=== PATIENT | female | born 1980 | race Caucasian/White ===

== ENCOUNTER 2021-10-07 17:51 | Observation (INO) | payer OTHER, SELFPAY ==
[2021-10-07] VITALS (10 sets, daily range): BP systolic 91–102; BP diastolic 52–74; PULSE 71–85; RESP 18; TEMP 36.8; O2SAT 94–100; BMI 27.4
--- NOTE | 2021-10-07 17:52 | CT_ITS ---
PROCEDURE INFORMATION: Exam: CT Head Without Contrast Exam date and time: 10/07/2021 5:55 PM Age: 41 years old Clinical indication: Weakness, extremity; Right; Additional info: Right sided weakness; HX of stroke TECHNIQUE: Imaging protocol: Computed tomography of the head without contrast. Radiation optimization: All CT scans at this facility use at least one of these dose optimization techniques: automated exposure control; mA and/or kV adjustment per patient size (includes targeted exams where dose is matched to clinical indication); or iterative reconstruction. Other technique: STROKE PROTOCOL was implemented. COMPARISON: No relevant prior studies available. FINDINGS: Brain: There is no evidence of infarct, orellana-white matter differentiation is preserved. There is no hemorrhage or extra-axial collection. There is no mass. Cerebral ventricles: There is no hydrocephalus. Paranasal sinuses: Visualized sinuses are unremarkable. No fluid levels. Mastoid air cells: Visualized mastoid air cells are well aerated. Bones/joints: There is a deformity of the right orbital floor which appears chronic. No acute fracture identified. Soft tissues: Unremarkable. IMPRESSION: No acute intracranial lesion or injury. ASSESSMENT: ASPECTS ([place] Stroke Program Early CT Score) is 10.
--- NOTE | 2021-10-07 17:53 | PC.NURSE ---
rad notified of Ct head order stroke protocol, spoke with juan carlos
--- NOTE | 2021-10-07 17:58 | PC.NURSE ---
pt to CT via stretcher
--- NOTE | 2021-10-07 18:19 | PC.NURSE ---
speaking with SACHIN
--- NOTE | 2021-10-07 18:22 | ECG_ITS ---
APPROVED REPORT Exam: Resting ECG HR:80 bpm ECG Measurements Heart Rate 80 AXES DC 184 P 46 QRSd 97 QRS 48 QT 416 T 0 QTc 453 Conclusion SINUS RHYTHM NONSPECIFIC T-WAVE ABNORMALITY BORDERLINE ECG UNCONFIRMED REPORT Electronically signed by : Jacob Gardner MD 10/08/2021 11:46:06
--- NOTE | 2021-10-07 18:22 | PC.NURSE ---
[facility] report negative head CT
[2021-10-07 18:45] LABS: Basophils # 0.1 K/mm3 (0-0.2); Basophils % 0.7 % (0.1-2.0); Eosinophils # 0.7 K/mm3 (0.0-0.4); Eosinophils % 4.8 % (0.1-12.0); Hematocrit 37.4 % (37.0-47.0); Hemoglobin 12.6 g/dL (12.2-16.2); Lymphocytes % 13.4 % (10-50); Mean Corpuscular HGB Conc 33.7 g/dL (31.8-35.4); Mean Corpuscular Hemoglobin 32.5 pg (27.0-31.2); Mean Corpuscular Volume 96.3 fl (81-99); Mean Platelet Volume 8.1 fl (7.4-10.4); Monocytes # 0.6 K/mm3 (0.1-1.0); Monocytes % 4.2 % (1.7-9.3); Neutrophils # 11.3 K/mm3 (1.8-7.8); Neutrophils % 76.9 % (37.0-80.0); Platelet Count 361 K/mm3 (142-424); Red Blood Count 3.89 M/mm3 (4.20-5.40); Red Cell Distribution Width 12.9 % (11.5-17.5); White Blood Count 14.6 K/mm3 (4.8-10.8)
[2021-10-07 19:02] LABS: Chloride 106 mmol/L (98-107); Sodium 138 mmol/L (136-145)
[2021-10-07 19:03] LABS: Potassium 3.3 mmoL/L (3.5-5.1)
[2021-10-07 19:05] LABS: Alanine Aminotransferase 90 U/L (12-78); Albumin Level 4.1 g/dl (3.5-5.0); Alkaline Phosphatase 74 U/L (38-126); Anion Gap 13.3 mEq/L (5-15); Aspartate Amino Transferase 60 U/L (14-36); Bilirubin,Indirect 0.3 mg/dL (0.0-0.9); Bilirubin,Total 0.3 mg/dl (0.2-1.3); Bilirubin,Unconjugated 0.3 mg/dL (0.0-1.1); Blood Urea Nitrogen 20 mg/dl (7-17); Calcium 9.7 mg/dl (8.4-10.2); Carbon Dioxide 22 mmol/L (22.0-30.0); Creatinine Clearance Estimated 59 mL/min (50-200); Estimated Glomerular Filt Rate 42 ml/min (>60); GFR (African American) 50 ML/MIN (>60); Glucose 89 mg/dl (74-100); Total Protein,Serum 6.6 g/dl (6.3-8.2)
[2021-10-07 19:14] LABS: INR 0.91 (0.9-1.1); Prothrombin Time 10.4 seconds (10.1-12.5)
[2021-10-07 20:43] LABS: Microscopic, Urine URINE MICROSCOPIC (MICROSCOPIC)
[2021-10-07 21:03] LABS: Appearance,Urine CLEAR (Clear); Bilirubin,Urine Negative (Negative); Blood, Urine TRACE-I (Negative); Color,Urine YELLOW (Yellow); Glucose,Urine (UA) Negative (Negative); Ketones,Urine Negative (Negative); Leukocyte Esterase,Urine 1+ (Negative); Nitrate,Urine Negative (Negative); Protein,Urine Negative (Negative); Urobilinogen,Urine 0.2 EU/dl (0.2)
[2021-10-07 21:10] LABS: HCG Qualitative, Serum Negative (Negative)
[2021-10-07 21:12] LABS: Magnesium 1.5 mg/dl (1.6-2.3)
[2021-10-07 21:14] LABS: Benzodiazepines Screen,Urine Negative ng/ml (<200)
[2021-10-07 21:15] LABS: Amphetamine/Metha Screen,Urine Negative ng/ml (<1000)
[2021-10-07 21:16] LABS: Barbiturates Screen,Urine Negative ng/ml (<200); Cannabinoid Screen,Urine Negative ng/ml (<50)
[2021-10-07 21:17] LABS: Cocaine Screen,Urine Negative ng/ml (<300)
[2021-10-07 21:18] LABS: Methadone Screen,Urine Negative ng/ml (<300); Opiate Screen,Urine Negative ng/ml (<300)
[2021-10-07 21:19] LABS: Phencyclidine Screen,Urine Negative ng/ml (<25)
[2021-10-07 21:30] LABS: T4 (Thyroxine) 10.2 ug/dl (5.53-11.0)
[2021-10-07 21:30] LABS: Bacteria,Urine 1+ /lpf; RBC,Urine Occasional #/hpf (0-3); WBC,Urine Occasional #/hpf (0-3)
[2021-10-07 21:43] LABS: Thyroid Stimulating Hormone 1.78 uIU/mL (0.465-4.68)
--- NOTE | 2021-10-07 21:57 | HMH.EDGENADL ---
ED Disposition Clinical Impression: Altered mental status Qualifiers: Altered mental status type: disorientation Qualified Code(s): R41.0 - Disorientation, unspecified Sepsis Qualifiers: Sepsis type: sepsis due to unspecified organism Sepsis acute organ dysfunction status: with acute organ dysfunction Severe sepsis acute organ dysfunction type: encephalopathy Severe sepsis shock status: without septic shock Qualified Code(s): A41.9 - Sepsis, unspecified organism; R65.20 - Severe sepsis without septic shock; G93.40 - Encephalopathy, unspecified Clinical Impression: (Ruled Out): Urinary tract infection affecting care of mother in first trimester, antepartum Disposition: Admitted As Inpatient Condition on Discharge: Undetermined Referrals: Provider,Referral, MD [Primary Care Provider] - - Critical Care Critical Care Time: Yes Attestation: On 10/07/21, the high probability of a clinically significant, sudden or life threatening deterioration of the following system(s) required my full and direct attention, intervention and personal management. The time I documented below is in addition to time spent performing reported procedures but includes the following listed in this critical care notation. Total Critical Care Time: 30 Vital system(s) involved:: Central Nervous System My critical care processes included: Assessment & monitoring of V/S, Initial and Re-exams, Data Review/Interpretation, Coordinating Care, Medication Orders and management, Documentation Medical Decision Making - Medical Records Medical records reviewed: Yes: I reviewed the patient's medical records. - Александр Inquiry Pt receiving controlled substance: No Vital Signs: 10/07/21 17:52 10/07/21 19:00 10/07/21 20:05 Temperature 98.2 F Temperature Source Oral Pulse Rate 78 Pulse Rate [Right Radial] 85 Respiratory Rate 18 Blood Pressure 95/70 L 99/65 L Blood Pressure [Right Arm] 99/74 L Blood Pressure Mean 75 Blood Pressure Mean [Right Arm] 82 Blood Pressure Source [Right Arm] Automatic Cuff Blood Pressure Position [Right Arm] Sitting 02 Sat by Pulse Oximetry 100 95 97 Oxygen Delivery Method Room Air Room Air Room Air 10/07/21 20:16 10/07/21 20:31 10/07/21 21:00 Temperature Temperature Source Pulse Rate 83 75 80 Pulse Rate [Right Radial] Respiratory Rate Blood Pressure 97/67 L 102/70 L Blood Pressure [Right Arm] Blood Pressure Mean 77 80 Blood Pressure Mean [Right Arm] Blood Pressure Source [Right Arm] Blood Pressure Position [Right Arm] 02 Sat by Pulse Oximetry 100 95 98 Oxygen Delivery Method Room Air Room Air Room Air 10/07/21 21:30 10/07/21 22:00 10/07/21 22:45 Temperature Temperature Source Pulse Rate 78 76 71 Pulse Rate [Right Radial] Respiratory Rate Blood Pressure 92/58 L 91/52 L 96/55 L Blood Pressure [Right Arm] Blood Pressure Mean 72 65 Blood Pressure Mean [Right Arm] Blood Pressure Source [Right Arm] Blood Pressure Position [Right Arm] 02 Sat by Pulse Oximetry 94 L 95 95 Oxygen Delivery Method Room Air Room Air Room Air 10/07/21 23:00 Temperature Temperature Source Pulse Rate Pulse Rate [Right Radial] Respiratory Rate Blood Pressure 96/61 L Blood Pressure [Right Arm] Blood Pressure Mean 72 Blood Pressure Mean [Right Arm] Blood Pressure Source [Right Arm] Blood Pressure Position [Right Arm] 02 Sat by Pulse Oximetry 96 Oxygen Delivery Method Room Air - Lab Data Lab results reviewed: Yes: I reviewed the patient's lab results. Lab Results 10/07/21 18:29: WBC 14.6 H, RBC 3.89 L, Hgb 12.6, Hct 37.4, MCV 96.3, MCH 32.5 H, MCHC 33.7, RDW 12.9, Plt Count 361, MPV 8.1, Neut % (Auto) 76.9, Lymph % (Auto) 13.4, [place] % (Auto) 4.2, Eos % (Auto) 4.8, Baso % (Auto) 0.7, Neut # (Auto) 11.3 H, Lymph # (Auto) 2.0, [place] # (Auto) 0.6, Eos # (Auto) 0.7 H, Baso # (Auto) 0.1 10/07/21 18:29: PT 10.4, INR 0.91 10/07/21 18:29: Sodium 138, Potassium 3.
[2021-10-07 22:00] LABS: Lactic Acid 2.1 mmol/L (0.7-2.1)
--- NOTE | 2021-10-07 22:06 | XR_ITS ---
PROCEDURE INFORMATION: Exam: XR Chest Exam date and time: 10/07/2021 10:12 PM Age: 41 years old Clinical indication: Other: AMS; Additional info: AMS, assess for underlying infection TECHNIQUE: Imaging protocol: XR of the chest. Views: 1 view. COMPARISON: No relevant prior studies available. FINDINGS: Lungs: Unremarkable. No consolidation. Pleural spaces: Unremarkable. No pleural effusion. No pneumothorax. Heart/Mediastinum: There is a cardiac loop recorder present. Bones/joints: Unremarkable. IMPRESSION: No acute findings
[2021-10-07 22:09] LABS: Coronavirus 19, PCR Not Detected (NotDetected); Influenza A, PCR Not Detected (NotDetected); Influenza B, PCR Not Detected (NotDetected)
--- NOTE | 2021-10-07 23:18 | PC.NURSE ---
MD Duran s/w Dr. Ramirez
[2021-10-08 01:07] LABS: Reflex Lactic Add Lactic Reflex
[2021-10-08 01:15] LABS: Lactic Acid Follow Up (RFLX 1) 0.7 mmol/L (0.7-2.1)
--- NOTE | 2021-10-08 01:19 | PC.NURSE ---
pt used bed alarcon to toilet
[2021-10-08 02:47] VITALS: BMI 28.4
--- NOTE | 2021-10-08 02:59 | PC.NURSE ---
Patient is slow to respond to questions when asked. She is alert and oriented x2, knowing her name and . Patient significant other at bedside.
[2021-10-08 03:16] VITALS: O2SAT 97
[2021-10-08 03:26] VITALS: BP 97/63; PULSE 79; RESP 14; TEMP 36.8; O2SAT 97
[2021-10-08 04:16] VITALS: BP 97/63; PULSE 85; RESP 18; TEMP 36.9; O2SAT 97
[2021-10-08 05:56] LABS: Basophils # 0.1 K/mm3 (0-0.2); Basophils % 0.9 % (0.1-2.0); Eosinophils # 0.6 K/mm3 (0.0-0.4); Eosinophils % 5.6 % (0.1-12.0); Hematocrit 34.6 % (37.0-47.0); Hemoglobin 11.6 g/dL (12.2-16.2); Lymphocytes % 18.1 % (10-50); Mean Corpuscular HGB Conc 33.4 g/dL (31.8-35.4); Mean Corpuscular Hemoglobin 31.9 pg (27.0-31.2); Mean Corpuscular Volume 95.4 fl (81-99); Mean Platelet Volume 8.4 fl (7.4-10.4); Monocytes # 0.6 K/mm3 (0.1-1.0); Monocytes % 4.9 % (1.7-9.3); Neutrophils # 7.9 K/mm3 (1.8-7.8); Neutrophils % 70.5 % (37.0-80.0); Platelet Count 334 K/mm3 (142-424); Red Blood Count 3.62 M/mm3 (4.20-5.40); Red Cell Distribution Width 12.7 % (11.5-17.5); White Blood Count 11.3 K/mm3 (4.8-10.8)
[2021-10-08 06:01] LABS: Chloride 112 mmol/L (98-107)
[2021-10-08 06:02] LABS: Potassium 3.7 mmoL/L (3.5-5.1); Sodium 137 mmol/L (136-145)
[2021-10-08 06:04] LABS: Alanine Aminotransferase 74 U/L (12-78); Albumin Level 3.3 g/dl (3.5-5.0); Albumin/Globulin Ratio 1.4 (1.1-1.8); Alkaline Phosphatase 70 U/L (38-126); Anion Gap 7.7 mEq/L (5-15); Aspartate Amino Transferase 54 U/L (14-36); Bilirubin,Total 0.4 mg/dl (0.2-1.3); Blood Urea Nitrogen 16 mg/dl (7-17); Calcium 8.6 mg/dl (8.4-10.2); Carbon Dioxide 21 mmol/L (22.0-30.0); Creatinine Clearance Estimated 95 mL/min (50-200); Estimated Glomerular Filt Rate 69 ml/min (>60); GFR (African American) 84 ML/MIN (>60); Globulin 2.4 g/dL (1.3-3.2); Glucose 86 mg/dl (74-100); Total Protein,Serum 5.7 g/dl (6.3-8.2)
--- NOTE | 2021-10-08 07:52 | HMH.PHAVTE ---
[facility] Pharmacy VTE Monitoring - Patient Demographics Admission date: 10/08/21 Report Date: 10/08/21 Time: 07:52 Allergies/Adverse Reactions: Patient Allergies topiramate [From Topamax] Allergy (Verified 10/07/21 17:57) Height: 1.6 m Weight: 72.745 kg Patient Problems: Current Active Problems Altered mental status (Acute) Sepsis (Acute) - VTE Risk Labs: VTE Related Lab Results Hgb 11.6 g/dL (12.2-16.2) L 10/08/21 05:42 Hct 34.6 % (37.0-47.0) L 10/08/21 05:42 Plt Count 334 K/mm3 (142-424) 10/08/21 05:42 PT 10.4 seconds (10.1-12.5) 10/07/21 18:29 INR 0.91 (0.9-1.1) 10/07/21 18:29 BUN 16 mg/dl (7-17) 10/08/21 05:42 Creatinine 0.90 mg/dl (0.52-1.04) D 10/08/21 05:42 Estimated Creat Clear 95 mL/min (50-200) 10/08/21 05:42 VTE Risk Level: Low Risk Clinical Trial Participant: No - Prophylaxis VTE Prophylaxis Ordered?: Yes Types of VTE Prophylaxis: TEDS Knee High
[2021-10-08 08:00] VITALS: BP 106/76; PULSE 85; RESP 15; TEMP 36.4; O2SAT 96; O2SAT 97
--- NOTE | 2021-10-08 10:06 | HMH.HP ---
*Admission Date: 10/08/21 *Chief complaint: AMS *History of present illness: Breana is a 41yo female with a past medical history of CVA with residual right-sided weakness requiring cane for ambulation, anxiety, depression and tremors is presenting for chief complaint of change in mental status for 1 day. Per girlfriend at bedside, patient was in her normal state of health yesterday. She has not had a fever at home, upper respiratory symptoms, not complaining of chest pain or shortness of breath and has not been vomiting or noted to have any diarrhea. Patient is trembling but is alert and is able to state her name. Her tremor is distractible and improves when asked to perform tasks such as raising her hand and asked to answer questions. Patient is unable to provide a history herself and intermittently does not follow commands but I suspect that lack of following commands may also be effort related. Breana is a 41-year-old female with a history significant for prior CVA, significant psychiatric history on lithium and tremors is presenting for chief complaint of altered mental status. On initial exam, patient is hemodynamically stable and nontoxic-appearing. She is able to state her name but does not participate in exam and is not able to give a meaningful history. Differential diagnosis includes, but is not limited to, underlying infection, electrolyte abnormality, medication side effect, lithium overdose, illicit drug use, psychiatric cause. She was evaluated with CBC, BMP, liver panel, lactic acid, magnesium, TSH/T4, test, lithium level and COVID-19 screen. Lab work is significant for mild hypokalemia and hypomagnesemia. Potassium was replaced p.o. and patient was given IV replacement of magnesium. Additionally, patient has leukocytosis w/WBC of 14.6 and lactic acid greater than 2. UA is suspicious for infection given it was a cath specimen, +leukesterase and bacteria. She was given IV ceftriaxone and assessed with BCx. [place] toxicity is still a consideration, as is polypharmacy. Admitted for inpatient management. (Above as per ER physician) Patient is a resident of [facility] and is only here visiting. All of her physicians are in [place]. This morning she can relay some history but is still very confused. She does remember some of her medical conditions and some of her medications. [facility] History I have reviewed the patient's past medical history: Yes Medical History: Reports:: Anxiety, Cerebrovascular Accident, Depression, Diabetes Mellitus Type 2, Hyperlipidemia, Hypertension Denies:: Cancer, Diabetes Mellitus Type 1, MRSA *Have you ever received a pneumonia vaccine?: Yes *Have you received a flu vaccine this season?: No Other Medical History: Reports: Hypothyroidism, Thyroid Disease, Other (Bipolar disorder, insomnia) Other Surgeries: Yes: No Previous Surgery Amputation: No Fractures: No - *Social History Smoking Status: Current every day smoker Alcohol Intake: never *Occupational Status:: unemployed Household Members: significant other *Travel in the last 8 weeks: None Family Hx:: Unable to obtain Review of Systems - Constitutional Denies fever(s) - Eyes Denies blurry vision, Denies double vision - ENT Denies nasal congestion, Denies sore throat - *Cardiovascular Denies chest pain, Denies shortness of breath - *Respiratory Denies cough, Denies shortness of breath - *Gastrointestinal Denies abdominal pain, Denies loose stools, Denies nausea, Denies vomiting - *Genitourinary Denies difficulty urinating, Denies painful urination - *Musculoskeletal Denies joint pain - *Neurologic Reports abnormal speech, Reports confusion, Reports dizziness, Reports weakness Meds Home Medications Medication Instructions Recorded Confirmed Type Ascorbic Acid/Vitamin E/Biotin 1 each PO DAILY 10/07/21 10/07/21 History [Hair Skin Nails-Biotin Gummies] Aspirin [Aspirin 81mg chewable 81 mg PO TERENCE
--- NOTE | 2021-10-08 11:32 | HMH.PHAINT ---
home medication list verified using pt bottles and list from Manuel in [place]
[2021-10-08 11:51] LABS: POC Glucose,Bedside 123 (70-110)
--- NOTE | 2021-10-08 12:19 | CA_ITS ---
APPROVED REPORT EXAM: Comprehensive 2D, Doppler, and color-flow Echocardiogram Dairy Hand: Parul Kc, RCS, RVS Ht: 5 ft 2 in Wt: 160lbs BSA: 1.74 BP: 000/00 mmHg Indications: AMS, loop recorder, murmurs, hx-CVA, Bipolar anxiety Echo Enhancing Agent Comments: Pt movement due to tremors/convulsions? 2D Dimensions Aortic Root 3.13 cm LA Volume 55.80 mL Left Atrium 3.98 cm LA Volume Index 32.530089 mL/m2 (M/F) 16-34 LVOT 2.00 cm (M/F) 1.5-2.5 M-Mode Dimensions RVDd 2.47 cm (0.9-2.6) LA Diam 3.93 cm (1.9-4.0) LVDd 4.94 cm (3.5-5.7) Ao Diam 2.96 cm (2.0-3.7) LVDs 3.11 cm (3.5-5.7) IVSd 0.97 cm (0.6-1.1) PWd 0.89 cm (0.6-1.1) EF (Teich) 66.80% EPSs 0.61 cm FS 37.00% EDV (Teich) 115.00 mL TAPSE 2.58 (<1.7) ESV (Teich) 38.20 mL LV Diastology E Decel Time 203.00 (160-240 msec) E/A Ratio 1.10 MED E' 8.70 (< 7 cm/sec) MED A' 10.80 cm/s E'/MED E' Ratio 9.47 (>14) LAT E' 9.40 (<10 cm/sec) LAT A' 11.80 cm/s E/LAT E' Ratio 8.77 (>14) Aortic Valve LVOT Max 86.00 (70-110 cm/s) LVOT VTI 17.14 cm AoV Peak Jesus Alberto. 159.00 (50-130 cm/s) AI PHT 357.00 ms AO Peak GR. 10.10 mmHg AO Mean GR. 5.00 (<5 mmHg) AO VTI 31.61 (18-25 cm) KURT (VTI) 1.70 (2.5-4.5 cm2) Mitral Valve MV A Velocity 75.00 (40-130 cm/s) E/A Ratio 1.10 MV Decel. Time 203.00 (160-240 ms) MV Mean Gr. 2.70 (<2mmHg) MV PHT 60.00 ms Pulmonary Valve PV Peak Velocity 97.00 (50-150 cm/s) Tricuspid Valve TR P. Velocity 226.00 cm/s RAP Estimate 10.00 mmHg RVSP 30.40 mmHg Left Ventricle Left atrium is normal size, left ventricle is normal size, there is no concentric left ventricular hypertrophy, estimated ejection fraction 55% with no regional wall motion abnormality, diastolic parameters are within normal range. Right Ventricle Right atrium is normal size, right ventricle is qualitatively mildly enlarged with normal contractility. Aortic Valve Aortic valve is minimally thickened and fibrosed. Leaflets are not well visualized, there is no aortic stenosis, there is mild aortic insufficiency. Mitral Valve Mitral valve grossly normal, there is trace mitral regurgitation. Tricuspid Valve Tricuspid valve grossly normal, there is trace tricuspid regurgitation, calculated right ventricular systolic pressure 30 mmHg. Pulmonic Valve Pulmonic valve is poorly visualized. Great Vessels Aortic root is normal size. Inferior vena cava is poorly visualized. Pericardium No significant pericardial effusion noted. Conclusion 1. Normal left ventricular size, preserved left ventricular systolic function, visually estimated ejection fraction 55% with no regional wall motion abnormality, diastolic parameters are within normal range. 2. Minimally thickened and fibrosed aortic valve leaflets are not well visualized, there is no aortic stenosis, there is mild aortic insufficiency. 3. Trace mitral and tricuspid regurgitation, calculated right ventricular systolic pressure 30 mmHg. 4. No significant pericardial effusion noted. 5. Inferior vena cava is poorly visualized. Electronically signed by : Ulises Brandt MD 10/09/2021 09:05:39
--- NOTE | 2021-10-08 13:30 | HMH.CNCARD ---
History of Present Illness Consult date: 10/08/21 Requesting physician: Lance Ramirez Chief complaint: altered mental status History of present illness: This is a 41-year-old white female who presented to the emergency department complaints of mental status change for approximately 1 day. Her girlfriend reports that she was in her normal state of health with no complaints and then she started to have a tremor and was very slow to respond and was having difficulty answering questions. The patient was having significant confusion so the girlfriend brought her into the emergency department. The patient states that she remembers having the tremor and feeling like she was trembling and she knew she was confused. Today she is able to answer my questions appropriately and she is able to follow commands. She is very slow to answer questions and her speech is also very slow but otherwise she answers appropriately. She denies any chest pain or pressure. She denies any shortness of breath or edema. She denies any fever, chills, nausea, vomiting, diarrhea, PND or orthopnea. The patient and her girlfriend deny any syncope. The patient does have a loop recorder in place for cryptogenic stroke. She states that she had her stroke almost 2 years ago and has had a loop recorder in place since that time. She denies a history of coronary artery disease. She does have bipolar disorder and takes several different psychiatric medications. Of note, she is a resident of [facility] who is here visiting. [facility] History I have reviewed the patient's past medical history: Yes Medical History: Reports:: Anxiety, Cerebrovascular Accident, Depression, Diabetes Mellitus Type 2, Hyperlipidemia, Hypertension Denies:: Cancer, Diabetes Mellitus Type 1, MRSA *Have you ever received a pneumonia vaccine?: Yes *Have you received a flu vaccine this season?: No Other Medical History: Reports: Hypothyroidism, Thyroid Disease, Other (Bipolar disorder, insomnia) Other Surgeries: Yes: No Previous Surgery Amputation: No Fractures: No - *Social History Smoking Status: Current every day smoker Alcohol Intake: never *Occupational Status:: unemployed Household Members: significant other *Travel in the last 8 weeks: None - Psychiatric History Pschychiatric History:: Reports:: Anxiety, Depression Family Hx:: Unable to obtain Meds Home Medications Medication Instructions Recorded Confirmed Type Ascorbic Acid/Vitamin E/Biotin 1 tab PO DAILY 10/07/21 10/08/21 History [Hair Skin Nails-Biotin Gummies] Aspirin [Aspirin 81mg chewable 81 mg PO DAILY 10/07/21 10/07/21 History tab] Atorvastatin Calcium [Lipitor 80mg 80 mg PO HS 10/07/21 10/07/21 History Tablet*] Baclofen 20 mg PO TID 10/07/21 10/07/21 History Buspirone HCl [Buspar 5mg tablet] 5 mg PO TID 10/07/21 10/07/21 History Cholecalciferol (Vitamin D3) 50,000 unit PO WEEKLY 10/07/21 10/07/21 History [Vitamin D3 50,000 unit Cap] Fluoxetine HCl 60 mg PO DAILY 10/07/21 10/07/21 History Gabapentin [Gabapentin 400mg Cap] 400 mg PO DIRECTED 10/07/21 10/07/21 History Levothyroxine Sodium 75 mcg PO DAILY 10/07/21 10/07/21 History [Levothyroxine 75mcg (0.075mg) Tab] [place] Carbonate 300 mg PO BID 10/07/21 10/07/21 History Losartan Potassium [Cozaar 100mg 100 mg PO DAILY 10/07/21 10/07/21 History Tablets] Metformin HCl [Metformin 1000mg 1,000 mg PO BID 10/07/21 10/07/21 History Tablets] Quetiapine Fumarate [Seroquel 200 mg PO HS 10/07/21 10/07/21 History 100mg tablet] Trazodone HCl 1 - 2 tab PO HSP PRN 10/07/21 10/08/21 History buPROPion HCL [Bupropion HCl Sr] 200 mg PO DAILY 10/07/21 10/07/21 History hydroCHLOROthiazide [HCTZ 25mg 25 mg PO DAILY 10/07/21 10/07/21 History tab] Allergies Allergy/AdvReac Type Severity Reaction Status Date / Time topiramate [From Topcodyx] Allergy Verified 10/07/21 17:57 Exam Vital signs and Labs for Last 24 Hours: Temp Pul
[2021-10-08 14:13] LABS: Troponin I < 0.01 ng/ml (0.00-0.034)
[2021-10-08 16:00] VITALS: BP 111/74; PULSE 80; RESP 16; TEMP 36.6; O2SAT 98
--- NOTE | 2021-10-08 18:49 | PC.NURSE ---
Called Dr. Ramirez about patient requesting medications she takes at home, he stated that he had already ordered the meds wanted and denied further orders at this time. Patient verbalized wanting to go home, MD aware, educated patient on not taking home medications that the significant other had at the time. Vital signs stable, call light in place and working properly.
--- NOTE | 2021-10-08 19:08 | PC.NURSE ---
t had emesis x 1, states she feels better post emesis. Called and spoke with Dr. Neal for zofran order. 4MG IV zofran given @ 1905
[2021-10-08 20:00] VITALS: BP 115/83; PULSE 82; RESP 18; TEMP 36.7; O2SAT 99
[2021-10-09 04:00] VITALS: BP 130/89; PULSE 87; RESP 17; TEMP 36.8; O2SAT 100
--- NOTE | 2021-10-09 05:57 | PC.NURSE ---
Pt has rested intermittently t/o shift. Pt has voiced no c/o of N/V or pain thus far in shift. Pt was able to state name, , place and year. Pt also remained orientated t/o shift.
[2021-10-09 08:00] VITALS: BP 129/92; PULSE 87; RESP 18; TEMP 36.7; O2SAT 100
[2021-10-09 08:42] LABS: Lithium (Eskalith(R)) 1.4 mmol/L (0.5-1.2)
--- NOTE | 2021-10-09 10:24 | HMH.ACPN2 ---
Internal Medicine - PN: Subj *Date: 10/09/21 *Time: 10:24 Interval history: The patient states she is feeling much better today. Her legs are still weak but she is able to move about her room. She denies any pain today and her speech is much better. She states she did not rest at all last night. She usually takes Seroquel and trazodone to sleep and did not get those last night. Exam Vital signs and Labs for Last 24 Hours: Temp Pulse Resp BP Pulse Ox 98.0 F 87 18 129/92 H 100 10/09/21 08:00 10/09/21 08:00 10/09/21 08:00 10/09/21 08:00 10/09/21 08:00 Laboratory Results - last 24 hr 10/07/21 21:11: [place] 1.4 H 10/08/21 05:42: Hemoglobin A1c 5.0 10/08/21 11:44: POC Glucose 123 H 10/08/21 12:34: Troponin I < 0.01 I & O for Last 24 hours: Intake & Output 10/06/21 10/07/21 10/08/21 10/09/21 11:59 11:59 11:59 11:59 Intake Total 636 / 636 3259 / 3259 Output Total 1050 / 1050 2900 / 2900 Balance -414 / -414 359 / 359 Weight 160 lb 6 oz Microbiology Reports for the Last 24 Hours: Microbiology 10/07/21 20:20 Urine,Clean Catch Urine Culture - Preliminary NO GROWTH AFTER 24 HOURS - Constitutional no acute distress - *Routine Respiratory Exam Present: CTA bilaterally - *Routine Cardiovascular Exam Present: RRR - *Routine Abdominal Exam Present: soft, normoactive bowel sounds. Absent: tenderness - *Routine Extremities Exam Absent: cyanosis, clubbing, edema - *Routine Skin Exam Present: warm. Absent: rash - *Routine Neurological Exam Present: alert, oriented X3, normal speech Assessment and Plan (1) Altered mental status Status: Acute Qualifiers: Altered mental status type: disorientation Qualified Code(s): R41.0 - Disorientation, unspecified Category: Medical Code(s): R41.82 - Altered mental status, unspecified (2) Renal insufficiency Status: Acute Category: Medical Code(s): N28.9 - Disorder of kidney and ureter, unspecified (3) Hypomagnesemia Status: Acute Category: Medical Code(s): E83.42 - Hypomagnesemia (4) Liver function test abnormality Status: Acute Category: Medical Code(s): R79.89 - Other specified abnormal findings of blood chemistry (5) Hypokalemia Status: Acute Category: Medical Code(s): E87.6 - Hypokalemia (6) Leukocytosis Status: Acute Category: Medical Code(s): D72.829 - Elevated white blood cell count, unspecified (7) Bipolar disorder Status: Chronic Category: Medical Code(s): F31.9 - Bipolar disorder, unspecified (8) Anxiety Status: Chronic Category: Medical Code(s): F41.9 - Anxiety disorder, unspecified (9) Hypertension Status: Chronic Category: Medical Code(s): I10 - Essential (primary) hypertension (10) Hyperlipidemia Status: Chronic Category: Medical Code(s): E78.5 - Hyperlipidemia, unspecified (11) History of CVA (cerebrovascular accident) Status: Chronic Category: Medical Code(s): Z86.73 - Personal history of transient ischemic attack (TIA), and cerebral infarction without residual deficits (12) Type 2 diabetes mellitus Status: Chronic Category: Medical Code(s): E11.9 - Type 2 diabetes mellitus without complications (13) Status post placement of implantable loop recorder Status: Acute Category: Medical Code(s): Z95.818 - Presence of other cardiac implants and grafts - Assessment and plan all Dx Assessment and Plan for all problems:: Her lithium level was checked and was elevated. She was seen in consultation by cardiology and her [employer] loop recorder was interrogated showing no events. Her echo showed a normal EF. Cardiology had no further recommendations. The patient would like to be discharged home today. Will discuss with Dr. Ramirez.
--- NOTE | 2021-10-13 13:41 | HMH.DCSUM ---
General - General Admission date:: 10/08/21 Discharge date: 10/09/21 HPI HPI: Breana is a 41yo female with a past medical history of CVA with residual right-sided weakness requiring cane for ambulation, anxiety, depression and tremors is presenting for chief complaint of change in mental status for 1 day. Per girlfriend at bedside, patient was in her normal state of health yesterday. She has not had a fever at home, upper respiratory symptoms, not complaining of chest pain or shortness of breath and has not been vomiting or noted to have any diarrhea. Patient is trembling but is alert and is able to state her name. Her tremor is distractible and improves when asked to perform tasks such as raising her hand and asked to answer questions. Patient is unable to provide a history herself and intermittently does not follow commands but I suspect that lack of following commands may also be effort related. Breana is a 41-year-old female with a history significant for prior CVA, significant psychiatric history on lithium and tremors is presenting for chief complaint of altered mental status. On initial exam, patient is hemodynamically stable and nontoxic-appearing. She is able to state her name but does not participate in exam and is not able to give a meaningful history. Differential diagnosis includes, but is not limited to, underlying infection, electrolyte abnormality, medication side effect, lithium overdose, illicit drug use, psychiatric cause. She was evaluated with CBC, BMP, liver panel, lactic acid, magnesium, TSH/T4, test, lithium level and COVID-19 screen. Lab work is significant for mild hypokalemia and hypomagnesemia. Potassium was replaced p.o. and patient was given IV replacement of magnesium. Additionally, patient has leukocytosis w/WBC of 14.6 and lactic acid greater than 2. UA is suspicious for infection given it was a cath specimen, +leukesterase and bacteria. She was given IV ceftriaxone and assessed with BCx. Wilhoit toxicity is still a consideration, as is polypharmacy. Admitted for inpatient management. (Above as per ER physician) Patient is a resident of [facility] and is only here visiting. All of her physicians are in [place]. This morning she can relay some history but is still very confused. She does remember some of her medical conditions and some of her medications. Hospital Course Hospital Course: The patient seemed to be improving the morning after admission. Her head CT was negative for stroke. Her potassium normalized and her white blood cell count decreased with antibiotics. Her renal function normalized and her LFTs improved. She had a loop recorder in place due to her past stroke and other near syncopal episodes. She was on multiple psychiatric medications. Dr. Ramirez ordered only her levothyroxine, aspirin, and BuSpar initially as he was concerned about her medications causing altered mental status. Blood pressure was not elevated, therefore HCTZ and losartan were held. Her glucose was not elevated, so metformin was held as well. The patient had an echo showing an EF of 55%. There were minimally thickened and fibrosed aortic valve leaflets, but no aortic stenosis. She had a right ventricular systolic pressure of 30 mmHg. She was seen in consultation by cardiology and her Sidecar.metronic loop recorder was interrogated. There were no events and her battery life was still good. They had no further recommendations from a cardiac standpoint and felt she could follow-up with her pin setter in [place] once discharged. By 10/10/2021, she was feeling much better. Her legs were still weak, but she was able to move about her room. Her speech had improved and she denied any pain. She wanted to go home and was stable to be discharged. Objective Vital signs: Temp Pulse Resp BP Pulse Ox 98.0 F 87 18 129/92 H 100 10/09/21 08:00 10/09/21 08:00 10/09/21 08:00 10/09/21
== END 2021-10-09 13:40 | disposition home or self-care (01) ==
LOC: ER 23:27 → ICU 10-08 03:23 → 2ND 10-08 04:23
PROVIDERS: Emergency Medicine; Nurse Practitioner Family; Admitting Provider Family Medicine; Emergency Provider Emergency Medicine; Visit Provider Family Medicine
DX: R41.82 Altered mental status, unspecified (principal); Z20.822 Contact with and (suspected) exposure to COVID-19; E11.9 Type 2 diabetes mellitus without complications; I10 Essential (primary) hypertension; E03.9 Hypothyroidism, unspecified; F31.9 Bipolar disorder, unspecified; F17.210 Nicotine dependence, cigarettes, uncomplicated; Z79.84 Long term (current) use of oral hypoglycemic drugs; Z79.899 Other long term (current) drug therapy; I69.351 Hemiplegia and hemiparesis following cerebral infarction affecting right dominant side
CPT/HCPCS: 36415; 70450; 71045; 80048; 80053; 80076; 80178; 80305; 81001; 82962; 83036; 83605; 83735; 84436; 84443; 84484; 84703; 85025; 85610; 87040; 87086; 93005; 93306; 96375; 99285; C9803; G0378; J0696; J2405; U0003; U0005

== ENCOUNTER → 2022-01-22 08:15 | Outpatient (CLI) | payer OTHER, SELFPAY ==
--- NOTE | 2022-01-22 08:16 | MR_ITS ---
FINAL REPORT CLINICAL HISTORY: right sided weakness. F/U STROKE 2 YEARS AGO. FINDINGS: Multiplanar MR imaging of the brain was performed without contrast. There are chronic left periventricular lacunar infarcts. There is no evidence of intracranial hemorrhage or mass. The ventricular size is normal. There is no evidence of shift of the midline structures. No abnormal extra-axial fluid collection is identified. The posterior fossa and brainstem have an unremarkable appearance. No area of abnormal restricted diffusion is identified. Normal major vessel vascular flow voids are seen. IMPRESSION: Unremarkable brain with no acute intracranial abnormality. Chronic changes. Reviewed, Interpreted and Dictated by Jim Tompkins III, MD Transcribed by Meghna Downs Authenticated and [facility]
== END ==
PROVIDERS: PCP Nurse Practitioner Family; Visit Provider Specialist
DX: M62.81 Muscle weakness (generalized) (principal); Z86.73 Personal history of transient ischemic attack (TIA), and cerebral infarction without residual deficits
CPT/HCPCS: 70551

== ENCOUNTER 2022-05-25 11:00 | Outpatient (RCR) | payer MEDICARE, OTHER, SELFPAY ==
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
--- NOTE | 2022-03-23 12:13 | HMH.RHREAS ---
Rehab Reassessment Rehab OP Re-assessment Start: 03/23/22 10:05 Freq: Status: Active Protocol: Document 03/23/22 10:05 SHARON (Rec: 03/23/22 12:12 SHARON [id number]) E-signed By Hannah Puga PT Rehab Re-assessment Subjective Subjective Pt reports she feels that she is 20% better since starting PT. Pt reports she feels that her balance is a little bit better but she continues to struggle with equal weightbearing on both sides stating she favors the left. Pt reports pain at worse as 8/ 10 within the last week. Objective Objective Notes TU with SC, 32 without AD RLE MMT: 4-/5 with noted cogwheeling Assessment Progress Assessment Slower Than Expected Assessment Notes Pt has attended 7 PT visits consisting of aerobic exercise , LE stretching/strengthening, gait training and balance/ proprioception with fair tolerance. Pt demonstraetd improved balance, TUG time, and improved RPE with endurance exercise this date. Pt continues to demonstrate fatigue with exercise and decreased balance. Pt would continue to benefit from skilled PT to further improve muscular strength and endurance, gait, and balance/ proprioception. Patient goals met ST/7 Goals Not Met LE strength Revised Goals n/a Plan Plan Continue POC Frequency of Therapy 2 Duration of therapy 4 Time and Billing Re-Eval Time 8 Re-Eval Billing Units 1 PHYSICIAN CERTIFICATION: I certify the specified therapy services for Breana Garcia are required, authorized, and reviewed every 30 days.
--- NOTE | 2022-04-22 13:43 | HMH.RHREAS ---
Rehab Reassessment Rehab OP Re-assessment Start: 03/23/22 10:05 Freq: Status: Active Protocol: Document 04/22/22 13:15 SHARON (Rec: 04/22/22 13:43 SHARON [id number]) E-signed By Hannah Puga PT Rehab Re-assessment Subjective Subjective Pt reports she feels 25-30% improved since starting PT. Pt reports she continues to get fatigued very easily which has worsened this week and goes to her doctor today regarding this. Pt reports she saw a doctor who ordered an AFO that she will receive in ~4 weeks. Pt reports she would like to walk without her cane and has been trying some at home but does have a fear of falling. Pt reports her right knee will buckle on her at random times . Pt reports she does not feel anymore confident in her balance or gait overall. Pt reports she also has fear of falling on stairs. Objective Objective Notes TU with SC, 37 with no AD, CGA LE MMT: hip flex 4+/5, knee ext 5/5, knee flex 4/5, R ankle DF 4/5, L ankle DF 5/5, hip add/abd 4/5 Balance: modified tandem EC on unstable surface 30 with sway, no LOB Assessment Progress Assessment Slower Than Expected Assessment Notes Pt has attended 13 PT visits consisting of aerobic exercise , LE stretching/strengthening, gait training and balance/ proprioception with fair tolerance. Pt demonstrated overall improved LE strength and balance this date. Pt continues to demonstate fatigue with light exercise although does report decreased RPE with aerobic exercise compared to last reassessment. Pt demosntrated same time on TUG with straight cane; however, wors
--- NOTE | 2022-05-25 12:21 | HMH.RHREAS ---
Rehab Reassessment Rehab OP Re-assessment Start: 03/23/22 10:05 Freq: Status: Active Protocol: Document 05/25/22 10:48 SHARON (Rec: 05/25/22 12:21 SHARON [id number]) E-signed By Hannah Puga PT Rehab Re-assessment Subjective Subjective Pt reports she received her AFO brace last Tuesday and was instructed to wear it a couple hours each day to get used to it for the first couple weeks. Pt reports she feels that she is walking better with it on and that it helps with her foot drop but she is still getting used to it. Pt reports she feels she has improved 40% since starting PT. Pt states she still has difficulty with balance and walking without her cane, denies falls. Pt reports she returns to Dr. Machado to address fatigue on June 07. Objective Objective Notes TUG with SC: 18 TUG without SC: 27 with CGA Stairs: reciprocal pattern with 1 HR, slow dudley due to report of inability to feel toes on right foot to assist with push-off RLE MMT: 4+/5 grossly Assessment Progress Assessment Progressing as Expected Assessment Notes Pt has attended 18 PT visits consisting of aerobic exercise , LE stretching/strengthening, gait training and balance/ proprioception with improved tolerance. Pt demonstrated improved gait mechanics and speed this date with new addition of AFO. Pt met most PT goals with remaining deficits such as gait speed likely due to overall fatigue. Pt was discharged to independent [facility] and encouraged to continue working on cardiovascular endurance, balance/proprioception and walking without cane during
== END 2022-05-25 11:05 | disposition home or self-care (01) ==
LOC: PT 11:00
PROVIDERS: PCP Nurse Practitioner Family; Visit Provider Specialist
DX: R26.9 Unspecified abnormalities of gait and mobility (principal)
CPT/HCPCS: 97010; 97014; 97110; 97112; 97163; 97164; 97530; 97535; G0283

== ENCOUNTER 2022-05-27 10:00 | Outpatient (RCR) | payer MEDICARE, OTHER, SELFPAY ==
--- NOTE | 2022-03-01 11:08 | HMH.OTOPEV ---
OT Inpatient Evaluation Rehab OT Outpatient Eval Start: 03/01/22 10:47 Freq: Status: Active Protocol: Document 03/01/22 10:47 RMKENIA (Rec: 03/01/22 11:08 [facility] SHAWLee [id number]) E-signed By Kevin Lisa, OT Outpatient Therapy Subjective History Subjective History Ptis a 42 year old female who reports to therapy for initial evaluation to right UE. Pt has a past history of a CVA affecting right side (2019). Pt explains following stroke, she did engage in both PT and OT for a year. Pt's biggest complaint at this time is continued weakness and fine motor deficits. She has difficulty holding small objects and usually drops objects with weight. Pt is right hand dominant. Pt's AROM as shoulder, elbow, wrist , and digits are all within normal limites. However, she does demonstrate with declined strength at all joints. Pt's right hand fine motor and embroidery assistant strength are also declined. Pt will continue to be seen twice a week in order to address these deficits. STG R hand embroidery assistant strength: 30 lbs LTG R hand embroidery assistant strength: 40 lbs 9 hole current results: Right hand: 45 secods Left hand: 35 seconds 9 hole STG R hand: 35 seconds 9 hold LTG R hand: 30 seconds Chief Complaint Pain,Stiff,Weakness,Decreased As400 Programmer Strength,Decreased Coordination Symptom Type Throb,Sharp,Numbness,Tingling Symptoms Relieved By Nothing Symptoms Aggravated By Physical Activity,Lifting Prior Functional Limitations None Current Functional Limitations Reaching,Lifting,Housework, Dressing,Driving,Sleeping, Recreation Activity Symptom Description Constant but Variable Level of pain today (0-10) 4 Pain scale - at its best (0-10) 2 Pain scale - at its worst (0-10) 10
--- NOTE | 2022-03-25 11:37 | HMH.RHREAS ---
Rehab Reassessment Rehab OP Re-assessment Start: 03/25/22 10:43 Freq: Status: Active Protocol: Document 03/25/22 10:44 RMARSHALL (Rec: 03/25/22 11:37 RMARSHALL [id number]) E-signed By Kevin Lisa OT Rehab Re-assessment Subjective Subjective I guess I'm doing okay. Objective Objective Notes Pt continues to be seen twice a week in order to address RUE strengthening, fine motor control, and clamp operator strengthening. Each session she completes AROM, AAROM, and strengthening exercises at right shoulder, elbow, wrist, and hand. Pt also completes fine motor activities to increase precision, coordination, and dexterity. Pt recieves PROM manual stretching to right shoulder, elbow, wrist, and digits in all planes at each joint. Assessment Progress Assessment Progressing as Expected Assessment Notes Pt is consistent about attending therapy sessions twice a week. Pt reports she feels the RUE is stronger than when she started. Pay Clerk strength remains the same. However, her fine motor precision/dexterity shows improvement based on 9 hole peg test. She still complains of her worst pain reaching a 10/10 at times, but she reports this is less frequent than prior to therapy. Current strength R shoulder: 3+,4-/5 R elbow: 4/5 R wrist: 3+, 4-/5 Current clamp operator strength R hand: 20 lbs Current 9 hole peg test: [address], 2, and 4 Goals Not Met See below Revised Goals ST LT-4 STG R hand clamp operator strength: 30 lbs LTG R hand clamp operator strength: 40 lb
--- NOTE | 2022-04-20 11:45 | HMH.RHREAS ---
Rehab Reassessment Rehab OP Re-assessment Start: 03/25/22 10:43 Freq: Status: Active Protocol: Document 04/20/22 10:43 RMARSHALL (Rec: 04/20/22 11:44 RMARSHALL [id number]) E-signed By Kevin Lisa OT Rehab Re-assessment Subjective Subjective Pain is a little better. Objective Objective Notes Pt continues to be seen twice a week in order to address RUE strengthening, fine motor control, and lens marker strengthening. Each session she completes AROM, AAROM, and strengthening exercises at right shoulder, elbow, wrist, and hand. Pt also completes fine motor activities to increase precision, coordination, and dexterity. Pt recieves PROM manual stretching to right shoulder, elbow, wrist, and digits in all planes at each joint. Assessment Progress Assessment Progressing as Expected Assessment Notes Pt is consistent about attending therapy sessions twice a week. Pt reports her pain at RUE today is a 4/10. She also explains within this past month her pain at RUE has improved and is only reaching 6-7/10 at worst (improvement) . She also shows a 5 lb improvement with her right hand lens marker strength. Pt's right elbow and wrist strength has improved. As well at the 9 hole peg test with right hand. Current strength R shoulder: 3+,4-/5 R elbow: 5/5 R wrist: 4-/5 Current lens marker strength R hand: 25 lbs Current 9 hole peg test: [address], 2, and 4 Goals Not Met See below Revised Goals ST LT-4 STG R hand lens marker strength: 30 lbs LTG R hand lens marker strength: 40
--- NOTE | 2022-05-18 11:37 | HMH.RHREAS ---
Rehab Reassessment Rehab OP Re-assessment Start: 03/25/22 10:43 Freq: Status: Active Protocol: Document 05/18/22 10:57 RMARSHALL (Rec: 05/18/22 11:34 RMARSHALL [id number]) E-signed By Kevin Lisa OT Rehab Re-assessment Subjective Subjective I think I'm slowly improving. Objective Objective Notes Pt continues to be seen twice a week in order to address RUE strengthening, fine motor control, and margarine churn operator strengthening. Each session she completes AROM, AAROM, and strengthening exercises at right shoulder, elbow, wrist, and hand. Pt also completes fine motor activities to increase precision, coordination, and dexterity. Pt recieves PROM manual stretching to right shoulder, elbow, wrist, and digits in all planes at each joint. Assessment Progress Assessment Slower Than Expected Assessment Notes Pt has not been seen for 12 days due to pt having a vacation for the holiday. Pt reports her pain at RUE today is a 5/10. She reports her worst pain has remained between 6-7/10 which is what it has been the month previously. Gifted Teacher strength remains the same in right hand . Overall RUE strength has improved since last re- assessment. R hand 9 hole peg test has improved by 2 seconds as well. Current strength R shoulder: 4-/5 R elbow: 5/5 R wrist: 4-/5 Current margarine churn operator strength R hand: 25 lbs Current 9 hole peg test: 34 seconds Patient goals met [address]-4 Goals Not Met See below Revised Goals LT-4 STG R hand margarine churn operator strength: 30 lbs LTG R hand margarine churn operator strength: 40
== END 2022-05-27 10:05 | disposition home or self-care (01) ==
LOC: OT 10:00
PROVIDERS: PCP Nurse Practitioner Family; Visit Provider Specialist
DX: I69.351 Hemiplegia and hemiparesis following cerebral infarction affecting right dominant side (principal)
CPT/HCPCS: 97110; 97140; 97164; 97166; 97530

== ENCOUNTER 2022-05-28 16:25 | Emergency (ER) | payer MEDICARE, OTHER, SELFPAY ==
--- NOTE | 2022-05-28 16:46 | EXP.UTC ---
Discharge Plan Disposition Patient Disposition: Home, Self-Care Condition: Good Prescriptions Prescriptions: New azithromycin [Zithromax] 250 mg tablet 250 mg PO UD DOSE PK Qty: 6 0RF Rx Instructions: Take two (2) tablets today, then one (1) tablet days #2 thru #5 benzonatate [benzonatate] 100 mg capsule 100 mg PO TIDP PRN (Reason: Cough) Qty: 30 0RF methylprednisolone 4 mg Tablets,Dose Pack 4 mg PO DIRECTED Qty: 21 0RF No Action quetiapine [Seroquel XR] 300 mg tablet extended release 24 hr 300 mg PO HS Qty: 30 2RF trazodone 100 mg tablet See Rx Instructions PO HSP PRN (Reason: Sleep) Qty: 60 1RF Rx Instructions: take 1-2 tablets PO at bedtime nightly as needed PRN; lithium carbonate 300 mg capsule 300 mg PO BID Qty: 60 1RF fluoxetine 60 mg tablet 60 mg PO DAILY Qty: 90 0RF metformin 1,000 mg tablet 1,000 mg PO BID terbinafine HCl 250 mg tablet 250 mg PO DAILY solifenacin 5 mg tablet 5 mg PO DAILY baclofen 20 mg tablet 20 mg PO TID levocetirizine 5 mg tablet 5 mg PO HS hydroxyzine pamoate [Vistaril] 25 mg capsule 25 mg PO TID PRN (Reason: for increased anxiety) Qty: 90 0RF buspirone 15 mg tablet 15 mg PO TID Qty: 90 1RF atorvastatin 80 MG tablet 80 mg PO HS levothyroxine 75 MCG tablet 75 mcg PO DAILY aspirin 81 MG tablet,chewable 81 mg PO DAILY cholecalciferol (vitamin D3) 1,250 MCG capsule 50,000 unit PO WEEKLY gabapentin 400 mg capsule 400 mg PO DIRECTED Rx Instructions: 1 cap in AM, 1 cap in afternoon, and 2 cap at bedtime Referrals Follow up/Referrals: Provider,Referral, MD [Primary Care Provider] - See instructions Activity Restrictions/Add. Instructions Additional Instructions/Restrictions: Drink plenty of fluids. Take tylenol or ibuprofen for pain or fever. Take the medications as directed. Follow up with your regular doctor. GO TO THE ER FOR ANY WORSENING SYMPTOMS Clinical Impressions Clinical Impression: Acute viral syndrome Stand Alone Forms Stand Alone Forms: Work/School Release Discharge ED Provider: Jignesh Scott [facility] HPI General Stated complaint: ears throat Time Seen by Provider: 05/28/22 16:46 History of Present Illness Provider Complaint: She c/o bilateral ear pain, sore throat, chills, and malaise since yesterday. She denies any fever so far but she has had chilling. Related Data Home Medications Medication Instructions Recorded Confirmed aspirin 81 mg chewable tablet 81 mg PO DAILY heart health 10/07/21 04/26/22 atorvastatin 80 mg tablet 80 mg PO HS Cholesterol 10/07/21 04/26/22 cholecalciferol (vitamin D3) 1,250 50,000 unit PO WEEKLY Supplement 10/07/21 04/26/22 mcg (50,000 unit) capsule levothyroxine 75 mcg tablet 75 mcg PO DAILY hypothyroidism 10/07/21 04/26/22 baclofen 20 mg tablet 20 mg PO TID 01/06/22 04/26/22 levocetirizine 5 mg tablet 5 mg PO HS 01/06/22 04/26/22 metformin 1,000 mg tablet 1,000 mg PO BID Diabetes 01/06/22 04/26/22 solifenacin 5 mg tablet 5 mg PO DAILY 01/06/22 04/26/22 terbinafine HCl 250 mg tablet 250 mg PO DAILY 01/06/22 04/26/22 gabapentin 400 mg capsule 400 mg PO DIRECTED nerve pain 02/11/22 04/26/22 Previous Rx's Medication Instructions Recorded fluoxetine 60 mg tablet 60 mg PO DAILY Depression #90 tabs 03/16/22 lithium carbonate 300 mg capsule 300 mg PO BID mood #60 caps 03/16/22 quetiapine 300 mg tablet,extended 300 mg PO HS #30 tabs 03/16/22 release 24 hr (Seroquel XR) trazodone 100 mg tablet See Rx Instructions PO HSP PRN 03/16/22 Sleep #60 tabs hydroxyzine pamoate 25 mg capsule 25 mg PO TID PRN for increased 04/28/22 (Vistaril) anxiety #90 caps buspirone 15 mg tablet 15 mg PO TID #90 tabs 05/21/22 azithromycin 250 mg tablet 250 mg PO UD DOSE PK #6 tabs 05/28/22 (Zithromax) benzonatate 100 mg capsule 100 mg PO TIDP PRN Cough #30 caps 05/28/22 methylprednisolo
[2022-05-28 16:47] VITALS: BP 154/84; PULSE 92; RESP 18; TEMP 36.8; O2SAT 98; BMI 32.9
[2022-05-28 17:02] LABS: Coronavirus 19, PCR Not Detected (NotDetected); Influenza A, PCR Not Detected (NotDetected); Influenza B, PCR Not Detected (NotDetected)
[2022-05-28 17:03] LABS: UTC Strep Screen (Rapid) Negative (Negative)
[2022-05-28 17:59] VITALS: BP 154/84; PULSE 92; RESP 18; TEMP 36.8
== END 2022-05-28 17:59 | disposition home or self-care (01) ==
PROVIDERS: Emergency Provider Nurse Practitioner Family
DX: H92.03 Otalgia, bilateral (principal); J02.9 Acute pharyngitis, unspecified; R50.9 Fever, unspecified; B34.9 Viral infection, unspecified
CPT/HCPCS: 87880; 99212; C9803; G0463; U0003; U0005

== ENCOUNTER 2022-07-25 14:05 | Emergency (ER) | payer MEDICARE, OTHER, SELFPAY ==
[2022-07-25 14:05] VITALS: BP 111/66; PULSE 85; RESP 18; TEMP 36.9; O2SAT 96; BMI 35.4
[2022-07-25 14:14] VITALS: BMI 35.4
--- NOTE | 2022-07-25 14:16 | HMH.EDGENADL ---
Discharge Plan Disposition Patient Disposition: Home, Self-Care Condition: Good Chief Complaint: Weakness Prescriptions Prescriptions: No Action solifenacin 5 mg tablet 5 mg PO DAILY levocetirizine 5 mg tablet 5 mg PO HS metformin 1,000 mg tablet 1,000 mg PO DAILY rosuvastatin [Crestor] 10 mg tablet 10 mg PO DAILY valsartan 80 mg tablet 80 mg PO BID trazodone 100 mg tablet 100 mg PO HS Qty: 90 1RF hydroxyzine pamoate [Vistaril] 25 mg capsule 25 mg PO TID PRN (Reason: for increased anxiety) Qty: 90 2RF lithium carbonate 300 mg capsule 300 mg PO BID Qty: 60 2RF baclofen 20 mg tablet 20 mg PO TID Label Comments: TAKE ONE TABLET BY MOUTH THREE TIMES DAILY @9am, 1pm, 5pm metformin 1,000 mg tablet 1,000 mg PO DAILY Label Comments: TAKE ONE TABLET BY MOUTH DAILY AT 9 AM fluoxetine [Prozac] 40 mg capsule 40 mg PO BID buspirone 15 mg tablet 15 mg PO TID quetiapine [Seroquel XR] 300 mg tablet extended release 24 hr 300 mg PO HS levothyroxine 75 MCG tablet 75 mcg PO DAILY aspirin 81 MG tablet,chewable 81 mg PO DAILY gabapentin 400 mg capsule 600 mg PO TID Referrals Follow up/Referrals: Vee Wells APRN [Primary Care Provider] - See instructions Activity Restrictions/Add. Instructions Additional Instructions/Restrictions: Follow-up with your primary care doctor in the next 2 to 3 days if your symptoms do not improve. Return to the emergency department if symptoms worsen in any way. Clinical Impressions Clinical Impression: Weakness Instructions Patient Instructions: DI for Muscle Weakness Discharge ED Provider: Dariana Barnett General Adult HPI General Chief complaint: Weakness Stated complaint: Shaking muscle spasms Time Seen by Provider: 07/25/22 14:16 History of Present Illness HPI narrative: The patient presents to the emergency department complaining of generalized weakness and shakiness. She has had similar symptoms in the past. It is still unclear what the symptoms are from. The patient had blood work done approximately 2 weeks ago. Her symptoms began last night. She denies any fevers. She does confirm to feel tired. She also takes thyroxine as well as lithium. Related Data Home Medications Medication Instructions Recorded Confirmed aspirin 81 mg chewable tablet 81 mg PO DAILY [facility] 10/07/21 07/25/22 levothyroxine 75 mcg tablet 75 mcg PO DAILY hypothyroidism 10/07/21 07/25/22 levocetirizine 5 mg tablet 5 mg PO HS allergies 01/06/22 07/25/22 solifenacin 5 mg tablet 5 mg PO DAILY overactive bladder 01/06/22 07/25/22 gabapentin 400 mg capsule 600 mg PO TID nerve pain 06/07/22 07/25/22 metformin 1,000 mg tablet 1,000 mg PO DAILY Diabetes 06/07/22 07/25/22 rosuvastatin 10 mg tablet (Crestor) 10 mg PO DAILY Cholesterol 06/07/22 07/25/22 valsartan 80 mg tablet 80 mg PO BID Hypertension 06/07/22 07/25/22 baclofen 20 mg tablet 20 mg PO TID Infection 07/25/22 07/25/22 buspirone 15 mg tablet 15 mg PO TID mood 07/25/22 07/25/22 fluoxetine 40 mg capsule (Prozac) 40 mg PO BID mood 07/25/22 07/25/22 metformin 1,000 mg tablet 1,000 mg PO DAILY dm 07/25/22 07/25/22 quetiapine 300 mg tablet,extended 300 mg PO HS sleep 07/25/22 07/25/22 release 24 hr (Seroquel XR) Previous Rx's Medication Instructions Recorded hydroxyzine pamoate 25 mg capsule 25 mg PO TID PRN for increased 07/02/22 (Vistaril) anxiety #90 caps lithium carbonate 300 mg capsule 300 mg PO BID mood #60 caps 07/02/22 trazodone 100 mg tablet 100 mg PO HS Sleep #90 tabs 07/02/22 Allergies Allergy/AdvReac Type Severity Reaction Status Date / Time topiramate [From Topamax] Allergy Verified 07/06/22 10:14 [facility] Disclaimer: The information contained in this section may have been updated after the patient was seen, as this information can be updated by other users. Medical History (Reviewed 07/06/22
[2022-07-25 14:30] VITALS: BP 97/61; PULSE 83; RESP 16; O2SAT 97
[2022-07-25 14:57] LABS: Basophils # 0.1 K/mm3 (0-0.2); Basophils % 0.7 % (0.1-2.0); Eosinophils # 0.4 K/mm3 (0.0-0.4); Eosinophils % 4.5 % (0.1-12.0); Hematocrit 39.4 % (37.0-47.0); Hemoglobin 13.2 g/dL (12.2-16.2); Lymphocytes # 2.5 K/mm3 (0.7-4.5); Lymphocytes % 25.7 % (10-50); Mean Corpuscular HGB Conc 33.4 g/dL (31.8-35.4); Mean Corpuscular Hemoglobin 30.3 pg (27.0-31.2); Mean Corpuscular Volume 90.5 fl (81-99); Mean Platelet Volume 7.2 fl (7.4-10.4); Monocytes # 0.5 K/mm3 (0.1-1.0); Monocytes % 5.5 % (1.7-9.3); Neutrophils # 6.2 K/mm3 (1.8-7.8); Neutrophils % 63.5 % (37.0-80.0); Platelet Count 297 K/mm3 (142-424); Red Blood Count 4.36 M/mm3 (4.20-5.40); Red Cell Distribution Width 13.5 % (11.5-17.5); White Blood Count 9.7 K/mm3 (4.8-10.8)
[2022-07-25 15:00] LABS: Alanine Aminotransferase 28 U/L (12-78); Albumin Level 4.2 g/dl (3.5-5.0); Albumin/Globulin Ratio 1.6 (1.1-1.8); Alkaline Phosphatase 61 U/L (38-126); Aspartate Amino Transferase 31 U/L (14-36); Bilirubin,Total 0.2 mg/dl (0.2-1.3); Blood Urea Nitrogen 9 mg/dl (7-17); Calcium 9.2 mg/dl (8.4-10.2); Carbon Dioxide 23 mmol/L (22.0-30.0); Chloride 109 mmol/L (98-107); Creatinine Clearance Estimated 151 mL/min (50-200); Estimated Glomerular Filt Rate 92 ml/min (>60); GFR (African American) 112 ML/MIN (>60); Globulin 2.6 g/dL (1.3-3.2); Glucose 165 mg/dl (74-100); Potassium 3.6 mmoL/L (3.5-5.1); Total Protein,Serum 6.8 g/dl (6.3-8.2)
[2022-07-25 15:02] LABS: Anion Gap 10.6 mEq/L (5-15); Sodium 139 mmol/L (136-145)
[2022-07-25 15:13] LABS: Ammonia < 9 umol/L (9-30)
[2022-07-25 15:31] LABS: Magnesium 1.6 mg/dl (1.6-2.3)
[2022-07-25 15:44] LABS: Free Thyroxine Index 2.9 ug/dL (5.93-13.13); T4 (Thyroxine) 9.6 ug/dl (5.53-11.0); Triiodothryronine (T3) Uptake 30 % (23.5-40.5)
[2022-07-25 15:58] LABS: Thyroid Stimulating Hormone 1.18 uIU/mL (0.465-4.68)
--- NOTE | 2022-07-25 16:20 | PC.NURSE ---
Ambulated patient to bathroom in wheelchair
[2022-07-25 16:22] LABS: Microscopic, Urine URINE MICROSCOPIC (MICROSCOPIC)
[2022-07-25 16:28] LABS: Appearance,Urine CLEAR (Clear); Bilirubin,Urine Negative (Negative); Blood, Urine Negative (Negative); Color,Urine YELLOW (Yellow); Glucose,Urine (UA) Negative (Negative); Ketones,Urine Negative (Negative); Leukocyte Esterase,Urine TRACE (Negative); Nitrate,Urine Negative (Negative); PH,Urine 6.5 (5.0-8.5); Protein,Urine Negative (Negative); Urobilinogen,Urine 0.2 EU/dl (0.2)
[2022-07-25 16:36] LABS: WBC,Urine Occasional #/hpf (0-3); Yeast,Urine Occasional /lpf
[2022-07-25 16:43] VITALS: BP 106/69; PULSE 76; RESP 16; O2SAT 97
--- NOTE | 2022-07-25 16:43 | PC.NURSE ---
Rounded on patient; patient does not need anything at this time
[2022-07-25 17:27] VITALS: BP 103/68; PULSE 72; RESP 18; TEMP 37; O2SAT 99
[2022-07-27 11:02] LABS: Lithium (Eskalith(R)) 0.7 mmol/L (0.5-1.2)
== END 2022-07-25 17:29 | disposition home or self-care (01) ==
PROVIDERS: Emergency Provider Emergency Medicine; PCP Nurse Practitioner Family
DX: R53.1 Weakness (principal); F31.9 Bipolar disorder, unspecified; Z86.73 Personal history of transient ischemic attack (TIA), and cerebral infarction without residual deficits; E78.5 Hyperlipidemia, unspecified; I10 Essential (primary) hypertension; E11.9 Type 2 diabetes mellitus without complications; F17.210 Nicotine dependence, cigarettes, uncomplicated
CPT/HCPCS: 80053; 80178; 81001; 82140; 83735; 84436; 84443; 84479; 85025; 99285

== ENCOUNTER → 2022-08-25 20:00 | Outpatient (CLI) | payer MEDICARE, OTHER, SELFPAY | PROVIDERS: PCP Nurse Practitioner Family; Visit Provider Specialist | DX: G47.30 Sleep apnea, unspecified (principal); I10 Essential (primary) hypertension; R06.83 Snoring | CPT/HCPCS: 95810 ==

== ENCOUNTER 2023-03-21 06:45 | Day surgery (SDC) | payer MEDICARE, OTHER, SELFPAY ==
[2023-03-21 07:23] VITALS: BMI 35.7
--- NOTE | 2023-03-21 07:58 | CA_ITS ---
FINAL REPORT CLINICAL HISTORY: BLE cramping, HTN,PT ON ASA COMPARISON: None FINDINGS: Color Doppler, duplex Doppler and compression sonography of the bilateral lower extremities was performed. There is no evidence of deep venous thrombosis from the level of the groin to the calf. The deep veins are patent and compressible. IMPRESSION: No evidence of deep venous thrombosis bilateral lower extremities. Reviewed, Interpreted and Dictated by Jim Tompkins III, MD Transcribed by Melanie Griffith Authenticated and [facility]
[2023-03-21 08:05] VITALS: BP 157/108; PULSE 68; RESP 20; O2SAT 96
[2023-03-21 10:57] VITALS: BP 162/86; PULSE 91; RESP 20; O2SAT 96
--- NOTE | 2023-03-21 16:10 | P.PCN_ITS ---
[facility] Loop Recorder Date: 03/21/23 Time: 10:45 Procedure Performed:: Removal of loop recorder Implantation of new loop recorder Indication:: Crytogenic stroke Technique:: Patient was brought to the cardiac Weight Reducing Technician.? After informed consent obtained, 1% lidocaine with epinephrine was used to anesthetize the site along the left anterior aspect of the chest near the sternal border.? An 11 blade scalpel was used to make an incision at the border of the existing loop recorder. Hemastats were then used to grasp and remove the loop recorder successfully. The hemostats were used to make a tunnel subcutaneously at the left sternal border at the same incision site that the previous loop recorder was removed. Using the preloaded apparatus, the loop recorder was placed subcutaneously without difficulty.? Following the deployment of the loop recorder interrogation of the device was performed to ensure appropriate voltage was being detected.? Once this was verified, Steri-Strips were placed over the incision and the patient was prepped to discharge home.? Patient tolerated the procedure well with minimal discomfort. Impression:: Successful removal of loop reorder and successful implantation of new loop recorder Serial Number:: [employer] Serial # [id number] Plan:: Routine postop care
== END 2023-03-21 11:10 | disposition home or self-care (01) ==
PROVIDERS: PCP Nurse Practitioner Family; Visit Provider Internal Medicine
DX: E78.5 Hyperlipidemia, unspecified (principal); I10 Essential (primary) hypertension; M79.604 Pain in right leg; M79.605 Pain in left leg; Z86.73 Personal history of transient ischemic attack (TIA), and cerebral infarction without residual deficits; R07.9 Chest pain, unspecified; Z79.899 Other long term (current) drug therapy; E11.9 Type 2 diabetes mellitus without complications; F17.210 Nicotine dependence, cigarettes, uncomplicated
CPT/HCPCS: 33285; 93970; C1764

== ENCOUNTER 2023-03-29 19:01 | Emergency (ER) | payer MEDICARE, OTHER, SELFPAY ==
[2023-03-29 19:03] VITALS: BP 145/89; PULSE 89; RESP 18; TEMP 36.7; O2SAT 98; BMI 35.0
--- NOTE | 2023-03-29 19:47 | HMH.EDGENADL ---
Discharge Plan Disposition Patient Disposition: Home, Self-Care Condition: Good Prescriptions Prescriptions: New cephalexin 500 mg capsule 500 mg PO TID 7 Days Qty: 21 0RF No Action solifenacin 5 mg tablet 5 mg PO DAILY levocetirizine 5 mg tablet 5 mg PO HS metformin 1,000 mg tablet 1,000 mg PO DAILY rosuvastatin [Crestor] 10 mg tablet 10 mg PO DAILY valsartan 80 mg tablet 80 mg PO BID buspirone 15 mg tablet 15 mg PO TID Qty: 90 1RF duloxetine [Cymbalta] 30 mg capsule,delayed release(DR/EC) 30 mg PO DAILY Qty: 30 2RF lithium carbonate 300 mg capsule 300 mg PO BID Qty: 60 2RF Lybalvi 15-10 mg tablet 1 tab PO DAILY Qty: 30 2RF Linzess 72 mcg capsule 72 mcg PO DAILY trazodone 100 mg tablet 100 mg PO HS Qty: 90 1RF fluoxetine [Prozac] 40 mg capsule 40 mg PO BID Qty: 60 1RF hydroxyzine pamoate [Vistaril] 50 mg capsule 50 mg PO TID PRN (Reason: anxiety) Qty: 90 1RF baclofen 20 mg tablet 20 mg PO TID Patient Comments: TAKE ONE TABLET BY MOUTH THREE TIMES DAILY @9am, 1pm, 5pm metformin 1,000 mg tablet 1,000 mg PO DAILY Patient Comments: TAKE ONE TABLET BY MOUTH DAILY AT 9 AM levothyroxine 75 MCG tablet 75 mcg PO DAILY aspirin 81 MG tablet,chewable 81 mg PO DAILY gabapentin 400 mg capsule 600 mg PO TID Referrals Follow up/Referrals: Vee Wells APRN [Primary Care Provider] - See instructions Activity Restrictions/Add. Instructions Additional Instructions/Restrictions: You were evaluated in the emergency department today. Please pick pack worker your prescription for antibiotic at the pharmacy. Take the full course as prescribed. Keep your wound clean and dry. Keep the dressing in place. Follow-up with your supervisor telephone information for further assessment of the wound. Return to the emergency department for new or worsening symptoms. Clinical Impressions Clinical Impression: Dehiscence of wound Instructions Patient Instructions: DI for Laceration Repair Discharge ED Provider: Hannah Diana General Adult HPI General Chief complaint: Wound/Laceration Stated complaint: procedure 03/21 and the incision opened Time Seen by Provider: 03/29/23 19:16 Mode of Arrival: Ambulatory Source of Information: Patient Limitations: No Limitations Description of Symptoms (Recalled from ER Triage Doc. by RN): Patient reports having a loop recorder put in on 03/21 and now the incision has opened up and is draining. History of Present Illness HPI narrative: This patient is a 43-year-old female with a history of anxiety, hypertension, hyperlipidemia, bipolar disorder, type 2 diabetes, and palpitations status post loop recorder on 03/21/2023 presented to the emergency department for evaluation with concern for dehiscence of her wound. She states that she was told to leave the dressing in place, but it came off prematurely. She notes that she saw drainage from the surgical site and it seemed to be open. She notes that the drainage has been clearish yellow. No significant surrounding erythema, redness, warmth, or notable fevers. She has otherwise been well. Related Data Home Medications Medication Instructions Recorded Confirmed aspirin 81 mg chewable tablet 81 mg PO DAILY [facility] 10/07/21 03/02/23 levothyroxine 75 mcg tablet 75 mcg PO DAILY hypothyroidism 10/07/21 03/02/23 levocetirizine 5 mg tablet 5 mg PO HS allergies 01/06/22 03/02/23 solifenacin 5 mg tablet 5 mg PO DAILY overactive bladder 01/06/22 03/02/23 gabapentin 400 mg capsule 600 mg PO TID nerve pain 06/07/22 03/02/23 metformin 1,000 mg tablet 1,000 mg PO DAILY Diabetes 06/07/22 03/02/23 rosuvastatin 10 mg tablet (Crestor) 10 mg PO DAILY Cholesterol 06/07/22 03/02/23 valsartan 80 mg tablet 80 mg PO BID Hypertension 06/07/22 03/02/23 baclofen 20 mg tablet 20 mg PO TID Infection 07/25/22 03/02/23 metformin 1,000 mg tablet 1,000 mg PO DAILY dm
--- NOTE | 2023-03-29 19:53 | PC.NURSE ---
Bulky dressing placed on left breast per verbal order
[2023-03-29 19:54] VITALS: BP 131/79; PULSE 81; RESP 16; TEMP 36.6; O2SAT 98
== END 2023-03-29 19:55 | disposition home or self-care (01) ==
PROVIDERS: Emergency Provider Emergency Medicine; PCP Nurse Practitioner Family
DX: T81.31XA Disruption of external operation (surgical) wound, not elsewhere classified, initial encounter (principal)
CPT/HCPCS: 99282

== ENCOUNTER 2023-05-27 14:18 | Emergency (ER) | payer MEDICARE, OTHER, SELFPAY ==
[2023-05-27 14:40] VITALS: BP 137/87; PULSE 81; RESP 19; TEMP 37.1; O2SAT 97; BMI 34.4
--- NOTE | 2023-05-27 15:02 | EXP.UTC ---
Discharge Plan Disposition Patient Disposition: Home, Self-Care Condition: Good Prescriptions Prescriptions: New benzonatate 100 mg capsule 100 mg PO TID PRN (Reason: cough) Qty: 30 0RF No Action solifenacin 5 mg tablet 5 mg PO DAILY levocetirizine 5 mg tablet 5 mg PO HS metformin 1,000 mg tablet 1,000 mg PO DAILY rosuvastatin [Crestor] 10 mg tablet 10 mg PO DAILY valsartan 80 mg tablet 80 mg PO BID buspirone 15 mg tablet 15 mg PO TID Qty: 90 1RF duloxetine [Cymbalta] 30 mg capsule,delayed release(DR/EC) 30 mg PO DAILY Qty: 30 2RF lithium carbonate 300 mg capsule 300 mg PO BID Qty: 60 2RF Lybalvi 15-10 mg tablet 1 tab PO DAILY Qty: 30 2RF Linzess 72 mcg capsule 72 mcg PO DAILY trazodone 100 mg tablet 100 mg PO HS Qty: 90 1RF hydroxyzine pamoate [Vistaril] 50 mg capsule 50 mg PO TID PRN (Reason: anxiety) Qty: 90 1RF fluoxetine [Prozac] 40 mg capsule 40 mg PO BID Qty: 60 1RF baclofen 20 mg tablet 20 mg PO TID Patient Comments: TAKE ONE TABLET BY MOUTH THREE TIMES DAILY @9am, 1pm, 5pm metformin 1,000 mg tablet 1,000 mg PO DAILY Patient Comments: TAKE ONE TABLET BY MOUTH DAILY AT 9 AM cephalexin 500 mg capsule 500 mg PO TID 7 Days Qty: 21 0RF levothyroxine 75 MCG tablet 75 mcg PO DAILY aspirin 81 MG tablet,chewable 81 mg PO DAILY gabapentin 400 mg capsule 600 mg PO TID Referrals Follow up/Referrals: Vee Wells APRN [Primary Care Provider] - See instructions Activity Restrictions/Add. Instructions Additional Instructions/Restrictions: *Monitor Temp, Over the counter Motrin or Tylenol as directed/as needed Tylenol every 4 hours and Motrin every 6 hours (as long as your family doctor has told you that you can take it) for fever or pain. and straight to ER if unable to lower temp less than 101.0 after medication given *Warm salt water gargles may help to soothe the throat *Throat Lozenges? *Warm fluids like tea with honey may help to soothe the throat? *Sleep elevated *Humidifier/Vaporizer Your throat swab was sent for culture. Those results are typically sent to your primary care. Be sure to follow up in 2-3 days with your family doctor/primary care physician if no improvement so they can review those result and treat if necessary. If you don?t have a primary care doctor, I recommend you get one but in the mean time, you will have to return to a walk in clinic Follow up IMMEDIATELY for new or worsening symptoms or no Noticeable improvement over the next 48-72 hours. 911 for difficulty breathing or swallowing You were tested for today for COVID19 your test result should be back in the next 24 hours you may check your results on the [facility] [employer] [facility] if your COVID is positive you must Quarantine for 5 days Clinical Impressions Clinical Impression: Viral syndrome Stand Alone Forms Stand Alone Forms: Work/School Release Instructions Patient Instructions: Cough, DI for Viral Syndrome Discharge ED Provider: Yvonne Matthews [facility] HPI General Stated complaint: congestion, runny nose, sore throat, exp. to covid Mode of Arrival: Ambulatory Source of Information: Patient Limitations: No Limitations Time Seen by Provider: 05/27/23 15:02 Description of Symptoms (Recalled from Triage Doc. by RN): PATIENT C/O CONGESTION, CHILLS, AND BODY ACHES X 2 DAYS HEENT Symptoms (Recalled from RN notes): Yes Resp Symptoms (Recalled from RN notes): No Skin Symptoms (Recalled from RN notes): No MS Symptoms (Recalled from RN notes): No Functional Status (Recalled from RN notes): WNL History of Present Illness Provider Complaint: Patient states that she has been having chills, body aches and nasal congestion for the last couple of days States that the person that sits by her at work tested positive for COVID yesterday so today she came in to
[2023-05-27 15:12] LABS: UTC Influenza A Antigen Negative (Negative); UTC Influenza B Antigen Negative (Negative)
[2023-05-27 15:38] VITALS: BP 137/87; PULSE 81; RESP 19; TEMP 37.1; O2SAT 97
[2023-05-27 15:43] LABS: UTC Strep Screen (Rapid) Negative (Negative)
== END 2023-05-27 15:41 | disposition home or self-care (01) ==
PROVIDERS: Emergency Provider Nurse Practitioner; PCP Nurse Practitioner Family
DX: R05.9 Cough, unspecified (principal); R07.0 Pain in throat; R09.81 Nasal congestion; R68.83 Chills (without fever); M79.18 Myalgia, other site; F17.210 Nicotine dependence, cigarettes, uncomplicated; E11.9 Type 2 diabetes mellitus without complications; E78.5 Hyperlipidemia, unspecified; I10 Essential (primary) hypertension; Z79.84 Long term (current) use of oral hypoglycemic drugs; Z20.822 Contact with and (suspected) exposure to COVID-19; B34.9 Viral infection, unspecified
CPT/HCPCS: 87635; 87804; 87880; 99212; 99214; G0463

== ENCOUNTER → 2023-06-23 10:30 | Outpatient (POV) | payer MEDICARE, OTHER, SELFPAY ==
[2023-06-23 11:11] VITALS: BP 139/95; PULSE 98; RESP 18; O2SAT 95; BMI 35.6
--- NOTE | 2023-06-23 12:16 | A.OFFVIS_ITS ---
HPI Data of Consult Patient: new to practice Consult date: 06/23/23 Requesting Physician: Hannah Wallace APRN Consult Narrative Reason for consult: Low back pain, right leg pain, bilateral feet pain History of present illness: Ms. Garcia is a 43 year old female who presents today as a new patient. She is a referral from [facility]. Today she rates her pain a 7 out of 10. Patient states her pain is all in her low back with radiating symptoms down her entire right leg as well as bilateral feet pain. Patient does state that this has been going on for approximately 4 years. She stated that back in 2018 she was diagnosed with ankylosing spondylosis. She does state that following the stroke in August 2019 she started having all the residual right leg numbness. Patient does describe her pain as a throbbing sensation with occasional sharp shooting pains. She does have numbness and tingling into her lower extremity however states that the bottom of her foot is completely numb and so she cannot tell to what extent it goes into her feet or toes. Patient states over the years she has tried Tylenol and ibuprofen along with heat and ice and topicals with no additional relief. Patient has had multiple sessions of physical therapy however it made no change of her symptoms. Patient does continue to do at home exercise and stretching on a daily basis however this is limited by how bad her pain is. She states she has been doing this for longer than 12 weeks. Patient does also states she has a history of foot drop and plantar fasciitis. Patient states that she is currently in her boot along the left foot until the 17th of this month. She does state that she sees Felician[facility] Ar[facility]. Patient does states she has had lumbar ablations in the past that did provide significant improvement lasting 6 months or more. She states that she had these done at a previous pain clinic however that she moved to [place] in 2019 and has not had any since. Patient does state that the pain interferes with her ability to perform activities of daily living such as cooking and cleaning. She does take gabapentin for her neuropathy symptoms. She is interested in any help we may be able to provide. Patient denies any blood thinners other than a baby aspirin. Patient does have a history of diabetes however states that in the past her sugar has been unaffected by injections. Her Александр has been reviewed and is appropriate. CC: Hannah Wallace APRN [facility] Disclaimer: The information contained in this section may have been updated after the patient was seen, as this information can be updated by other users. Medical History Bipolar disorder History of CVA (cerebrovascular accident) Brain MRI 01/21/22 showed evidence of chronic small left hemisphere lacunar CVA's. She is currently on best medical therapy including and aspirin, statins and has a loop recorder implanted followed by cardiology. Hyperlipidemia Currently on high intensity statin therapy. Goal is to keep LDL less than 55 Hypertension Active follow-up with cardiology at [facility] and currently normotensive. Type 2 diabetes mellitus Tight control of hyperglycemia is recommended. Active follow-up with PCP. Family History Other No significant family history Social History (Updated 06/23/23 @ 11:12 by Jesenia Harrison RN) Smoking Status: Current every day smoker alcohol intake: never substance use type: denies use current occupational status: employed Travel in the last 8 weeks: None household members: significant other housing: house lives independently: No marital status: single number of children: 3 Review of Systems Review of Systems Review of systems:: pertinent systems reviewed and negative unless documented below Review of systems (narrative): Review of Systems: General: No recent weight changes, no fever, no sleep disturbances Respiratory: No cough, no shortness of air, no recurring pulmonary infections Cardiovascular/peripheral vascular: No chest pain, no palpitations, no edema, no shortness of breath Gastrointestinal: No new onset incontinence, normal bowel movements reported Genitourinary: No new onset incontinence Musculoskeletal: Low back pain, right leg pain, bilateral feet pain Psychiatric: [Normal mood/affect] Neurological: [Denies weakness in extremities], [denies balance issues] Meds Home Medications and Allergies Home Medications Medication Instructions Recorded Confirmed Type aspirin 81 mg chewable tablet 81 mg PO DAILY heart health 10/07/21 06/23/23 History levothyroxine 75 mcg tablet 75 mcg PO DAILY hypothyroidism 10/07/21 06/23/23 History levocetirizine 5 mg tablet 5 mg PO HS allergies 01/06/22 06/23/23 History solifenacin 5 mg tablet 5 mg PO DAILY overactive bladder 01/06/22 06/23/23 History gabapentin 400 mg capsule 600 mg PO TID nerve pain 06/07/22 06/23/23 History metformin 1,000 mg tablet 1,000 mg PO DAILY Diabetes 06/07/22 06/23/23 History rosuvastatin 10 mg tablet (Crestor) 10 mg PO DAILY Cholesterol 06/07/22 06/23/23 History valsartan 80 mg tablet 80 mg PO BID Hypertension 06/07/22 06/23/23 History baclofen 20 mg tablet 20 mg PO TID Infection 07/25/22 06/23/23 History metformin 1,000 mg tablet 1,000 mg PO DAILY dm 07/25/22 06/23/23 History trazodone 100 mg tablet 100 mg PO HS Sleep #90 tabs 12/22/22 06/23/23 Rx duloxetine 30 mg capsule,delayed 30 mg PO DAILY #30 caps 02/23/23 06/23/23 Rx release (Cymbalta) linaclotide 72 mcg capsule 72 mcg PO DAILY 03/02/23 06/23/23 History (Linzess) hydroxyzine pamoate 50 mg capsule 50 mg PO TID PRN anxiety #90 caps 03/08/23 06/23/23 Rx (Vistaril) buspirone 15 mg tablet 15 mg PO TID mood #90 tabs 06/15/23 06/23/23 Rx fluoxetine 40 mg capsule (Prozac) 40 mg PO BID mood #60 caps 06/15/23 06/23/23 Rx lithium carbonate 300 mg capsule 300 mg PO BID mood #60 caps 06/15/23 06/23/23 Rx olanzapine 15 mg-samidorphan 10 mg 1 tab PO DAILY #30 tabs 06/15/23 06/23/23 Rx tablet (Lybalvi) New Prescriptions to Start Prescriptions: Allergies Allergy/AdvReac Type Severity Reaction Status Date / Time topiramate [From Topamax] Allergy Verified 05/03/23 14:58 Objective Vital signs: Pulse Resp BP Pulse Ox O2 Del Method 98 H 18 139/95 H 95 Room Air 06/23/23 11:11 06/23/23 11:11 06/23/23 11:11 06/23/23 11:11 06/23/23 11:11 Narrative: Physical Exam: General: Alert and oriented x3, no acute distress, pleasant and cooperative Lungs: Respirations even and unlabored, symmetrical chest expansion Eyes: PERRL Musculoskeletal: Flexion and extension of lumbar [spine] somewhat guarded secondary to pain, [antalgic gait noted] point tenderness along L4-S1 region, positive right leg raise with decreased sensation to light touch and decreased reflexes Neurological: Speech clear, no gross sensory deficit Assessment and Plan *Assessment and plan (1) Low back pain: Status: Acute Qualifiers: Chronicity: chronic Back pain laterality: bilateral Sciatica presence: with sciatica Sciatica laterality: bilateral sciatica Qualified Code(s): M54.42 - Lumbago with sciatica, left side; M54.41 - Lumbago with sciatica, right side; G89.29 - Other chronic pain Category: Medical Code(s): M54.50 - Low back pain, unspecified (2) Lumbar radiculopathy: Status: Acute Category: Medical Code(s): M54.16 - Radiculopathy, lumbar region (3) Bilateral foot pain: Status: Acute Category: Medical Code(s): M79.671 - Pain in right foot; M79.672 - Pain in left foot (4) Chronic low back pain: Status: Acute Qualifiers: Back pain laterality: bilateral Sciatica presence: with sciatica Sciatica laterality: bilateral sciatica Qualified Code(s): M54.42 - Lumbago with sciatica, left side; M54.41 - Lumbago with sciatica, right side; G89.29 - Other chronic pain Category: Medical Code(s): M54.50 - Low back pain, unspecified; G89.29 - Other chronic pain Plan Patient is experiencing significant pain in her low back with radiating symptoms down her entire right leg. Patient did have limited range of motion of her lumbar spine along with extreme point tenderness in the lower lumbar region to her sacrum during today's exam. Patient also had a positive right leg raise with decreased sensation to light touch and decreased reflexes in her lower extremity. I have discussed with the patient that I would like to order updated imaging of her lumbar spine. I will order x-ray imaging as well as MRI without contrast to follow. I have also discussed with the patient that she may benefit from a right transforaminal epidural steroid injection. Risk and benefits were discussed with the patient and she would like to proceed forward with this plan of care. Patient is not on any blood thinners. Patient has tried and failed conservative therapy such as oral medication, heat and ice, topicals, physical therapy, at home stretching exercise for longer than 12 weeks. We will schedule the patient for a right transforaminal epidural steroid injection L4-L5 and L5- S1. All epidurals are done under fluoroscopic guidance to confirm placement. Patient has been counseled to contact our office with any questions or concerns before their next appointment date. This note has been dictated using voice recognition software and may contain errors or omissions. Dr. Restrepo has read this note and agrees with this plan of care.
== END ==
LOC: SC.PAIN 10:31
PROVIDERS: Visit Provider Nurse Practitioner Family
DX: M54.41 Lumbago with sciatica, right side (principal); M54.42 Lumbago with sciatica, left side; G89.29 Other chronic pain; M54.16 Radiculopathy, lumbar region; M79.671 Pain in right foot; M79.672 Pain in left foot
CPT/HCPCS: 99202; G0463

== ENCOUNTER 2023-06-23 12:03 | Outpatient (CLI) | payer MEDICARE, OTHER, SELFPAY ==
--- NOTE | 2023-06-23 12:11 | XR_ITS ---
FINAL REPORT CLINICAL HISTORY: lbp that radiates into Rt leg FINDINGS: LUMBAR SPINE Five views demonstrate no acute fracture. The disc spaces are well preserved. There is no malalignment. There is mild vascular calcification. IMPRESSION: No acute process. Reviewed, Interpreted and Dictated by Jim Tompkins III, MD Transcribed by Rosio Arias Authenticated and [facility]
== END 2023-06-23 23:59 ==
LOC: RAD 12:06
PROVIDERS: PCP Nurse Practitioner Family; Visit Provider Nurse Practitioner Family
DX: M54.50 Low back pain, unspecified (principal); M79.604 Pain in right leg
CPT/HCPCS: 72110; 99202; G0463

== ENCOUNTER 2023-07-22 07:33 | Outpatient (CLI) | payer MEDICARE, OTHER, SELFPAY ==
--- NOTE | 2023-07-22 07:39 | MR_ITS ---
FINAL REPORT TECHNIQUE: Multiplanar MR without contrast CLINICAL HISTORY: LOWER BACK PAIN AND RIGHT LEG PAIN FINDINGS: Sagittal images show normal vertebral height. There is minimal anterolisthesis of L5 in relation L4 and S1. Marrow signal pattern is unremarkable. L1-2: Unremarkable L2-3: Unremarkable L3-4: Unremarkable L4-5: Mild diffuse disc bulge and mild facet arthropathy. L5-S1: Mild diffuse disc bulge and mild facet arthropathy. Mild bilateral neural foraminal narrowing. IMPRESSION: Degenerative changes in the lower lumbar spine. Reviewed, Interpreted and Dictated by Lance Mack MD Transcribed by Rosio Arias Authenticated and [facility]
== END 2023-07-22 23:59 ==
LOC: RAD 07:35
PROVIDERS: PCP Nurse Practitioner Family; Visit Provider Nurse Practitioner Family
DX: M54.50 Low back pain, unspecified (principal); M79.604 Pain in right leg
CPT/HCPCS: 72148; 76376

== ENCOUNTER → 2023-07-28 09:55 | Outpatient (POV) | payer MEDICARE, OTHER, SELFPAY ==
[2023-07-28 10:25] VITALS: BP 145/100; PULSE 101; RESP 19; O2SAT 95; BMI 37.7
--- NOTE | 2023-07-28 10:53 | EXP.PAIN.SOA ---
[facility] Pain Management SOAP Note Subjective:: Patient is a pleasant 43-year-old female who presents today for follow-up of her lumbar MRI. We are currently treating the patient for low back pain with lumbar radiculopathy symptoms, chronic low back pain, bilateral foot pain, right sacroiliitis. Today she rates her pain a 8 out of 10. Patient denies any new trauma or injury. She states she continues to experience significant pain that is all in her low back along the right side with radiating symptoms down into her right leg. Patient does describe this as a constant throbbing sensation with occasional sharp shooting pains and numbness and tingling into her lower extremity. Patient states that the pain does affect her walking and that she feels like she stumbles a lot. Patient states the pain interferes with her ability perform activities of daily living such as cooking and cleaning. Patient has tried [id number]-ksi-[id number] Tylenol and ibuprofen along with heat and ice and topicals with minimal relief. Patient has also had physical therapy for multiple sessions with no additional change and continues to do at home stretching and exercise for longer than 12 weeks with no improvement. Patient is prescribed gabapentin 600 mg 3 times daily from an outside provider. Her Александр has been reviewed and is appropriate. Review of Systems: General: No recent weight changes, no fever, no sleep disturbances Respiratory: No cough, no shortness of air, no recurring pulmonary infections Cardiovascular/peripheral vascular: No chest pain, no palpitations, no edema, no shortness of breath Gastrointestinal: No new onset incontinence, normal bowel movements reported Genitourinary: No new onset incontinence Musculoskeletal: Low back pain, right leg pain Psychiatric: [Normal mood/affect] Neurological: [Denies weakness in extremities], [denies balance issues] Objective:: Physical Exam: General: Alert and oriented x3, no acute distress, pleasant and cooperative Lungs: Respirations even and unlabored, symmetrical chest expansion Eyes: PERRL Musculoskeletal: Flexion and extension of lumbar [spine] somewhat guarded secondary to pain, [antalgic gait noted] positive left leg raise with decreased sensation to light touch and decreased reflexes Neurological: Speech clear, no gross sensory deficit FINDINGS: Sagittal images show normal vertebral height. There is minimal anterolisthesis of L5 in relation L4 and S1. Marrow signal pattern is unremarkable. L1-2: Unremarkable L2-3: Unremarkable L3-4: Unremarkable L4-5: Mild diffuse disc bulge and mild facet arthropathy. L5-S1: Mild diffuse disc bulge and mild facet arthropathy. Mild bilateral neural foraminal narrowing. IMPRESSION: Degenerative changes in the lower lumbar spine. Reviewed, Interpreted and Dictated by Lance Mack MD Transcribed by Rosio Arias Authenticated and [facility] Assessment:: Degenerative disc disease of lumbar spine with lumbar radiculopathy symptoms, chronic low back pain, bilateral foot pain, right sacroiliitis Plan:: Patient is experiencing worsening pain in her low back with radiating symptoms down her entire right leg. Patient is experiencing numbness and tingling with a positive right leg raise and decreased sensation to light touch and decreased reflexes. I have discussed with the patient that she may benefit from a right transforaminal epidural steroid injection. Risk and benefits were discussed with the patient and she would like to proceed forward with this plan of care. Patient is not on any blood thinners. Patient has tried and failed conservative therapy such as oral medication, heat and ice, topicals, physical therapy, at home stretching exercise for longer than 12 weeks. Patient will be scheduled for a right transforaminal epidural steroid injection L4-L5 and L5-S1 under fluoroscopy. Patient has been instructed to contact the clinic with any concerns before the next appointment. Dr. Restrepo has reviewed this note and agrees with this plan of care. This note was dictated using voice recognition software and make contain errors or omissions. [facility] Disclaimer: The information contained in this section may have been updated after the patient was seen, as this information can be updated by other users. Medical History Bipolar disorder History of CVA (cerebrovascular accident) Brain MRI 01/21/22 showed evidence of chronic small left hemisphere lacunar CVA's. She is currently on best medical therapy including and aspirin, statins and has a loop recorder implanted followed by cardiology. Hyperlipidemia Currently on high intensity statin therapy. Goal is to keep LDL less than 55 Hypertension Active follow-up with cardiology at [facility] and currently normotensive. Type 2 diabetes mellitus Tight control of hyperglycemia is recommended. Active follow-up with PCP. Family History Other No significant family history Social History (Updated 06/23/23 @ 11:12 by Jesenia Harrison RN) Smoking Status: Current every day smoker alcohol intake: never substance use type: denies use current occupational status: employed Travel in the last 8 weeks: None household members: significant other housing: house lives independently: No marital status: single number of children: 3
== END ==
LOC: SC.PAIN 09:55
PROVIDERS: Visit Provider Nurse Practitioner Family
DX: M51.16 Intervertebral disc disorders with radiculopathy, lumbar region (principal); M54.50 Low back pain, unspecified; G89.29 Other chronic pain; M79.671 Pain in right foot; M79.672 Pain in left foot; M46.1 Sacroiliitis, not elsewhere classified
CPT/HCPCS: 99212; G0463

== ENCOUNTER 2023-08-09 09:04 | Day surgery (SDC) | payer MEDICARE, OTHER, SELFPAY ==
[2023-08-09 09:13] VITALS: BP 143/97; PULSE 91; PULSE 95; RESP 18; O2SAT 97
[2023-08-09] MEDS: LIDOCAINE 1% 5ML PF VIAL 5 ML (09:14)
[2023-08-09 09:16] VITALS: BP 146/90; PULSE 100; RESP 18; TEMP 36.6; O2SAT 97; BMI 36.6
[2023-08-09 09:35] VITALS: BP 135/91; PULSE 98; RESP 18; O2SAT 97
--- NOTE | 2023-08-09 09:41 | P.PCN_ITS ---
Procedure Date: 08/09/23 Time: 09:00 Anesthesiologist:: Nick Bolaños CRNA Complications:: None Pre-procedure Diagnosis:: Degenerative disc lumbar spine multilevels. Lumbar radiculopathy. Lumbar disc bulge L4-5, L5-S1. Lumbar spinal stenosis. Post-procedure Diagnosis:: Same. Indications for Procedure:: Patient is a very pleasant 43-year-old female comes our clinic today for a right L4-5, L5-S1 transforaminal epidural steroid injection. Patient has multilevel disc bulge L4-5, L5-S1. Patient reports low back pain as well as right hip and leg radicular symptoms to the foot. Patient does report some left leg radicular symptoms at times. She rates her pain 7/10. Procedure Details:: Details of the procedure were explained to the patient. The patient was taken the procedure room placed in the prone position. The area of the lumbar spine was cleansed using chlorhexidine as a cleansing solution. At this time using fluoroscopy guidance markers were placed on the right lateral border of the L4 and L5 vertebral body. The skin and subcutaneous tissue was anesthetized using 1% lidocaine and 25-gauge needle. At this time using a 22-gauge 3-1/2 inch spinal needle the right upper one third of the L4-5 foramen was accessed. The same was done at the right L5-S1 foramen. Needle positions were confirmed and a lateral view using fluoroscopy and contrast dye. At this time 1 cc of 1% lidocaine +20 mg of Depo-Medrol was injected at each level after negative aspiration. [place] were removed. Band-Aid applied. Patient tolerated the procedure without difficulty. There are no complications. Plan and Disposition:: Patient was discharged without incident.
== END 2023-08-09 09:35 | disposition home or self-care (01) ==
PROVIDERS: PCP Internal Medicine; Visit Provider Nurse Anesthetist, Certified Registered
DX: M51.16 Intervertebral disc disorders with radiculopathy, lumbar region (principal); M51.26 Other intervertebral disc displacement, lumbar region; M48.061 Spinal stenosis, lumbar region without neurogenic claudication
CPT/HCPCS: 64483; 64484; J1030

== ENCOUNTER → 2023-08-24 08:59 | Outpatient (POV) | payer MEDICARE, OTHER, SELFPAY ==
[2023-08-24 09:07] VITALS: BP 148/99; PULSE 100; RESP 20; O2SAT 95; BMI 35.0
--- NOTE | 2023-08-24 09:17 | A.OFFVIS_ITS ---
[facility] Pain Management SOAP Note Subjective:: Patient is a pleasant 43-year-old female who presents today for follow-up of right transforaminal epidural steroid injection on 08/09/2023. She rates her pain today a 7 out of 10. She does state that she had significant relief for a few hours following this injection however she states that it was very short- lived. Patient states that she had to take her daughter to the doctor in [place] the very next day after this injection and the long car ride really seem to aggravate her symptoms. Patient does state that she is now experiencing more pain and not just the right leg but now starting in the left leg. She states that it is not aching, throbbing sensation with still occasional sharp shooting pains and numbness down into her extremities. She states the pain is interfering with her ability perform activities of daily living such as cooking and cleaning. She states that due to the worsening pain sitting is harder to do now that it causes worsening issue. She states that she has to stand however this causes worsening pain with increased walking. Patient denies any new fal ls. Patient has tried and failed conservative therapy including physical therapy and at home stretching exercise for longer than 12 weeks. She is prescribed gabapentin from an outside provider. Review of Systems: General: No recent weight changes, no fever, no sleep disturbances Respiratory: No cough, no shortness of air, no recurring pulmonary infections Cardiovascular/peripheral vascular: No chest pain, no palpitations, no edema, no shortness of breath Gastrointestinal: No new onset incontinence, normal bowel movements reported Genitourinary: No new onset incontinence Musculoskeletal: Low back pain, bilateral leg pain Psychiatric: [Normal mood/affect] Neurological: [Denies weakness in extremities], [denies balance issues] Objective:: Physical Exam: General: Alert and oriented x3, no acute distress, pleasant and cooperative Lungs: Respirations even and unlabored, symmetrical chest expansion Eyes: PERRL Musculoskeletal: Flexion and extension of lumbar [spine] somewhat guarded secondary to pain, [antalgic gait noted] Neurological: Speech clear, no gross sensory deficit Assessment:: Degenerative disc disease of lumbar spine with lumbar radiculopathy symptoms, chronic low back pain, bilateral foot pain, right sacroiliitis, lumbar facet arthropathy Plan:: Patient is experiencing worsening pain in her low back and bilateral legs. Patient has limited range of motion of her lumbar spine. I have discussed with the patient that we may try a lumbar epidural steroid injection. Risk and benefits were discussed with the patient and she would like to proceed forward with this plan of care. I will also order the patient a compounded cream. Patient has tried and failed conservative treatment. We will schedule the patient for an LESI L5-S1 under fluoroscopy. Patient has been instructed to contact the clinic with any concerns before the next appointment. Dr. Restrepo has reviewed this note and agrees with this plan of care. This note was dictated using voice recognition software and make contain errors or omissions. [facility] Disclaimer: The information contained in this section may have been updated after the patient was seen, as this information can be updated by other users. Medical History Bipolar disorder History of CVA (cerebrovascular accident) Brain MRI 01/21/22 showed evidence of chronic small left hemisphere lacunar CVA's. She is currently on best medical therapy including and aspirin, statins and has a loop recorder implanted followed by cardiology. Hyperlipidemia Currently on high intensity statin therapy. Goal is to keep LDL less than 55 Hypertension Active follow-up with cardiology at [facility] and currently normotensive. Type 2 diabetes mellitus Tight control of hyperglycemia is recommended. Active follow-up with PCP. Family History Other No significant family history Social History Smoking Status: Current every day smoker alcohol intake: never substance use type: denies use current occupational status: other Travel in the last 8 weeks: None household members: significant other housing: house lives independently: No marital status: single number of children: 3
== END ==
LOC: SC.PAIN 09:00
PROVIDERS: Visit Provider Nurse Practitioner Family
DX: M51.16 Intervertebral disc disorders with radiculopathy, lumbar region (principal); G89.29 Other chronic pain; M54.50 Low back pain, unspecified; M79.671 Pain in right foot; M79.672 Pain in left foot; M46.1 Sacroiliitis, not elsewhere classified; M47.26 Other spondylosis with radiculopathy, lumbar region
CPT/HCPCS: 99212; G0463

== ENCOUNTER 2023-09-13 09:46 | Outpatient (CLI) | payer MEDICARE, OTHER, SELFPAY ==
--- NOTE | 2023-09-13 09:54 | MM_ITS ---
PROCEDURE INFORMATION: Exam: MG Bilateral Screening 3D Mammography Exam date and time: 09/13/2023 9:50 AM Age: 43 years old Clinical indication: Screening examination TECHNIQUE: Imaging protocol: Bilateral Screening tomosynthesis and 2D mammography including computer-aided detection (CAD) when performed. COMPARISON: No relevant prior studies available. FINDINGS: MAMMOGRAPHY: Breast composition: There are scattered areas of fibroglandular density. Mass: None. Architectural distortion: None. Calcifications: No suspicious calcifications. Asymmetric density: None. Skin thickening: None. Axillary adenopathy: None. IMPRESSION: No mammographic evidence of malignancy. Annual screening is recommended unless otherwise clinically indicated. ASSESSMENT: BI-RADS Category 1: Negative
== END 2023-09-13 23:59 ==
PROVIDERS: PCP Nurse Practitioner Family; Visit Provider Nurse Practitioner Family
DX: Z12.31 Encounter for screening mammogram for malignant neoplasm of breast (principal)
CPT/HCPCS: 77063; 77067

== ENCOUNTER 2023-09-13 13:57 | Day surgery (SDC) | payer MEDICARE, OTHER, SELFPAY ==
[2023-09-13 14:18] VITALS: BP 145/95; PULSE 113; RESP 18; TEMP 36.5; O2SAT 97; BMI 35.4
--- NOTE | 2023-09-13 14:48 | EXP.PAIN.PRO ---
Procedure Date: 09/13/23 Time: 14:48 Anesthesiologist:: Nick Bolaños CRNA Complications:: None Pre-procedure Diagnosis:: Degenerative disc lumbar spine multilevels. Lumbar radiculopathy. Post-procedure Diagnosis:: Same. Indications for Procedure:: Patient is a pleasant 43-year-old female comes to clinic today for repeat lumbar epidural steroid injection at L5-S1 level. Patient reports minimal to no relief with her initial injection. She reports low back pain as well as bilateral hip and leg radicular symptoms. She rates her pain 7/10. Procedure Details:: Procedure: Lumbar epidural steroid injection under fluoroscopy Informed consent was obtained and the risks and benefits of the procedure were explained to the patient. The patient was taken to the procedure room and noninvasive monitors placed, including noninvasive blood pressure cuff and pulse oximeter. The back was viewed using C-arm Fluoroscopy and prepped using Chloraprep as a cleansing solution and the L5-S1 interspace was palpated. Skin and subcutaneous tissues were anesthetized using lidocaine 1.5% and a 25-gauge needle. After this, an 18-gauge Touhy epidural needle was placed into the L5-S1 interspace and advanced using fluoroscopic guidance and loss of resistance to air until the epidural space was encountered. After confirmation of needle placement in the epidural space, with dye, a solution containing normal saline, 3 mL and Depo-Medrol 80 mg were incrementally injected into the lumbar epidural space. The patient tolerated the procedure well with no complications. The patient was observed in the Pain Clinic and then discharged home neurologically intact. Plan and Disposition:: Patient was discharged without incident.
[2023-09-13 14:52] VITALS: BP 144/96; PULSE 97; RESP 20
[2023-09-13 14:54] VITALS: BP 149/97; PULSE 102; RESP 20; O2SAT 97
== END 2023-09-13 14:55 | disposition home or self-care (01) ==
PROVIDERS: PCP Nurse Practitioner Family; Visit Provider Nurse Anesthetist, Certified Registered
DX: M51.16 Intervertebral disc disorders with radiculopathy, lumbar region (principal); Z12.31 Encounter for screening mammogram for malignant neoplasm of breast
CPT/HCPCS: 62323; 77063; 77067

== ENCOUNTER 2023-10-03 14:30 | Outpatient (POV) | payer MEDICARE, OTHER, SELFPAY ==
[2023-10-03 14:35] VITALS: BP 123/81; PULSE 110; RESP 18; TEMP 36.7; O2SAT 99; BMI 35.4
--- NOTE | 2023-10-03 14:38 | EXP.PAIN.SOA ---
[facility] Pain Management SOAP Note Subjective:: Patient is a pleasant 43-year-old female who presents today for follow-up. Today she rates her pain an 8 out of 10. Patient denies any new trauma or injury. Patient does state that she is experiencing worsening pain in her low back and bilateral hips that does go into her buttocks and groin area. She does describe this as an aching, throbbing sensation with some numbness. She states it is worse with certain positions such as prolonged sitting or standing. She does state that it is aggravated also with stairs or long car rides. Patient states that typically if it is longer than 10 minutes ride it is much worse. She does state that the pain interferes with her ability to perform activities of daily living such as cooking and cleaning. Patient is interested in any help we may be able to provide. She is prescribed gabapentin from an outside provider and compounded cream from our office. Her Александр has been reviewed and is appropriate. Review of Systems: General: No recent weight changes, no fever, no sleep disturbances Respiratory: No cough, no shortness of air, no recurring pulmonary infections Cardiovascular/peripheral vascular: No chest pain, no palpitations, no edema, no shortness of breath Gastrointestinal: No new onset incontinence, normal bowel movements reported Genitourinary: No new onset incontinence Musculoskeletal: Low back pain, bilateral hip pain, groin pain, buttocks pain Psychiatric: [Normal mood/affect] Neurological: [Denies weakness in extremities], [denies balance issues] Objective:: Physical Exam: General: Alert and oriented x3, no acute distress, pleasant and cooperative Lungs: Respirations even and unlabored, symmetrical chest expansion Eyes: PERRL Musculoskeletal: Flexion and extension of lumbar [spine] somewhat guarded secondary to pain, [antalgic gait noted] point tenderness along bilateral SIs with positive bilateral Ailyn's, Mari's, Gaenslen's, compression and distraction exam Neurological: Speech clear, no gross sensory deficit Assessment:: Degenerative disc disease of lumbar spine with lumbar radiculopathy symptoms, chronic low back pain, bilateral foot pain, bilateral sacroiliitis, lumbar facet arthropathy Plan:: Patient is experiencing worsening pain in her low back and bilateral hips with pain going into her buttocks into her groin area. Patient did have limited range of motion of her lumbar spine along with point tenderness at her bilateral SIs and a positive bilateral Ailyn's, Mari's, Gaenslen's, compression and distraction exam. I have discussed with patient that she may benefit from bilateral SI injection. Risk and benefits were discussed with the patient and she would like to proceed forward with this plan of care. I will send in a 5-day dose of prednisone 20 mg twice daily. Patient will be scheduled for bilateral SI injection under fluoroscopy. Patient has tried and failed conservative therapy such as oral medication, heat and ice, topicals, at home stretching exercise for longer than 6 weeks. Patient has been instructed to contact the clinic with any concerns before the next appointment. Dr. Restrepo has reviewed this note and agrees with this plan of care. This note was dictated using voice recognition software and make contain errors or omissions. [facility] Disclaimer: The information contained in this section may have been updated after the patient was seen, as this information can be updated by other users. Medical History Type 2 diabetes mellitus Tight control of hyperglycemia is recommended. Active follow-up with PCP. History of CVA (cerebrovascular accident) Brain MRI 01/21/22 showed evidence of chronic small left hemisphere lacunar CVA's. She is currently on best medical therapy including and aspirin, statins and has a loop recorder implanted followed by cardiology. Hyperlipidemia Currently on high intensity statin therapy. Goal is to keep LDL less than 55 Hypertension Active follow-up with cardiology at [facility] and currently normotensive. Bipolar disorder Family History Other No significant family history Social History Smoking Status: Current every day smoker alcohol intake: never substance use type: denies use current occupational status: other Travel in the last 8 weeks: None household members: significant other housing: house lives independently: No marital status: single number of children: 3
== END 2023-10-03 23:59 | disposition home or self-care (01) ==
PROVIDERS: Visit Provider Nurse Practitioner Family
DX: M51.16 Intervertebral disc disorders with radiculopathy, lumbar region (principal); M54.50 Low back pain, unspecified; G89.29 Other chronic pain; M79.671 Pain in right foot; M79.672 Pain in left foot; M46.1 Sacroiliitis, not elsewhere classified; M47.26 Other spondylosis with radiculopathy, lumbar region
CPT/HCPCS: 99212; G0463

== ENCOUNTER 2023-11-01 13:35 | Day surgery (SDC) | payer MEDICARE, OTHER, SELFPAY ==
[2023-11-01 13:53] VITALS: BP 148/85; PULSE 103; RESP 18; TEMP 36.6; O2SAT 96; BMI 37.0
[2023-11-01] MEDS: methylPREDNISolone ACETATE 80MG/ML VIAL 80 MG (14:06)
[2023-11-01] MEDS: LIDOCAINE 1% 5ML PF VIAL 5 ML (14:06)
[2023-11-01] MEDS: BUPIVACAINE 0.25% 10ML INJ 25 MG IJ (14:07)
[2023-11-01 14:08] VITALS: BP 124/78; PULSE 86; RESP 18; O2SAT 96
[2023-11-01 14:09] VITALS: BP 124/78; PULSE 86; RESP 18; O2SAT 96
[2023-11-01 14:15] VITALS: BP 135/88; PULSE 94; RESP 18; O2SAT 96
--- NOTE | 2023-11-01 14:49 | P.PCN_ITS ---
Procedure Date: 11/01/23 Time: 14:20 Anesthesiologist:: Nick Bolaños CRNA Complications:: None Pre-procedure Diagnosis:: Bilateral sacroiliitis. Post-procedure Diagnosis:: Same. Indications for Procedure:: Patient is a pleasant 43-year-old female comes to clinic today for repeat bilateral sacroiliac joint injection. She is responded well in the past to this treatment. She has extreme point tenderness over the bilateral sacroiliac joint. She reports difficulty with ambulation and/or sitting for any length of time. Difficulty transitioning from sitting to standing. She rates her pain 7/10. Procedure Details:: Procedure: Bilateral sacroiliac joint injections under fluoroscopy Informed consent was obtained and the risks and benefits of the procedure were explained to the patient.~ The patient was taken to the procedure room and noninvasive monitors were placed including a noninvasive blood pressure cuff and pulse oximeter.~ The patient was placed prone on the procedure table. Both hips were cleansed using Betadine as a cleansing solution. C-arm fluoroscopy was used to view the right sacroiliac joint.~ The skin and subcutaneous tissues were anesthetized using lidocaine 1.5% and a 25-gauge needle.~ After this, a 22-gauge spinal needle was inserted under fluoroscopic guidance into the inferior aspect of the right sacroiliac joint.~ Omnipaque dye was injected and good spread was seen throughout the joint.~ After this, approximately 5 mL of bupivacaine, 0.25% and Depo-Medrol, 40 mg was incrementally injected into the right sacroiliac joint. We then moved to the left sacroiliac joint.~ The skin and subcutaneous tissues were anesthetized using lidocaine 1.5% and a 25-gauge needle.~ After this, a 22- gauge spinal needle was inserted under fluoroscopic guidance into the inferior aspect of the left sacroiliac joint.~ Omnipaque dye was injected and good spread was seen throughout the joint. After this, approximately 5 mL of bupivacaine, 0.25% and Depo-Medrol, 40 mg was incrementally injected into the left sacroiliac joint.~ The patient tolerated the procedure well with no complications. The patient was observed in the Pain Clinic and then was discharged home neurologically intact. Plan and Disposition:: Patient was discharged without incident.
== END 2023-11-01 14:15 | disposition home or self-care (01) ==
LOC: SC.PAINP 13:36
PROVIDERS: PCP Nurse Practitioner Family; Visit Provider Nurse Anesthetist, Certified Registered
DX: M46.1 Sacroiliitis, not elsewhere classified (principal)
CPT/HCPCS: 27096; G0260; J1010

== ENCOUNTER 2023-11-18 12:52 | Outpatient (POV) | payer MEDICARE, OTHER, SELFPAY ==
[2023-11-18 13:05] VITALS: BP 129/81; PULSE 86; RESP 16; O2SAT 96; BMI 36.8
--- NOTE | 2023-11-18 13:23 | EXP.PAIN.SOA ---
[facility] Pain Management SOAP Note Subjective:: This patient is a very pleasant 43-year-old female comes our clinic today for follow-up visit after receiving bilateral sacroiliac joint injections and cortisone. She reports 3 days of significant improvement terms of her low back pain. She describes the low back pain as constant, dull, aching. The pain is across the entire lumbar spine as well as into the buttocks bilaterally. She has difficulty sitting and/or standing for any length of time. She has extreme difficulty with flexion, extension, left and right rotation. I reviewed her lumbar MRI from July 2023 with her today. MRI shows multilevel disc degeneration. Disc bulge L4-5, L5-S1. Multilevel facet arthropathy. Lumbar spondylosis. We discussed in detail lumbar facet injections of cortisone. She reports today she has had this in the past several years ago with subsequent lumbar ablation. She reports this helped her for 7 or 8 months. She has tried and failed conservative measures such as physical therapy, home exercise program, NSAIDs, acetaminophen. Objective:: Patient is awake alert [place] x 3. In no acute distress. Flexion-extension lumbar spine somewhat guarded secondary to pain. Deep tendon reflexes upper and lower extremities normal. Motor strength upper and lower extremities normal. There is no gross sensory deficit. Gait is normal. Assessment:: Degenerative disc lumbar spine multilevels. Lumbar radiculopathy. Lumbar facet arthropathy. Lumbar spondylosis. Lumbar disc bulge L4-5, L5-S1. Plan:: Discussed in detail with the patient regarding lumbar facet blocks. L4-5, L5-S1. She wishes to proceed. Will submit for insurance approval. [facility] Disclaimer: The information contained in this section may have been updated after the patient was seen, as this information can be updated by other users. Medical History Type 2 diabetes mellitus Tight control of hyperglycemia is recommended. Active follow-up with PCP. History of CVA (cerebrovascular accident) Brain MRI 01/21/22 showed evidence of chronic small left hemisphere lacunar CVA's. She is currently on best medical therapy including and aspirin, statins and has a loop recorder implanted followed by cardiology. Hyperlipidemia Currently on high intensity statin therapy. Goal is to keep LDL less than 55 Hypertension Active follow-up with cardiology at [facility] and currently normotensive. Bipolar disorder Family History Other No significant family history Social History Smoking Status: Current every day smoker alcohol intake: never substance use type: denies use current occupational status: other Travel in the last 8 weeks: None household members: significant other housing: house lives independently: No marital status: single number of children: 3
== END 2023-11-18 23:59 | disposition home or self-care (01) ==
LOC: SC.PAIN 12:53
PROVIDERS: Visit Provider Nurse Anesthetist, Certified Registered
DX: M47.896 Other spondylosis, lumbar region (principal); M51.16 Intervertebral disc disorders with radiculopathy, lumbar region; M51.26 Other intervertebral disc displacement, lumbar region
CPT/HCPCS: 99212; G0463

== ENCOUNTER 2023-12-20 14:00 | Day surgery (SDC) | payer MEDICARE, SELFPAY ==
[2023-12-20 14:33] VITALS: BP 139/78; PULSE 111; RESP 18; TEMP 36.8; O2SAT 96; BMI 37.3
[2023-12-20 15:00] VITALS: BP 143/89; PULSE 100; RESP 16; O2SAT 95
--- NOTE | 2023-12-20 15:00 | P.PCN_ITS ---
Procedure Date: 12/20/23 Time: 14:50 Anesthesiologist:: Nick Bolaños CRNA Complications:: None Pre-procedure Diagnosis:: Degenerative disc lumbar spine multilevels. Lumbar radiculopathy. Bilateral facet arthropathy more spine. Lumbar spondylosis. Post-procedure Diagnosis:: Same. Indications for Procedure:: Patient is a pleasant 43-year-old female comes our clinic today for round 1 medial branch block lumbar spine bilaterally L4-5, L5-S1. Patient reports low lumbar back pain that is constant, dull, aching. She reports pain intensifies with flexion, extension, left or right rotation. Patient also reports pain intensifies with standing. She rates her pain 8/10. Procedure Details:: Informed consent was obtained and the risk and benefits of the procedure was explained to the patient. Patient was taken to the procedure room where noninvasive monitors were placed, including noninvasive blood pressure cuff as well as pulse oximeter. The area over the lumbar spine was cleansed using chlorhexidine as a cleansing solution. I anesthetized the skin and subcutaneous tissues with 1% Lidocaine. I placed 22-gauge spinal needles into the facet joint/ medial branches of L4-5, L5-S1 bilaterally. Needle placement was confirmed with fluoroscopy. After confirmation of needle placement, each site was injected with 1 mL of 1% lidocaine and 0.25 % Marcaine and 10 mg of Depo- Medrol. A total of 80 mg of depo medrol was used for bilateral medial branch blocks of L4-5, L5-S1 bilaterally. Patient tolerated the procedure without difficulty. There were no complications. Plan and Disposition:: Patient was discharged without incident.
[2023-12-20] MEDS: LIDOCAINE 1% 5ML PF VIAL 5 ML (15:03)
[2023-12-20] MEDS: methylPREDNISolone ACETATE 80MG/ML VIAL 80 MG (15:03)
[2023-12-20 15:04] VITALS: BP 136/86; PULSE 110; RESP 19; O2SAT 97
== END 2023-12-20 15:01 | disposition home or self-care (01) ==
PROVIDERS: PCP Nurse Practitioner Family; Visit Provider Nurse Anesthetist, Certified Registered
DX: M47.816 Spondylosis without myelopathy or radiculopathy, lumbar region (principal)
CPT/HCPCS: 64493; 64494; J1010

== ENCOUNTER 2023-12-28 02:28 | Emergency (ER) | payer MEDICARE, SELFPAY ==
[2023-12-28 02:38] VITALS: BMI 37.3
--- NOTE | 2023-12-28 02:39 | XR_ITS ---
PROCEDURE INFORMATION: Exam: XR Left Ankle Exam date and time: 12/28/2023 2:43 AM Age: 43 years old Clinical indication: Injury or trauma; Fall TECHNIQUE: Imaging protocol: Radiologic exam of the left ankle. Views: 1 or 2 views. COMPARISON: No relevant prior studies available. FINDINGS: Bones/joints: Secondary ossification center versus avulsion fracture of the base of the 5th metatarsal. Heel spur. Soft tissues: Soft tissue swelling diffusely. IMPRESSION: 1. Secondary ossification center versus avulsion fracture the base of the 5th metatarsal. Recommend dedicated foot radiographs for further assessment. 2. Posttraumatic soft tissue swelling.
[2023-12-28 02:41] VITALS: BP 153/86; PULSE 98; RESP 18; TEMP 36.4; O2SAT 96; BMI 37.3
--- NOTE | 2023-12-28 02:55 | PC.NURSE ---
Addendum entered by Andria Guajardo RN 12/28/23 02:55: no pain Original Note: No pain reported at this time
--- NOTE | 2023-12-28 03:13 | HMH.EDGENADL ---
Discharge Plan Disposition Patient Disposition: Home, Self-Care Condition: Good Prescriptions Prescriptions: No Action hydrochlorothiazide 12.5 mg tablet 12.5 mg PO DAILY Patient Comments: TAKE ONE TABLET BY MOUTH EVERY DAY verapamil 120 mg capsule,ext rel. pellets 24 hr 120 mg PO DAILY Qty: 30 5RF Lybalvi 20-10 mg tablet 1 tab PO QHS Qty: 30 2RF Linzess 72 mcg capsule 72 mcg PO DAILY valsartan [Diovan] 160 mg tablet 5 mg PO DAILY Myrbetriq 25 mg tablet extended release 24 hr 25 mg PO DAILY Patient Comments: TAKE ONE TABLET BY MOUTH EVERY DAY do not crush, chew, and/or divide take with water cholecalciferol (vitamin D3) [Vitamin D3] 50 mcg (2,000 unit) capsule 50 mcg PO DAILY Patient Comments: TAKE ONE CAPSULE BY MOUTH EVERY DAY gabapentin [Neurontin] 600 mg tablet 600 mg PO BID Patient Comments: TAKE ONE TABLET BY MOUTH EVERY MORNING AND TAKE TWO TABLETS AT BEDTIME MAY CAUSE DROWSINESS rosuvastatin [Crestor] 20 mg tablet 20 mg PO DAILY Patient Comments: TAKE ONE TABLET BY MOUTH EVERY DAY Trulicity 3 mg/0.5 mL pen injector 3 mg SQ DAILY Patient Comments: INJECT 3 MG SUBCUTANEOUSLY ONCE A WEEK polyethylene glycol 3350 17 gram/dose powder 17 g PO DAILY Patient Comments: DISSOLVE 17 GRAMS OF POWDER INTO 4 TO 8 OUNCES OF WATER, JUICE, SODA, COFFEE, OR TEA THEN DRINK EVERY DAY do not exceed 17 grams PER day ezetimibe [Zetia] 10 mg tablet 10 mg PO DAILY Patient Comments: TAKE ONE TABLET BY MOUTH EVERY DAY (DME) lancets [Accu-Chek Softclix Lancets] Misc See Rx Instructions .ROUTE .MEDSUPPLY Qty: 100 Patient Comments: USE TO test blood sugar FOUR TIMES DAILY Rx Instructions: As directed (DME) Accu-Chek Guide test strips Strip See Rx Instructions .ROUTE .MEDSUPPLY Qty: 10 Patient Comments: USE TO test blood sugar FOUR TIMES DAILY Rx Instructions: As directed hydrocortisone acetate [Anucort-HC] 25 mg suppository 25 mg ME DAILY Patient Comments: UNWRAP AND INSERT 1 SUPPOSITORY RECTALLY TWICE DAILY FOR 2 WEEKS duloxetine [Cymbalta] 60 mg capsule,delayed release(DR/EC) 120 mg PO DAILY Qty: 60 1RF buspirone 10 mg tablet 20 mg PO TID Qty: 180 1RF peg 3350-electrolytes [GaviLyte-G] 236-22.74-6.74 -5.86 gram recon soln 240 ml PO Q10M Qty: 4000 0RF Rx Instructions: follow mailed instructions. pharmacy may switch prep if needed aripiprazole [Abilify] 10 mg tablet 10 mg PO QHS Qty: 30 3RF baclofen 20 mg tablet 20 mg PO TID Patient Comments: TAKE ONE TABLET BY MOUTH THREE TIMES DAILY @9am, 1pm, 5pm metformin 1,000 mg tablet 1,000 mg PO DAILY Patient Comments: TAKE ONE TABLET BY MOUTH DAILY AT 9 AM levothyroxine [Synthroid] 75 MCG tablet 75 mcg PO DAILY aspirin [Regine Chewable Aspirin] 81 MG tablet,chewable 81 mg PO DAILY Referrals Follow up/Referrals: Vee Wells APRN [Primary Care Provider] - See instructions Activity Restrictions/Add. Instructions Additional Instructions/Restrictions: You were evaluated in the ER. You are appropriate for discharge at this time. Keep the dressing and wound clean and dry. Follow-up for your postop appointment as scheduled. Continue taking home medications as previously prescribed. Return to the ER with new, worsening, or otherwise concerning symptoms. Clinical Impressions Clinical Impression: Postoperative wound hemorrhage Discharge ED Provider: Forest Momin Adult HPI General Chief complaint: Fall Stated complaint: AO 0200 fell pos ripped stitch Time Seen by Provider: 12/28/23 02:30 Mode of Arrival: Wheelchair Source of Information: Patient Limitations: No Limitations Description of Symptoms (Recalled from ER Triage Doc. by RN): Pt reported to ED for C/O of fall that occured approx 30 mins ago and bleeding from surgical site. Pt states she had Tarsal Tunnel Release sx on 12/27/2023. Pt states she went to the restroom and fell due to the nerve block. Pt denies any pain at this time. Upon assessment pt's peterson bandage appeared to have blood on it. History of Present Illness HPI narrative: 43-year-old female presents to the ER for concerns of fall with bleeding from surgical site. Patient states she had tarsal tunnel release surgery less than 24 hours ago. She has a nerve block in the left lower extremity and forgot about the leg being numb. She attempted to get out of bed and fell due to the nerve block. She denies any injuries, she did not strike her head or lose consciousness, no blood thinners. Patient states she had bleeding that bled through her dressing from the surgical site so she came to the ER concerned about the stitches being ripped out. Patient has no pain and states the nerve block is still effective. Related Data Home Medications Medication Instructions Recorded Confirmed aspirin 81 mg chewable tablet 81 mg PO DAILY heart health 10/07/21 12/20/23 (Regine Chewable Low Dose Aspirin) levothyroxine 75 mcg tablet 75 mcg PO DAILY hypothyroidism 10/07/21 12/20/23 (Synthroid) baclofen 20 mg tablet 20 mg PO TID Infection 07/25/22 12/20/23 metformin 1,000 mg tablet 1,000 mg PO DAILY dm 07/25/22 12/20/23 linaclotide 72 mcg capsule 72 mcg PO DAILY 03/02/23 12/20/23 (Linzess) blood sugar diagnostic (Accu-Chek #10 ea 08/25/23 12/20/23 Guide test strips) cholecalciferol (vitamin D3) 50 50 mcg PO DAILY 08/25/23 12/20/23 mcg (2,000 unit) capsule (Vitamin D3) dulaglutide 3 mg/0.5 mL 3 mg SQ DAILY 08/25/23 12/20/23 subcutaneous pen injector (Trulicity) ezetimibe 10 mg tablet (Zetia) 10 mg PO DAILY 08/25/23 12/20/23 gabapentin 600 mg tablet 600 mg PO BID 08/25/23 12/20/23 (Neurontin) hydrocortisone acetate 25 mg 25 mg ME DAILY 08/25/23 12/20/23 rectal suppository (Anucort-HC) lancets (Accu-Chek Softclix #100 ea 08/25/23 12/20/23 Lancets) mirabegron 25 mg tablet,extended 25 mg PO DAILY 08/25/23 12/20/23 release 24 hr (Myrbetriq) polyethylene glycol 3350 17 17 g PO DAILY 08/25/23 12/20/23 gram/dose oral powder rosuvastatin 20 mg tablet (Crestor) 20 mg PO DAILY 08/25/23 12/20/23 valsartan 160 mg tablet (Diovan) 5 mg PO DAILY 11/07/23 12/20/23 hydrochlorothiazide 12.5 mg tablet 12.5 mg PO DAILY 12/08/23 12/20/23 Previous Rx's Medication Instructions Recorded duloxetine 60 mg capsule,delayed 120 mg (2 x 60 mg) PO DAILY #60 10/06/23 release (Cymbalta) caps buspirone 10 mg tablet 20 mg (2 x 10 mg) PO TID #180 tabs 10/18/23 peg 3350-electrolytes 236 240 ml PO Q10M bowel prep #4,000 mL 11/11/23 gram-22.74 gram-6.74 gram-5.86 gram solution (GaviLyte-G) olanzapine 20 mg-samidorphan 10 mg 1 tab PO QHS #30 tabs 11/29/23 tablet (Lybalvi) aripiprazole 10 mg tablet (Abilify) 10 mg PO QHS #30 tabs 12/07/23 verapamil 120 mg 24 hr 120 mg PO DAILY #30 caps 12/08/23 capsule,extended release Allergies Allergy/AdvReac Type Severity Reaction Status Date / Time topiramate [From Topamax] Allergy Verified 12/08/23 13:23 [facility] Disclaimer: The information contained in this section may have been updated after the patient was seen, as this information can be updated by other users. Medical History Type 2 diabetes mellitus Tight control of hyperglycemia is recommended. Active follow-up with PCP. History of CVA (cerebrovascular accident) Brain MRI 01/21/22 showed evidence of chronic small left hemisphere lacunar CVA's. She is currently on best medical therapy including and aspirin, statins and has a loop recorder implanted followed by cardiology. Hyperlipidemia Currently on high intensity statin therapy. Goal is to keep LDL less than 55 Hypertension Active follow-up with cardiology at [facility] and currently normotensive. Bipolar disorder Family History Other No significant family history Social History Smoking Status: Current every day smoker alcohol intake: never substance use type: denies use current occupational status: other Travel in the last 8 weeks: None household members: significant other housing: house lives independently: No marital status: single number of children: 3 ROS Obtained: Yes All systems reviewed & no additional complaints except as documented Constitutional Constitutional: Denies chills, Denies fever(s), Denies headache(s) and Denies weakness ENT Ears, Nose, Mouth, and Throat: Denies dizziness, Denies headache(s), Denies nasal congestion, Denies neck pain and Denies sore throat Cardiovascular Cardiovascular: Denies chest pain, Denies dyspnea and Denies leg edema Respiratory Respiratory: Denies cough and Denies dyspnea Gastrointestinal Gastrointestingal: Denies abdominal pain, constipation, diarrhea, nausea or vomiting Genitourinary Female Genitourinary: Denies dysuria Musculoskeletal Musculoskeletal: Denies arthralgias, Denies back pain, Denies myalgias, Denies neck pain, Denies numbness and Denies tingling Integumentary/Breasts Skin/Breast: Denies change in pigmentation Neurologic Neurologic: Denies dizziness, Denies headache(s), Denies numbness, Denies tingling and Denies weakness Physical Exam General General appearance: alert and in no apparent distress Head Head exam: atraumatic and normocephalic Eye Eye exam: Present PERRL and EOMI ENT ENT exam: Present mucous membranes moist Neck Neck exam: Present normal inspection and full ROM Chest Chest inspection: Present symmetric chest wall rise Respiratory Respiratory exam: Present normal lung sounds bilaterally; Absent respiratory distress, wheezes or stridor Cardiovascular Cardiovascular exam: Present regular rate and normal rhythm Abdominal Exam Abdominal exam: Present soft; Absent distention or tenderness Extremities Exam Extremities exam: Present full ROM, joint swelling (Swelling of the left ankle, appears appropriate for recent operation) and other (3 to 4 cm surgical incision on the medial aspect of the left ankle. Wound is well-approximated, there was mild oozing of blood which stopped spontaneously with mild pressure. DP and PT pulses palpable, 2+. No sensation in this foot at this time secondary to nerve block) Neurological Exam Neurological exam: Present alert and oriented X3; Absent motor sensory deficit Psychiatric Psychiatric exam: Present normal affect and normal mood Skin Skin exam: Present warm and dry Medical Decision Making Александр Inquiry Pt receiving controlled substance: No Vital Signs: 12/28/23 02:41 12/28/23 04:31 Temperature 97.6 F 97.6 F Temperature Source Oral Oral Pulse Rate 84 Pulse Rate [Left] 98 H Respiratory Rate 18 16 Blood Pressure 109/73 L Blood Pressure [Right Arm] 153/86 H Blood Pressure Mean [Right Arm] 108 Blood Pressure Source Automatic Cuff Blood Pressure Position Sitting 02 Sat by Pulse Oximetry 96 Oxygen Delivery Method Room Air Room Air Orders (Tests/Meds): ORDERS Category Date Time Status Ankle XR - Left 2 Views [XR ankle LT 2V] Stat Exams 12/28/23 02:39 Completed Medical Decision Narrative: In summary, this 43-year-old female presents to the emergency department today with bleeding from surgical incision on left foot. On initial evaluation patient is hemodynamically stable, afebrile, mild bleeding from surgical incision, no other abnormalities appreciated however patient is numb in the left foot secondary to active nerve block. Differential diagnosis includes but is not limited to wound dehiscence, bleeding surgical wound, I considered the possibility of fracture since patient has a completely numb foot and is unclear exactly the mechanism of her fall. Based on these concerns, I ordered x-ray left ankle. Patient's wound had spontaneously achieved hemostasis. I was able to express a small amount of hematoma from the wound. It continued to be hemostatic so I wrapped the wound with Adaptic, gauze, and Kerlix covered with [place] wrap. Left ankle x-ray was personally interpreted and I did not appreciate any acute osseous injury in the ankle. Radiology read was delayed, Patient requested to be discharged at this time. patient was comfortable and nonweightbearing on the left lower extremity anyways due to recent operation if an incidental finding was to be identified so I discharged the patient pending final radiology read. Patient was given instructions on symptomatic management, follow up instructions, and return precautions for the emergency department. Patient indicated understanding and was discharged in stable condition. Final radiology read resulted with secondary ossification center at the base of the left fifth metatarsal versus possible avulsion fracture. I had attempted to reach the patient by phone unsuccessfully early on 12/27 after final radiology read resulted, however phone connection was unable to be made. Patient was contacted by phone by me again on 12/28 at 0620. She stated she is having pain in the left foot since the nerve block wore off. She has continued to be nonweightbearing. She had follow-up with her live ammunition inspector yesterday during the day because she was still having some bleeding but since it has been rewrapped by him, it has not persisted. I discussed the finding on the x-ray with her and recommended she return to the ER for dedicated foot imaging and reassessment since she continues having pain. Patient stated her [id number] is having a cardiac cath today, but she will come to the ER this afternoon for follow-up imaging. I believe this is appropriate since patient is already nonweightbearing and has been, therefore the it is extremely unlikely that there has been any additional injury and on my personal interpretation of the x-ray believe the abnormality is more likely to be a secondary ossification center, it is out of an abundance of caution that repeat imaging be performed. Patient in agreement with this plan. Critical Care Critical Care Time Critical Care Time: No
[2023-12-28 04:31] VITALS: BP 109/73; PULSE 84; RESP 16; TEMP 36.4; O2SAT 95
== END 2023-12-28 04:32 | disposition home or self-care (01) ==
PROVIDERS: Emergency Provider Emergency Medicine; PCP Nurse Practitioner Family
DX: L76.22 Postprocedural hemorrhage of skin and subcutaneous tissue following other procedure (principal); Z98.890 Other specified postprocedural states; G57.52 Tarsal tunnel syndrome, left lower limb; W18.30XA Fall on same level, unspecified, initial encounter
CPT/HCPCS: 73600; 99283

== ENCOUNTER 2024-01-12 14:48 | Outpatient (POV) | payer MEDICARE, SELFPAY ==
[2024-01-12 14:55] VITALS: BP 133/74; PULSE 87; RESP 18; TEMP 36.6; O2SAT 98; BMI 36.6
--- NOTE | 2024-01-12 15:06 | A.OFFVIS_ITS ---
[facility] Disclaimer: The information contained in this section may have been updated after the patient was seen, as this information can be updated by other users. Medical History Type 2 diabetes mellitus Tight control of hyperglycemia is recommended. Active follow-up with PCP. History of CVA (cerebrovascular accident) Brain MRI 01/21/22 showed evidence of chronic small left hemisphere lacunar CVA's. She is currently on best medical therapy including and aspirin, statins and has a loop recorder implanted followed by cardiology. Hyperlipidemia Currently on high intensity statin therapy. Goal is to keep LDL less than 55 Hypertension Active follow-up with cardiology at [facility] and currently normotensive. Bipolar disorder Family History Other No significant family history Social History Smoking Status: Current every day smoker alcohol intake: never substance use type: denies use current occupational status: other Travel in the last 8 weeks: None household members: significant other housing: house lives independently: No marital status: single number of children: 3 PM Subjective & Objective Subjective Subjective:: Patient is a pleasant 43-year-old female who presents today for follow-up of her first lumbar medial branch block bilaterally L4-L5 and L5-S1 on 12/20/2023. Today she rates her pain a 6 out of 10. She denies any new trauma or injury since her last appointment with our office. Patient does state that she got 9 days of relief with these injections and that she was able to do more activity than she has been able to do for months if not longer. Patient states that she was even able to do her dishes which is a significant improvement of where she had been. Patient states the day of these injection she had 100% relief with the numbing medication. She states then the next day she did have a little bit more soreness however by the fourth the fifth day she was at 80% relief and then it did start to slowly decrease from there. Patient does states she is back to her baseline today and is still experiencing worsening pain throughout her low back with no symptoms going into her legs. She does describe it as an aching, throbbing sensation that is worse with certain movements such as bending, twisting or lifting. Patient does state the pain interferes with her ability perform activities of daily living such as cooking and cleaning. Patient does also present today with her left ankle wrapped in an Peterson bandage and on a rolling scooter. Patient does states prior to her injection she had ended up having to have left ankle surgery for tarsal tunnel and that while she was recovering from this she ended up having a fall where she fractured the outer aspect of her left ankle. Patient states she is getting around a little bit easier now with this. Her Александр has been reviewed and is appropriate. Review of Systems: General: No recent weight changes, no fever, no sleep disturbances Respiratory: No cough, no shortness of air, no recurring pulmonary infections Cardiovascular/peripheral vascular: No chest pain, no palpitations, no edema, no shortness of breath Gastrointestinal: No new onset incontinence, normal bowel movements reported Genitourinary: No new onset incontinence Musculoskeletal: Low back pain Psychiatric: [Normal mood/affect] Neurological: [Denies weakness in extremities], [denies balance issues] Pain at rest (0-10 scale): 6 Objective Objective:: Physical Exam: General: Alert and oriented x3, no acute distress, pleasant and cooperative Lungs: Respirations even and unlabored, symmetrical chest expansion Eyes: PERRL Musculoskeletal: Flexion and extension of lumbar [spine] somewhat guarded secondary to pain, [antalgic gait noted] positive Kemps test Neurological: Speech clear, no gross sensory deficit Has patient had previous pain injection?: Yes Percent improvement in pain since last injection: 100 to 80% Conservative treatment options previously tried: Home exercise plan Length of treatment: Longer than 6 weeks and Prescription medications Length of treatment: Longer than 6 weeks Meds Home Medications and Allergies Home Medications ?Medication ?Instructions ?Recorded ?Confirmed ?Type aspirin 81 mg chewable tablet 81 mg PO DAILY heart health 10/07/21 12/20/23 History (Regine Chewable Low Dose Aspirin) levothyroxine 75 mcg tablet 75 mcg PO DAILY hypothyroidism 10/07/21 12/20/23 History (Synthroid) baclofen 20 mg tablet 20 mg PO TID Infection 07/25/22 12/20/23 History metformin 1,000 mg tablet 1,000 mg PO DAILY dm 07/25/22 12/20/23 History linaclotide 72 mcg capsule 72 mcg PO DAILY 03/02/23 12/20/23 History (Yolis) blood sugar diagnostic (Accu-Chek #10 ea 08/25/23 12/20/23 History Guide test strips) cholecalciferol (vitamin D3) 50 50 mcg PO DAILY 08/25/23 12/20/23 History mcg (2,000 unit) capsule (Vitamin D3) dulaglutide 3 mg/0.5 mL 3 mg SQ DAILY 08/25/23 12/20/23 History subcutaneous pen injector (Trulicity) ezetimibe 10 mg tablet (Zetia) 10 mg PO DAILY 08/25/23 12/20/23 History gabapentin 600 mg tablet 600 mg PO BID 08/25/23 12/20/23 History (Neurontin) hydrocortisone acetate 25 mg 25 mg NC DAILY 08/25/23 12/20/23 History rectal suppository (Anucort-HC) lancets (Accu-Chek Softclix #100 ea 08/25/23 12/20/23 History Lancets) mirabegron 25 mg tablet,extended 25 mg PO DAILY 08/25/23 12/20/23 History release 24 hr (Myrbetriq) polyethylene glycol 3350 17 17 g PO DAILY 08/25/23 12/20/23 History gram/dose oral powder rosuvastatin 20 mg tablet (Crestor) 20 mg PO DAILY 08/25/23 12/20/23 History duloxetine 60 mg capsule,delayed 120 mg (2 x 60 mg) PO DAILY #60 10/06/23 12/20/23 Rx release (Cymbalta) caps buspirone 10 mg tablet 20 mg (2 x 10 mg) PO TID #180 tabs 10/18/23 12/20/23 Rx valsartan 160 mg tablet (Diovan) 5 mg PO DAILY 11/07/23 12/20/23 History peg 3350-electrolytes 236 240 ml PO Q10M bowel prep #4,000 mL 11/11/23 12/20/23 Rx gram-22.74 gram-6.74 gram-5.86 gram solution (GaviLyte-G) olanzapine 20 mg-samidorphan 10 mg 1 tab PO QHS #30 tabs 11/29/23 12/20/23 Rx tablet (Lybalvi) aripiprazole 10 mg tablet (Abilify) 10 mg PO QHS #30 tabs 12/07/23 12/20/23 Rx hydrochlorothiazide 12.5 mg tablet 12.5 mg PO DAILY 12/08/23 12/20/23 History verapamil 120 mg 24 hr 120 mg PO DAILY #30 caps 12/08/23 12/20/23 Rx capsule,extended release New Prescriptions to Start Prescriptions: Allergies Allergy/AdvReac Type Severity Reaction Status Date / Time topiramate [From Topamax] Allergy Verified 12/08/23 13:23 Assessment and Plan *Assessment and plan (1) Low back pain: Status: Acute Qualifiers: Chronicity: chronic Back pain laterality: bilateral Sciatica presence: with sciatica Sciatica laterality: bilateral sciatica Qualified Code(s): M54.42 - Lumbago with sciatica, left side; M54.41 - Lumbago with sciatica, right side; G89.29 - Other chronic pain Category: Medical Code(s): M54.50 - Low back pain, unspecified (2) Lumbar facet arthropathy: Status: Acute Category: Medical Code(s): M47.816 - Spondylosis without myelopathy or radiculopathy, lumbar region Plan Patient has had significant improvement with her first lumbar medial branch block providing 100% the day of this injection and then going down towards 80% and lasting a total of 9 days. Patient did have improved function overall with this injection. Patient is however experiencing worsening pain throughout her low back with limited range of motion of the lumbar spine and a positive Kemps test. I have reviewed over the risk and benefits of repeat injection and she would like to proceed forward with this plan of care. Patient was also counseled that if she has a successful second block that we will plan on doing the lumbar RFA at a later date. Patient is agreeable to this as she has tried and failed conservative treatment including oral medications, heat and ice, topicals and continued at home stretching and exercise for longer than 6 weeks. We will submit to insurance for her second lumbar medial branch block bilaterally L4-L5 and L5-S1 under fluoroscopy. Patient has been instructed to contact the clinic with any concerns before the next appointment. Dr. Restrepo has reviewed this note and agrees with this plan of care. This note was dictated using voice recognition software and make contain errors or omissions. All injections are used with Lidocaine or Bupivacaine and Depo Medrol.
== END 2024-01-12 23:59 | disposition home or self-care (01) ==
LOC: SC.PAIN 14:49
PROVIDERS: PCP Nurse Practitioner Family; Visit Provider Nurse Practitioner Family
DX: M54.42 Lumbago with sciatica, left side (principal); M54.41 Lumbago with sciatica, right side; G89.29 Other chronic pain; M47.816 Spondylosis without myelopathy or radiculopathy, lumbar region
CPT/HCPCS: 99212; G0463

== ENCOUNTER → 2024-01-31 08:37 | Day surgery (SDC) | payer MEDICARE, SELFPAY ==
[2024-01-31 08:55] VITALS: BP 133/75; PULSE 94; RESP 16; TEMP 36.8; O2SAT 97; BMI 37.2
[2024-01-31] MEDS: BUPIVACAINE 0.25% 10ML INJ 25 MG IJ (09:04)
[2024-01-31] MEDS: methylPREDNISolone ACETATE 80MG/ML VIAL 80 MG (09:04)
[2024-01-31] MEDS: LIDOCAINE 1% 5ML PF VIAL 5 ML (09:04)
[2024-01-31 09:06] VITALS: BP 132/75; PULSE 93; RESP 18; O2SAT 96
[2024-01-31 09:07] VITALS: BP 132/75; PULSE 96; RESP 18; O2SAT 96
[2024-01-31 09:11] VITALS: BP 117/84; PULSE 105; RESP 18; O2SAT 97
--- NOTE | 2024-01-31 09:14 | P.PCN_ITS ---
Procedure Date: 01/31/24 Time: 09:05 Anesthesiologist:: Nick Bolaños CRNA Complications:: None Pre-procedure Diagnosis:: Degenerative disc lumbar spine multilevels. Lumbar spondylosis. Multilevel lumbar facet arthropathy. Lumbar radiculopathy. Post-procedure Diagnosis:: Same. Indications for Procedure:: Patient is a very pleasant 43-year-old female comes our clinic today for round 2 of lumbar medial branch block bilateral L4-5, L5-S1. Patient reporting 9 days of significant improvement terms of her overall low back pain with her first round of injections at the same level. Patient reports low lumbar back pain with flexion, extension, left and right rotation. She rates her pain 7/10. Procedure Details:: Informed consent was obtained and the risk and benefits of the procedure was explained to the patient. Patient was taken to the procedure room where noninvasive monitors were placed, including noninvasive blood pressure cuff as well as pulse oximeter. The area over the lumbar spine was cleansed using chlorhexidine as a cleansing solution. I anesthetized the skin and subcutaneous tissues with 1% Lidocaine. I placed 22-gauge spinal needles into the facet joint/ medial branches of L4-L5, and L5-S1] bilaterally. Needle placement was confirmed with fluoroscopy. After confirmation of needle placement, each site was injected with 1 mL of 1% lidocaine and 0.25 % Marcaine and 10 mg of Depo- Medrol. A total of 80 mg of depo medrol was used for bilateral medial branch blocks of L4-L5, and L5-S1] bilaterally. Patient tolerated the procedure without difficulty. There were no complications. Plan and Disposition:: Patient was discharged without incident.
== END | disposition home or self-care (01) ==
PROVIDERS: PCP Nurse Practitioner Family; Visit Provider Nurse Anesthetist, Certified Registered
DX: M47.816 Spondylosis without myelopathy or radiculopathy, lumbar region (principal); M51.36 Other intervertebral disc degeneration, lumbar region
CPT/HCPCS: 64493; 64494; J1010

== ENCOUNTER 2024-02-03 15:50 | Emergency (ER) | payer MEDICARE, SELFPAY ==
[2024-02-03 16:07] VITALS: BP 141/92; PULSE 93; RESP 16; TEMP 36.7; O2SAT 95; BMI 37.6
--- NOTE | 2024-02-03 16:17 | ED_ITS ---
Discharge Plan Disposition Patient Disposition: Home, Self-Care Condition: Good Prescriptions Prescriptions: New clindamycin HCl 300 mg capsule 300 mg PO Q6H Qty: 40 0RF No Action hydrochlorothiazide 12.5 mg tablet 12.5 mg PO DAILY Patient Comments: TAKE ONE TABLET BY MOUTH EVERY DAY Lybalvi 20-10 mg tablet 1 tab PO QHS Qty: 30 2RF verapamil 240 mg capsule,ext rel. pellets 24 hr 240 mg PO DAILY Qty: 30 6RF Linzess 72 mcg capsule 72 mcg PO DAILY valsartan [Diovan] 160 mg tablet 160 mg PO DAILY Myrbetriq 25 mg tablet extended release 24 hr 25 mg PO DAILY Patient Comments: TAKE ONE TABLET BY MOUTH EVERY DAY do not crush, chew, and/or divide take with water cholecalciferol (vitamin D3) [Vitamin D3] 50 mcg (2,000 unit) capsule 50 mcg PO DAILY Patient Comments: TAKE ONE CAPSULE BY MOUTH EVERY DAY gabapentin [Neurontin] 600 mg tablet 600 mg PO BID Patient Comments: TAKE ONE TABLET BY MOUTH EVERY MORNING AND TAKE TWO TABLETS AT BEDTIME MAY CAUSE DROWSINESS rosuvastatin [Crestor] 20 mg tablet 20 mg PO DAILY Patient Comments: TAKE ONE TABLET BY MOUTH EVERY DAY ezetimibe [Zetia] 10 mg tablet 10 mg PO DAILY Patient Comments: TAKE ONE TABLET BY MOUTH EVERY DAY (DME) lancets [Accu-Chek Softclix Lancets] Misc See Rx Instructions .ROUTE .MEDSUPPLY Qty: 100 Patient Comments: USE TO test blood sugar FOUR TIMES DAILY Rx Instructions: As directed (DME) Accu-Chek Guide test strips Strip See Rx Instructions .ROUTE .MEDSUPPLY Qty: 10 Patient Comments: USE TO test blood sugar FOUR TIMES DAILY Rx Instructions: As directed duloxetine [Cymbalta] 60 mg capsule,delayed release(DR/EC) 120 mg PO DAILY Qty: 60 1RF buspirone 10 mg tablet 20 mg PO TID Qty: 180 1RF peg 3350-electrolytes [GaviLyte-G] 236-22.74-6.74 -5.86 gram recon soln 240 ml PO Q10M Qty: 4000 0RF Rx Instructions: follow mailed instructions. pharmacy may switch prep if needed aripiprazole [Abilify] 10 mg tablet 10 mg PO QHS Qty: 30 3RF baclofen 20 mg tablet 20 mg PO TID Patient Comments: TAKE ONE TABLET BY MOUTH THREE TIMES DAILY @9am, 1pm, 5pm metformin 1,000 mg tablet 1,000 mg PO DAILY Patient Comments: TAKE ONE TABLET BY MOUTH DAILY AT 9 AM levothyroxine [Synthroid] 75 MCG tablet 75 mcg PO DAILY aspirin [Regine Chewable Aspirin] 81 MG tablet,chewable 81 mg PO DAILY Referrals Follow up/Referrals: Vee Wells APRN [Primary Care Provider] - See instructions Activity Restrictions/Add. Instructions Additional Instructions/Restrictions: Take medication as prescribed Follow up with your [employer] as soon as possible Return if needed Straight to ER if any life threatening symptoms worsening of redness or infection Clinical Impressions Clinical Impression: Wound infection Instructions Patient Instructions: DI for Wound Infection, Clindamycin Print Language Print Language: Icelandic Discharge ED Provider: Yvonne Matthews [facility] [place] HPI General Stated complaint: poss post op infection r foot pain/swelling/puss Mode of Arrival: Ambulatory Source of Information: Patient Limitations: No Limitations Time Seen by Provider: 02/03/24 16:17 Description of Symptoms (Recalled from Triage Doc. by RN): Reports possible infection from the incision on he left ankle. States she had surgery on it on December 26. HEENT Symptoms (Recalled from RN notes): No Resp Symptoms (Recalled from RN notes): No Skin Symptoms (Recalled from RN notes): Yes MS Symptoms (Recalled from RN notes): No Functional Status (Recalled from RN notes): wnl History of Present Illness Provider Complaint: Patient states that she has tarsal tunnel release on December 26 at [facility] by Dr Feliciano Arroyo States she thinks the surgical site is infected States that it is looking red and draining States that she called the office and they told her to to the Emergency Room and she came her worried that it may be infected didnt want to go to the ED Denies fever denies chills or body aches States started having some drainage on and off x 1 week Related Data Home Medications ?Medication ?Instructions ?Recorded ?Confirmed aspirin 81 mg chewable tablet 81 mg PO DAILY heart health 10/07/21 01/31/24 (Regine Chewable Low Dose Aspirin) levothyroxine 75 mcg tablet 75 mcg PO DAILY hypothyroidism 10/07/21 01/31/24 (Synthroid) baclofen 20 mg tablet 20 mg PO TID Infection 07/25/22 01/31/24 metformin 1,000 mg tablet 1,000 mg PO DAILY dm 07/25/22 01/31/24 linaclotide 72 mcg capsule 72 mcg PO DAILY 03/02/23 01/31/24 (Linzess) blood sugar diagnostic (Accu-Chek #10 ea 08/25/23 01/31/24 Guide test strips) cholecalciferol (vitamin D3) 50 50 mcg PO DAILY 08/25/23 01/31/24 mcg (2,000 unit) capsule (Vitamin D3) ezetimibe 10 mg tablet (Zetia) 10 mg PO DAILY 08/25/23 01/31/24 gabapentin 600 mg tablet 600 mg PO BID 08/25/23 01/31/24 (Neurontin) lancets (Accu-Chek Softclix #100 ea 08/25/23 01/31/24 Lancets) mirabegron 25 mg tablet,extended 25 mg PO DAILY 08/25/23 01/31/24 release 24 hr (Myrbetriq) rosuvastatin 20 mg tablet (Crestor) 20 mg PO DAILY 08/25/23 01/31/24 hydrochlorothiazide 12.5 mg tablet 12.5 mg PO DAILY 12/08/23 01/31/24 valsartan 160 mg tablet (Diovan) 160 mg PO DAILY 01/18/24 01/31/24 Previous Rx's ?Medication ?Instructions ?Recorded duloxetine 60 mg capsule,delayed 120 mg (2 x 60 mg) PO DAILY #60 10/06/23 release (Cymbalta) caps buspirone 10 mg tablet 20 mg (2 x 10 mg) PO TID #180 tabs 10/18/23 peg 3350-electrolytes 236 240 ml PO Q10M bowel prep #4,000 mL 11/11/23 gram-22.74 gram-6.74 gram-5.86 gram solution (GaviLyte-G) olanzapine 20 mg-samidorphan 10 mg 1 tab PO QHS #30 tabs 11/29/23 tablet (Lybalvi) aripiprazole 10 mg tablet (Abilify) 10 mg PO QHS #30 tabs 12/07/23 verapamil 240 mg 24 hr 240 mg PO DAILY #30 caps 01/18/24 capsule,extended release clindamycin HCl 300 mg capsule 300 mg PO Q6H #40 caps 02/03/24 Allergies Allergy/AdvReac Type Severity Reaction Status Date / Time topiramate [From Topamax] Allergy Verified 01/18/24 14:07 Worker's Comp Is this a Worker's Comp case?: No [facility] Disclaimer: The information contained in this section may have been updated after the patient was seen, as this information can be updated by other users. Medical History Type 2 diabetes mellitus Tight control of hyperglycemia is recommended. Active follow-up with PCP. History of CVA (cerebrovascular accident) Brain MRI 01/21/22 showed evidence of chronic small left hemisphere lacunar CVA's. She is currently on best medical therapy including and aspirin, statins and has a loop recorder implanted followed by cardiology. Hyperlipidemia Currently on high intensity statin therapy. Goal is to keep LDL less than 55 Hypertension Active follow-up with cardiology at [facility] and currently normotensive. Bipolar disorder Family History Other No significant family history Social History Smoking Status: Current every day smoker alcohol intake: never substance use type: denies use current occupational status: other Travel in the last 8 weeks: None household members: significant other housing: house lives independently: No marital status: single number of children: 3 ROS Obtained: Yes All systems reviewed & no additional complaints except as documented and Yes Systems reviewed as appropriate & no additional complaints except as documented Constitutional Constitutional: Reports system reviewed and no additional complaints, except as documented, Reports as per HPI, Denies body ache, Denies chills and Denies fever(s) ENT Ears, Nose, Mouth, and Throat: Reports system reviewed and no additional complaints, except as documented and Reports as per HPI Cardiovascular Cardiovascular: Reports system reviewed and no additional complaints, except as documented and Reports as per HPI Respiratory Respiratory: Reports system reviewed and no additional complaints, except as documented and Reports as per HPI Integumentary/Breasts Skin/Breast: Reports system reviewed and no additional complaints, except as documented, Reports as per HPI and Reports other Comments: Surgical site from Chen 9th, open and draining with redness hx of diabetes Neurologic Neurologic: Reports system reviewed and no additional complaints, except as documented and Reports as per HPI Physical Exam General General appearance: alert and in no apparent distress ENT ENT exam: Present mucous membranes moist Respiratory Respiratory exam: Present normal lung sounds bilaterally; Absent respiratory distress or wheezes Cardiovascular Cardiovascular exam: Present regular rate, normal rhythm and normal heart sounds Expanded Lower Extremity Exam Left: Ankle image: 2 1. wound noted with drainage and mild swelling and redness noted wound culture obtained Neurological Exam Neurological exam: Present alert, oriented X3 and normal gait Medical Decision Making Александр Inquiry Pt receiving controlled substance: No Александр was queried for this patient: No Vital Signs: 02/03/24 16:07 Temperature 98.0 F Temperature Source Oral Pulse Rate [Radial] 93 H Respiratory Rate 16 Blood Pressure [Right Arm] 141/92 H Blood Pressure Mean [Right Arm] 108 Blood Pressure Source [Right Arm] Automatic Cuff Blood Pressure Position [Right Arm] Sitting 02 Sat by Pulse Oximetry 95 Oxygen Delivery Method Room Air Orders (Tests/Meds): ORDERS Category Date Time Status Wound Culture and Gram Stain Stat Micro 02/03/24 16:07 Ordered Medical Decision Narrative: wound culture obtained attempted to call [facility] no answer discussed transfer to the ED and patient did not want to go to the ED Denies fever, denies chills, patient started on antibiotics and given strict return precautions
[2024-02-03 17:01] VITALS: BP 141/92; PULSE 93; RESP 16; TEMP 36.7; O2SAT 95
--- NOTE | 2024-02-08 09:08 | PC.NURSE ---
REVIEWED WOUND CULTURE WITH Perry OSHEA APRN. ANTIBIOTIC CHANGE NEEDED. LEVAQUIN SENT IN TO PHARMACY PER Perry OSHEA APRN. PATIENT NOTIFIED OF RESULT AND ANTIBIOTIC CHANGE AT THIS TIME. PATIENT ADVISED TO MONITOR BLOOD SUGARS FOR HYPOGLYCEMIA WHILE ON LEVAQUIN AND TO FOLLOW UP WITH PODIATRY. PATIENT VERIFIED UNDERSTANDING
== END 2024-02-03 17:02 | disposition home or self-care (01) ==
PROVIDERS: Emergency Provider Nurse Practitioner; PCP Nurse Practitioner Family
DX: T81.49XA Infection following a procedure, other surgical site, initial encounter (principal); B96.5 Pseudomonas (aeruginosa) (mallei) (pseudomallei) as the cause of diseases classified elsewhere; E11.9 Type 2 diabetes mellitus without complications; I10 Essential (primary) hypertension; E78.5 Hyperlipidemia, unspecified; Z79.84 Long term (current) use of oral hypoglycemic drugs
CPT/HCPCS: 87070; 87077; 87186; 87205; 99212; 99214; G0463

== ENCOUNTER 2024-02-16 09:01 | Outpatient (POV) | payer MEDICARE, SELFPAY ==
[2024-02-16 09:13] VITALS: BP 118/73; PULSE 111; RESP 16; O2SAT 96; BMI 37.3
--- NOTE | 2024-02-16 09:52 | A.OFFVIS_ITS ---
[facility] Disclaimer: The information contained in this section may have been updated after the patient was seen, as this information can be updated by other users. Medical History Type 2 diabetes mellitus Tight control of hyperglycemia is recommended. Active follow-up with PCP. History of CVA (cerebrovascular accident) Brain MRI 01/21/22 showed evidence of chronic small left hemisphere lacunar CVA's. She is currently on best medical therapy including and aspirin, statins and has a loop recorder implanted followed by cardiology. Hyperlipidemia Currently on high intensity statin therapy. Goal is to keep LDL less than 55 Hypertension Active follow-up with cardiology at [facility] and currently normotensive. Bipolar disorder Family History Other No significant family history Social History Smoking Status: Current every day smoker alcohol intake: never substance use type: denies use current occupational status: unemployed Travel in the last 8 weeks: None household members: significant other housing: house lives independently: No marital status: single number of children: 3 PM Subjective & Objective Subjective Subjective:: Patient is a pleasant 44-year-old female who presents today for follow-up of her second lumbar medial branch block bilaterally L4-L5 and L5-S1 on 01/31/2024. Today she rates her pain a 6 out of 10. Patient does state that she had 85% improvement following this procedure and it lasted for 11 days. Patient does state however that she is back to her baseline with chronic pain radiating across her low back and denying any radiating symptoms into her legs. Patient does state the pain is constant and does interfere with her ability to perform activities of daily living. Patient has had a lumbar RFA in the past that did provide approximately 7 months of relief. Patient does state that due to the improved function that she has had with the injection therapy she would like to proceed forward with getting the ablation. Her Александр has been reviewed and is appropriate. Review of Systems: General: No recent weight changes, no fever, no sleep disturbances Respiratory: No cough, no shortness of air, no recurring pulmonary infections Cardiovascular/peripheral vascular: No chest pain, no palpitations, no edema, no shortness of breath Gastrointestinal: No new onset incontinence, normal bowel movements reported Genitourinary: No new onset incontinence Musculoskeletal: Low back pain Psychiatric: [Normal mood/affect] Neurological: [Denies weakness in extremities], [denies balance issues] Pain at rest (0-10 scale): 6 Objective Objective:: Physical Exam: General: Alert and oriented x3, no acute distress, pleasant and cooperative Lungs: Respirations even and unlabored, symmetrical chest expansion Eyes: PERRL Musculoskeletal: Flexion and extension of lumbar [spine] somewhat guarded secondary to pain, [antalgic gait noted] positive Kemps test Neurological: Speech clear, no gross sensory deficit Has patient had previous pain injection?: Yes Percent improvement in pain since last injection: 85% Conservative treatment options previously tried: Home exercise plan Length of treatment: Longer than 12 weeks Meds Home Medications and Allergies Home Medications ?Medication ?Instructions ?Recorded ?Confirmed ?Type aspirin 81 mg chewable tablet 81 mg PO DAILY heart health 10/07/21 02/16/24 History (Regine Chewable Low Dose Aspirin) levothyroxine 75 mcg tablet 75 mcg PO DAILY hypothyroidism 10/07/21 02/16/24 History (Synthroid) baclofen 20 mg tablet 20 mg PO TID Infection 07/25/22 02/16/24 History metformin 1,000 mg tablet 1,000 mg PO DAILY dm 07/25/22 02/16/24 History linaclotide 72 mcg capsule 72 mcg PO DAILY 03/02/23 02/16/24 History (Linzess) blood sugar diagnostic (Accu-Chek #10 ea 08/25/23 02/16/24 History Guide test strips) cholecalciferol (vitamin D3) 50 50 mcg PO DAILY 08/25/23 02/16/24 History mcg (2,000 unit) capsule (Vitamin D3) ezetimibe 10 mg tablet (Zetia) 10 mg PO DAILY 08/25/23 02/16/24 History gabapentin 600 mg tablet 600 mg PO BID 08/25/23 02/16/24 History (Neurontin) lancets (Accu-Chek Softclix #100 ea 08/25/23 02/16/24 History Lancets) mirabegron 25 mg tablet,extended 25 mg PO DAILY 08/25/23 02/16/24 History release 24 hr (Myrbetriq) rosuvastatin 20 mg tablet (Crestor) 20 mg PO DAILY 08/25/23 02/16/24 History duloxetine 60 mg capsule,delayed 120 mg (2 x 60 mg) PO DAILY #60 10/06/23 02/16/24 Rx release (Cymbalta) caps buspirone 10 mg tablet 20 mg (2 x 10 mg) PO TID #180 tabs 10/18/23 02/16/24 Rx peg 3350-electrolytes 236 240 ml PO Q10M bowel prep #4,000 mL 11/11/23 02/16/24 Rx gram-22.74 gram-6.74 gram-5.86 gram solution (GaviLyte-G) olanzapine 20 mg-samidorphan 10 mg 1 tab PO QHS #30 tabs 11/29/23 02/16/24 Rx tablet (Lybalvi) aripiprazole 10 mg tablet (Abilify) 10 mg PO QHS #30 tabs 12/07/23 02/16/24 Rx hydrochlorothiazide 12.5 mg tablet 12.5 mg PO DAILY 12/08/23 02/16/24 History valsartan 160 mg tablet (Diovan) 160 mg PO DAILY 01/18/24 02/16/24 History verapamil 240 mg 24 hr 240 mg PO DAILY #30 caps 01/18/24 02/16/24 Rx capsule,extended release clindamycin HCl 300 mg capsule 300 mg PO Q6H #40 caps 02/03/24 02/16/24 Rx levofloxacin 750 mg tablet 750 mg PO DAILY 7 days #7 tabs 02/08/24 02/16/24 Rx New Prescriptions to Start Prescriptions: Allergies Allergy/AdvReac Type Severity Reaction Status Date / Time topiramate [From Topamax] Allergy Verified 01/18/24 14:07 Assessment and Plan *Assessment and plan (1) Lumbar facet arthropathy: Status: Acute Category: Medical Code(s): M47.816 - Spondylosis without myelopathy or radiculopathy, lumbar region Plan Patient did have a successful seconds lumbar medial branch block with 85% relief for almost 2 weeks. Patient was able to move around easier with overall increased function and decreased pain. Patient was able to decrease oral medications. Patient did also have a significant first lumbar medial branch block with 100% relief lasting the first 24 hours and then going to about 80% relief by the fifth day. I did review over the risk and benefits of the lumbar RFA and she would like to proceed forward with this plan of care. Patient has tried and failed conservative therapies including oral medication, heat and ice, topicals, at home stretching exercise for longer than 12 weeks. Patient will be submitted for a lumbar RFA bilaterally L4-L5 and L5-S1 under fluoroscopy. Patient has been instructed to contact the clinic with any concerns before the next appointment. Dr. Restrepo has reviewed this note and agrees with this plan of care. This note was dictated using voice recognition software and make contain errors or omissions. All injections are used with Lidocaine or Bupivacaine and Depo Medrol.
== END 2024-02-16 23:59 | disposition home or self-care (01) ==
LOC: SC.PAIN 09:02
PROVIDERS: PCP Nurse Practitioner Family; Visit Provider Nurse Practitioner Family
DX: M47.816 Spondylosis without myelopathy or radiculopathy, lumbar region (principal); F17.210 Nicotine dependence, cigarettes, uncomplicated; Z95.811 Presence of heart assist device; Z73.89 Other problems related to life management difficulty; Z79.899 Other long term (current) drug therapy
CPT/HCPCS: 99212; G0463

== ENCOUNTER 2024-03-08 13:50 | Outpatient (CLI) | payer MEDICARE, SELFPAY ==
[2024-03-08 14:33] LABS: Basophils # 0.1 K/mm3 (0-0.2); Basophils % 0.5 % (0.1-2.0); Eosinophils # 0.1 K/mm3 (0.0-0.4); Eosinophils % 0.8 % (0.1-12.0); Hematocrit 41.8 % (37.0-47.0); Hemoglobin 13.3 g/dL (12.2-16.2); Lymphocytes # 2.4 K/mm3 (0.7-4.5); Lymphocytes % 21.4 % (10-50); Mean Corpuscular HGB Conc 31.8 g/dL (31.8-35.4); Mean Corpuscular Hemoglobin 28.9 pg (27.0-31.2); Mean Corpuscular Volume 90.9 fl (81-99); Mean Platelet Volume 7.8 fl (7.4-10.4); Monocytes # 0.6 K/mm3 (0.1-1.0); Monocytes % 5.1 % (1.7-9.3); Neutrophils # 8.2 K/mm3 (1.8-7.8); Neutrophils % 72.3 % (37.0-80.0); Platelet Count 293 K/mm3 (142-424); Red Cell Distribution Width 15.7 % (11.5-17.5); White Blood Count 11.4 K/mm3 (4.8-10.8)
[2024-03-08 14:54] LABS: Albumin Level 4.1 g/dl (3.5-5.0); Blood Urea Nitrogen 9 mg/dl (7-17); Carbon Dioxide 24 mmol/L (22.0-30.0); Cholesterol 148 mg/dl (140-200); Estimated Glomerular Filt Rate 91 ml/min (>60); GFR (African American) 111 ML/MIN (>60); Total Protein,Serum 6.9 g/dl (6.3-8.2); Triglycerides 129 mg/dl (30-150); VLDL Cholesterol 26 mg/dL (0-40)
[2024-03-08 15:06] LABS: Direct LDL Cholesterol 82.62 mg/dL (100-129)
[2024-03-08 15:23] LABS: Alanine Aminotransferase 59 U/L (12-78); Aspartate Amino Transferase 46 U/L (14-36); Calcium 10.5 mg/dl (8.4-10.2); Chloride 106 mmol/L (98-107); Chol/HDL Ratio 3.3 (1-3.5); Glucose 190 mg/dl (74-100); HDL Cholesterol 45 mg/dl (40-60); Magnesium 1.7 mg/dl (1.6-2.3); Sodium 137 mmol/L (136-145)
[2024-03-08 15:31] LABS: NT Pro Brain Natriuretic Pep. < 20.0 pg/mL (0-125)
[2024-03-08 15:40] LABS: Free T4 (Free Thyroxine) 1.24 ng/dl (0.78-2.19)
[2024-03-08 16:05] LABS: Anion Gap 10.5 mEq/L (5-15); Potassium 3.5 mmoL/L (3.5-5.1)
[2024-03-08 16:07] LABS: Alkaline Phosphatase 81 U/L (38-126); Bilirubin,Direct 0.2 mg/dl (0.0-0.4); Bilirubin,Indirect 0.2 mg/dL (0.0-0.9); Bilirubin,Total 0.4 mg/dl (0.2-1.3); Bilirubin,Unconjugated 0.2 mg/dL (0.0-1.1)
[2024-03-08 16:39] LABS: Thyroid Stimulating Hormone 0.62 uIU/mL (0.465-4.68)
== END 2024-03-08 23:59 | disposition home or self-care (01) ==
LOC: LAB 13:51
PROVIDERS: PCP Nurse Practitioner Family; Visit Provider Internal Medicine
DX: R00.0 Tachycardia, unspecified (principal); R60.9 Edema, unspecified; I35.1 Nonrheumatic aortic (valve) insufficiency; E78.2 Mixed hyperlipidemia; Z86.73 Personal history of transient ischemic attack (TIA), and cerebral infarction without residual deficits; I10 Essential (primary) hypertension; R60.0 Localized edema; R06.00 Dyspnea, unspecified
CPT/HCPCS: 36415; 80048; 80061; 80076; 83735; 83880; 84439; 84443; 85025

== ENCOUNTER 2024-03-09 10:58 | Outpatient (CLI) | payer MEDICARE, SELFPAY ==
--- NOTE | 2024-03-09 11:03 | CA_ITS ---
FINAL REPORT TECHNIQUE: Left lower extremity venous duplex was performed with augmentation and compression. CLINICAL HISTORY: edema LLE, Smoker, HTN, HLD, TI on blood thinners COMPARISON: None FINDINGS: Proper flow is seen throughout the deep venous system. There is no evidence of deep venous thrombosis in the left lower extremity. IMPRESSION: No deep venous thrombosis in the left lower extremity. Reviewed, Interpreted and Dictated by Dickson Lopez MD Transcribed by Melanie Griffith Authenticated and [facility]
== END 2024-03-09 23:59 | disposition home or self-care (01) ==
LOC: RT 11:00
PROVIDERS: PCP Nurse Practitioner Family; Visit Provider Internal Medicine
DX: R60.0 Localized edema (principal)
CPT/HCPCS: 93971

== ENCOUNTER 2024-03-15 07:47 | Outpatient (CLI) | payer MEDICARE, SELFPAY ==
--- NOTE | 2024-03-15 07:50 | CA_ITS ---
APPROVED REPORT EXAM: Comprehensive 2D, Doppler, and color-flow Echocardiogram Silverlight Developer: Eileen Martin RVT Ht: 5 ft 2 in Wt: 214lbs BSA: 1.97 BP: 106/70 mmHg Indications: PRE-OP,TACHYCARDIA,HTN,EDEMA,HLD,DM 2D Dimensions LA Volume 56.50 mL LA Volume Index 28.68 mL/m2 (M/F) 16-34 M-Mode Dimensions RVDd 2.45 cm (0.9-2.6) LA Diam 3.65 cm (1.9-4.0) LVDd 3.57 cm (3.5-5.7) LVDs 2.37 cm (3.5-5.7) IVSd 1.64 cm (0.6-1.1) PWd 0.64 cm (0.6-1.1) EF (Teich) 63.40% FS 33.60% EDV (Teich) 53.30 mL TAPSE 2.33 (<1.7) ESV (Teich) 19.50 mL LV Diastology E Decel Time 150 (160-240 msec) E/A Ratio 0.7 Aortic Valve KURT Index 1.43 cm2/m2 AoV Peak Jesus Alberto. 155.0 (50-130 cm/s) AI PHT 926.00 ms AO Peak GR. 9.60 mmHg AO Mean GR. 5.10 (<5 mmHg) AO VTI 26.2 (18-25 cm) KURT (VTI) 2.88 (2.5-4.5 cm2) Mitral Valve MV E Max Jesus Alberto. 66.0 (40-130 cm/s) MV A Velocity 96.0 (40-130 cm/s) E/A Ratio 0.68 MV PHT 44.0 ms Pulmonary Valve PV Peak Velocity 101.0 (50-150 cm/s) Tricuspid Valve TR P. Velocity 262.00 cm/s RAP Estimate 10.00 mmHg RVSP 37.60 mmHg Left Ventricle The left ventricle is normal size. The left ventricular systolic function is normal. The left ventricular ejection fraction is within the normal range. There is normal left ventricular wall thickness. There is normal LV segmental wall motion. The left ventricular diastolic function is normal. LVEF is 55%. Right Ventricle The right ventricle is normal size. The right ventricular systolic function is normal. Atria The left atrium size is normal. The right atrium size is normal. There is no Doppler evidence of interatrial shunt. Aortic Valve The aortic valve opens well. There is no aortic valvular stenosis. No aortic regurgitation is present. Mitral Valve The mitral valve is normal in structure. No evidence of mitral valve stenosis. No mitral regurgitation. Tricuspid Valve Tricuspid valve is grossly normal in structure and function. Trace tricuspid regurgitation. There is insufficient TR jet to estimate RVSP. Pulmonic Valve The pulmonary valve is normal in structure. Trace pulmonic regurgitation. Great Vessels The aortic root is normal in size. The ascending aorta is not well-visualized. IVC is normal in size and collapses >50% with inspiration. Pericardium There is no pericardial effusion. Other Information Study Quality: Fair Conclusion Normal biventricular systolic function. No significant valvular stenosis or regurgitation. Electronically signed by : Kayla Hilton MD 03/15/2024 13:21:04
[2024-03-15 14:16] LABS: Basophils % 0.4 % (0.1-2.0); Eosinophils # 0.1 K/mm3 (0.0-0.4); Eosinophils % 1.1 % (0.1-12.0); Hematocrit 44.7 % (37.0-47.0); Lymphocytes # 2.2 K/mm3 (0.7-4.5); Mean Corpuscular HGB Conc 31.3 g/dL (31.8-35.4); Mean Corpuscular Hemoglobin 28.1 pg (27.0-31.2); Mean Corpuscular Volume 89.7 fl (81-99); Mean Platelet Volume 8.1 fl (7.4-10.4); Monocytes # 0.6 K/mm3 (0.1-1.0); Monocytes % 5.4 % (1.7-9.3); Neutrophils # 8.5 K/mm3 (1.8-7.8); Neutrophils % 74.1 % (37.0-80.0); Platelet Count 345 K/mm3 (142-424); Red Blood Count 4.98 M/mm3 (4.20-5.40); White Blood Count 11.4 K/mm3 (4.8-10.8)
[2024-03-15 14:27] LABS: Anion Gap 10.5 mEq/L (5-15); Blood Urea Nitrogen 9 mg/dl (7-17); Calcium 9.6 mg/dl (8.4-10.2); Carbon Dioxide 18 mmol/L (22.0-30.0); Chloride 109 mmol/L (98-107); Estimated Glomerular Filt Rate 91 ml/min (>60); GFR (African American) 111 ML/MIN (>60); Glucose 160 mg/dl (74-100); Magnesium 1.9 mg/dl (1.6-2.3); Potassium 3.5 mmoL/L (3.5-5.1); Sodium 134 mmol/L (136-145)
[2024-03-15 14:30] LABS: D-Dimer 0.35 ug/mL (0.0-0.5)
[2024-03-15 14:38] LABS: NT Pro Brain Natriuretic Pep. < 20.0 pg/mL (0-125)
[2024-03-15 14:40] LABS: Troponin I < 0.01 ng/ml (0.00-0.034)
== END 2024-03-15 23:59 | disposition home or self-care (01) ==
PROVIDERS: PCP Nurse Practitioner Family; Visit Provider Internal Medicine
DX: I35.1 Nonrheumatic aortic (valve) insufficiency (principal); R00.0 Tachycardia, unspecified; E78.2 Mixed hyperlipidemia; Z86.73 Personal history of transient ischemic attack (TIA), and cerebral infarction without residual deficits; I10 Essential (primary) hypertension; R60.0 Localized edema; R06.02 Shortness of breath
CPT/HCPCS: 36415; 80048; 83735; 83880; 84484; 85025; 85378; 93306

== ENCOUNTER 2024-03-20 09:36 | Day surgery (SDC) | payer MEDICARE, SELFPAY ==
[2024-03-20 09:59] VITALS: BP 105/71; PULSE 95; PULSE 96; RESP 18; O2SAT 96
[2024-03-20 10:03] VITALS: BP 120/81; PULSE 115; RESP 16; TEMP 36.8; O2SAT 95; BMI 37.2
[2024-03-20] MEDS: BUPIVACAINE 0.25% 10ML INJ 25 MG IJ (10:03)
[2024-03-20] MEDS: methylPREDNISolone ACETATE 80MG/ML VIAL 80 MG (10:03)
[2024-03-20] MEDS: LIDOCAINE 1% 5ML PF VIAL 5 ML (10:03)
[2024-03-20 10:11] VITALS: BP 118/78; PULSE 103; RESP 18; O2SAT 96
--- NOTE | 2024-03-20 10:17 | EXP.PAIN.PRO ---
Procedure Date: 03/20/24 Time: 09:50 Anesthesiologist:: Nick Bolaños CRNA Complications:: None Pre-procedure Diagnosis:: Degenerative disc lumbar spine multilevels. Lumbar radiculopathy. Lumbar spondylosis. Multilevel lumbar facet arthropathy. Post-procedure Diagnosis:: Same. Indications for Procedure:: Patient is a very pleasant 44-year-old female comes our clinic today for bilateral lumbar L4-5, L5-S1 radiofrequency ablation. Patient responded very well to lumbar medial branch blocks/facet injections at same levels. She rates her pain today 9/10. Procedure Details:: Procedure Details: Lumbar RFA Informed consent was obtained and the risk and benefits of the procedure was explained to the patient. Patient was placed prone on the procedure table. The patient was prepped and draped in sterile fashion. C-arm fluoroscopy was used to view the lumbar spine. The skin and subcutaneous tissues were anesthetized using lidocaine. I placed 20-gauge RF needles into the facet joints of L3-L4, L4-L5 and L5-S1 bilaterally. We underwent sensory stimulation. There is good sensory stimulation at 0.8 V. We underwent motor stimulation. There is no motor stimulation at 2 V. We then anesthetized these levels with lidocaine and Depo-Medrol. I used a total of 40 mg Depo-Medrol for all 3 levels. I then burned all 3 levels of L3-L4, L4-5 and L5-S1 bilaterally for 4 minutes at 80 ?C. Patient tolerated the procedure well with no complication. Plan and Disposition:: We will follow-up with this patient in 2 weeks. We will reevaluate her symptoms at that time. Plan and Disposition:: Patient was discharged without incident.
== END 2024-03-20 10:12 | disposition home or self-care (01) ==
PROVIDERS: PCP Nurse Practitioner Family; Visit Provider Nurse Anesthetist, Certified Registered
DX: M47.816 Spondylosis without myelopathy or radiculopathy, lumbar region (principal); M51.16 Intervertebral disc disorders with radiculopathy, lumbar region
CPT/HCPCS: 64635; 64636; J1010

== ENCOUNTER 2024-04-12 10:55 | Outpatient (POV) | payer MEDICARE, SELFPAY ==
[2024-04-12 11:22] VITALS: BP 132/83; PULSE 111; RESP 16; O2SAT 97; BMI 36.3
--- NOTE | 2024-04-12 11:27 | EXP.PAIN.SOA ---
[facility] Disclaimer: The information contained in this section may have been updated after the patient was seen, as this information can be updated by other users. Medical History Postoperative edema Edema of both legs Aortic valve insufficiency Edema Type 2 diabetes mellitus Tight control of hyperglycemia is recommended. Active follow-up with PCP. History of CVA (cerebrovascular accident) Brain MRI 01/21/22 showed evidence of chronic small left hemisphere lacunar CVA's. She is currently on best medical therapy including and aspirin, statins and has a loop recorder implanted followed by cardiology. Hyperlipidemia Currently on high intensity statin therapy. Goal is to keep LDL less than 55 Hypertension Active follow-up with cardiology at [facility] and currently normotensive. Bipolar disorder Family History Other No significant family history Social History Smoking Status: Current every day smoker alcohol intake: never substance use type: denies use current occupational status: unemployed Travel in the last 8 weeks: None household members: significant other housing: house lives independently: No marital status: single number of children: 3 PM Subjective & Objective Subjective Subjective:: Patient is a pleasant 44-year-old female who presents today for follow-up of lumbar RFA bilaterally L4-L5 and L5-S1 on 03/20/2024. Today she rates her pain a 3 out of 10. Patient denies any new trauma or injury. She does state that she has had approximately 85% improvement following this procedure and feels like it is still helping. Patient has had a lumbar RFA in the past that did provide about 7 months relief. Patient is very hopeful that this will do just as well. Her Александр has been reviewed and is appropriate. Review of Systems: General: No recent weight changes, no fever, no sleep disturbances Respiratory: No cough, no shortness of air, no recurring pulmonary infections Cardiovascular/peripheral vascular: No chest pain, no palpitations, no edema, no shortness of breath Gastrointestinal: No new onset incontinence, normal bowel movements reported Genitourinary: No new onset incontinence Musculoskeletal: Low back pain Psychiatric: [Normal mood/affect] Neurological: [Denies weakness in extremities], [denies balance issues] Pain at rest (0-10 scale): 3 Objective Objective:: Physical Exam: General: Alert and oriented x3, no acute distress, pleasant and cooperative Lungs: Respirations even and unlabored, symmetrical chest expansion Eyes: PERRL Musculoskeletal: Flexion and extension of lumbar [spine] somewhat guarded secondary to pain, [antalgic gait noted] Neurological: Speech clear, no gross sensory deficit Has patient had previous pain injection?: Yes Percent improvement in pain since last injection: 85% Conservative treatment options previously tried: Home exercise plan Length of treatment: Longer than 12 weeks Meds Home Medications and Allergies Home Medications ?Medication ?Instructions ?Recorded ?Confirmed ?Type aspirin 81 mg chewable tablet 81 mg PO DAILY heart health 10/07/21 04/12/24 History (Regine Chewable Low Dose Aspirin) levothyroxine 75 mcg tablet 75 mcg PO DAILY hypothyroidism 10/07/21 04/12/24 History (Synthroid) baclofen 20 mg tablet 20 mg PO TID Infection 07/25/22 04/12/24 History metformin 1,000 mg tablet 1,000 mg PO DAILY dm 07/25/22 04/12/24 History linaclotide 72 mcg capsule 72 mcg PO DAILY 03/02/23 04/12/24 History (Linzess) blood sugar diagnostic (Accu-Chek #10 ea 08/25/23 04/12/24 History Guide test strips) cholecalciferol (vitamin D3) 50 50 mcg PO DAILY 08/25/23 04/12/24 History mcg (2,000 unit) capsule (Vitamin D3) ezetimibe 10 mg tablet (Zetia) 10 mg PO DAILY 08/25/23 04/12/24 History gabapentin 600 mg tablet 600 mg PO BID 08/25/23 04/12/24 History (Neurontin) lancets (Accu-Chek Softclix #100 ea 08/25/23 04/12/24 History Lancets) mirabegron 25 mg tablet,extended 25 mg PO DAILY 08/25/23 04/12/24 History release 24 hr (Myrbetriq) rosuvastatin 20 mg tablet (Crestor) 20 mg PO DAILY 08/25/23 04/12/24 History valsartan 160 mg tablet (Diovan) 160 mg PO DAILY 01/18/24 04/12/24 History levofloxacin 750 mg tablet 750 mg PO DAILY 7 days #7 tabs 02/08/24 04/12/24 Rx sodium,potassium,mag sulfates 17.5 See Rx Instructions PO .COMPLEX 02/24/24 04/12/24 Rx gram-3.13 gram-1.6 gram oral soln #354 mL (Suprep Bowel Prep Kit) empagliflozin 25 mg tablet 25 mg PO DAILY 03/08/24 04/12/24 History (Jardiance) verapamil 360 mg 24 hr 360 mg PO DAILY #90 caps 03/08/24 04/12/24 Rx capsule,extended release aripiprazole 10 mg tablet (Abilify) 10 mg PO QHS #30 tabs 03/14/24 04/12/24 Rx buspirone 10 mg tablet 20 mg (2 x 10 mg) PO TID #180 tabs 03/14/24 04/12/24 Rx duloxetine 60 mg capsule,delayed 120 mg (2 x 60 mg) PO DAILY #60 03/14/24 04/12/24 Rx release (Cymbalta) caps olanzapine 20 mg-samidorphan 10 mg 1 tab PO QHS #30 tabs 03/14/24 04/12/24 Rx tablet (Lybalvi) furosemide 20 mg tablet (Lasix) 20 mg PO DAILY #30 tabs 03/15/24 04/12/24 Rx New Prescriptions to Start Prescriptions: Allergies Allergy/AdvReac Type Severity Reaction Status Date / Time topiramate [From Topamax] Allergy Verified 03/15/24 13:03 Assessment and Plan *Assessment and plan (1) Lumbar facet arthropathy: Status: Acute Category: Medical Code(s): M47.816 - Spondylosis without myelopathy or radiculopathy, lumbar region Plan Patient has had significant improvement following her lumbar RFA and does not require any additional injection therapy. Patient will return to clinic in 2 months for reevaluation of symptoms and plan of care. Patient has been instructed to contact the clinic with any concerns before the next appointment. Dr. Restrepo has reviewed this note and agrees with this plan of care. This note was dictated using voice recognition software and make contain errors or omissions. All injections are used with Lidocaine or Bupivacaine and Depo Medrol.
== END 2024-04-12 23:59 | disposition home or self-care (01) ==
LOC: SC.PAIN 10:56
PROVIDERS: PCP Nurse Practitioner Family; Visit Provider Nurse Practitioner Family
DX: M47.816 Spondylosis without myelopathy or radiculopathy, lumbar region (principal); F17.210 Nicotine dependence, cigarettes, uncomplicated; Z79.899 Other long term (current) drug therapy
CPT/HCPCS: 99212; G0463

== ENCOUNTER 2024-04-16 14:50 | Outpatient (CLI) | payer MEDICARE, SELFPAY ==
[2024-04-16 15:40] LABS: Basophils % 0.4 % (0.1-2.0); Eosinophils # 0.1 K/mm3 (0.0-0.4); Eosinophils % 0.8 % (0.1-12.0); Hematocrit 41.2 % (37.0-47.0); Hemoglobin 13.7 g/dL (12.2-16.2); Lymphocytes # 2.1 K/mm3 (0.7-4.5); Lymphocytes % 23.7 % (10-50); Mean Corpuscular HGB Conc 33.2 g/dL (31.8-35.4); Mean Corpuscular Hemoglobin 27.6 pg (27.0-31.2); Mean Corpuscular Volume 83.1 fl (81-99); Mean Platelet Volume 7.1 fl (7.4-10.4); Monocytes # 0.5 K/mm3 (0.1-1.0); Monocytes % 5.9 % (1.7-9.3); Neutrophils # 6.2 K/mm3 (1.8-7.8); Neutrophils % 69.2 % (37.0-80.0); Platelet Count 305 K/mm3 (142-424); Red Blood Count 4.96 M/mm3 (4.20-5.40); Red Cell Distribution Width 17.1 % (11.5-17.5); White Blood Count 8.9 K/mm3 (4.8-10.8)
[2024-04-16 16:39] LABS: Anion Gap 17.7 mEq/L (5-15); Blood Urea Nitrogen 8 mg/dl (7-17); Calcium 9.2 mg/dl (8.4-10.2); Carbon Dioxide 20 mmol/L (22.0-30.0); Chloride 104 mmol/L (98-107); Estimated Glomerular Filt Rate 91 ml/min (>60); GFR (African American) 111 ML/MIN (>60); Glucose 90 mg/dl (74-100); Potassium 3.7 mmoL/L (3.5-5.1); Sodium 138 mmol/L (136-145)
[2024-04-16 16:42] LABS: Ferritin 12.3 ng/ml (6.24-137)
[2024-04-16 16:43] LABS: Iron 44 ug/dL (37-170)
== END 2024-04-16 23:59 | disposition home or self-care (01) ==
LOC: LAB 14:51
PROVIDERS: PCP Nurse Practitioner Family; Visit Provider Internal Medicine
DX: R40.0 Somnolence (principal); R60.0 Localized edema; R06.83 Snoring; E78.2 Mixed hyperlipidemia; I10 Essential (primary) hypertension; E83.42 Hypomagnesemia; E87.6 Hypokalemia; D72.829 Elevated white blood cell count, unspecified; G47.30 Sleep apnea, unspecified; R79.89 Other specified abnormal findings of blood chemistry
CPT/HCPCS: 36415; 80048; 82728; 82746; 83540; 85025

== ENCOUNTER 2024-04-18 08:55 | Outpatient (CLI) | payer MEDICARE, SELFPAY ==
[2024-04-27 16:14] LABS: PTH Related Peptide < 2.0 pmol/L (.)
== END 2024-04-18 23:59 | disposition home or self-care (01) ==
PROVIDERS: PCP Nurse Practitioner Family; Visit Provider Internal Medicine
DX: R40.0 Somnolence (principal); R60.0 Localized edema; R25.2 Cramp and spasm; R06.83 Snoring; R53.1 Weakness; E78.2 Mixed hyperlipidemia; I10 Essential (primary) hypertension; E83.42 Hypomagnesemia; E87.6 Hypokalemia; D72.829 Elevated white blood cell count, unspecified; R00.0 Tachycardia, unspecified; Z86.73 Personal history of transient ischemic attack (TIA), and cerebral infarction without residual deficits; Z95.818 Presence of other cardiac implants and grafts; I35.1 Nonrheumatic aortic (valve) insufficiency; R07.9 Chest pain, unspecified
CPT/HCPCS: 36415; 82397; 82533

== ENCOUNTER 2024-05-14 08:47 | Outpatient (POV) | payer MEDICARE, SELFPAY ==
[2024-05-14 09:16] VITALS: BP 148/88; PULSE 107; RESP 18; O2SAT 97; BMI 34.7
--- NOTE | 2024-05-14 10:06 | A.OFFVIS_ITS ---
[facility] Disclaimer: The information contained in this section may have been updated after the patient was seen, as this information can be updated by other users. Medical History JOSE LUIS (obstructive sleep apnea) Daytime somnolence Postoperative edema Edema of both legs Aortic valve insufficiency Edema Type 2 diabetes mellitus Tight control of hyperglycemia is recommended. Active follow-up with PCP. History of CVA (cerebrovascular accident) Brain MRI 01/21/22 showed evidence of chronic small left hemisphere lacunar CVA's. She is currently on best medical therapy including and aspirin, statins and has a loop recorder implanted followed by cardiology. Hyperlipidemia Currently on high intensity statin therapy. Goal is to keep LDL less than 55 Hypertension Active follow-up with cardiology at [facility] and currently normotensive. Bipolar disorder Family History Other No significant family history Social History Smoking Status: Current every day smoker alcohol intake: never substance use type: denies use current occupational status: other household members: significant other housing: house lives independently: No marital status: single number of children: 3 PM Subjective & Objective Subjective Subjective:: Patient is a pleasant 44-year-old female who presents today for worsening pain. Today she rates her pain a 9 out of 10. Patient states that she continues to have constant stabbing, numb sensations down into her lower extremities that have been going on for months however the last 2 months have progressively worsened. She states that now even the numbness and stabbing sensations is starting in the left side. She states that it is constant and is interfering with her ability to sleep as well as activities of daily living such as cooking and cleaning. Patient states that she feels like she has to constantly keep her legs moving due to the pain. Patient is currently on gabapentin 600 mg in the morning and 1200 mg at night along with Cymbalta 120 mg at night with no additional improvement. 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 Patient states that she is interested in any help we may be able to provide as the pain is severe and that she cannot do anything due to this pain. Patient has tried other oral medications along with heat and ice and topicals with no additional improvement. Patient has also tried at home stretching exercise for longer than 12 weeks. Her Александр has been reviewed and is appropriate. Review of Systems: General: No recent weight changes, no fever, no sleep disturbances Respiratory: No cough, no shortness of air, no recurring pulmonary infections Cardiovascular/peripheral vascular: No chest pain, no palpitations, no edema, no shortness of breath Gastrointestinal: No new onset incontinence, normal bowel movements reported Genitourinary: No new onset incontinence Musculoskeletal: Low back pain, bilateral leg numbness tingling Psychiatric: [Normal mood/affect] Neurological: [Denies weakness in extremities], [denies balance issues] Pain at rest (0-10 scale): 9 Objective Objective:: Physical Exam: General: Alert and oriented x3, no acute distress, pleasant and cooperative Lungs: Respirations even and unlabored, symmetrical chest expansion Eyes: PERRL Musculoskeletal: Flexion and extension of lumbar [spine] somewhat guarded secondary to pain, [antalgic gait noted] Neurological: Speech clear, no gross sensory deficit Has patient had previous pain injection?: No Conservative treatment options previously tried: Home exercise plan Length of treatment: Longer than 12 weeks Meds Home Medications and Allergies Home Medications ?Medication ?Instructions ?Recorded ?Confirmed ?Type aspirin 81 mg chewable tablet 81 mg PO DAILY heart health 10/07/21 05/14/24 History (Regine Chewable Low Dose Aspirin) levothyroxine 75 mcg tablet 75 mcg PO DAILY hypothyroidism 10/07/21 05/14/24 History (Synthroid) baclofen 20 mg tablet 20 mg PO TID Infection 07/25/22 05/14/24 History metformin 1,000 mg tablet 1,000 mg PO DAILY dm 07/25/22 05/14/24 History linaclotide 72 mcg capsule 72 mcg PO DAILY 03/02/23 05/14/24 History (Linzess) blood sugar diagnostic (Accu-Chek #10 ea 08/25/23 05/14/24 History Guide test strips) cholecalciferol (vitamin D3) 50 50 mcg PO DAILY 08/25/23 05/14/24 History mcg (2,000 unit) capsule (Vitamin D3) ezetimibe 10 mg tablet (Zetia) 10 mg PO DAILY 08/25/23 05/14/24 History gabapentin 600 mg tablet 600 mg PO DAILY 08/25/23 05/14/24 History (Neurontin) lancets (Accu-Chek Softclix #100 ea 08/25/23 05/14/24 History Lancets) mirabegron 25 mg tablet,extended 25 mg PO DAILY 08/25/23 05/14/24 History release 24 hr (Myrbetriq) rosuvastatin 20 mg tablet (Crestor) 20 mg PO DAILY 08/25/23 05/14/24 History valsartan 160 mg tablet (Diovan) 160 mg PO DAILY 01/18/24 05/14/24 History empagliflozin 25 mg tablet 25 mg PO DAILY 03/08/24 05/14/24 History (Jardiance) verapamil 360 mg 24 hr 360 mg PO DAILY #90 caps 03/08/24 05/14/24 Rx capsule,extended release aripiprazole 10 mg tablet (Abilify) 10 mg PO QHS #30 tabs 03/14/24 05/14/24 Rx buspirone 10 mg tablet 20 mg (2 x 10 mg) PO TID #180 tabs 03/14/24 05/14/24 Rx duloxetine 60 mg capsule,delayed 120 mg (2 x 60 mg) PO DAILY #60 03/14/24 05/14/24 Rx release (Cymbalta) caps olanzapine 20 mg-samidorphan 10 mg 1 tab PO QHS #30 tabs 03/14/24 05/14/24 Rx tablet (Lybalvi) gabapentin 600 mg tablet 1,200 mg PO HS 05/14/24 05/14/24 History ropinirole 0.25 mg tablet 0.25 mg PO TID #42 tabs 05/14/24 Rx New Prescriptions to Start Prescriptions: ropinirole Hannah Wallace Allergies Allergy/AdvReac Type Severity Reaction Status Date / Time topiramate (From Topamax) Allergy Verified 05/08/24 09:30 Assessment and Plan *Assessment and plan (1) Lumbar radiculopathy: Status: Acute Category: Medical Code(s): M54.16 - Radiculopathy, lumbar region (2) Low back pain: Status: Acute Qualifiers: Chronicity: chronic Back pain laterality: bilateral Sciatica presence: with sciatica Sciatica laterality: bilateral sciatica Qualified Code(s): M54.42 - Lumbago with sciatica, left side; M54.41 - Lumbago with sciatica, right side; G89.29 - Other chronic pain Category: Medical Code(s): M54.50 - Low back pain, unspecified (3) Degenerative disc disease: Status: Acute Category: Medical Plan Patient is experiencing worsening pain in her low back that does radiate down into her bilateral lower extremities with numbness and tingling. Patient has tried and failed conservative therapy including continued at home stretching exercise for longer than 12 weeks. I did discuss with the patient that I would recommend a lumbar epidural steroid injection. Risk and benefits were discussed with patient and she would like to proceed forward with this plan of care. Patient did have bilateral neuroforaminal narrowing noted at the L5-S1 level and I have recommended that we go at this vertebra level. Patient agrees with this plan of care. I will also send in ropinirole 0.25 mg 3 times daily with a 2- week supply to see if part of her possible leg symptoms could be restless leg. Patient will be scheduled for an LESI L5-S1 under fluoroscopy. Patient has been instructed to contact the clinic with any concerns before the next appointment. Dr. Restrepo has reviewed this note and agrees with this plan of care. This note was dictated using voice recognition software and make contain errors or omissions. All injections are used with Lidocaine or Bupivacaine and Depo Medrol.
== END 2024-05-14 23:59 | disposition home or self-care (01) ==
PROVIDERS: PCP Nurse Practitioner Family; Visit Provider Nurse Practitioner Family
DX: M54.16 Radiculopathy, lumbar region (principal); M54.42 Lumbago with sciatica, left side; M54.41 Lumbago with sciatica, right side; G89.29 Other chronic pain; F17.210 Nicotine dependence, cigarettes, uncomplicated; Z73.89 Other problems related to life management difficulty; Z79.899 Other long term (current) drug therapy
CPT/HCPCS: 99212; G0463

== ENCOUNTER 2024-05-18 10:15 | Outpatient (CLI) | payer MEDICARE, SELFPAY ==
[2024-05-18 11:06] LABS: Anion Gap 15.7 mEq/L (5-15); Blood Urea Nitrogen 10 mg/dl (7-17); Calcium 9.3 mg/dl (8.4-10.2); Carbon Dioxide 19 mmol/L (22.0-30.0); Chloride 109 mmol/L (98-107); Estimated Glomerular Filt Rate 91 ml/min (>60); GFR (African American) 111 ML/MIN (>60); Glucose 121 mg/dl (74-100); Potassium 3.7 mmoL/L (3.5-5.1); Sodium 140 mmol/L (136-145)
[2024-05-18 11:39] LABS: Hemoglobin A1C 7.3 % (4.0-6.0)
== END 2024-05-18 23:59 | disposition home or self-care (01) ==
LOC: LAB 10:16
PROVIDERS: PCP Nurse Practitioner Family; Visit Provider Internal Medicine
DX: I10 Essential (primary) hypertension (principal); E11.9 Type 2 diabetes mellitus without complications; E78.2 Mixed hyperlipidemia
CPT/HCPCS: 36415; 80048; 83036

== ENCOUNTER → 2024-05-23 19:39 | Outpatient (CLI) | payer MEDICARE, SELFPAY | LOC: SL 19:41 | PROVIDERS: PCP Nurse Practitioner Family; Visit Provider Internal Medicine | DX: G47.33 Obstructive sleep apnea (adult) (pediatric) (principal) | CPT/HCPCS: 95810 ==

== ENCOUNTER 2024-06-05 10:08 | Day surgery (SDC) | payer MEDICARE, SELFPAY ==
[2024-06-05 10:42] VITALS: BP 123/81; PULSE 114; RESP 16; TEMP 36.4; O2SAT 95; BMI 36.5
[2024-06-05] MEDS: methylPREDNISolone ACETATE 80MG/ML VIAL 80 MG (10:55)
[2024-06-05 10:56] VITALS: BP 110/71; PULSE 94; RESP 18; O2SAT 96
[2024-06-05 10:57] VITALS: BP 110/71; PULSE 95; RESP 18; O2SAT 95
[2024-06-05 11:00] VITALS: BP 121/82; PULSE 100; RESP 16; O2SAT 97
--- NOTE | 2024-06-05 11:53 | EXP.PAIN.PRO ---
Procedure Date: 06/05/24 Time: 10:00 Anesthesiologist:: Nick Bolaños CRNA Complications:: None Pre-procedure Diagnosis:: Degenerative disc lumbar spine multilevels. Lumbar radiculopathy. Post-procedure Diagnosis:: Same. Indications for Procedure:: Patient is a very pleasant 44-year-old female who comes our clinic today for repeat lumbar epidural steroid injection at the L5-S1 level. She describes low lumbar back pain as constant, dull, aching. She also reports bilateral hip and leg radicular symptoms at times. She rates her pain 6/10. Procedure Details:: Procedure: Lumbar epidural steroid injection under fluoroscopy Informed consent was obtained and the risks and benefits of the procedure were explained to the patient. The patient was taken to the procedure room and noninvasive monitors placed, including noninvasive blood pressure cuff and pulse oximeter. The back was viewed using C-arm Fluoroscopy and prepped using Chloraprep as a cleansing solution and the L5-S1 interspace was palpated. Skin and subcutaneous tissues were anesthetized using lidocaine 1.5% and a 25-gauge needle. After this, an 18-gauge Touhy epidural needle was placed into the L5-S1 interspace and advanced using fluoroscopic guidance and loss of resistance to air until the epidural space was encountered. After confirmation of needle placement in the epidural space, with dye, a solution containing normal saline, 3 mL and Depo-Medrol 80 mg were incrementally injected into the lumbar epidural space. The patient tolerated the procedure well with no complications. The patient was observed in the Pain Clinic and then discharged home neurologically intact. Plan and Disposition:: Patient was discharged without incident.
== END 2024-06-05 11:00 | disposition home or self-care (01) ==
LOC: SC.PAINP 10:08
PROVIDERS: PCP Nurse Practitioner Family; Visit Provider Nurse Anesthetist, Certified Registered
DX: M51.16 Intervertebral disc disorders with radiculopathy, lumbar region (principal)
CPT/HCPCS: 62323; J1010

== ENCOUNTER 2024-06-11 09:50 | Outpatient (POV) | payer MEDICARE, SELFPAY ==
--- NOTE | 2024-06-11 09:57 | A.OFFVIS_ITS ---
[facility] Disclaimer: The information contained in this section may have been updated after the patient was seen, as this information can be updated by other users. Medical History JOSE LUIS (obstructive sleep apnea) Daytime somnolence Postoperative edema Edema of both legs Aortic valve insufficiency Edema Type 2 diabetes mellitus Tight control of hyperglycemia is recommended. Active follow-up with PCP. History of CVA (cerebrovascular accident) Brain MRI 01/21/22 showed evidence of chronic small left hemisphere lacunar CVA's. She is currently on best medical therapy including and aspirin, statins and has a loop recorder implanted followed by cardiology. Hyperlipidemia Currently on high intensity statin therapy. Goal is to keep LDL less than 55 Hypertension Active follow-up with cardiology at [facility] and currently normotensive. Bipolar disorder Family History Other No significant family history Social History Smoking Status: Current every day smoker alcohol intake: never substance use type: denies use current occupational status: other Travel in the last 8 weeks: None household members: significant other housing: house lives independently: No marital status: single number of children: 3 PM Subjective & Objective Subjective Subjective:: Patient is a pleasant 44-year-old female who presents today for follow-up of lumbar epidural steroid injection L5-S1 on 06/05/2024. Today she rates her pain a 7 out of 10. She does state that she has had at least 60 to 70% improvement following this injection and feels like it still helping. Patient states her entire left leg shaking has completely stopped and feels great. Patient does state though that the right side has not seem to make any improvement. She states that she did feel like overall the injection really improve the whole left side of her body and now she is just dealing with the right side issues. She does state that she has recently completed her sleep study and that her current gabapentin that is written by her PCP is set as 600 mg in the morning and 1200 at night. Patient is stating that she would like to see about getting a dosage during the day because she feels like her neuropathy is starting to worsen at that timeframe. Patient did state that her primary care had talked about our office taking over this medication. Patient is also on duloxetine from her PCP and ropinirole from our office and was given just a 3-month supply of this medication back in the beginning of May. Her Александр has been reviewed and is appropriate. Review of Systems: General: No recent weight changes, no fever, no sleep disturbances Respiratory: No cough, no shortness of air, no recurring pulmonary infections Cardiovascular/peripheral vascular: No chest pain, no palpitations, no edema, no shortness of breath Gastrointestinal: No new onset incontinence, normal bowel movements reported Genitourinary: No new onset incontinence Musculoskeletal: Low back pain Psychiatric: [Normal mood/affect] Neurological: [Denies weakness in extremities], [denies balance issues] Pain at rest (0-10 scale): 7 Objective Objective:: Physical Exam: General: Alert and oriented x3, no acute distress, pleasant and cooperative Lungs: Respirations even and unlabored, symmetrical chest expansion Eyes: PERRL Musculoskeletal: Flexion and extension of lumbar [spine] somewhat guarded secondary to pain, [antalgic gait noted] Neurological: Speech clear, no gross sensory deficit Has patient had previous pain injection?: Yes Percent improvement in pain since last injection: 70% Conservative treatment options previously tried: Home exercise plan Length of treatment: Longer than 12 weeks Meds Home Medications and Allergies Home Medications ?Medication ?Instructions ?Recorded ?Confirmed ?Type aspirin 81 mg chewable tablet 81 mg PO DAILY heart health 10/07/21 06/05/24 History (Regine Chewable Low Dose Aspirin) levothyroxine 75 mcg tablet 75 mcg PO DAILY hypothyroidism 10/07/21 06/05/24 History (Synthroid) baclofen 20 mg tablet 20 mg PO TID Infection 07/25/22 06/05/24 History metformin 1,000 mg tablet 1,000 mg PO DAILY dm 07/25/22 06/05/24 History linaclotide 72 mcg capsule 72 mcg PO DAILY 03/02/23 06/05/24 History (Lianzesashley) blood sugar diagnostic (Accu-Chek #10 ea 08/25/23 06/05/24 History Guide test strips) cholecalciferol (vitamin D3) 50 50 mcg PO DAILY 08/25/23 06/05/24 History mcg (2,000 unit) capsule (Vitamin D3) ezetimibe 10 mg tablet (Zetia) 10 mg PO DAILY 08/25/23 06/05/24 History gabapentin 600 mg tablet 600 mg PO DAILY 08/25/23 06/05/24 History (Neurontin) lancets (Accu-Chek Softclix #100 ea 08/25/23 06/05/24 History Lancets) mirabegron 25 mg tablet,extended 25 mg PO DAILY 08/25/23 06/05/24 History release 24 hr (Myrbetriq) rosuvastatin 20 mg tablet (Crestor) 20 mg PO DAILY 08/25/23 06/05/24 History valsartan 160 mg tablet (Diovan) 160 mg PO DAILY 01/18/24 06/05/24 History empagliflozin 25 mg tablet 25 mg PO DAILY 03/08/24 06/05/24 History (Jardiance) gabapentin 600 mg tablet 1,200 mg PO HS 05/14/24 06/05/24 History aripiprazole 20 mg tablet (Abilify) See Rx Instructions PO BID #30 tabs 05/15/24 06/05/24 Rx buspirone 10 mg tablet 20 mg (2 x 10 mg) PO TID #180 tabs 05/15/24 06/05/24 Rx duloxetine 60 mg capsule,delayed 120 mg (2 x 60 mg) PO DAILY #60 05/15/24 06/05/24 Rx release (Cymbalta) caps trazodone 100 mg tablet 100 mg PO QHS PRN insomnia #30 tabs 05/15/24 06/05/24 Rx verapamil 360 mg 24 hr 360 mg PO DAILY #90 caps 05/15/24 06/05/24 Rx capsule,extended release semaglutide 1 mg/dose (4 mg/3 mL) 1 mg SQ QWEEK 05/16/24 06/05/24 History subcutaneous pen injector (Ozempic) ropinirole 0.25 mg tablet 0.25 mg PO HS #30 tabs 05/31/24 06/05/24 Rx semaglutide 2 mg/dose (8 mg/3 mL) 2 mg (0.75 mL) SQ WEEKLY #3 mL 06/07/24 Rx subcutaneous pen injector (Ozempic) ropinirole 0.25 mg tablet 0.25 mg PO TID #90 tabs 06/08/24 Rx New Prescriptions to Start Prescriptions: Allergies Allergy/AdvReac Type Severity Reaction Status Date / Time [facility] Allergy Verified 05/16/24 13:19 Assessment and Plan *Assessment and plan (1) Degenerative disc disease: Status: Acute Category: Medical (2) Lumbar facet arthropathy: Status: Acute Category: Medical Code(s): M47.816 - Spondylosis without myelopathy or radiculopathy, lumbar region Plan Patient has had significant improvement following her lumbar epidural and does not require any additional injection therapy at this time. I did discuss with the patient in future if she still continues to get significant relief on the left side that we can see about in future doing a right transforaminal. We will follow-up with this and 2 months. I did also extension course counselor the patient that we would need something in writing stating that her primary care wants us to take over her gabapentin. I did discuss with the patient that it may be something going to gabapentin 600 mg 4 times daily. We will follow-up with this at future visits. Patient has been instructed to contact the clinic with any concerns before the next appointment. Dr. Restrepo has reviewed this note and agrees with this plan of care. This note was dictated using voice recognition software and make contain errors or omissions. All injections are used with Lidocaine, Bupivacaine and Depo Medrol. Occasionally urine drug screen is needed to verify patient's compliance with our office pain contract. This is ordered based off specific treatments related to chronic pain with the potential to abuse certain medications.
[2024-06-11 11:27] VITALS: BP 137/77; PULSE 99; RESP 16; O2SAT 97; BMI 35.4
== END 2024-06-11 23:59 | disposition home or self-care (01) ==
LOC: SC.PAIN 09:51
PROVIDERS: PCP Nurse Practitioner Family; Visit Provider Nurse Practitioner Family
DX: M47.816 Spondylosis without myelopathy or radiculopathy, lumbar region (principal); F17.210 Nicotine dependence, cigarettes, uncomplicated; Z79.899 Other long term (current) drug therapy
CPT/HCPCS: 99212; G0463

== ENCOUNTER 2024-06-18 14:00 | Emergency (ER) | payer MEDICARE, SELFPAY ==
[2024-06-18] VITALS (8 sets, daily range): BP systolic 117–150; BP diastolic 62–93; PULSE 81–92; RESP 14–21; TEMP 36.8; O2SAT 95–98; BMI 25.0
--- NOTE | 2024-06-18 14:06 | ECG_ITS ---
APPROVED REPORT Exam: Resting ECG HR:89 bpm ECG Measurements Heart Rate 89 AXES MN 176 P 37 QRSd 89 QRS 28 QT 335 T 55 QTc 382 Conclusion SINUS RHYTHM NORMAL ECG Electronically signed by : STAN BAZAN, 06/19/2024 07:04:03
--- NOTE | 2024-06-18 14:20 | CT_ITS ---
FINAL REPORT TECHNIQUE: Thin section axial images were obtained from skull base to vertex without contrast. Coronal reconstruction images were obtained from the axial data. Exam was performed using dose reduction technique. CLINICAL HISTORY: left sided numbness LKN 10a. stroke protocol COMPARISON: FINDINGS: There is no mass effect or midline shift. There is no hydrocephalus. There is no intracranial hemorrhage. The posterior fossa is without acute abnormality. The basilar cisterns are preserved. There are prominent vertebrobasilar calcifications which are unchanged from prior exam. Otherwise, the soft tissues are without acute abnormality. No acute osseous abnormality is identified. IMPRESSION: No acute intracranial abnormality. Reviewed, Interpreted and Dictated by Sofía Zhang MD Transcribed by Criselda Carlisle Authenticated and [facility]
--- NOTE | 2024-06-18 14:20 | CT_ITS ---
FINAL REPORT TECHNIQUE: Thin section axial images are obtained through the brain after intravenous contrast injection. Multiplanar reconstructions were obtained from the axial data. Exam was performed using dose reduction technique per the ALARA principal. CLINICAL HISTORY: left sided numbness LKN 10a, stroke protocol FINDINGS: The intracerebral portions of the carotid arteries are patent. The anterior and middle cerebral arteries are patent. 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 The basilar artery is patent. Vertebral arteries are patent. The posterior cerebral arteries arise from the basilar artery. [place] is intact. There is no significant stenosis, aneurysm, or AVM. IMPRESSION: Unremarkable CT angiogram of the intracerebral vasculature. Reviewed, Interpreted and Dictated by Sofía Zhang MD Transcribed by Criselda Carlisle Authenticated and [facility]
--- NOTE | 2024-06-18 14:20 | CT_ITS ---
FINAL REPORT TECHNIQUE: Thin section axial CT with contrast with multiplanar reconstruction. NASCET criteria and technique was utilized during interpretation. This study was performed with techniques to keep radiation doses as low as reasonably achievable (ALARA). Individualized dose reduction techniques using automated exposure control or adjustment of mA and/or kV according to the patient's size were employed. CLINICAL HISTORY: left sided numbness LKN 10a, stroke protocol FINDINGS: CTA NECK Aortic arch and great vessels are patent. Right carotid artery: There is calcified plaque at the bulb and proximal right ICA where there is 30-40% stenosis. More distal portions are patent to the skull base. Left carotid artery: There is calcification at the bulb without significant stenosis. Remaining left carotid artery is patent to the skull base. Vertebral arteries: Vertebral arteries are patent bilaterally. There is stenosis of the proximal left vertebral artery at its origin, slightly greater than 50%. Vertebral arteries are otherwise patent. IMPRESSION: 30-40% right carotid stenosis. No left carotid stenosis. Left vertebral stenosis at its origin. Reviewed, Interpreted and Dictated by Sofía Zhang MD Transcribed by Criselda Carlisle Authenticated and . [facility]
--- NOTE | 2024-06-18 14:21 | XR_ITS ---
FINAL REPORT CLINICAL HISTORY: Shortness of breath COMPARISON: 10/07/2021 FINDINGS: A portable view of the chest was obtained. Cardiac and mediastinal silhouettes are within normal limits. There are increased interstitial markings. Mild edema or pneumonia is not excluded.. There is no pleural effusion or pneumothorax. IMPRESSION: Mild increased interstitial markings, mild edema or pneumonia not excluded. Reviewed, Interpreted and Dictated by Sofía Zhang MD Transcribed by Amada Hess Authenticated and [facility]
[2024-06-18] MEDS: 0.9 % SODIUM CHLORIDE 50 ML VIAL IV (14:28)
[2024-06-18] MEDS: IOPAMIDOL-370 (76%);100ML BOTTLE 80 ML IV (14:28)
[2024-06-18] MEDS: SODIUM CHLORIDE 0.9% 10ML SYR (RAD ONLY) 10 ML IV (14:28)
[2024-06-18 14:29] LABS: Basophils % 0.3 % (0.1-2.0); Eosinophils # 0.1 K/mm3 (0.0-0.4); Eosinophils % 0.6 % (0.1-12.0); Hematocrit 40.5 % (37.0-47.0); Hemoglobin 13.4 g/dL (12.2-16.2); Lymphocytes # 2.8 K/mm3 (0.7-4.5); Lymphocytes % 24.6 % (10-50); Mean Corpuscular HGB Conc 33.1 g/dL (31.8-35.4); Mean Corpuscular Hemoglobin 26.3 pg (27.0-31.2); Mean Corpuscular Volume 79.4 fl (81-99); Mean Platelet Volume 9.1 fl (7.4-10.4); Monocytes # 0.8 K/mm3 (0.1-1.0); Monocytes % 7.3 % (1.7-9.3); Neutrophils # 7.6 K/mm3 (1.8-7.8); Neutrophils % 66.7 % (37.0-80.0); Platelet Count 322 K/mm3 (142-424); Red Cell Distribution Width 16.6 % (11.5-17.5); White Blood Count 11.5 K/mm3 (4.8-10.8)
--- NOTE | 2024-06-18 14:34 | ED_ITS ---
Discharge Plan Disposition Patient Disposition: Home, Self-Care Prescriptions Prescriptions: New clopidogrel 75 mg tablet 75 mg PO DAILY Qty: 30 2RF No Action Jardiance 25 mg tablet 25 mg PO DAILY Patient Comments: TAKE ONE TABLET BY MOUTH EVERY DAY IN THE MORNING buspirone 10 mg tablet 20 mg PO TID Qty: 180 1RF trazodone 100 mg tablet 100 mg PO QHS PRN (Reason: insomnia) Qty: 30 1RF duloxetine [Cymbalta] 60 mg capsule,delayed release(DR/EC) 120 mg PO DAILY Qty: 60 1RF aripiprazole [Abilify] 20 mg tablet See Rx Instructions PO BID Qty: 30 2RF Rx Instructions: take 1/2 tablet (10mg) orally twice a day; Ozempic 1 mg/dose (4 mg/3 mL) pen injector 1 mg SQ QWEEK Patient Comments: INJECT 1 MG SUBCUTANEOUSLY ONCE a WEEK Linzess 72 mcg capsule 72 mcg PO DAILY valsartan [Diovan] 160 mg tablet 160 mg PO DAILY Myrbetriq 25 mg tablet extended release 24 hr 25 mg PO DAILY Patient Comments: TAKE ONE TABLET BY MOUTH EVERY DAY do not crush, chew, and/or divide take with water cholecalciferol (vitamin D3) [Vitamin D3] 50 mcg (2,000 unit) capsule 50 mcg PO DAILY Patient Comments: TAKE ONE CAPSULE BY MOUTH EVERY DAY gabapentin [Neurontin] 600 mg tablet 600 mg PO DAILY Patient Comments: TAKE ONE TABLET BY MOUTH EVERY MORNING AND TAKE TWO TABLETS AT BEDTIME MAY CAUSE DROWSINESS Rx Instructions: 600 mg in AM rosuvastatin [Crestor] 20 mg tablet 20 mg PO DAILY Patient Comments: TAKE ONE TABLET BY MOUTH EVERY DAY ezetimibe [Zetia] 10 mg tablet 10 mg PO DAILY Patient Comments: TAKE ONE TABLET BY MOUTH EVERY DAY (DME) lancets [Accu-Chek Softclix Lancets] Misc See Rx Instructions .ROUTE .MEDSUPPLY Qty: 100 Patient Comments: USE TO test blood sugar FOUR TIMES DAILY Rx Instructions: As directed (DME) Accu-Chek Guide test strips Strip See Rx Instructions .ROUTE .MEDSUPPLY Qty: 10 Patient Comments: USE TO test blood sugar FOUR TIMES DAILY Rx Instructions: As directed verapamil 360 mg capsule,ext rel. pellets 24 hr 360 mg PO DAILY Qty: 90 3RF Ozempic 2 mg/dose (8 mg/3 mL) pen injector 2 mg SQ WEEKLY Qty: 3 2RF baclofen 20 mg tablet 20 mg PO TID Patient Comments: TAKE ONE TABLET BY MOUTH THREE TIMES DAILY @9am, 1pm, 5pm metformin 1,000 mg tablet 1,000 mg PO DAILY Patient Comments: TAKE ONE TABLET BY MOUTH DAILY AT 9 AM gabapentin 600 mg tablet 1,200 mg PO HS Patient Comments: TAKE ONE TABLET BY MOUTH EVERY MORNING AND TAKE TWO TABLETS AT BEDTIME MAY CAUSE DROWSINESS ropinirole 0.25 mg tablet 0.25 mg PO HS Qty: 30 0RF Rx Instructions: administer 1-3 hours before bedtime levothyroxine [Synthroid] 75 MCG tablet 75 mcg PO DAILY aspirin [Regine Chewable Aspirin] 81 MG tablet,chewable 81 mg PO DAILY ropinirole 0.25 mg tablet 0.25 mg PO TID Qty: 90 0RF Referrals Follow up/Referrals: Vee Wells APRN [Primary Care Provider] - See instructions Activity Restrictions/Add. Instructions Additional Instructions/Restrictions: Plavix daily in addition to aspirin. Follow-up with cardiology regarding this visit to the emergency department. Today, your imaging showed carotid stenosis on the right side. This will require further evaluation. Call your family doctor to establish care for this visit to the emergency department and schedule follow-up within 48 hours to ensure improvement. If you have any worsening of your condition or any other concerning signs or symptoms, return to the emergency department or your primary care doctor for further evaluation. Clinical Impressions Clinical Impression: Left-sided sensory deficit present, History of CVA (cerebrovascular accident) Print Language Print Language: Greenlandic Discharge ED Provider: Mariano Mays General Adult HPI <Renny Guallpa MD - Last Filed: 06/18/24 15:15> General Chief complaint: Neuro Symptoms/Deficit Stated complaint: numbness and tingling L side Time Seen by Provider: 06/18/24 14:20 Mode of Arrival: Wheelchair Source of Information: Patient Limitations: No Limitations Description of Symptoms (Recalled from ER Triage Doc. by RN): PT presents with c/o thinking she is having a stroke. Pt states she has a hx of strokes. Pt states her sx started at 10AM with sudden onset of left arm numbness that has progressed to her entire left side. Pt states she also has blurred vision to her left eye and also feels light headed and is having difficulty ambulating. PMH DM2 HTN stroke History of Present Illness HPI narrative: Patient is a 44-year-old who has a history of right sided hemiparesis from a stroke that she had in 2019 which she states she is almost completely recovered from but was in extensive rehab during that time, who presents with left-sided paresthesias and sensory loss that started today around 10 AM. She did state that she had some difficult time moving her left hand at the time because she was trying to so but from a motor standpoint she denies any significant weakness at the moment. She states that she can still feel in her left upper left lower extremity and left side of her face but that it feels different than the other side. She denies any other muscular weakness visual changes changes in coordination etc. She is on aspirin daily but no other anticoagulants. When asked why she had a stroke in the past no definitive answer was told her she does not have a history of PFO hypercoagulable state etc. She lived in [place] when that stroke occurred and has been followed at [facility] since she has moved here. Related Data Home Medications ?Medication ?Instructions ?Recorded ?Confirmed aspirin 81 mg chewable tablet 81 mg PO DAILY heart health 10/07/21 06/05/24 (Regine Chewable Low Dose Aspirin) levothyroxine 75 mcg tablet 75 mcg PO DAILY hypothyroidism 10/07/21 06/05/24 (Synthroid) baclofen 20 mg tablet 20 mg PO TID Infection 07/25/22 06/05/24 metformin 1,000 mg tablet 1,000 mg PO DAILY dm 07/25/22 06/05/24 linaclotide 72 mcg capsule 72 mcg PO DAILY 03/02/23 06/05/24 (Linzess) blood sugar diagnostic (Accu-Chek #10 ea 08/25/23 06/05/24 Guide test strips) cholecalciferol (vitamin D3) 50 50 mcg PO DAILY 08/25/23 06/05/24 mcg (2,000 unit) capsule (Vitamin D3) ezetimibe 10 mg tablet (Zetia) 10 mg PO DAILY 08/25/23 06/05/24 gabapentin 600 mg tablet 600 mg PO DAILY 08/25/23 06/05/24 (Neurontin) lancets (Accu-Chek Softclix #100 ea 08/25/23 06/05/24 Lancets) mirabegron 25 mg tablet,extended 25 mg PO DAILY 08/25/23 06/05/24 release 24 hr (Myrbetriq) rosuvastatin 20 mg tablet (Crestor) 20 mg PO DAILY 08/25/23 06/05/24 valsartan 160 mg tablet (Diovan) 160 mg PO DAILY 01/18/24 06/05/24 empagliflozin 25 mg tablet 25 mg PO DAILY 03/08/24 06/05/24 (Jardiance) gabapentin 600 mg tablet 1,200 mg PO HS 05/14/24 06/05/24 semaglutide 1 mg/dose (4 mg/3 mL) 1 mg SQ QWEEK 05/16/24 06/05/24 subcutaneous pen injector (Ozempic) Previous Rx's ?Medication ?Instructions ?Recorded aripiprazole 20 mg tablet (Abilify) See Rx Instructions PO BID #30 tabs 05/15/24 buspirone 10 mg tablet 20 mg (2 x 10 mg) PO TID #180 tabs 05/15/24 duloxetine 60 mg capsule,delayed 120 mg (2 x 60 mg) PO DAILY #60 05/15/24 release (Cymbalta) caps trazodone 100 mg tablet 100 mg PO QHS PRN insomnia #30 tabs 05/15/24 verapamil 360 mg 24 hr 360 mg PO DAILY #90 caps 05/15/24 capsule,extended release ropinirole 0.25 mg tablet 0.25 mg PO HS #30 tabs 05/31/24 semaglutide 2 mg/dose (8 mg/3 mL) 2 mg (0.75 mL) SQ WEEKLY #3 mL 06/07/24 subcutaneous pen injector (Ozempic) ropinirole 0.25 mg tablet 0.25 mg PO TID #90 tabs 06/08/24 clopidogrel 75 mg tablet 75 mg PO DAILY #30 tabs 06/18/24 Allergies Allergy/AdvReac Type Severity Reaction Status Date / Time topiramate (From Topamax) Allergy Verified 05/16/24 13:19 [facility] <Renny Guallpa MD - Last Filed: 06/18/24 15:15> [facility] Disclaimer: The information contained in this section may have been updated after the patient was seen, as this information can be updated by other users. Medical History JOSE LUIS (obstructive sleep apnea) Daytime somnolence Postoperative edema Edema of both legs Aortic valve insufficiency Edema Type 2 diabetes mellitus Tight control of hyperglycemia is recommended. Active follow-up with PCP. History of CVA (cerebrovascular accident) Brain MRI 01/21/22 showed evidence of chronic small left hemisphere lacunar CVA's. She is currently on best medical therapy including and aspirin, statins and has a loop recorder implanted followed by cardiology. Hyperlipidemia Currently on high intensity statin therapy. Goal is to keep LDL less than 55 Hypertension Active follow-up with cardiology at [facility] and currently normotensive. Bipolar disorder Family History Other No significant family history Social History Smoking Status: Never smoker alcohol intake: never substance use type: denies use current occupational status: other Travel in the last 8 weeks: None household members: significant other housing: house lives independently: No marital status: single number of children: 3 Have you lived/traveled outside US in past 30 days?: No Contact w/someone who lives/traveled outside US past 30 days?: No Exposure to someone with infectious disease in past 14 days?: No Do you have a fever (greater than 100.4 F or 38 C)?: No Have you tested positive for COVID-19: No Exposed to someone with COVID-19 in past 14 days?: No Do you have a sore throat?: No Do you have a cough?: No Do you have any weakness?: Yes Do you have any diarrhea?: No Are you experiencing any unusual bleeding?: No Do you have any muscle aches/pain?: Yes Do you have any abdominal pain?: No Are you experiencing loss of taste or smell?: No Other Medical History Have you received the Flu Vaccine for this season: Yes Have you received the Pneumonia Vaccine: No <Renny Guallpa MD - Last Filed: 06/18/24 15:15> ROS Obtained: Yes All systems reviewed & no additional complaints except as documented Physical Exam <Renny Guallpa MD - Last Filed: 06/18/24 15:15> General General appearance: alert Respiratory Respiratory exam: Present normal lung sounds bilaterally Cardiovascular Cardiovascular exam: Present regular rate Neurological Exam Neurological exam: Present alert, oriented X3 and other (Patient has left-sided facial paresthesias and diminished sensation as well as left upper and left lower extremity sensation but otherwise her neurologic exam is normal with an NIH stroke scale of 1) Medical Decision Making <Renny Guallpa MD - Last Filed: 06/18/24 15:15> Medical Records Screening: Per USPSTF and CDC recommendations, given the prevalence of disease in our region, it is our hospital?s policy to screen for HIV and viral Hepatitis for all patients aged 18 and over and those with ongoing risk factors. Лаександр Inquiry Pt receiving controlled substance: No Vital Signs: 06/18/24 14:12 06/18/24 14:29 06/18/24 15:00 Temperature 98.3 F Temperature Source Oral Pulse Rate 88 91 H Pulse Rate [Left] 82 Respiratory Rate 18 21 Blood Pressure 139/87 130/80 Blood Pressure [Right Arm] 119/82 Blood Pressure Mean Blood Pressure Mean [Right Arm] 94 Blood Pressure Source [Right Arm] Automatic Cuff Blood Pressure Position [Right Arm] Sitting 02 Sat by Pulse Oximetry 95 97 95 Oxygen Delivery Method Room Air Room Air Room Air 06/18/24 15:15 06/18/24 15:15 06/18/24 15:30 Temperature Temperature Source Pulse Rate 92 H 87 Pulse Rate [Left] Respiratory Rate 17 17 Blood Pressure 127/91 H 142/93 H Blood Pressure [Right Arm] Blood Pressure Mean 103 Blood Pressure Mean [Right Arm] Blood Pressure Source [Right Arm] Blood Pressure Position [Right Arm] 02 Sat by Pulse Oximetry 97 97 Oxygen Delivery Method Room Air Lab Data Lab results reviewed: Yes I reviewed the patient's lab results. Lab Results 06/18/24 14:05: WBC 11.5 H, RBC 5.10, Hgb 13.4, Hct 40.5, MCV 79.4 L, MCH 26.3 L , MCHC 33.1, RDW 16.6, Plt Count 322, MPV 9.1, Neut % (Auto) 66.7, Lymph % (Auto) 24.6, [place] % (Auto) 7.3, Eos % (Auto) 0.6, Baso % (Auto) 0.3, Neut # (Auto) 7.6, Lymph # (Auto) 2.8, [place] # (Auto) 0.8, Eos # (Auto) 0.1, Baso # (Auto) 0.0, Sodium 134 L, Potassium 4.0, Chloride 105, Carbon Dioxide 20 L, Anion Gap 13.0, BUN 13, Creatinine 0.80, Estimated Creat Clear 97, Estimated GFR 78, Est GFR ( Amer) 95, Glucose 107 H, Calcium 9.7, Total Bilirubin 0.3, AST 49 H, ALT 56, Alkaline Phosphatase 74, Troponin I < 0.01, Total Protein 6.6, Albumin 4.2, Globulin 2.4, Albumin/Globulin Ratio 1.8, HIV Ag/Ab Combo Qual Negative 06/18/24 14:05 06/18/24 14:05 Orders (Tests/Meds): ED MEDICATIONS Discontinued Medications Generic Name Dose Route Start Last Admin Trade Name Freq PRN Reason Stop Dose Admin Sodium Chloride 1,000 mls @ 999 mls/hr 06/18/24 14:30 06/18/24 14:37 Sod Chlor 0.9% 1000ml Bag IV 06/18/24 15:30 999 mls/hr .Q1H1M DAQUAN Administration Iopamidol 80 ml 06/18/24 14:23 06/18/24 14:28 Iopamidol-370 (76%);100ml Bottle IV 06/18/24 14:24 80 ml ONCE ONE Administration Sodium Chloride 50 ml 06/18/24 14:23 06/18/24 14:28 0.9 % Sodium Chloride 50 Ml Vial IV 06/18/24 14:24 50 ml ONCE ONE Administration Sodium Chloride 10 ml 06/18/24 14:23 06/18/24 14:28 Sodium Chloride 0.9% 10ml Syr (Rad Only) IV 06/18/24 14:24 10 ml ONCE ONE Administration ORDERS Category Date Time Status CT angio head Stat Cat Scan 06/18/24 14:[address] angio neck Stat Cat Scan 06/18/24 14:[address] head/brain wo con Stat Cat Scan 06/18/24 14:20 Completed CXR --portable [XR chest portable] Stat Exams 06/18/24 14:21 Completed CBC w/Auto Diff [Complete Blood Count Auto Diff] Stat Lab 06/18/24 14:05 Completed CMP [Comprehensive Metabolic Panel] Stat Lab 06/18/24 14:05 Completed HIV Combo Stat Lab 06/18/24 14:05 Completed Hep C Ab with Reflex to RNA Stat Lab 06/18/24 14:05 Received PT/PTT Stat Lab 06/18/24 14:05 Received Trop I [Troponin I] Stat Lab 06/18/24 14:05 Completed Troponin I Q3H Lab 06/18/24 17:30 Ordered Troponin I Q3H Lab 06/18/24 20:30 Ordered Medical Decision Narrative: 44-year-old with above history and physical largely has a normal neurologic exam aside from some subjective sensory abnormalities in her left upper left lower extremity and left side of her face. At the most she has an NIH stroke scale of 1. This is not consistent with an LVO and certainly not debilitating to warrant thrombolytics at the moment. CT and CTA have been ordered and will reassess she has been stroke alerted as of 2 PM. Reassessment [address] scans performed which I personally interpreted which shows no LVO or hemorrhage. Patient is not a candidate for tPA or TNK as stated above. She is already on antiplatelet agents already on a statin closely followed by cardiology here has been stratified for other cardiovascular pathology in the past. At the most she would be given dual antiplatelet therapy if she were to be admitted and get an MRI but this has been offered to her. She does not he be transferred to a stroke center at this point. Awaiting CT reads care will be transitioned to Dr. Mariano Mays for further evaluation and management. <Mariano Mays MD - Last Filed: 06/18/24 15:56> Vital Signs: 06/18/24 14:12 06/18/24 14:29 06/18/24 15:00 Temperature 98.3 F Temperature Source Oral Pulse Rate 88 91 H Pulse Rate [Left] 82 Respiratory Rate 18 21 Blood Pressure 139/87 130/80 Blood Pressure [Right Arm] 119/82 Blood Pressure Mean Blood Pressure Mean [Right Arm] 94 Blood Pressure Source [Right Arm] Automatic Cuff Blood Pressure Position [Right Arm] Sitting 02 Sat by Pulse Oximetry 95 97 95 Oxygen Delivery Method Room Air Room Air Room Air 06/18/24 15:15 06/18/24 15:15 06/18/24 15:30 Temperature Temperature Source Pulse Rate 92 H 87 Pulse Rate [Left] Respiratory Rate 17 17 Blood Pressure 127/91 H 142/93 H Blood Pressure [Right Arm] Blood Pressure Mean 103 Blood Pressure Mean [Right Arm] Blood Pressure Source [Right Arm] Blood Pressure Position [Right Arm] 02 Sat by Pulse Oximetry 97 97 Oxygen Delivery Method Room Air Lab Data Lab Results 06/18/24 14:05: WBC 11.5 H, RBC 5.10, Hgb 13.4, Hct 40.5, MCV 79.4 L, MCH 26.3 L , MCHC 33.1, RDW 16.6, Plt Count 322, MPV 9.1, Neut % (Auto) 66.7, Lymph % (Auto) 24.6, [place] % (Auto) 7.3, Eos % (Auto) 0.6, Baso % (Auto) 0.3, Neut # (Auto) 7.6, Lymph # (Auto) 2.8, [place] # (Auto) 0.8, Eos # (Auto) 0.1, Baso # (Auto) 0.0, Sodium 134 L, Potassium 4.0, Chloride 105, Carbon Dioxide 20 L, Anion Gap 13.0, BUN 13, Creatinine 0.80, Estimated Creat Clear 97, Estimated GFR 78, Est GFR ( Amer) 95, Glucose 107 H, Calcium 9.7, Total Bilirubin 0.3, AST 49 H, ALT 56, Alkaline Phosphatase 74, Troponin I < 0.01, Total Protein 6.6, Albumin 4.2, Globulin 2.4, Albumin/Globulin Ratio 1.8, HIV Ag/Ab Combo Qual Negative Orders (Tests/Meds): ED MEDICATIONS Discontinued Medications Generic Name Dose Route Start Last Admin Trade Name Freq PRN Reason Stop Dose Admin Sodium Chloride 1,000 mls @ 999 mls/hr 06/18/24 14:30 06/18/24 14:37 Sod Chlor 0.9% 1000ml Bag IV 06/18/24 15:30 999 mls/hr .Q1H1M DAQUAN Administration Iopamidol 80 ml 06/18/24 14:23 06/18/24 14:28 Iopamidol-370 (76%);100ml Bottle IV 06/18/24 14:24 80 ml ONCE ONE Administration Sodium Chloride 50 ml 06/18/24 14:23 06/18/24 14:28 0.9 % Sodium Chloride 50 Ml Vial IV 06/18/24 14:24 50 ml ONCE ONE Administration Sodium Chloride 10 ml 06/18/24 14:23 06/18/24 14:28 Sodium Chloride 0.9% 10ml Syr (Rad Only) IV 06/18/24 14:24 10 ml ONCE ONE Administration ORDERS Category Date Time Status CT angio head Stat Cat Scan 06/18/24 14:[address] angio neck Stat Cat Scan 06/18/24 14:[address] head/brain wo con Stat Cat Scan 06/18/24 14:20 Completed CXR --portable [XR chest portable] Stat Exams 06/18/24 14:21 Completed CBC w/Auto Diff [Complete Blood Count Auto Diff] Stat Lab 06/18/24 14:05 Completed CMP [Comprehensive Metabolic Panel] Stat Lab 06/18/24 14:05 Completed HIV Combo Stat Lab 06/18/24 14:05 Completed Hep C Ab with Reflex to RNA Stat Lab 06/18/24 14:05 Received PT/PTT Stat Lab 06/18/24 14:05 Received Trop I [Troponin I] Stat Lab 06/18/24 14:05 Completed Troponin I Q3H Lab 06/18/24 17:30 Ordered Troponin I Q3H Lab 06/18/24 20:30 Ordered Medical Decision Narrative: 44-year-old with above history and physical largely has a normal neurologic exam aside from some subjective sensory abnormalities in her left upper left lower extremity and left side of her face. At the most she has an NIH stroke scale of 1. This is not consistent with an LVO and certainly not debilitating to warrant thrombolytics at the moment. CT and CTA have been ordered and will reassess she has been stroke alerted as of 2 PM. Reassessment [address] scans performed which I personally interpreted which shows no LVO or hemorrhage. Patient is not a candidate for tPA or TNK as stated above. She is already on antiplatelet agents already on a statin closely followed by cardiology here has been stratified for other cardiovascular pathology in the past. At the most she would be given dual antiplatelet therapy if she were to be admitted and get an MRI but this has been offered to her. She does not he be transferred to a stroke center at this point. Awaiting CT reads care will be transitioned to Dr. Mariano Mays for further evaluation and management. Davon: I assumed primary responsibility for this patient after signout from previous physician. On my evaluation, patient resting comfortably. NIHSS 0-1 for me. Not complete hemisensory loss or deficit. Independent interpretation of workup with nonactionable CBC or chemistry. Troponin negative. Independent interpretation of CT imaging without intracranial hemorrhage. Mild right-sided carotid stenosis as compared to the left. This was documented at about 30 to 40% with radiology. Further conversation had with patient, agreeable to DAPT as well as outpatient management. I feel this is appropriate given admission, MRI, would likely not yield any change in plan. Patient understanding and agreeable to this. Because patient at baseline without signs or symptoms of clinical decompensation, deemed appropriate for discharge. Results were relayed to patient who voiced understanding and were agreeable to outpatient management and follow up. I discussed my clinical impression with patient and answered all questions. At this time, the evidence for any other entities in the differential is insufficient to warrant any further testing or ED observation. This was explained as well. Advisory was given that persistent or worsening symptoms require further evaluation. I confirmed the understanding of this discussion. Critical Care <Renny Guallpa MD - Last Filed: 06/18/24 15:15> Critical Care Time Critical Care Time: Yes Attestation: On 06/18/24, the high probability of a clinically significant, sudden or life threatening deterioration of the following system(s) required my full and direct attention, intervention and personal management. The time I documented below is in addition to time spent performing reported procedures but includes the following listed in this critical care notation. Total Time Total Critical Care Time: 35
[2024-06-18] MEDS: 0.9 % SODIUM CHLORIDE 1000ML 1,000 ML 999 ML IV (14:37)
[2024-06-18 15:08] LABS: Chloride 105 mmol/L (98-107)
[2024-06-18 15:09] LABS: Albumin Level 4.2 g/dl (3.5-5.0); Sodium 134 mmol/L (136-145)
[2024-06-18 15:11] LABS: Alanine Aminotransferase 56 U/L (12-78); Aspartate Amino Transferase 49 U/L (14-36); Blood Urea Nitrogen 13 mg/dl (7-17); Creatinine Clearance Estimated 97 mL/min (50-200); Estimated Glomerular Filt Rate 78 ml/min (>60); GFR (African American) 95 ML/MIN (>60)
[2024-06-18 15:12] LABS: Albumin/Globulin Ratio 1.8 (1.1-1.8); Alkaline Phosphatase 74 U/L (38-126); Bilirubin,Total 0.3 mg/dl (0.2-1.3); Calcium 9.7 mg/dl (8.4-10.2); Carbon Dioxide 20 mmol/L (22.0-30.0); Globulin 2.4 g/dL (1.3-3.2); Glucose 107 mg/dl (74-100); Total Protein,Serum 6.6 g/dl (6.3-8.2)
[2024-06-18 15:21] LABS: Troponin I < 0.01 ng/ml (0.00-0.034)
[2024-06-18 15:22] LABS: HIV Combo NEGATIVE (Negative)
[2024-06-18 15:28] LABS: Activated Partial Thrombo Time 26.3 seconds (22.8-30.6); INR 0.91 (0.9-1.1); Prothrombin Time 10.3 seconds (10.1-12.5)
[2024-06-18] MEDS: CLOPIDOGREL 75MG TAB 150 MG PO (16:00)
[2024-06-19 05:33] LABS: HCV Ab Non Reactive (Non Reactive)
== END 2024-06-18 16:36 | disposition home or self-care (01) ==
PROVIDERS: Student in an Organized Health Care Education/Training Program; Emergency Provider Emergency Medicine; PCP Nurse Practitioner Family
DX: R44.9 Unspecified symptoms and signs involving general sensations and perceptions (principal); R20.2 Paresthesia of skin; H53.8 Other visual disturbances; Z86.73 Personal history of transient ischemic attack (TIA), and cerebral infarction without residual deficits
CPT/HCPCS: 70450; 70496; 70498; 71045; 80053; 84484; 85025; 85610; 85730; 86803; 87389; 93005; 96360; 99291; J7030; Q9967

== ENCOUNTER 2024-06-29 07:49 | Outpatient (CLI) | payer MEDICARE, SELFPAY ==
--- NOTE | 2024-06-29 07:50 | MR_ITS ---
FINAL REPORT CLINICAL HISTORY: numbness on left side of body/hx CVA FINDINGS: Multiplanar MR imaging of the brain was performed without and with contrast. There is abnormal signal in the left periventricular white matter seen on images 16 and 17 of series 5. There is no evidence of intracranial hemorrhage or mass. No abnormal extra-axial fluid collection is seen. The ventricular size is within normal limits. There is no evidence of shift of the midline structures. The posterior fossa and brainstem have an unremarkable appearance. No area of abnormal restricted diffusion is identified. No abnormal contrast enhancement is seen. Normal major vessel vascular flow voids are noted. IMPRESSION: Abnormal signal in the left periventricular white matter which may be related to sequela of chronic ischemia or demyelination. Careful correlation and clinical scenario is recommended. Based on age, demyelination is considered most likely. Reviewed, Interpreted and Dictated by Dickson Lopez MD Transcribed by Meghna Downs Authenticated and [facility]
[2024-06-29] MEDS: SODIUM CHLORIDE 0.9% 10ML SYR (RAD ONLY) 10 ML IV (09:00)
[2024-06-29] MEDS: GADOTERIDOL INJ 20ML SYRINGE 18 ML IV (09:00)
== END 2024-06-29 23:59 ==
LOC: RAD 07:50
PROVIDERS: PCP Nurse Practitioner Family; Visit Provider Physician Assistant
DX: R20.0 Anesthesia of skin (principal); R44.9 Unspecified symptoms and signs involving general sensations and perceptions
CPT/HCPCS: 70553; A9576

== ENCOUNTER 2024-07-04 09:47 | Outpatient (POV) | payer MEDICARE, SELFPAY ==
[2024-07-04 11:20] VITALS: BP 124/81; PULSE 100; RESP 97; O2SAT 100; BMI 34.7
--- NOTE | 2024-07-04 11:27 | A.OFFVIS_ITS ---
[facility] Disclaimer: The information contained in this section may have been updated after the patient was seen, as this information can be updated by other users. Medical History JOSE LUIS (obstructive sleep apnea) Daytime somnolence Postoperative edema Edema of both legs Aortic valve insufficiency Edema Type 2 diabetes mellitus Tight control of hyperglycemia is recommended. Active follow-up with PCP. History of CVA (cerebrovascular accident) Brain MRI 01/21/22 showed evidence of chronic small left hemisphere lacunar CVA's. She is currently on best medical therapy including and aspirin, statins and has a loop recorder implanted followed by cardiology. Hyperlipidemia Currently on high intensity statin therapy. Goal is to keep LDL less than 55 Hypertension Active follow-up with cardiology at [facility] and currently normotensive. Bipolar disorder Family History Other No significant family history Social History Smoking Status: Never smoker alcohol intake: never substance use type: denies use current occupational status: other Travel in the last 8 weeks: None household members: significant other housing: house lives independently: No marital status: single number of children: 3 PM Subjective & Objective Subjective Subjective:: Patient is a pleasant 44-year-old female who presents today for follow-up and worsening pain. Today she rates her pain an 8 out of 10. Patient states she continues to have the chronic pain throughout her lower extremities with numbness and tingling and it does state constant and interfere with her ability perform activities of daily living such as cooking and cleaning. Patient did have a lumbar epidural steroid injection of L5-S1 back on June 05 that did provide 60 to 70% improvement and did help all down her left leg however continued to have right-sided leg issues. She denies any other changes from her last appointment. She states that the pain is just constant and she cannot do anything and is there anything else we can do to provide more consistent relief. Patient is prescribed gabapentin from an outside provider. And ropinirole from our office. Patient was given a 3-month supply of this medication in May and does not need refills at this time. Her Александр has been reviewed and is appropriate. Review of Systems: General: No recent weight changes, no fever, no sleep disturbances Respiratory: No cough, no shortness of air, no recurring pulmonary infections Cardiovascular/peripheral vascular: No chest pain, no palpitations, no edema, no shortness of breath Gastrointestinal: No new onset incontinence, normal bowel movements reported Genitourinary: No new onset incontinence Musculoskeletal: Low back pain, bilateral leg pain Psychiatric: [Normal mood/affect] Neurological: [Denies weakness in extremities], [denies balance issues] Pain at rest (0-10 scale): 8 Objective Objective:: Physical Exam: General: Alert and oriented x3, no acute distress, pleasant and cooperative Lungs: Respirations even and unlabored, symmetrical chest expansion Eyes: PERRL Musculoskeletal: Flexion and extension of lumbar [spine] somewhat guarded secondary to pain, [antalgic gait noted] Neurological: Speech clear, no gross sensory deficit Has patient had previous pain injection?: No Conservative treatment options previously tried: Home exercise plan Length of treatment: Longer than 12 weeks and Prescription medications Length of treatment: Longer than 12 weeks Meds Home Medications and Allergies Home Medications ?Medication ?Instructions ?Recorded ?Confirmed ?Type aspirin 81 mg chewable tablet 81 mg PO DAILY heart health 10/07/21 07/04/24 History (Regine Chewable Low Dose Aspirin) levothyroxine 75 mcg tablet 75 mcg PO DAILY hypothyroidism 10/07/21 07/04/24 History (Synthroid) baclofen 20 mg tablet 20 mg PO TID Infection 07/25/22 07/04/24 History metformin 1,000 mg tablet 1,000 mg PO DAILY dm 07/25/22 07/04/24 History linaclotide 72 mcg capsule 72 mcg PO DAILY 03/02/23 07/04/24 History (Linzess) blood sugar diagnostic (Accu-Chek #10 ea 08/25/23 07/04/24 History Guide test strips) cholecalciferol (vitamin D3) 50 50 mcg PO DAILY 08/25/23 07/04/24 History mcg (2,000 unit) capsule (Vitamin D3) ezetimibe 10 mg tablet (Zetia) 10 mg PO DAILY 08/25/23 07/04/24 History gabapentin 600 mg tablet 600 mg PO DAILY 08/25/23 07/04/24 History (Neurontin) lancets (Accu-Chek Softclix #100 ea 08/25/23 07/04/24 History Lancets) mirabegron 25 mg tablet,extended 25 mg PO DAILY 08/25/23 07/04/24 History release 24 hr (Myrbetriq) rosuvastatin 20 mg tablet (Crestor) 20 mg PO DAILY 08/25/23 07/04/24 History valsartan 160 mg tablet (Diovan) 160 mg PO DAILY 01/18/24 07/04/24 History empagliflozin 25 mg tablet 25 mg PO DAILY 03/08/24 07/04/24 History (Jardiance) gabapentin 600 mg tablet 1,200 mg PO HS 05/14/24 07/04/24 History aripiprazole 20 mg tablet (Abilify) See Rx Instructions PO BID #30 tabs 05/15/24 07/04/24 Rx buspirone 10 mg tablet 20 mg (2 x 10 mg) PO TID #180 tabs 05/15/24 07/04/24 Rx duloxetine 60 mg capsule,delayed 120 mg (2 x 60 mg) PO DAILY #60 05/15/24 07/04/24 Rx release (Cymbalta) caps trazodone 100 mg tablet 100 mg PO QHS PRN insomnia #30 tabs 05/15/24 07/04/24 Rx verapamil 360 mg 24 hr 360 mg PO DAILY #90 caps 05/15/24 07/04/24 Rx capsule,extended release semaglutide 1 mg/dose (4 mg/3 mL) 1 mg SQ QWEEK 05/16/24 07/04/24 History subcutaneous pen injector (Ozempic) ropinirole 0.25 mg tablet 0.25 mg PO HS #30 tabs 05/31/24 07/04/24 Rx semaglutide 2 mg/dose (8 mg/3 mL) 2 mg (0.75 mL) SQ WEEKLY #3 mL 06/07/24 07/04/24 Rx subcutaneous pen injector (Ozempic) ropinirole 0.25 mg tablet 0.25 mg PO TID #90 tabs 06/08/24 07/04/24 Rx clopidogrel 75 mg tablet 75 mg PO DAILY #30 tabs 06/18/24 07/04/24 Rx varenicline tartrate 0.5 mg (11)-1 See Rx Instructions PO PER PKG DIR 06/21/24 07/04/24 Rx mg (42) tablets in a dose pack #53 tabs (Chantix Starting Month Box) varenicline tartrate 1 mg tablet 1 mg PO BID #56 tabs 06/21/24 07/04/24 Rx (Chantix Continuing Month Box) lancets 30 gauge (ArlenTouch Delica #100 ea 07/04/24 07/04/24 History Plus Lancet) New Prescriptions to Start Prescriptions: Allergies Allergy/AdvReac Type Severity Reaction Status Date / Time topiramate (From Topamax) Allergy Verified 07/04/24 10:55 Assessment and Plan *Assessment and plan (1) Left-sided sensory deficit present: Status: Acute Category: Medical Code(s): R44.9 - Unspecified symptoms and signs involving general sensations and perceptions (2) Left sided numbness: Status: Acute Category: Medical Code(s): R20.0 - Anesthesia of skin (3) Degenerative disc disease: Status: Acute Category: Medical (4) Lumbar radiculopathy: Status: Acute Category: Medical Code(s): M54.16 - Radiculopathy, lumbar region (5) Bilateral foot pain: Status: Acute Category: Medical Code(s): M79.671 - Pain in right foot; M79.672 - Pain in left foot Plan Patient is experiencing chronic pain that does radiate from her low back down into her bilateral lower extremities with numbness and tingling. I did discuss with patient due to this being a chronic issue that is progressively worsened over the last few years that she may be a beneficial candidate of a spinal cord stimulator trial. Risk and benefits were discussed with patient and she would like to proceed forward with this plan of care. Patient has tried and failed conservative therapy including oral medications, heat and ice, topicals, prior physical therapy, at home stretching exercise for longer than 12 weeks. We will submit for a psychological evaluation and if she is deemed an appropriate candidate we will proceed forward with a stimulator trial in future. Patient will return to clinic in 1 month for reevaluation of symptoms and plan of care. Patient has been instructed to contact the clinic with any concerns before the next appointment. Dr. Restrepo has reviewed this note and agrees with this plan of care. This note was dictated using voice recognition software and make contain errors or omissions. All injections are used with Lidocaine, Bupivacaine and Depo Medrol. Occasionally urine drug screen is needed to verify patient's compliance with our office pain contract. This is ordered based off specific treatments related to chronic pain with the potential to abuse certain medications.
== END 2024-07-04 23:59 | disposition home or self-care (01) ==
LOC: SC.PAIN 09:48
PROVIDERS: PCP Nurse Practitioner Family; Visit Provider Nurse Practitioner Family
DX: R44.9 Unspecified symptoms and signs involving general sensations and perceptions (principal); R20.0 Anesthesia of skin; M54.16 Radiculopathy, lumbar region; M79.671 Pain in right foot; M79.672 Pain in left foot; Z73.89 Other problems related to life management difficulty; Z79.899 Other long term (current) drug therapy
CPT/HCPCS: 99212; G0463

== ENCOUNTER 2024-07-05 09:11 | Outpatient (CLI) | payer MEDICARE, SELFPAY ==
[2024-07-05 17:58] LABS: Basophils % 0.4 % (0.1-2.0); Eosinophils # 0.1 K/mm3 (0.0-0.4); Eosinophils % 1.3 % (0.1-12.0); Hematocrit 39.7 % (37.0-47.0); Hemoglobin 12.6 g/dL (12.2-16.2); Lymphocytes # 1.9 K/mm3 (0.7-4.5); Lymphocytes % 21.6 % (10-50); Mean Corpuscular HGB Conc 31.7 g/dL (31.8-35.4); Mean Corpuscular Hemoglobin 25.6 pg (27.0-31.2); Mean Corpuscular Volume 80.5 fl (81-99); Mean Platelet Volume 9.5 fl (7.4-10.4); Monocytes # 0.7 K/mm3 (0.1-1.0); Monocytes % 7.7 % (1.7-9.3); Neutrophils # 6.1 K/mm3 (1.8-7.8); Neutrophils % 68.3 % (37.0-80.0); Platelet Count 269 K/mm3 (142-424); Red Blood Count 4.93 M/mm3 (4.20-5.40); Red Cell Distribution Width 16.7 % (11.5-17.5)
[2024-07-05 18:41] LABS: Albumin Level 4.1 g/dl (3.5-5.0); Chloride 105 mmol/L (98-107); Sodium 133 mmol/L (136-145)
[2024-07-05 18:42] LABS: Potassium 4.4 mmoL/L (3.5-5.1)
[2024-07-05 18:44] LABS: Alanine Aminotransferase 49 U/L (12-78); Albumin/Globulin Ratio 1.7 (1.1-1.8); Alkaline Phosphatase 82 U/L (38-126); Anion Gap 11.4 mEq/L (5-15); Aspartate Amino Transferase 52 U/L (14-36); Bilirubin,Total 0.2 mg/dl (0.2-1.3); Blood Urea Nitrogen 10 mg/dl (7-17); Carbon Dioxide 21 mmol/L (22.0-30.0); Cholesterol 122 mg/dl (140-200); Estimated Glomerular Filt Rate 91 ml/min (>60); GFR (African American) 111 ML/MIN (>60); Globulin 2.4 g/dL (1.3-3.2); Total Protein,Serum 6.5 g/dl (6.3-8.2); Triglycerides 100 mg/dl (30-150); VLDL Cholesterol 20 mg/dL (0-40)
[2024-07-05 18:45] LABS: Calcium 9.4 mg/dl (8.4-10.2); Chol/HDL Ratio 3.2 (1-3.5); Glucose 91 mg/dl (74-100); HDL Cholesterol 38 mg/dl (40-60)
[2024-07-05 18:57] LABS: Direct LDL Cholesterol 68.77 mg/dL (100-129)
[2024-07-05 19:13] LABS: Hemoglobin A1C 6.9 % (4.0-6.0)
[2024-07-07 05:20] LABS: HBsAg Screen Negative (Negative); HCV Ab Non Reactive (Non Reactive); Hep A Ab, IGM Negative (Negative); Hep B Core Ab, IgM Negative (Negative)
== END 2024-07-05 23:59 | disposition home or self-care (01) ==
LOC: LAB.DROPOF 07-06 09:11
PROVIDERS: PCP Internal Medicine; Visit Provider Internal Medicine
DX: Z76.89 Persons encountering health services in other specified circumstances (principal); R79.89 Other specified abnormal findings of blood chemistry; Z11.59 Encounter for screening for other viral diseases; R44.9 Unspecified symptoms and signs involving general sensations and perceptions; G47.33 Obstructive sleep apnea (adult) (pediatric); I35.1 Nonrheumatic aortic (valve) insufficiency; E78.5 Hyperlipidemia, unspecified; I10 Essential (primary) hypertension; E11.9 Type 2 diabetes mellitus without complications; Z86.73 Personal history of transient ischemic attack (TIA), and cerebral infarction without residual deficits; R53.83 Other fatigue
CPT/HCPCS: 80053; 80061; 80074; 83036; 85025

== ENCOUNTER 2024-08-01 08:53 | Outpatient (POV) | payer MEDICARE, SELFPAY ==
[2024-08-01 09:18] VITALS: BP 141/94; PULSE 145; RESP 16; O2SAT 97; BMI 32.9
--- NOTE | 2024-08-01 09:21 | A.OFFVIS_ITS ---
[facility] Disclaimer: The information contained in this section may have been updated after the patient was seen, as this information can be updated by other users. Medical History JOSE LUIS (obstructive sleep apnea) Daytime somnolence Postoperative edema Edema of both legs Aortic valve insufficiency Edema Type 2 diabetes mellitus Tight control of hyperglycemia is recommended. Active follow-up with PCP. History of CVA (cerebrovascular accident) Brain MRI 01/21/22 showed evidence of chronic small left hemisphere lacunar CVA's. She is currently on best medical therapy including and aspirin, statins and has a loop recorder implanted followed by cardiology. Hyperlipidemia Currently on high intensity statin therapy. Goal is to keep LDL less than 55 Hypertension Active follow-up with cardiology at [facility] and currently normotensive. Bipolar disorder Family History Other No significant family history Social History Smoking Status: Never smoker alcohol intake: never substance use type: denies use current occupational status: other Travel in the last 8 weeks: None household members: significant other housing: house lives independently: No marital status: single number of children: 3 PM Subjective & Objective Subjective Subjective:: Patient is a pleasant 44-year-old female who presents today for worsening pain. She does rated a 10 out of 10. Patient states it still all across her low back and does go into her lower extremities. Patient did previously have significant improvement of approximately 60 to 70% relief with her last epidural that was in May. Patient does state that she would like to get scheduled for repeat injection as soon as possible as this did really help decrease her overall pain. Patient does also state that she did complete her psychological evaluation and that that provider did tell her that she passed and that would send the report on up to our office. Patient does state that she would also like to proceed forward with that intervention of a spinal cord stimulator as soon as possible. This has been a chronic issue and does interfere with her ability to perform activities of daily living. Patient is prescribed gabapentin from an outside provider and did ask whether we got anything in from that office regarding taking over her gabapentin. Patient is also prescribed ropinirole from our office and was given a 3-month supply in May. Her Александр has been reviewed and is appropriate. Review of Systems: General: No recent weight changes, no fever, no sleep disturbances Respiratory: No cough, no shortness of air, no recurring pulmonary infections Cardiovascular/peripheral vascular: No chest pain, no palpitations, no edema, no shortness of breath Gastrointestinal: No new onset incontinence, normal bowel movements reported Genitourinary: No new onset incontinence Musculoskeletal: Low back pain, bilateral leg pain Psychiatric: [Normal mood/affect] Neurological: [Denies weakness in extremities], [denies balance issues] Pain at rest (0-10 scale): 10 Objective Objective:: Physical Exam: General: Alert and oriented x3, no acute distress, pleasant and cooperative Lungs: Respirations even and unlabored, symmetrical chest expansion Eyes: PERRL Musculoskeletal: Flexion and extension of better [spine] somewhat guarded secondary to pain, [antalgic gait noted] positive leg raise Neurological: Speech clear, no gross sensory deficit Has patient had previous pain injection?: No Conservative treatment options previously tried: Home exercise plan Length of treatment: Longer than 12 weeks Meds Home Medications and Allergies Home Medications ?Medication ?Instructions ?Recorded ?Confirmed ?Type aspirin 81 mg chewable tablet 81 mg PO DAILY heart health 10/07/21 08/01/24 History (Regine Chewable Low Dose Aspirin) levothyroxine 75 mcg tablet 75 mcg PO DAILY hypothyroidism 10/07/21 08/01/24 History (Synthroid) baclofen 20 mg tablet 20 mg PO TID Infection 07/25/22 08/01/24 History metformin 1,000 mg tablet 1,000 mg PO DAILY dm 07/25/22 08/01/24 History blood sugar diagnostic (Accu-Chek #10 ea 08/25/23 08/01/24 History Guide test strips) cholecalciferol (vitamin D3) 50 50 mcg PO DAILY 08/25/23 08/01/24 History mcg (2,000 unit) capsule (Vitamin D3) ezetimibe 10 mg tablet (Zetia) 10 mg PO DAILY 08/25/23 08/01/24 History gabapentin 600 mg tablet 600 mg PO DAILY 08/25/23 08/01/24 History (Neurontin) lancets (Accu-Chek Softclix #100 ea 08/25/23 08/01/24 History Lancets) mirabegron 25 mg tablet,extended 25 mg PO DAILY 08/25/23 08/01/24 History release 24 hr (Myrbetriq) rosuvastatin 20 mg tablet (Crestor) 20 mg PO DAILY 08/25/23 08/01/24 History valsartan 160 mg tablet (Diovan) 160 mg PO DAILY 01/18/24 08/01/24 History empagliflozin 25 mg tablet 25 mg PO DAILY 03/08/24 08/01/24 History (Jardiance) buspirone 10 mg tablet 20 mg (2 x 10 mg) PO TID #180 tabs 05/15/24 08/01/24 Rx verapamil 360 mg 24 hr 360 mg PO DAILY #90 caps 05/15/24 08/01/24 Rx capsule,extended release semaglutide 2 mg/dose (8 mg/3 mL) 2 mg (0.75 mL) SQ WEEKLY #3 mL 06/07/24 08/01/24 Rx subcutaneous pen injector (Ozempic) clopidogrel 75 mg tablet 75 mg PO DAILY #30 tabs 06/18/24 08/01/24 Rx varenicline tartrate 0.5 mg (11)-1 See Rx Instructions PO PER PKG DIR 06/21/24 08/01/24 Rx mg (42) tablets in a dose pack #53 tabs (Chantix Starting Month Box) lancets 30 gauge (OneTouch Delica #100 ea 07/04/24 08/01/24 History Plus Lancet) nicotine 21 mg/24 hr daily 1 patch transdermal DAILY #28 ea 07/04/24 08/01/24 Rx transdermal patch amitriptyline 25 mg tablet 25 mg PO HS #30 tabs 07/05/24 08/01/24 Rx gabapentin 600 mg tablet See Rx Instructions .Route 07/09/24 08/01/24 Rx .COMPLEX #180 tabs ropinirole 0.25 mg tablet See Rx Instructions .Route 07/09/24 08/01/24 Rx .COMPLEX #90 tabs aripiprazole 20 mg tablet (Abilify) See Rx Instructions PO BID 90 days 07/10/24 08/01/24 Rx #90 tabs duloxetine 60 mg capsule,delayed 120 mg (2 x 60 mg) PO DAILY 90 07/10/24 08/01/24 Rx release (Cymbalta) days #180 caps trazodone 100 mg tablet 100 mg PO QHS PRN insomnia 90 days 07/10/24 08/01/24 Rx #90 tabs New Prescriptions to Start Prescriptions: Allergies Allergy/AdvReac Type Severity Reaction Status Date / Time topiramate (From Topamax) Allergy Verified 07/05/24 10:30 Assessment and Plan *Assessment and plan (1) Degenerative disc disease: Status: Acute Category: Medical (2) Lumbar facet arthropathy: Status: Acute Category: Medical Code(s): M47.816 - Spondylosis without myelopathy or radiculopathy, lumbar region (3) Lumbar radiculopathy: Status: Acute Category: Medical Code(s): M54.16 - Radiculopathy, lumbar region (4) Low back pain: Status: Acute Qualifiers: Chronicity: chronic Back pain laterality: bilateral Sciatica presence: with sciatica Sciatica laterality: bilateral sciatica Qualified Code(s): M54.42 - Lumbago with sciatica, left side; M54.41 - Lumbago with sciatica, right side; G89.29 - Other chronic pain Category: Medical Code(s): M54.50 - Low back pain, unspecified Plan Patient was counseled that we do not officially have the psychological evaluation in the computer yet however I have gone over the risk and benefits of this trial and she still would like to proceed forward with this plan of care. We will keep an eye out for this report and proceed forward with the trial once we officially have it and that she is deemed an appropriate patient. Patient has tried and failed conservative therapy. Patient will be tentatively scheduled for a spinal cord stimulator trial under fluoroscopy. Patient is experiencing worsening pain in her low back with numbness and tingling into her lower extremities. Patient did have limited range of motion of her lumbar spine with a positive leg raise. I did discuss with patient that I do believe they would benefit from a lumbar epidural steroid injection. Risk and benefits were discussed with patient and the patient would like to proceed forward with this plan of care. Patient is on Plavix written by the Dr. Vanegas's office. We will reach out to this provider and confirm she can stop this medication prior to this injection. Patient has tried and failed conservative therapy including continued at home stretching exercise for longer than 12 weeks between injections. Patient did previously have a lumbar epidural back in May that provided 60-70 relief and lasted longer than 2 months. We will schedule the patient for an LESI L5-S1 under fluoroscopy. Patient has been instructed to contact the clinic with any concerns before the next appointment. Dr. Restrepo has reviewed this note and agrees with this plan of care. This note was dictated using voice recognition software and make contain errors or omissions. All injections are used with Lidocaine, Bupivacaine and Depo Medrol. Occasionally urine drug screen is needed to verify patient's compliance with our office pain contract. This is ordered based off specific treatments related to chronic pain with the potential to abuse certain medications.
== END 2024-08-01 23:59 | disposition home or self-care (01) ==
LOC: SC.PAIN 08:54
PROVIDERS: PCP Internal Medicine; Visit Provider Nurse Practitioner Family
DX: M47.26 Other spondylosis with radiculopathy, lumbar region (principal); M54.42 Lumbago with sciatica, left side; M54.41 Lumbago with sciatica, right side; G89.29 Other chronic pain; Z73.89 Other problems related to life management difficulty; Z79.899 Other long term (current) drug therapy
CPT/HCPCS: 99212; G0463

== ENCOUNTER 2024-09-11 14:03 | Outpatient (CLI) | payer MEDICARE, SELFPAY ==
[2024-09-11 15:01] LABS: Alanine Aminotransferase 38 U/L (12-78); Albumin Level 4.2 g/dl (3.5-5.0); Alkaline Phosphatase 61 U/L (38-126); Aspartate Amino Transferase 34 U/L (14-36); Bilirubin,Total 0.3 mg/dl (0.2-1.3); Blood Urea Nitrogen 10 mg/dl (7-17); Calcium 10.1 mg/dl (8.4-10.2); Carbon Dioxide 24 mmol/L (22.0-30.0); Chloride 106 mmol/L (98-107); Creatine Kinase 76 U/L (30-135); Estimated Glomerular Filt Rate 91 ml/min (>60); GFR (African American) 111 ML/MIN (>60); Globulin 2.1 g/dL (1.3-3.2); Glucose 126 mg/dl (74-100); Sodium 136 mmol/L (136-145); Total Protein,Serum 6.3 g/dl (6.3-8.2)
[2024-09-11 15:17] LABS: 25-OH Vitamin D, Total 45.9 ng/mL (30-100)
[2024-09-11 15:51] LABS: Vitamin B12 446 pg/mL (239-931)
[2024-09-11 15:56] LABS: Iron 41 ug/dL (37-170)
[2024-09-11 16:06] LABS: Total Iron Binding Capacity 358 ug/dL (265-497)
[2024-09-11 16:33] LABS: Ferritin 10.8 ng/ml (6.24-137)
[2024-09-17 16:14] LABS: Vitamin B6 14.9 ug/L (3.4-65.2)
== END 2024-09-11 23:59 | disposition home or self-care (01) ==
LOC: LAB 14:05
PROVIDERS: PCP Internal Medicine; Visit Provider Nurse Practitioner
DX: G62.9 Polyneuropathy, unspecified (principal); R53.83 Other fatigue; E53.8 Deficiency of other specified B group vitamins; M62.838 Other muscle spasm; E55.9 Vitamin D deficiency, unspecified; R20.0 Anesthesia of skin; R20.2 Paresthesia of skin; R42 Dizziness and giddiness; Z86.73 Personal history of transient ischemic attack (TIA), and cerebral infarction without residual deficits; Z82.3 Family history of stroke
CPT/HCPCS: 36415; 80053; 82306; 82525; 82550; 82607; 82728; 82746; 83540; 83550; 83735; 84207

== ENCOUNTER 2024-10-17 10:39 | Outpatient (CLI) | payer MEDICARE, SELFPAY ==
[2024-10-17 10:45] LABS: Anti-Centromere B Antibodies ND; Anti-DNA (DS) Ab Qn ND; Anti-Jo-1 ND; Antichromatin Antibodies ND; Antiscleroderma-70 Antibodies ND; RNP Antibodies ND; Sjogren's Anti-SS-A ND; Sjogren's Anti-SS-B ND
[2024-10-17 11:11] LABS: Basophils % 0.3 % (0.1-2.0); Eosinophils # 0.3 Kmm3 (0.0-0.4); Eosinophils % 3.6 % (0.1-12.0); Hematocrit 38.1 % (37.0-47.0); Hemoglobin 12.8 g/dL (12.2-16.2); Lymphocytes # 1.8 K/mm3 (0.7-4.5); Mean Corpuscular HGB Conc 33.6 g/dL (31.8-35.4); Mean Corpuscular Volume 80.4 fl (81-99); Mean Platelet Volume 8.6 fl (7.4-10.4); Monocytes # 0.5 K/mm3 (0.1-1.0); Monocytes % 6.3 % (1.7-9.3); Neutrophils # 5.3 K/mm3 (1.8-7.8); Neutrophils % 66.2 % (37.0-80.0); Nucleated Red Blood Cells # 0 10^3/uL; Nucleated Red Blood Cells % 0 %; Platelet Count 315 K/mm3 (142-424); Red Blood Count 4.74 M/mm3 (4.20-5.40); Red Cell Distribution Width 17.4 % (11.5-17.5); Red Cell Distribution Width-SD 50.4 fL
[2024-10-18 12:33] LABS: Antinuclear Antibodies (ANA) Negative (Negative)
== END 2024-10-17 23:59 | disposition home or self-care (01) ==
LOC: LAB 10:39
PROVIDERS: PCP Family Medicine; Visit Provider Nurse Practitioner
DX: G37.9 Demyelinating disease of central nervous system, unspecified (principal); G62.9 Polyneuropathy, unspecified
CPT/HCPCS: 36415; 85025; 86038

== ENCOUNTER 2024-10-29 13:00 | Outpatient (CLI) | payer MEDICARE, SELFPAY ==
--- NOTE | 2024-10-29 13:30 | MM_ITS ---
PROCEDURE INFORMATION: Exam: MG Bilateral Screening 3D Mammography Exam date and time: 10/29/2024 1:18 PM Age: 44 years old Clinical indication: Screening mammogram TECHNIQUE: Imaging protocol: Bilateral Screening tomosynthesis and 2D mammography including computer-aided detection (CAD) when performed. COMPARISON: MG MM DIG SCREENING MAMM BI W/CAD 09/13/2023 9:50 AM FINDINGS: MAMMOGRAPHY: Breast composition: There are scattered areas of fibroglandular density. Mass: None. Architectural distortion: No new or suspicious architectural distortion. Calcifications: No new or suspicious calcifications are present Asymmetric density: No new or suspicious asymmetric density is present Skin thickening: None. Axillary adenopathy: None. Other findings: There is a loop recorder device on the left. IMPRESSION: No mammographic evidence of malignancy. Recommend annual screening mammography unless otherwise clinically indicated. ASSESSMENT: BI-RADS category 1: Negative.
== END 2024-10-29 23:59 | disposition home or self-care (01) ==
LOC: RAD 13:00
PROVIDERS: PCP Family Medicine; Visit Provider Family Medicine
DX: Z12.31 Encounter for screening mammogram for malignant neoplasm of breast (principal)
CPT/HCPCS: 77063; 77067

== ENCOUNTER 2024-10-30 10:57 | Outpatient (CLI) | payer MEDICARE, SELFPAY ==
[2024-10-30 19:30] LABS: Basophils # 0.1 K/mm3 (0-0.2); Basophils % 0.6 % (0.1-2.0); Eosinophils # 1.4 Kmm3 (0.0-0.4); Eosinophils % 12.5 % (0.1-12.0); Hemoglobin 13.4 g/dL (12.2-16.2); Immature Granulocytes # 0.06 10^3uL; Immature Granulocytes % 0.6 %; Lymphocytes # 2.4 K/mm3 (0.7-4.5); Mean Corpuscular HGB Conc 32.7 g/dL (31.8-35.4); Mean Corpuscular Hemoglobin 27.6 pg (27.0-31.2); Mean Corpuscular Volume 84.5 fl (81-99); Mean Platelet Volume 9.1 fl (7.4-10.4); Monocytes # 0.8 K/mm3 (0.1-1.0); Monocytes % 7.3 % (1.7-9.3); Neutrophils # 6.2 K/mm3 (1.8-7.8); Nucleated Red Blood Cells # 0 10^3/uL; Nucleated Red Blood Cells % 0 %; Platelet Count 293 K/mm3 (142-424); Red Blood Count 4.85 M/mm3 (4.20-5.40); Red Cell Distribution Width 19.9 % (11.5-17.5); Red Cell Distribution Width-SD 60.9 fL; White Blood Count 10.8 K/mm3 (4.8-10.8)
[2024-10-30 19:51] LABS: Chloride 110 mmol/L (98-107); Potassium 4.5 mmoL/L (3.5-5.1); Sodium 137 mmol/L (136-145)
[2024-10-30 19:53] LABS: Blood Urea Nitrogen 11 mg/dl (7-17); Estimated Glomerular Filt Rate 91 ml/min (>60); GFR (African American) 111 ML/MIN (>60)
[2024-10-30 19:54] LABS: Alanine Aminotransferase 29 U/L (12-78); Albumin/Globulin Ratio 1.6 (1.1-1.8); Alkaline Phosphatase 83 U/L (38-126); Anion Gap 11.5 mEq/L (5-15); Aspartate Amino Transferase 34 U/L (14-36); Bilirubin,Total 0.2 mg/dl (0.2-1.3); Calcium 9.3 mg/dl (8.4-10.2); Carbon Dioxide 20 mmol/L (22.0-30.0); Cholesterol 143 mg/dl (140-200); Globulin 2.5 g/dL (1.3-3.2); Glucose 113 mg/dl (74-100); Iron 58 ug/dL (37-170); Magnesium 1.9 mg/dl (1.6-2.3); Total Protein,Serum 6.5 g/dl (6.3-8.2); Triglycerides 166 mg/dl (30-150); VLDL Cholesterol 33 mg/dL (0-40)
[2024-10-30 19:55] LABS: Chol/HDL Ratio 3.4 (1-3.5); HDL Cholesterol 42 mg/dl (40-60)
[2024-10-30 20:01] LABS: Hemoglobin A1C 6.2 % (4.0-6.0)
[2024-10-30 20:06] LABS: Total Iron Binding Capacity 323 ug/dL (265-497)
[2024-10-30 20:18] LABS: Direct LDL Cholesterol 82.83 mg/dL (100-129)
[2024-10-30 20:30] LABS: Ferritin 14.9 ng/ml (6.24-137)
[2024-10-30 20:45] LABS: Vitamin B12 351 pg/mL (239-931)
== END 2024-10-30 23:59 | disposition home or self-care (01) ==
LOC: LAB.DROPOF 11-01 10:58
PROVIDERS: PCP Family Medicine; Visit Provider Family Medicine
DX: E11.42 Type 2 diabetes mellitus with diabetic polyneuropathy (principal); D64.9 Anemia, unspecified; E61.1 Iron deficiency; E78.5 Hyperlipidemia, unspecified
CPT/HCPCS: 80053; 80061; 82607; 82728; 82746; 83036; 83540; 83550; 83735; 85025

== ENCOUNTER 2024-11-01 08:43 | Outpatient (POV) | payer MEDICARE, SELFPAY ==
--- NOTE | 2024-11-01 09:21 | EXP.PAIN.SOA ---
[facility] Disclaimer: The information contained in this section may have been updated after the patient was seen, as this information can be updated by other users. Medical History (Updated 11/01/24 @ 09:39 by Hannah Wallace APRN) Diabetes Peripheral neuropathy GERD (gastroesophageal reflux disease) Movement disorder Iron deficiency PAD (peripheral artery disease) JOSE LUIS (obstructive sleep apnea) Daytime somnolence Postoperative edema Edema of both legs Aortic valve insufficiency Edema Type 2 diabetes mellitus History of CVA (cerebrovascular accident) Hyperlipidemia Hypertension Bipolar disorder Family History Other No significant family history Social History Smoking Status: Former smoker alcohol intake: never substance use type: denies use current occupational status: other Travel in the last 8 weeks?: None household members: significant other housing: house lives independently: No marital status: single number of children: 3 PM Subjective & Objective Subjective Subjective:: Patient is a pleasant 44-year-old female who presents today for follow-up. She rates her pain today a 9 out of 10. Patient does state that she continues to have the same chronic pain that we have been treating her for and that it is just constant and intense. She states the pain does go from her low back down into her legs with numbness and tingling. Patient does state the pain is interfering with her ability perform activities of daily living such as cooking and cleaning. Patient did have her last epidural back in May with 60 to 70% relief and has helped however due to to other things going on she has not been able to get into our office for additional injection therapy. Patient states that she has been seen neurology and cardiology related to the possibility of ruling out MS versus strokes. Patient did have her psychological evaluation and was deemed an appropriate candidate for the spinal cord stimulator trial and that she was having to get cardiac and neurology clearance before proceeding forward with this option. Patient has now officially gotten this and would like to proceed forward with these options. Patient does also state that they did also tell her that she could go ahead and get scheduled for additional injections and that they would be able to stop her blood thinners temporarily for these. Patient does state that the ropinirole we had been prescribing her was taken over by the neurologist and changed to 0.5 mg at bedtime. Patient states she has not been on this very long and not been able to see if it did provide significant relief. Her Александр has been reviewed and is appropriate. Injection history: 06/05/2024 LESI L5-S1 60 to 70% improvements 03/20/2024 lumbar RFA bilaterally L4-L5 and L5-S1 85% improvement 01/31/2024 lumbar medial branch block bilaterally L4-L5 L5-S1 number 2 85% 11 days 12/20/2023 lumbar medial branch block bilaterally L4-L5 and L5-S1 round number 100% improvement initially decreasing to 80% 11/01/2019 for bilateral SI injections 09/13/2023 LESI L5-S1 08/09/2019 for right transforaminal L4-L5 L5-S1 Conservative therapy: Physical therapy Review of Systems: General: No recent weight changes, no fever, no sleep disturbances Respiratory: No cough, no shortness of air, no recurring pulmonary infections Cardiovascular/peripheral vascular: No chest pain, no palpitations, no edema, no shortness of breath Gastrointestinal: No new onset incontinence, normal bowel movements reported Genitourinary: No new onset incontinence Musculoskeletal: Low back pain, bilateral leg numbness Psychiatric: [Normal mood/affect] Neurological: [Denies weakness in extremities], [denies balance issues] Pain at rest (0-10 scale): 9 Objective Objective:: Physical Exam: General: Alert and oriented x3, no acute distress, pleasant and cooperative Lungs: Respirations even and unlabored, symmetrical chest expansion Eyes: PERRL Musculoskeletal: Flexion and extension of lumbar [spine] somewhat guarded secondary to pain, positive leg raise Neurological: Speech clear, no gross sensory deficit Has patient had previous pain injection?: No Conservative treatment options previously tried: Home exercise plan Length of treatment: Longer than 12 weeks Meds Home Medications and Allergies Home Medications ?Medication ?Instructions ?Recorded ?Confirmed ?Type aspirin 81 mg chewable tablet 81 mg PO DAILY heart health 10/07/21 10/30/24 History (Regine Chewable Low Dose Aspirin) levothyroxine 75 mcg tablet 75 mcg PO DAILY hypothyroidism 10/07/21 10/30/24 History (Synthroid) metformin 1,000 mg tablet 1,000 mg PO DAILY dm 07/25/22 10/30/24 History blood sugar diagnostic (Accu-Chek #10 ea 08/25/23 10/30/24 History Guide test strips) ezetimibe 10 mg tablet (Zetia) 10 mg PO DAILY 08/25/23 10/30/24 History lancets (Accu-Chek Softclix #100 ea 08/25/23 10/30/24 History Lancets) valsartan 160 mg tablet (Diovan) 160 mg PO DAILY 01/18/24 10/30/24 History empagliflozin 25 mg tablet 25 mg PO DAILY 03/08/24 10/30/24 History (Jardiance) verapamil 360 mg 24 hr 360 mg PO DAILY #90 caps 05/15/24 10/30/24 Rx capsule,extended release lancets 30 gauge (OneTouch Delica #100 ea 07/04/24 10/30/24 History Plus Lancet) duloxetine 60 mg capsule,delayed 120 mg (2 x 60 mg) PO DAILY 07/10/24 10/30/24 Rx release (Cymbalta) days #180 caps varenicline tartrate 1 mg tablet See Rx Instructions .Route 08/08/24 10/30/24 Rx .COMPLEX #56 tabs tizanidine 2 mg capsule 2 mg PO TID PRN muscle spasticity 08/16/24 10/30/24 Rx #90 caps clopidogrel 75 mg tablet See Rx Instructions .Route 09/07/24 10/30/24 Rx .COMPLEX #90 tabs amitriptyline 50 mg tablet 50 mg PO HS #30 tabs 10/09/24 10/30/24 Rx aripiprazole 20 mg tablet (Abilify) See Rx Instructions PO BID 90 days 10/09/24 10/30/24 Rx #90 tabs ferrous sulfate 325 mg (65 mg 325 mg PO DAILY #30 tabs 10/09/24 10/30/24 Rx iron) tablet gabapentin 400 mg capsule 400 mg PO TID #90 caps 10/09/24 10/30/24 Rx gabapentin 800 mg tablet 800 mg PO TID #90 tabs 10/09/24 10/30/24 Rx mirabegron 50 mg tablet,extended 50 mg PO DAILY #90 tabs 10/09/24 10/30/24 Rx release 24 hr (Myrbetriq) omeprazole 40 mg capsule,delayed 40 mg PO DAILY #90 caps 10/09/24 10/30/24 Rx release ropinirole 0.25 mg tablet See Rx Instructions .Route 10/09/24 10/30/24 Rx .COMPLEX #90 tabs rosuvastatin 20 mg tablet (Crestor) 20 mg PO ONCE #90 tabs 10/09/24 10/30/24 Rx semaglutide 2 mg/dose (8 mg/3 mL) See Rx Instructions .Route 10/24/24 10/30/24 Rx subcutaneous pen injector (Ozempic) .COMPLEX #3 mL New Prescriptions to Start Prescriptions: Allergies Allergy/AdvReac Type Severity Reaction Status Date / Time topiramate (From Topamax) Allergy Verified 10/30/24 08:27 Assessment and Plan *Assessment and plan (1) Lumbar radiculopathy: Status: Acute Category: Medical Code(s): M54.16 - Radiculopathy, lumbar region (2) Low back pain: Status: Acute Qualifiers: Chronicity: chronic Back pain laterality: bilateral Sciatica presence: with sciatica Sciatica laterality: bilateral sciatica Qualified Code(s): M54.42 - Lumbago with sciatica, left side; M54.41 - Lumbago with sciatica, right side; G89.29 - Other chronic pain Category: Medical Code(s): M54.50 - Low back pain, unspecified (3) Chronic pain: Problem Comment: Currently gabapentin. She may continue to follow-up with PCP Status: Chronic Category: Medical Code(s): G89.29 - Other chronic pain (4) Peripheral neuropathy: Status: Acute Category: Medical Code(s): G62.9 - Polyneuropathy, unspecified (5) Diabetic peripheral neuropathy: Status: Acute Category: Medical Code(s): E11.42 - Type 2 diabetes mellitus with diabetic polyneuropathy (6) Diabetes: Status: Acute Category: Medical Code(s): E11.9 - Type 2 diabetes mellitus without complications Plan Patient is experiencing worsening pain in her low back with numbness and tingling into her lower extremities. Patient did have limited range of motion of her lumbar spine with a positive leg raise. I did discuss with patient that I do believe they would benefit from a lumbar epidural steroid injection. Risk and benefits were discussed with patient and the patient would like to proceed forward with this plan of care. Patient is on Plavix and we will reach out to Dr. Vanegas's office to confirm she can stop this medication prior to this injection.. Patient has tried and failed conservative therapy including oral medications, heat and ice, topicals,Physical therapy and continued at home stretching exercise for longer than 12 weeks between injections. Patient did previously have a lumbar epidural back in May that provided 60 to 70% relief and lasted longer than 3 months. Patient has had chronic back pain for years. We will schedule the patient for an LESI L5-S1 under fluoroscopy. I did also review over with the patient regarding the stimulator trial. Risk and benefits and educational handouts were reviewed. Patient would like to proceed forward with this plan of care. Patient has tried and failed multiple conservative therapy options including previous physical therapy ongoing continued at home exercising and stretching and even injection therapy that has significantly helped but does very on how long. Patient will be submitted for her spinal cord stimulator trial under fluoroscopy. Patient does have diabetic peripheral neuropathy. Patient has been instructed to contact the clinic with any concerns before the next appointment. Dr. Restrepo has reviewed this note and agrees with this plan of care. This note was dictated using voice recognition software and make contain errors or omissions. All injections are used with Lidocaine, Bupivacaine and Depo Medrol. Occasionally urine drug screen is needed to verify patient's compliance with our office pain contract. This is ordered based off specific treatments related to chronic pain with the potential to abuse certain medications.
[2024-11-01 09:45] VITALS: BP 113/82; PULSE 111; RESP 14; O2SAT 98; BMI 34.7
== END 2024-11-01 23:59 | disposition home or self-care (01) ==
LOC: SC.PAIN 08:44
PROVIDERS: PCP Family Medicine; Visit Provider Nurse Practitioner Family
DX: M54.16 Radiculopathy, lumbar region (principal); M54.42 Lumbago with sciatica, left side; M54.41 Lumbago with sciatica, right side; G89.29 Other chronic pain; G62.9 Polyneuropathy, unspecified; E11.42 Type 2 diabetes mellitus with diabetic polyneuropathy
CPT/HCPCS: 99212; G0463

== ENCOUNTER 2024-12-04 09:21 | Day surgery (SDC) | payer MEDICARE, SELFPAY ==
[2024-12-04 09:29] VITALS: BP 105/73; PULSE 107; RESP 16; TEMP 36.8; O2SAT 97; BMI 34.7
[2024-12-04] MEDS: DEXAMETHASONE 10MG/ML 1ML VIAL 10 MG (09:49)
--- NOTE | 2024-12-04 09:50 | P.PCN_ITS ---
Procedure Date: 12/04/24 Time: 09:45 Anesthesiologist:: Nick Bolaños CRNA Complications:: None Pre-procedure Diagnosis:: Degenerative disc lumbar spine multilevels. Lumbar radiculopathy. Post-procedure Diagnosis:: Same. Indications for Procedure:: Patient is a very pleasant 44-year-old female comes our clinic today for lumbar epidural steroid injection at the L4-5 level. Patient describes low lumbar back pain as well as bilateral hip and leg radicular symptoms as constant, dull, achi ng, intermittent. She reports responding very well to previous lumbar epidural steroid injections. She rates her pain 7/10. Procedure Details:: Procedure: Lumbar epidural steroid injection under fluoroscopy Informed consent was obtained and the risks and benefits of the procedure were explained to the patient. The patient was taken to the procedure room and noninvasive monitors placed, including noninvasive blood pressure cuff and pulse oximeter. The back was viewed using C-arm Fluoroscopy and prepped using Chloraprep as a cleansing solution and the L4-L5 interspace was palpated. Skin and subcutaneous tissues were anesthetized using lidocaine 1.5% and a 25-gauge needle. After this, an 18-gauge Touhy epidural needle was placed into the L4-L5 interspace and advanced using fluoroscopic guidance and loss of resistance to air until the epidural space was encountered. After confirmation of needle placement in the epidural space, with dye, a solution containing normal saline, 3 mL and Depo-Medrol 80 mg were incrementally injected into the lumbar epidural space. The patient tolerated the procedure well with no complications. The patient was observed in the Pain Clinic and then discharged home neurologically intact. Plan and Disposition:: Patient was discharged without incident.
[2024-12-04 09:52] VITALS: BP 121/78; PULSE 107; RESP 16; O2SAT 97
[2024-12-04 09:55] VITALS: BP 108/78; PULSE 100; RESP 18; O2SAT 97
== END 2024-12-04 09:52 | disposition home or self-care (01) ==
PROVIDERS: PCP Family Medicine; Visit Provider Nurse Anesthetist, Certified Registered
DX: M51.16 Intervertebral disc disorders with radiculopathy, lumbar region (principal); E11.42 Type 2 diabetes mellitus with diabetic polyneuropathy; E11.51 Type 2 diabetes mellitus with diabetic peripheral angiopathy without gangrene; G47.33 Obstructive sleep apnea (adult) (pediatric); I10 Essential (primary) hypertension; F31.9 Bipolar disorder, unspecified; E78.2 Mixed hyperlipidemia; E61.1 Iron deficiency; K21.9 Gastro-esophageal reflux disease without esophagitis; Z79.82 Long term (current) use of aspirin; Z87.891 Personal history of nicotine dependence; Z79.899 Other long term (current) drug therapy; Z79.890 Hormone replacement therapy; Z79.84 Long term (current) use of oral hypoglycemic drugs; Z79.02 Long term (current) use of antithrombotics/antiplatelets; Z79.85 Long-term (current) use of injectable non-insulin antidiabetic drugs; Z88.8 Allergy status to other drugs, medicaments and biological substances
CPT/HCPCS: 62323; J1100

== ENCOUNTER 2024-12-24 11:01 | Outpatient (POV) | payer MEDICARE, SELFPAY ==
--- OUTSIDE RECORDS SUMMARY | 2024-06-27 05:34 | XMS_ITS | CCD ---
Author Name Marian Solis NP Address [address] [place] [address] Phone Organization [facility] Phone Care Team Providers Care Car Rental Agent Name Role Phone Marian Solis NP Primary Care Provider Unavaila ble Unavailable Chronic Care Management Unavaila ble Summary Purpose DataExchange Insurance Providers Payer name Policy type / Coverage type Covered libertarian ID Effective Begin Date Effective End Date [employer] [facility] [id number] Unknown Unknown NO COPAY HOLD [id number] Unknown Unknown Family history Father Diagnosis Age At Onset CAD (Coronary Artery Disease) Unknown Diabetes Unknown Mother Diagnosis Age At Onset Multiple sclerosis Unknown CAD (Coronary Artery Disease) Unknown Social History Social History Element Codes Description Effec tive Dates Marital status Unknown Single 02/03/2024 Number of children Unknown 0 Living arrangements Unknown House 02/03/20 24 Number of children in household Unknown 1 02/03/2024 Number of adults in household Unknown 2 02/03/2024 Education level Unknown High School Graduate 01/18 Employment Unknown disabled 02/03/2024 Tobacco history Unknown Current User (Co mplete cessation counseling) 02/03/[address]: [id number] Never drinks alco hol 02/03/2024 Illegal/Recreational drug history Unknown *Has never used illegal/recreational drugs 02/03/2024 Allergies, Adverse Reactions, Alerts Substance Reaction Codes Entered Date Inactivated Date Status * Food Allergy _ Unknown 02/03/2024 No Inactive Date Active Topamax RxNorm: 076962 02/03/2024 No Inactive Da te Active Seasonal *other reaction (specify in notes), Unknown 02/03/2024 No Inactive Date Active Problems Condition Codes Effective Dates Condition St atus Paresthesia of lower extremity Unknown 11/24/2023 Active Anxiety ICD-10: F41.9 ICD-9: 300.00 02/03/2024 Active Chronic kidney disease, stag e 3 unspecified ICD-10: N18.30 02/03/2024 Active 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 ICD-10: M79.2 ICD-9: 729.2 02/03/2024 Active Cigarette nicotine dependenc e without complication ICD-10: F17.210 ICD-9: 305.1 02/03/2024 Active Encounter for general adult medical examination without abnormal findings ICD-10: Z00.00 ICD-9: V70.9 02/03/2024 Active Fatigue, unspecified type ICD-10: R53.83 ICD-9: 780.79 02/03/2024 Active History of CVA (cerebrovascu lar accident) ICD-10: Z86.73 ICD-9: V12.54 02/03/2024 Active Hypercholesteremia ICD-10: E78.00 ICD-9: 272.0 02/03/2024 Active Moderate episode of recurren t major depressive disorder ICD-10: F33.1 ICD-9: 296.32 02/03/2024 Active Other chronic pain ICD-10: G89.29 02/03/2024 Active Primary hypertension ICD-10: I10 ICD-9: 401.9 02/03/2024 Active Type 2 diabetes mellitus wit h stage 3 chronic kidney disease, without long-term current use of insulin, unspecified whether stage 3a or 3b CKD ICD-10: E11.22 ICD-9: 250.40 02/03/2024 Active Unspecified intracranial inj ury with loss of consciousness status unknown, sequela ICD-10: S06.9XAS 02/03/2024 Active Urinary incontinence, unspec ified type ICD-10: R32 ICD-9: 788.30 02/03/2024 Active Medications Medication Codes Instructions Start Date Stop Date Status Fill Instructions nicotine 21 mg/24 hr daily transdermal patch RxNorm: 166384 Apply 1 Patch Transdermal 02/03/20 24 025 Active valsartan 160 mg tablet RxNorm: 729147 Take 1 Tablet(s) Oral two times a day 02/03/20 Active lithium carbonate 300 mg capsule RxNorm: 748216 TAKE ONE CAPSULE BY MOUTH TWICE DAILY FOR mood 08/16/20 24 Active buspirone 10 mg tablet RxNorm: 142054 Take 2 Tablet(s) Oral three times a day 02/03/20 Active amlodipine 5 mg tablet RxNorm: 538419 Take 1 Tablet(s) Oral every evening 02/03/20 Active rosuvastatin 20 mg tablet RxNorm: 686011 Take 1 Tablet(s) Oral every day 02/03/20 24 Active fluticasone propionate 50 mcg/actuation nasal spray,suspension ... RxNorm: 4471707 instill 1-2 SPRAYS IN EACH NOSTRIL EVERY DAY NEEDED 02/03/20 Active Nyamyc 100,000 unit/gram topical powder RxNorm: 946968 top 02/03/20 Active polyethylene glycol 3350 17 gram/dose oral powder RxNorm: 929016 DISSOLVE 17 GRAMS OF POWDER INTO 4 TO 8 OUNCES OF WATER, JUICE, SODA, COFFEE, OR TEA THEN DRINK EVERY DAY do not exceed 17 grams PER day 02/03/20 24 Active fluoxetine 40 mg capsule RxNorm: 995054 TAKE ONE CAPSULE BY MOUTH TWICE DAILY FOR mood 02/03/20 Active cholecalciferol (vitamin D3) 50 mcg (2,000 unit) capsule RxNorm: 160728 Take 1 Capsule(s) Oral every day 02/03/20 24 Active tobramycin 1.2 gram solution for injection RxNorm: 276308 inj 02/03/20 Active benzonatate 100 mg capsule RxNorm: 480533 TAKE ONE CAPSULE BY MOUTH THREE TIMES DAILY NEEDED FOR cough -SWALLOW WHOLE. DO NOT CRUSH OR CHEW- 02/03/20 Active Linzess 72 mcg capsule RxNorm: 5631231 TAKE ONE CAPSULE BY MOUTH EVERY DAY ON AN EMPTY STOMACH AT LEAST 30 MINUTES BEFORE THE FIRST MEAL OF THE DAY 02/03/20 Active aripiprazole 10 mg tablet RxNorm: 200248 Take 1 Tablet(s) Oral HS 02/03/20 24 Active Trulicity 1.5 mg/0.5 mL subcutaneous pen injector RxNorm: 0511642 INJECT 1.5 MG (0.5 ML) SUBCUTANEOUSLY ONCE A WEEK 02/03/20 Active levothyroxine 75 mcg tablet RxNorm: 120048 Take 1 Tablet(s) Oral every day BEFORE a meal 02/03/20 24 Active Ozempic 0.25 mg or 0.5 mg (2 mg/3 mL) subcutaneous pen injector ... RxNorm: 4574713 Inject 0.5 Milligram(s) Subcutaneous QW 02/03/20 Active Myrbetriq 25 mg tablet,extended release RxNorm: 0643380 TAKE ONE TABLET BY MOUTH EVERY DAY do not crush, chew, and/or divide take with water 02/03/20 Active bisoprolol fumarate 5 mg tablet RxNorm: 867698 Take 1 Tablet(s) Oral every day 02/03/20 24 Active aspirin 81 mg tablet,delayed release RxNorm: 360846 Take 1 Tablet(s) Oral every day 02/03/20 24 Active solifenacin 5 mg tablet RxNorm: 544482 Take 1 Tablet(s) Oral every day 02/03/20 24 Active metformin 1,000 mg tablet RxNorm: 754190 Take 1 Tablet(s) Oral every morning 02/03/20 Active amantadine HCl 100 mg tablet RxNorm: 488787 oral 02/03/20 24 Active trazodone 150 mg tablet RxNorm: 278205 Take 1 Tablet(s) Oral HS as needed 02/03/20 Active duloxetine 60 mg capsule,delayed release RxNorm: 493934 Take 2 Capsule(s) Oral every day 02/03/20 24 Active baclofen 20 mg tablet RxNorm: 437160 TAKE ONE TABLET BY MOUTH THREE TIMES DAILY MAY CAUSE DROWSINESS 02/03/20 Active valsartan 80 mg tablet RxNorm: 149026 Take 1 Tablet(s) Oral two times a day 02/03/20 24 Active Lybalvi 15 mg-10 mg tablet RxNorm: 4569101 Take 1 Tablet(s) Oral every day 02/03/20 24 Active olanzapine 5 mg tablet RxNorm: 888066 Take 1 Tablet(s) Oral HS 02/03/20 24 Active Anucort-HC 25 mg suppository RxNorm: 1564984 UNWRAP AND INSERT 1 SUPPOSITORY RECTALLY TWICE DAILY FOR 2 WEEKS 02/03/20 24 Active gabapentin 600 mg tablet RxNorm: 755936 TAKE ONE TABLET BY MOUTH EVERY MORNING AND TAKE TWO TABLETS AT BEDTIME MAY CAUSE DROWSINESS 08/16/20 24 Active doxepin 50 mg capsule RxNorm: 6570735 Take 1 Capsule(s) Oral HS 02/03/20 Active trazodone 100 mg tablet RxNorm: 651702 Take 1 Tablet(s) Oral HS FOR SLEEP 02/03/20 Active ezetimibe 10 mg tablet RxNorm: 922299 Take 1 Tablet(s) Oral every day 02/03/20 Active duloxetine 30 mg capsule,delayed release RxNorm: 371408 Take 3 Capsule(s) Oral every day 02/03/20 24 Inactive Medication Administered No Medication Administered data Results Observation Observation Code Item Item Code Result Date Service Location CHEM 14 (METABOLIC PANEL) 98489 Glucose 2345-7 101 mg/dL [facility] [address] [place] [address] 48801 CHEM 14 (METABOLIC PANEL) 72605 BUN 3094-0 11 mg/dL [facility] [address] [place] [address] CHEM 14 (METABOLIC PANEL) 37773 Creatinine 2160-0 0.8 mg/dL 024 [facility] [address] [place] [address] CHEM 14 (METABOLIC PANEL) 85702 BUN/Creat Ratio 3097-3 14.1 [facility] [address] [place] [address] CHEM 14 (METABOLIC PANEL) 31313 GFR Estimated 18689-2 96 mL/min/1. 73m2 [facility] [address] [place] [address] CHEM 14 (METABOLIC PANEL) 54620 Sodium 2951-2 141 mmol/L 024 [facility] [address] [place] [address] CHEM 14 (METABOLIC PANEL) 71560 Potassium 2823-3 3.5 mmol/L 024 [facility] [address] [place] [address] CHEM 14 (METABOLIC PANEL) 26391 Chloride 2075-0 107 mmol/L 024 [facility] [address] [place] [address] CHEM 14 (METABOLIC PANEL) 16794 Total CO2 2028-9 24 mmol/L 024 [facility] [address] [place] [address] CHEM 14 (METABOLIC PANEL) 91052 Anion Gap 1863-0 13.5 mEq/L 024 [facility] [address] [place] [address] 07944 CHEM 14 (METABOLIC PANEL) 32798 Calculated Serum Osmolality 53842-7 292 mOsm/kg 024 [facility] [address] [place] [address] 33644 CHEM 14 (METABOLIC PANEL) 23793 Albumin 60610-3 4.0 g/dL 024 [facility] [address] [place] [address] 92052 CHEM 14 (METABOLIC PANEL) 30639 Total Protein 2885-2 7.0 g/dL 024 [facility] [address] [place] [address] 21352 CHEM 14 (METABOLIC PANEL) 29167 Globulin 2336-6 3.0 g/dL 024 [facility] [address] [place] [address] 89046 CHEM 14 (METABOLIC PANEL) 41609 Albumin/Globulin Ratio 1759-0 1.3 024 [facility] [address] [place] [address] 57744 CHEM 14 (METABOLIC PANEL) 47368 ALK PHOS 6768-6 84.00 U/L 024 [facility] [address] [place] [address] 45249 CHEM 14 (METABOLIC PANEL) 46831 SGOT/AST 1920-8 35 U/L 024 [facility] [address] [place] [address] 81614 CHEM 14 (METABOLIC PANEL) 78430 SGPT/ALT 1743-4 54 U/L 024 [facility] [address] [place] [address] 32574 CHEM 14 (METABOLIC PANEL) 31188 Total Bilirubin 1975-2 0.3 mg/dL 024 [facility] [address] [place] [address] 24637 CHEM 14 (METABOLIC PANEL) 40771 Calcium 55560-2 9.5 mg/dL 024 [facility] [address] [place] [address] 74804 CHEM 14 (METABOLIC PANEL) 04809 Corrected Calcium 39165-2 9.7 mg/dL 02/05 024 [facility] [address] [place] [address] 77241 FREE T-3 23228 FT3 3051-0 2.21 pg/mL 024 [facility] [address] [place] [address] FREE T-4 94138 FT4 3024-7 1.23 ng/dL 024 [facility] [address] [place] [address] 18004 VITAMIN B-12 68270 Vitamin B12 2132-9 459 pg/mL 02/05 024 [facility] [address] [place] [address] 42287 TSH 83483 TSH 37846-1 0.475 uIU/mL 024 [facility] [address] [place] [address] 11776 COMPLETE CBC W/ DIFF WBC 20470 WBC 6690-2 10.5 K/ul 024 [facility] [address] [place] [address] 06520 COMPLETE CBC W/ DIFF WBC 59610 RBC 789-8 4.22 M/uL 024 [facility] [address] [place] [address] 78976 COMPLETE CBC W/ DIFF WBC 07745 Hemoglobin 718-7 12.6 g/dL 024 [facility] [address] [place] [address] 31718 COMPLETE CBC W/ DIFF WBC 92218 Hematocrit 4544-3 38.6 % 024 [facility] [address] [place] [address] 53916 COMPLETE CBC W/ DIFF WBC 30637 MCV 787-2 91.5 fL 024 [facility] [address] [place] [address] 17478 COMPLETE CBC W/ DIFF WBC 19753 MCH 785-6 29.8 pg 024 [facility] [address] [place] [address] 86354 COMPLETE CBC W/ DIFF WBC 92985 MCHC 786-4 32.6 g/dL 024 [facility] [address] [place] [address] 74453 COMPLETE CBC W/ DIFF WBC 53497 RDW 788-0 15.5 % 024 [facility] [address] [place] [address] 43735 COMPLETE CBC W/ DIFF WBC 68886 Platelet Count 777-3 312 K/uL 024 [facility] [address] [place] [address] 42792 COMPLETE CBC W/ DIFF WBC 39468 MPV 66522-4 7.7 fL 024 [facility] [address] [place] [address] 08187 COMPLETE CBC W/ DIFF WBC 32360 Neutrophils % 770-8 68.1 % 024 [facility] [address] [place] [address] 17042 COMPLETE CBC W/ DIFF WBC 83529 Lymphocytes % 736-9 22.5 % 024 [facility] [address] [place] [address] COMPLETE CBC W/ DIFF WBC 46442 Monocytes % 5905-5 8.0 % 024 [facility] [address] [place] [address] COMPLETE CBC W/ DIFF WBC 20695 Eosinophils % 713-8 0.8 % 024 [facility] [address] [place] [address] COMPLETE CBC W/ DIFF WBC 35504 Basophils% 706-2 0.6 % 024 [facility] [address] [place] [address] 85002 COMPLETE CBC W/ DIFF WBC 27420 Absolute Neutrophil 751-8 7151 /ul 024 [facility] [address] [place] [address] 80640 COMPLETE CBC W/ DIFF WBC 06839 Absolute Lymphocyte 91945-2 2363 /ul 024 [facility] [address] [place] [address] 62419 COMPLETE CBC W/ DIFF WBC 69908 Absolute Monocyte 742-7 840 /ul 024 [facility] [address] [place] [address] 25525 COMPLETE CBC W/ DIFF WBC 32783 Absolute Eosinophil 711-2 84 /ul 024 [facility] [address] [place] [address] 51162 COMPLETE CBC W/ DIFF WBC 49015 Absolute Basophil 704-7 63 /ul 024 [facility] [address] [place] [address] 33177 Direct LDL 44603 LDL-Direct 48116-9 72 mg/dL 024 [facility] [address] [place] [address] 94085 VITAMIN D 99212 Vitamin D 27823-7 27.4 ng/mL 024 [facility] [address] [place] [address] 35276 HDL - CHOL 23612 HDL 2085-9 44 mg/dL 024 [facility] [address] [place] [address] 79052 HDL - CHOL 78037 CHD 33717-5 34 % 024 [facility] [address] [place] [address] TRIGLYCERIDES 89434 Triglycerides 2571-8 124 mg/dL 024 [facility] [address] [place] [address] 75273 TRIGLYCERIDES 15504 VLDL 42322-4 25 mg/dL 024 [facility] [address] [place] [address] MICROALBUMIN (URINE) 84535 Microalbumin 82919-4 2.4 mg/dL 024 [facility] [address] [place] [address] MICROALBUMIN (URINE) 87579 Microalbumin/Crea tinine Ratio 65141-8 30 MCG/MGCRE AT 024 [facility] [address] [place] [address] MICROALBUMIN (URINE) 39696 Urine Creatinine 2161-8 81.20 mg/dL 024 [facility] [address] [place] [address] CHOLESTEROL 94979 Cholesterol 2093-3 131 mg/dL 024 [facility] [address] [place] [address] No Orders UA NoOrdersUA NO ORDERS UA 0.00 08/08 024 [facility] [address] [place] [address] 41632 [id number] IN [facility] Glyco HGB A1C 93990-5 7.2 % 024 [facility] [address] [place] [address] [id number] IN [facility] eAG 13967-9 160 mg/dL 024 [facility] [address] [place] [address] 46229 Procedures Procedure Codes Date MED LIST DOCD IN [facility] CPT-4: 1159F 02/03/2024 RVW MEDS BY RX/ IN [facility] CPT-4: 1160F 2023 Screening for clinical depre ssion is negative, follow-up plan not required CPT-4: G8510 02/03/2024 [id number] CPT-4: 70313 Unknown Vital Signs Date Vital 02/03/2024 Blood Pressure 1: 125/80 Code: 8480-6 BMI: 36.8 Code: 37822-2 Heart Rate 1: 90 bpm Height: 5'3 Code: 8302-2 Respiratory Rate: 16 bpm SpO2: 96% Temperature: 35.9 (C) / 96.7 (F) Weight: 211 lbs Code: 96436-7 Reason For Visit Reason For Visit Effective Dates Notes new patient welcome visit 02/03/2024 Encounters Encounter Performer Location Location Address Codes Date ([address]240) 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 Visit [employer]ING [employer]ISHER - Moderate Level, 60 mins Diagnosis: Primary hypertension[ICD10: I10] Diagnosis: 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[ICD10: M79.2] Diagnosis: Other chronic pain[ICD10: G89.29] Diagnosis: Unspecified intracranial injury with loss of consciousness status unknown, sequela[ICD10: S06.9XAS] Diagnosis: Hypercholesteremia[I CD10: E78.00] Diagnosis: History of CVA (cerebrovascular accident)[ICD10: Z86.73] Diagnosis: Type 2 diabetes mellitus with stage 3 chronic kidney disease, without long-term current use of insulin, unspecified whether stage 3a or 3b CKD[ICD10: E11.22] Diagnosis: Chronic kidney disease, stage 3 unspecified[ICD10: N18.30] Diagnosis: Moderate episode of recurrent major depressive disorder[ICD10: F33.1] Diagnosis: Urinary incontinence, unspecified type[ICD10: R32] Diagnosis: Cigarette nicotine dependence without complication[ICD10: F17.210] Diagnosis: Anxiety[ICD10: F41.9] Diagnosis: Encounter for general adult medical examination without abnormal findings[ICD10: Z00.00] Diagnosis: Fatigue, unspecified type[ICD10: R53.83] Marian Solis [place] [facility] [address] [place] [address] CPT-4: 08247 02/03/2024 Plan of Care Planned Activity Notes Codes Status Date Visit Plan: I10-401.9 Primary hy pertension M79.2-729.2 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 G89.29- Other chronic pain S06.9XAS- Unspecified intracranial injury with loss of consciousness status unknown, sequela E78.00-272.0 Hypercholesteremia Z86.73-V12.54 History of CVA (cerebrovascular accident) E11.22-250.40 Type 2 diabetes mellitus with stage 3 chronic kidney disease, without long-term current use of insulin, unspecified whether stage 3a or 3b CKD N18.30- Chronic kidney disease, stage 3 unspecified F33.1-296.32 Moderate episode of recurrent major depressive disorder R32-788.30 Urinary incontinence, unspecified type F17.210-305.1 Cigarette nicotine dependence without complication F41.9-300.00 Anxiety Z00.00-V70.9 Encounter for general adult medical examination without abnormal findings This is a pleasant 43 year old female that presents for her welcome visit. Patient reports that she had a stroke in the past. She states that she is in a better place today then three months ago. She has done multiple round of rehab and is able to ambulate better. She does not have all her strength back. She lives with her girlfriend who provides a lot of care for her. She states that she does not eat well due to the cost of food. She reports being on a fixed income. She is currently smoking and would like to quit if possible. She has used Chantix in the past and it did not work well for her. She is requesting patches at this time. She takes her medications as prescribed. She has recently had surgery on her foot and is still under care of the orthopedic surgeon. She goes back to see him next week. We did draw labs today. With her having fatigue we will check her TSH and vitamin D. We will also check her vitamin B levels as she does not eat well. We will contact the patient with the results of the labs. We went over her disease process and explained the importance of keeping her blood sugars under control along with taking her medications as prescribed. We spent 30 mins on disease process with this patient. We did encourage patient to contact us if she needs anything before her net visit. We will send in patches for the patient to try. We did advise not to smoke while wearing the patch. Patient verbalized understanding and agreeable to plan of care. 02/03/2024 Patient Education: Patient Medication Summary Completed 02/03/2024 Patient Education: Obesity Completed 02/03/2024 Care Plan: eGFR KHE Pending Care Plan: Microalbumin (Urine) KHE Pending 02/03/2024 Referral: Food Insecurity Referral Initiated Instructions Comment Date . 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 G89.29- Other chronic pain S06.9XAS- Unspecified intracranial injury with loss of consciousness status unknown, sequela E78.00-272.0 Hypercholesteremia Z86.73-V12.54 History of CVA (cerebrovascular accident) E11.22-250.40 Type 2 diabetes mellitus with stage 3 chronic kidney disease, without long-term current use of insulin, unspecified whether stage 3a or 3b CKD N18.30- Chronic kidney disease, stage 3 unspecified F33.1-296.32 Moderate episode of recurrent major depressive disorder R32-788.30 Urinary incontinence, unspecified type F17.210-305.1 Cigarette nicotine dependence without complication F41.9-300.00 Anxiety Z00.00-V70.9 Encounter for general adult medical examination without abnormal findings This is a pleasant 43 year old female that presents for her welcome visit. Patient reports that she had a stroke in the past. She states that she is in a better place today then three months ago. She has done multiple round of rehab and is able to ambulate better. She does not have all her strength back. She lives with her girlfriend who provides a lot of care for her. She states that she does not eat well due to the cost of food. She reports being on a fixed income. She is currently smoking and would like to quit if possible. She has used Chantix in the past and it did not work well for her. She is requesting patches at this time. She takes her medications as prescribed. She has recently had surgery on her foot and is still under care of the orthopedic surgeon. She goes back to see him next week. We did draw labs today. With her having fatigue we will check her TSH and vitamin D. We will also check her vitamin B levels as she does not eat well. We will contact the patient with the results of the labs. We went over her disease process and explained the importance of keeping her blood sugars under control along with taking her medications as prescribed. We spent 30 mins on disease process with this patient. We did encourage patient to contact us if she needs anything before her net visit. We will send in patches for the patient to try. We did advise not to smoke while wearing the patch. Patient verbalized understanding and agreeable to plan of care. 02/03/2024 Medical Equipment No Medical Equipment data Advance Directives No Advance Directive data
--- OUTSIDE RECORDS SUMMARY | 2024-06-27 05:34 | XMS_ITS | CCD ---
Author Organization Unknown Care Team Providers Care Boilermaker Mechanic Name Role Phone Marian Solis NP Primary Care Provider Unavaila ble Unavailable Chronic Care Management Unavaila ble Summary Purpose DataExchange Insurance Providers Payer name Policy type / Coverage type Covered libertarian ID Effective Begin Date Effective End Date [employer] [place] [id number] Unknown Unknown NO COPAY HOLD [id number] Unknown Unknown Family history Father Diagnosis Age [...] cessation counseling) 02/03/[address]: 328768113 Never drinks alco hol 02/03/2024 Illegal/Recreational drug history Unknown *Has never used illegal/recreational drugs 02/03/2024 Allergies, Adverse Reactions, Alerts Substance Reaction Codes Entered Date Inactivated Date Status * Food Allergy _ Unknown 02/03/2024 No Inactive Date Active Topamax RxNorm: 701752 02/03/2024 No Inactive Da te Active Seasonal *other reaction (specify in notes), Unknown 02/03/2024 No Inactive Date Active Problems Condition Codes Effective Dates Condition St atus Encounter for general adult medical examination without abnormal findings ICD-10: Z00.00 ICD-9: V70.9 02/03/2024 Active Paresthesia of lower extremity Unknown 11/24/2023 Active Anxiety ICD-10: F41.9 ICD-9: 300.00 02/03/2024 Active Chronic kidney disease, stag e 3 unspecified ICD-10: N18.30 02/03/2024 Active 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 ICD-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 ICD-9: 729.2 02/03/2024 Active Cigarette nicotine dependenc e without complication ICD-10: F17.210 ICD-9: 305.1 02/03/2024 Active Fatigue, unspecified type ICD-10: R53.83 [...] 21 mg/24 hr daily transdermal patch RxNorm: 075475 Apply 1 Patch Transdermal 02/03/20 24 025 Active valsartan 160 mg tablet RxNorm: 301341 Take 1 Tablet(s) Oral two times a day 02/03/20 24 Active lithium carbonate 300 mg capsule RxNorm: 187106 TAKE ONE CAPSULE BY MOUTH TWICE DAILY FOR mood 02/03/20 24 Active buspirone 10 mg tablet RxNorm: 236967 Take 2 Tablet(s) Oral three times a day 02/03/20 24 Active amlodipine 5 mg tablet RxNorm: 348883 Take 1 Tablet(s) Oral every evening 02/03/20 24 Active rosuvastatin 20 mg tablet RxNorm: 154081 Take 1 Tablet(s) Oral every day 02/03/20 24 Active fluticasone propionate 50 mcg/actuation nasal spray,suspension ... RxNorm: 3513859 instill 1-2 SPRAYS IN EACH NOSTRIL EVERY DAY NEEDED 02/03/20 24 Active Nyamyc 100,000 unit/gram topical powder RxNorm: 817485 top 02/03/20 24 Active polyethylene glycol 3350 17 gram/dose oral powder RxNorm: 032005 DISSOLVE 17 GRAMS OF POWDER INTO 4 TO 8 OUNCES OF WATER, JUICE, SODA, COFFEE, OR TEA THEN DRINK EVERY DAY do not exceed 17 grams PER day 02/03/20 24 Active fluoxetine 40 mg capsule RxNorm: 775325 TAKE ONE CAPSULE BY MOUTH TWICE DAILY FOR mood 02/03/20 24 Active cholecalciferol (vitamin D3) 50 mcg (2,000 unit) capsule RxNorm: 039356 Take 1 Capsule(s) Oral every day 02/03/20 24 Active tobramycin 1.2 gram solution for injection RxNorm: 251927 inj 02/03/20 24 Active benzonatate 100 mg capsule RxNorm: 908221 TAKE ONE CAPSULE BY MOUTH THREE TIMES DAILY NEEDED FOR cough -SWALLOW WHOLE. DO NOT CRUSH OR CHEW- 02/03/20 24 Active Linzess 72 mcg capsule RxNorm: 6125882 TAKE ONE CAPSULE BY MOUTH EVERY DAY ON AN EMPTY STOMACH AT LEAST 30 MINUTES BEFORE THE FIRST MEAL OF THE DAY 02/03/20 24 Active aripiprazole 10 mg tablet RxNorm: 074065 Take 1 Tablet(s) Oral HS 02/03/20 24 Active Trulicity 1.5 mg/0.5 mL subcutaneous pen injector RxNorm: 7587864 INJECT 1.5 MG (0.5 ML) SUBCUTANEOUSLY ONCE A WEEK 02/03/20 24 Active levothyroxine 75 mcg tablet RxNorm: 936495 Take 1 Tablet(s) Oral every day BEFORE a meal 02/03/20 24 Active Ozempic 0.25 mg or 0.5 mg (2 mg/3 mL) subcutaneous pen injector ... RxNorm: 8842356 Inject 0.5 Milligram(s) Subcutaneous QW 02/03/20 Active Myrbetriq 25 mg tablet,extended release RxNorm: 6246055 TAKE ONE TABLET BY MOUTH EVERY DAY do not crush, chew, and/or divide take with water 02/03/20 Active bisoprolol fumarate 5 mg tablet RxNorm: 573650 Take 1 Tablet(s) Oral every day 02/03/20 Active aspirin 81 mg tablet,delayed release RxNorm: 934432 Take 1 Tablet(s) Oral every day 02/03/20 24 Active solifenacin 5 mg tablet RxNorm: 321137 Take 1 Tablet(s) Oral every day 02/03/20 Active metformin 1,000 mg tablet RxNorm: 727314 Take 1 Tablet(s) Oral every morning 02/03/20 Active amantadine HCl 100 mg tablet RxNorm: 363646 oral 02/03/20 Active trazodone 150 mg tablet RxNorm: 316403 Take 1 Tablet(s) Oral HS as needed 02/03/20 Active duloxetine 60 mg capsule,delayed release RxNorm: 312061 Take 2 Capsule(s) Oral every day 02/03/20 Active baclofen 20 mg tablet RxNorm: 483689 TAKE ONE TABLET BY MOUTH THREE TIMES DAILY MAY CAUSE DROWSINESS 02/03/20 Active valsartan 80 mg tablet RxNorm: 904367 Take 1 Tablet(s) Oral two times a day 02/03/20 Active Lybalvi 15 mg-10 mg tablet RxNorm: 7429056 Take 1 Tablet(s) Oral every day 02/03/20 Active olanzapine 5 mg tablet RxNorm: 164788 Take 1 Tablet(s) Oral HS 02/03/20 Active Anucort-HC 25 mg suppository RxNorm: 0586668 UNWRAP AND INSERT 1 SUPPOSITORY RECTALLY TWICE DAILY FOR 2 WEEKS 02/03/20 Active gabapentin 600 mg tablet RxNorm: 699361 TAKE ONE TABLET BY MOUTH EVERY MORNING AND TAKE TWO TABLETS AT BEDTIME MAY CAUSE DROWSINESS 02/03/20 Active doxepin 50 mg capsule RxNorm: 8286321 Take 1 Capsule(s) Oral HS 02/03/20 24 Active trazodone 100 mg tablet RxNorm: 400896 Take 1 Tablet(s) Oral HS FOR SLEEP 02/03/20 24 Active ezetimibe 10 mg tablet RxNorm: 642889 Take 1 Tablet(s) Oral every day 02/03/20 24 Active duloxetine 30 mg capsule,delayed release RxNorm: 637694 Take 3 Capsule(s) Oral every day 02/03/20 24 024 Inactive Medication Administered No Medication Administered data Procedures Procedure Codes Date [id number] CPT-4: 59340 Unknown Reason For Visit No Reason For Visit data Plan of Care Planned Activity Notes Codes Status Date Referral: Food Insecurity Referral Initiated Medical Equipment No Medical Equipment data Advance Directives No Advance Directive data
--- OUTSIDE RECORDS SUMMARY | 2024-06-27 05:34 | XMS_ITS | CCD ---
Author Name Marian Solis NP Address [address] [place] [address] Phone Organization [facility] Phone Care Team Providers Care Knowledge Management Consultant Name Role Phone Marian Solis NP Primary Care Provider Unavaila ble Unavailable Chronic Care Management Unavaila ble Summary Purpose DataExchange Insurance Providers Payer name Policy type / Coverage type Covered republican ID Effective Begin Date Effective End Date [employer] BCBS [facility] [id number] Unknown Unknown NO COPAY HOLD [id number] Unknown Unknown Family history Father Diagnosis Age [...] cessation counseling) 02/03/[address]: 712156416 Never drinks alco hol 02/03/2024 Illegal/Recreational drug history Unknown *Has never used illegal/recreational drugs 02/03/2024 Allergies, Adverse Reactions, Alerts Substance Reaction Codes Entered Date Inactivated Date Status * Food Allergy _ Unknown 02/03/2024 No Inactive Date Active Topamax RxNorm: 331332 02/03/2024 No Inactive Da te Active Seasonal *other reaction (specify in notes), Unknown 02/03/2024 No Inactive Date Active Problems Condition Codes Effective Dates Condition St atus Patient not seen ICD-10: UXZ.01 ICD-9: UXZ.01 03/08/2024 Active Encounter for general adult medical examination [...] 21 mg/24 hr daily transdermal patch RxNorm: 988267 Apply 1 Patch Transdermal 02/03/20 24 025 Active valsartan 160 mg tablet RxNorm: 746035 Take 1 Tablet(s) Oral two times a day 08/16/20 24 Active lithium carbonate 300 mg capsule RxNorm: 788062 TAKE ONE CAPSULE BY MOUTH TWICE DAILY FOR mood 02/03/20 Active buspirone 10 mg tablet RxNorm: 812383 Take 2 Tablet(s) Oral three times a day 02/03/20 24 Active amlodipine 5 mg tablet RxNorm: 733498 Take 1 Tablet(s) Oral every evening 02/03/20 24 Active rosuvastatin 20 mg tablet RxNorm: 164327 Take 1 Tablet(s) Oral every day 02/03/20 24 Active fluticasone propionate 50 mcg/actuation nasal spray,suspension ... RxNorm: 2283117 instill 1-2 SPRAYS IN EACH NOSTRIL EVERY DAY NEEDED 02/03/20 24 Active Nyamyc 100,000 unit/gram topical powder RxNorm: 399932 top 02/03/20 24 Active polyethylene glycol 3350 17 gram/dose oral powder RxNorm: 927555 DISSOLVE 17 GRAMS OF POWDER INTO 4 TO 8 OUNCES OF WATER, JUICE, SODA, COFFEE, OR TEA THEN DRINK EVERY DAY do not exceed 17 grams PER day 02/03/20 24 Active fluoxetine 40 mg capsule RxNorm: 302886 TAKE ONE CAPSULE BY MOUTH TWICE DAILY FOR mood 02/03/20 Active cholecalciferol (vitamin D3) 50 mcg (2,000 unit) capsule RxNorm: 872134 Take 1 Capsule(s) Oral every day 02/03/20 24 Active tobramycin 1.2 gram solution for injection RxNorm: 671473 inj 02/03/20 Active benzonatate 100 mg capsule RxNorm: 568341 TAKE ONE CAPSULE BY MOUTH THREE TIMES DAILY NEEDED FOR cough -SWALLOW WHOLE. DO NOT CRUSH OR CHEW- 02/03/20 Active Linzess 72 mcg capsule RxNorm: 6413115 TAKE ONE CAPSULE BY MOUTH EVERY DAY ON AN EMPTY STOMACH AT LEAST 30 MINUTES BEFORE THE FIRST MEAL OF THE DAY 02/03/20 24 Active aripiprazole 10 mg tablet RxNorm: 873452 Take 1 Tablet(s) Oral HS 02/03/20 24 Active Trulicity 1.5 mg/0.5 mL subcutaneous pen injector RxNorm: 5706673 INJECT 1.5 MG (0.5 ML) SUBCUTANEOUSLY ONCE A WEEK 02/03/20 24 Active levothyroxine 75 mcg tablet RxNorm: 081471 Take 1 Tablet(s) Oral every day BEFORE a meal 02/03/20 Active Ozempic 0.25 mg or 0.5 mg (2 mg/3 mL) subcutaneous pen injector ... RxNorm: 3643457 Inject 0.5 Milligram(s) Subcutaneous QW 02/03/20 Active Myrbetriq 25 mg tablet,extended release RxNorm: 4174985 TAKE ONE TABLET BY MOUTH EVERY DAY do not crush, chew, and/or divide take with water 02/03/20 24 Active bisoprolol fumarate 5 mg tablet RxNorm: 302821 Take 1 Tablet(s) Oral every day 02/03/20 24 Active aspirin 81 mg tablet,delayed release RxNorm: 882549 Take 1 Tablet(s) Oral every day 02/03/20 24 Active solifenacin 5 mg tablet RxNorm: 394430 Take 1 Tablet(s) Oral every day 02/03/20 24 Active metformin 1,000 mg tablet RxNorm: 055740 Take 1 Tablet(s) Oral every morning 02/03/20 24 Active amantadine HCl 100 mg tablet RxNorm: 406272 oral 02/03/20 24 Active trazodone 150 mg tablet RxNorm: 372180 Take 1 Tablet(s) Oral HS as needed 02/03/20 24 Active duloxetine 60 mg capsule,delayed release RxNorm: 069173 Take 2 Capsule(s) Oral every day 02/03/20 24 Active baclofen 20 mg tablet RxNorm: 210917 TAKE ONE TABLET BY MOUTH THREE TIMES DAILY MAY CAUSE DROWSINESS 02/03/20 Active valsartan 80 mg tablet RxNorm: 615479 Take 1 Tablet(s) Oral two times a day 02/03/20 24 Active Lybalvi 15 mg-10 mg tablet RxNorm: 7803323 Take 1 Tablet(s) Oral every day 02/03/20 24 Active olanzapine 5 mg tablet RxNorm: 879628 Take 1 Tablet(s) Oral HS 02/03/20 24 Active Anucort-HC 25 mg suppository RxNorm: 8207868 UNWRAP AND INSERT 1 SUPPOSITORY RECTALLY TWICE DAILY FOR 2 WEEKS 02/03/20 24 Active gabapentin 600 mg tablet RxNorm: 361501 TAKE ONE TABLET BY MOUTH EVERY MORNING AND TAKE TWO TABLETS AT BEDTIME MAY CAUSE DROWSINESS 02/03/20 Active doxepin 50 mg capsule RxNorm: 4684750 Take 1 Capsule(s) Oral HS 02/03/20 24 Active trazodone 100 mg tablet RxNorm: 558080 Take 1 Tablet(s) Oral HS FOR SLEEP 02/03/20 24 Active ezetimibe 10 mg tablet RxNorm: 853110 Take 1 Tablet(s) Oral every day 02/03/20 24 Active duloxetine 30 mg capsule,delayed release RxNorm: 990527 Take 3 Capsule(s) Oral every day 02/03/20 24 024 Inactive Medication Administered No Medication Administered data Procedures Procedure Codes Date Most recent A1c = 7.0% and < 8.0% CPT-4: 3051F 03/08/2024 [id number] CPT-4: 24282 Unknown Reason For Visit No Reason For Visit data Encounters Encounter Performer Location Location Address Codes Date ([address]) Other Reason/Patient not seen Diagnosis: Patient not seen[ICD10: UXZ.01] Marian Solis [place] [facility] [address] [place] [address] CPT-4: 87848 03/08/2024 Plan of Care Planned Activity Notes Codes Status Date Patient Education: Patient Medication Summary Completed 03/08/2024 Appointment: Marian Solis WPtel: [address] [place], [place] [id number] 02/03/2024 Referral: Food Insecurity Referral Initiated Medical Equipment No Medical Equipment data Advance Directives No Advance Directive data
--- OUTSIDE RECORDS SUMMARY | 2024-06-27 05:34 | XMS_ITS | CCD ---
Author Name Office, [facility] Phone Care Team Providers Care Frame Catcher Name Role Phone Marian Solis NP Primary Care Provider Unavaila ble Unavailable Chronic Care Management Unavaila ble Summary Purpose DataExchange Insurance Providers Payer name Policy type / Coverage type Covered constitution party ID Effective Begin Date Effective End Date E[employer] BCBS [facility] [id number] Unknown Unknown NO COPAY HOLD [id number] Unknown Unknown Family History Family History data not found Medication Administered No Medication Administered data Reason For Visit No Reason For Visit data Plan of Care Planned Activity Notes Codes Status Date Patient Education: Patient Medication Summary Completed 01/30/2024 Referral: Food Insecurity Referral Initiated Medical Equipment No Medical Equipment data Advance Directives No Advance Directive data
--- OUTSIDE RECORDS SUMMARY | 2024-06-27 05:34 | XMS_ITS | CCD ---
Author Name Marian Solis NP Address [address] [place] [address] Phone Organization [facility] Phone Care Team Providers Care Utility Bagger Name Role Phone Marian Solis NP Primary Care Provider Unavaila ble Unavailable Chronic Care Management Unavaila ble Summary Purpose DataExchange Insurance Providers Payer name Policy type / Coverage type Covered green party ID Effective Begin Date Effective End Date ELEVANCE BCBS [facility] [id number] Unknown Unknown NO COPAY HOLD [id number] Unknown Unknown Family history Father Diagnosis Age [...] cessation counseling) 02/03/[address]: 572529385 Never drinks alco hol 02/03/2024 Illegal/Recreational drug history Unknown *Has never used illegal/recreational drugs 02/03/2024 Allergies, Adverse Reactions, Alerts Substance Reaction Codes Entered Date Inactivated Date Status * Food Allergy _ Unknown 02/03/2024 No Inactive Date Active Topamax RxNorm: 645614 02/03/2024 No Inactive Da te Active Seasonal [...] 21 mg/24 hr daily transdermal patch RxNorm: 602490 Apply 1 Patch Transdermal 02/03/20 24 025 Active valsartan 160 mg tablet RxNorm: 962105 Take 1 Tablet(s) Oral two times a day 08/16/20 24 Active lithium carbonate 300 mg capsule RxNorm: 483322 TAKE ONE CAPSULE BY MOUTH TWICE DAILY FOR mood 02/03/20 Active buspirone 10 mg tablet RxNorm: 525208 Take 2 Tablet(s) Oral three times a day 02/03/20 24 Active amlodipine 5 mg tablet RxNorm: 458421 Take 1 Tablet(s) Oral every evening 02/03/20 24 Active rosuvastatin 20 mg tablet RxNorm: 562565 Take 1 Tablet(s) Oral every day 02/03/20 24 Active fluticasone propionate 50 mcg/actuation nasal spray,suspension ... RxNorm: 8687075 instill 1-2 SPRAYS IN EACH NOSTRIL EVERY DAY NEEDED 02/03/20 24 Active Nyamyc 100,000 unit/gram topical powder RxNorm: 188365 top 02/03/20 24 Active polyethylene glycol 3350 17 gram/dose oral powder RxNorm: 068661 DISSOLVE 17 GRAMS OF POWDER INTO 4 TO 8 OUNCES OF WATER, JUICE, SODA, COFFEE, OR TEA THEN DRINK EVERY DAY do not exceed 17 grams PER day 02/03/20 24 Active fluoxetine 40 mg capsule RxNorm: 236231 TAKE ONE CAPSULE BY MOUTH TWICE DAILY FOR mood 02/03/20 Active cholecalciferol (vitamin D3) 50 mcg (2,000 unit) capsule RxNorm: 306512 Take 1 Capsule(s) Oral every day 02/03/20 24 Active tobramycin 1.2 gram solution for injection RxNorm: 065547 inj 02/03/20 Active benzonatate 100 mg capsule RxNorm: 898029 TAKE ONE CAPSULE BY MOUTH THREE TIMES DAILY NEEDED FOR cough -SWALLOW WHOLE. DO NOT CRUSH OR CHEW- 02/03/20 Active Linzess 72 mcg capsule RxNorm: 3055467 TAKE ONE CAPSULE BY MOUTH EVERY DAY ON AN EMPTY STOMACH AT LEAST 30 MINUTES BEFORE THE FIRST MEAL OF THE DAY 02/03/20 24 Active aripiprazole 10 mg tablet RxNorm: 707970 Take 1 Tablet(s) Oral HS 02/03/20 24 Active Trulicity 1.5 mg/0.5 mL subcutaneous pen injector RxNorm: 2866295 INJECT 1.5 MG (0.5 ML) SUBCUTANEOUSLY ONCE A WEEK 02/03/20 24 Active levothyroxine 75 mcg tablet RxNorm: 666821 Take 1 Tablet(s) Oral every day BEFORE a meal 02/03/20 Active Ozempic 0.25 mg or 0.5 mg (2 mg/3 mL) subcutaneous pen injector ... RxNorm: 2991053 Inject 0.5 Milligram(s) Subcutaneous QW 02/03/20 Active Myrbetriq 25 mg tablet,extended release RxNorm: 6840733 TAKE ONE TABLET BY MOUTH EVERY DAY do not crush, chew, and/or divide take with water 02/03/20 24 Active bisoprolol fumarate 5 mg tablet RxNorm: 289307 Take 1 Tablet(s) Oral every day 02/03/20 24 Active aspirin 81 mg tablet,delayed release RxNorm: 583869 Take 1 Tablet(s) Oral every day 02/03/20 24 Active solifenacin 5 mg tablet RxNorm: 776362 Take 1 Tablet(s) Oral every day 02/03/20 24 Active metformin 1,000 mg tablet RxNorm: 661000 Take 1 Tablet(s) Oral every morning 02/03/20 24 Active amantadine HCl 100 mg tablet RxNorm: 731496 oral 02/03/20 24 Active trazodone 150 mg tablet RxNorm: 428528 Take 1 Tablet(s) Oral HS as needed 02/03/20 24 Active duloxetine 60 mg capsule,delayed release RxNorm: 375648 Take 2 Capsule(s) Oral every day 02/03/20 24 Active baclofen 20 mg tablet RxNorm: 082837 TAKE ONE TABLET BY MOUTH THREE TIMES DAILY MAY CAUSE DROWSINESS 02/03/20 Active valsartan 80 mg tablet RxNorm: 965075 Take 1 Tablet(s) Oral two times a day 02/03/20 24 Active Lybalvi 15 mg-10 mg tablet RxNorm: 9714691 Take 1 Tablet(s) Oral every day 02/03/20 24 Active olanzapine 5 mg tablet RxNorm: 253687 Take 1 Tablet(s) Oral HS 02/03/20 24 Active Anucort-HC 25 mg suppository RxNorm: 6161764 UNWRAP AND INSERT 1 SUPPOSITORY RECTALLY TWICE DAILY FOR 2 WEEKS 02/03/20 24 Active gabapentin 600 mg tablet RxNorm: 216485 TAKE ONE TABLET BY MOUTH EVERY MORNING AND TAKE TWO TABLETS AT BEDTIME MAY CAUSE DROWSINESS 02/03/20 24 Active doxepin 50 mg capsule RxNorm: 4903405 Take 1 Capsule(s) Oral HS 02/03/20 24 Active trazodone 100 mg tablet RxNorm: 311734 Take 1 Tablet(s) Oral HS FOR SLEEP 02/03/20 24 Active ezetimibe 10 mg tablet RxNorm: 550588 Take 1 Tablet(s) Oral every day 02/03/20 24 Active duloxetine 30 mg capsule,delayed release RxNorm: 964535 Take 3 Capsule(s) Oral every day 02/03/20 24 024 Inactive Medication Administered No Medication Administered data Procedures Procedure Codes Date Most recent A1c = 7.0% and < 8.0% CPT-4: 3051F 03/28/2024 [id number] CPT-4: 38426 Unknown Reason For Visit No Reason For Visit data Encounters Encounter Performer Location Location Address Codes Date ([address]16) Other Reason/Patient not seen Diagnosis: Patient not seen[ICD10: UXZ.01] Marian Solis [place] [facility] [address] [place] [address] CPT-4: 73452 03/28/2024 Plan of Care Planned Activity Notes Codes Status Date Patient Education: Patient Medication Summary Completed 03/28/2024 Appointment: Marian Solis WPtel: [address] [place], [place] [id number] 03/08/2024 Appointment: Marian Solis WPtel: [facility] [id number] [address] 02/03/2024 Referral: Food Insecurity Referral Initiated Medical Equipment No Medical Equipment data Advance Directives No Advance Directive data
--- OUTSIDE RECORDS SUMMARY | 2024-06-27 05:34 | XMS_ITS | CCD ---
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 Name Role Phone Marian Solis NP Primary Care Provider Unavaila ble Unavailable Chronic Care Management Unavaila ble Summary Purpose DataExchange Insurance Providers Payer name Policy type / Coverage type Covered democrat ID Effective Begin Date Effective End Date [employer] [facility] [id number] Unknown Unknown NO COPAY HOLD [id number] Unknown Unknown Family history Father Diagnosis Age [...] cessation counseling) 02/03/[address]: [id number] Never drinks alco hol 02/03/2024 Illegal/Recreational drug history Unknown *Has never used illegal/recreational drugs 02/03/2024 Allergies, Adverse Reactions, Alerts Substance Reaction Codes Entered Date Inactivated Date Status * Food Allergy _ Unknown 02/03/2024 No Inactive Date Active Topamax RxNorm: 150859 02/03/2024 No Inactive Da te Active Seasonal [...] 21 mg/24 hr daily transdermal patch RxNorm: 914140 Apply 1 Patch Transdermal 02/03/20 24 025 Active valsartan 160 mg tablet RxNorm: 393189 Take 1 Tablet(s) Oral two times a day 02/03/20 Active lithium carbonate 300 mg capsule RxNorm: 181017 TAKE ONE CAPSULE BY MOUTH TWICE DAILY FOR mood 08/16/20 24 Active buspirone 10 mg tablet RxNorm: 588370 Take 2 Tablet(s) Oral three times a day 02/03/20 Active amlodipine 5 mg tablet RxNorm: 961791 Take 1 Tablet(s) Oral every evening 02/03/20 Active rosuvastatin 20 mg tablet RxNorm: 955663 Take 1 Tablet(s) Oral every day 02/03/20 24 Active fluticasone propionate 50 mcg/actuation nasal spray,suspension ... RxNorm: 8273657 instill 1-2 SPRAYS IN EACH NOSTRIL EVERY DAY NEEDED 02/03/20 Active Nyamyc 100,000 unit/gram topical powder RxNorm: 961772 top 02/03/20 Active polyethylene glycol 3350 17 gram/dose oral powder RxNorm: 043117 DISSOLVE 17 GRAMS OF POWDER INTO 4 TO 8 OUNCES OF WATER, JUICE, SODA, COFFEE, OR TEA THEN DRINK EVERY DAY do not exceed 17 grams PER day 02/03/20 24 Active fluoxetine 40 mg capsule RxNorm: 861690 TAKE ONE CAPSULE BY MOUTH TWICE DAILY FOR mood 02/03/20 Active cholecalciferol (vitamin D3) 50 mcg (2,000 unit) capsule RxNorm: 123899 Take 1 Capsule(s) Oral every day 02/03/20 24 Active tobramycin 1.2 gram solution for injection RxNorm: 523142 inj 02/03/20 Active benzonatate 100 mg capsule RxNorm: 913454 TAKE ONE CAPSULE BY MOUTH THREE TIMES DAILY NEEDED FOR cough -SWALLOW WHOLE. DO NOT CRUSH OR CHEW- 02/03/20 Active Linzess 72 mcg capsule RxNorm: 3172682 TAKE ONE CAPSULE BY MOUTH EVERY DAY ON AN EMPTY STOMACH AT LEAST 30 MINUTES BEFORE THE FIRST MEAL OF THE DAY 02/03/20 Active aripiprazole 10 mg tablet RxNorm: 463629 Take 1 Tablet(s) Oral HS 02/03/20 24 Active Trulicity 1.5 mg/0.5 mL subcutaneous pen injector RxNorm: 2776941 INJECT 1.5 MG (0.5 ML) SUBCUTANEOUSLY ONCE A WEEK 02/03/20 Active levothyroxine 75 mcg tablet RxNorm: 330785 Take 1 Tablet(s) Oral every day BEFORE a meal 02/03/20 24 Active Ozempic 0.25 mg or 0.5 mg (2 mg/3 mL) subcutaneous pen injector ... RxNorm: 5448992 Inject 0.5 Milligram(s) Subcutaneous QW 02/03/20 Active Myrbetriq 25 mg tablet,extended release RxNorm: 1784320 TAKE ONE TABLET BY MOUTH EVERY DAY do not crush, chew, and/or divide take with water 02/03/20 Active bisoprolol fumarate 5 mg tablet RxNorm: 490126 Take 1 Tablet(s) Oral every day 02/03/20 24 Active aspirin 81 mg tablet,delayed release RxNorm: 291341 Take 1 Tablet(s) Oral every day 02/03/20 24 Active solifenacin 5 mg tablet RxNorm: 701384 Take 1 Tablet(s) Oral every day 02/03/20 24 Active metformin 1,000 mg tablet RxNorm: 733651 Take 1 Tablet(s) Oral every morning 02/03/20 Active amantadine HCl 100 mg tablet RxNorm: 018370 oral 02/03/20 24 Active trazodone 150 mg tablet RxNorm: 743280 Take 1 Tablet(s) Oral HS as needed 02/03/20 Active duloxetine 60 mg capsule,delayed release RxNorm: 095875 Take 2 Capsule(s) Oral every day 02/03/20 24 Active baclofen 20 mg tablet RxNorm: 638627 TAKE ONE TABLET BY MOUTH THREE TIMES DAILY MAY CAUSE DROWSINESS 02/03/20 Active valsartan 80 mg tablet RxNorm: 891604 Take 1 Tablet(s) Oral two times a day 02/03/20 24 Active Lybalvi 15 mg-10 mg tablet RxNorm: 2763884 Take 1 Tablet(s) Oral every day 02/03/20 24 Active olanzapine 5 mg tablet RxNorm: 551511 Take 1 Tablet(s) Oral HS 02/03/20 24 Active Anucort-HC 25 mg suppository RxNorm: 6647319 UNWRAP AND INSERT 1 SUPPOSITORY RECTALLY TWICE DAILY FOR 2 WEEKS 02/03/20 24 Active gabapentin 600 mg tablet RxNorm: 643551 TAKE ONE TABLET BY MOUTH EVERY MORNING AND TAKE TWO TABLETS AT BEDTIME MAY CAUSE DROWSINESS 08/16/20 24 Active doxepin 50 mg capsule RxNorm: 7616378 Take 1 Capsule(s) Oral HS 02/03/20 Active trazodone 100 mg tablet RxNorm: 228835 Take 1 Tablet(s) Oral HS FOR SLEEP 02/03/20 Active ezetimibe 10 mg tablet RxNorm: 652833 Take 1 Tablet(s) Oral every day 02/03/20 Active duloxetine 30 mg capsule,delayed release RxNorm: 253593 Take 3 Capsule(s) Oral every day 02/03/20 24 024 Inactive Medication Administered No Medication Administered data Results Observation Observation Code Item Item Code Result Date Service Location URINALYSIS 66056 Glucose 2345-7 >1000 mg/dL ++++ mg/dL 02/06/20 [facility] [address] [place] [address] URINALYSIS 36081 Protein Negative mg/dL 02/06/20 [facility] [address] [place] [address] URINALYSIS 57809 Bilirubin Negative mg/dL 02/06/20 [facility] [address] [facility] [place] [address] URINALYSIS 44272 Urobilinogen Negative mg/dL 02/06/20 [facility] [address] [facility] [place] [address] URINALYSIS 75333 Ph 6.00 02/06/20 [facility] [address] [facility] [place] [address] URINALYSIS 94346 Blood Negative mg/dL 02/06/20 [facility] [address] [facility] [place] [address] URINALYSIS 36699 Ketones Negative mg/dL 02/06/20 [facility] [address] [facility] [place] [address] URINALYSIS 01554 Nitrite Negative 02/06/20 24 [facility] [address] [facility] [place] [address] URINALYSIS 29450 Leukocytes Negative Jae/uL 02/06/20 [facility] [address] [place] [address] URINALYSIS 59577 Clarity Clear 02/06/20 24 [facility] [address] [facility] [place] [address] URINALYSIS 98812 Specific [place] 1.024 [facility] [address] [facility] [place] [address] URINALYSIS 58240 Color Light-Yellow 24 [facility] [address] [facility] [place] [address] Procedures Procedure Codes Date [id number] CPT-4: 66097 Unknown Reason For Visit No Reason For Visit data Plan of Care Planned Activity Notes Codes Status Date Patient Education: Patient Medication Summary Completed 02/06/2024 Appointment: Marian Solis WPtel: [address] [facility] [id number] 02/03/2024 Referral: Food Insecurity Referral Initiated Medical Equipment No Medical Equipment data Advance Directives No Advance Directive data
--- OUTSIDE RECORDS SUMMARY | 2024-10-31 07:30 | XMS_ITS | Encounter Summary ---
Author Organization [facility] ([place], [place], [place], [place]) Address [address] [place] [address] Care Team Providers Care [employer] Former Supervisor Name Role Phone Mustapha Hernandez PA-C Unavailable [phone] Gregory Malave DO Primary Care Provider [phone] Encounter Details Date Type Department Care Team (Latest Contact Info) Description 10/31/2024 7:30 AM EDT Procedure Visit [facility] Neurology - [facility] [address] [place] [address] Kathy Carreon MD [address] [facility] [address] [place], [place] [id number] Demyelinating disease (HCC) (Primary Dx); Numbness and tingling of left upper and lower extremity; Muscle spasm Social History Tobacco Use Types Packs/Day Years Used Date Smoking Tobacco: Every Day Cigarettes Smokeless Tobacco: Never Alcohol Use Standard Drinks/Week Comments Never 0 (1 standard drink = 0.6 oz pur e alcohol) Comments Unknown Sex and Gender Information Value Date Recorded Sex Assigned at Not on file Legal Sex Female 1:57 PM [employer] Gender Identity Not on file Sexual Orientation Not on file documented as of this encounter Progress Notes * Anu Hernandez, MOUNA - 10/31/2024 7:30 AM EDTAssociated Order(s): Lumbar Puncture Post-Procedure Diagnose(s): Demyelinating disease (HCC) Breana Garcia is a 44 y.o. female that presents with No chief complaint on file. Lumbar Puncture Date/Time: 10/31/2024 8:13 AM Performed by: Anu Hernandez APRN Authorized by: Anu Hernandez APRN Indications: Evaluation for MS. Anesthesia: local infiltration Anesthesia: Local Anesthetic: lidocaine 1% without epinephrine Anesthetic total: 5 mL Sedation: Patient sedated: no Preparation: Patient was prepped and draped in the usual sterile fashion. Lumbar space: L4-L5 interspace Patient's position: right lateral decubitus Needle gauge: 22 Needle type: noel point Needle length: 3.5 in Number of attempts: 1 Fluid appearance: clear Tubes of fluid: 4 Total volume: 9 ml Post-procedure: site cleaned and adhesive bandage applied Patient tolerance: patient tolerated the procedure well with no immediate complications Immediate Post-Procedure Note Assistants to the procedure: Other (Comment) (Supervised and assisted by Dr. Carreon) Pre-procedure diagnosis: Demyelinating disease Post-procedure diagnosis: Demyelinating disease Procedures Performed: Lumbar Puncture Estimated blood loss (mL): None Complications: None Type of anesthesia: None Grafts or Implants: None Comments: Patient tolerated procedure well without any complications or side effects to the procedure. Will follow with Madeleine CINDER BLOCK MASON in 2 weeks to go over results. Return in about 2 weeks (around 11/14/2024) for Madeleine. documented in this encounter Plan of Treatment Upcoming Encounters Date Type Department Care Team (Late st Contact Info) Description 02/12/2025 10:15 AM EDT Office Visit [facility] Neurology - [facility] [address] [facility] [facility] [address] [address] [place] [address] Madeleine Khan APRN [address] [facility] [address] [place] [address] Scheduled Orders Name Type Priority Associated Diagnoses Orde r Schedule IgG Index (CSF + Blood) Microbiology Routine Demyelinating disease (HCC) Numbness and tingling of left upper and lower extremity Muscle spasm Ordered: 10/31/2024 documented as of this encounter Procedures Procedure Name Priority Date/Time Associated Diagnosis Comments LUMBAR PUNCTURE Routine 10/31/2024 8:13 AM EDT Demyelinating disease (HCC) OLIGOCLONAL BAND PROFILE SERUM + CSF (SENDOUT) Routine 10/31/2024 8:00 AM EDT Demyelinating disease (HCC) Numbness and tingling of left upper and lower extremity Muscle spasm CSF CULTURE + GRAM STAIN STAT 10/31/2024 8:00 AM EDT Demyelinating disease (HCC) Numbness and tingling of left upper and lower extremity Muscle spasm CSF CELL COUNT W/DIFFERENTIAL Routine 10/31/2024 8:00 AM EDT Demyelinating disease (HCC) Numbness and tingling of left upper and lower extremity Muscle spasm GLUCOSE, CSF Routine 10/31/2024 8:00 AM EDT Demyelinating disease (HCC) Numbness and tingling of left upper and lower extremity Muscle spasm documented in this encounter Results * Lumbar Puncture (10/31/2024 8:13 AM EDT) Anu Gandara APRN - 10/31/2024 8:13 AM EDT Anu Hernandez APRN 10/31/2024 12:49 PM Lumbar Puncture Date/Time: 10/31/2024 8:13 AM Performed by: Anu Hernandez APRN Authorized by: Anu Hernandez APRN Indications: Evaluation for MS. Anesthesia: local infiltration Anesthesia: Local Anesthetic: lidocaine 1% without epinephrine Anesthetic total: 5 mL Sedation: Patient sedated: no Preparation: Patient was prepped and draped in the usual sterile fashion. Lumbar space: L4-L5 interspace Patient's position: right lateral decubitus Needle gauge: 22 Needle type: noel point Needle length: 3.5 in Number of attempts: 1 Fluid appearance: clear Tubes of fluid: 4 Total volume: 9 ml Post-procedure: site cleaned and adhesive bandage applied Patient tolerance: patient tolerated the procedure well with no immediate complications Immediate Post-Procedure Note Assistants to the procedure: Other (Comment) (Supervised and assisted by Dr. Carreon) Pre-procedure diagnosis: Demyelinating disease Post-procedure diagnosis: Demyelinating disease Procedures Performed: Lumbar Puncture Estimated blood loss (mL): None Complications: None Type of anesthesia: None Grafts or Implants: None Comments: Patient tolerated procedure well without any complications or side effects to the procedure. Will follow with Madeleine CINDER BLOCK MASON in 2 weeks to go over results. Anu Hernandez CHANNEL MARKETING COORDINATOR PROCEDURE/MINOR SURGICAL ORDERABLES Final Result * (ABNORMAL) Oligoclonal Band Profile(SENDOUT) (10/31/2024 8:00 AM EDT) Oligoclonal Bands Number, CSF 0 0 - 1 Bands 11/03/2024 8:36 AM EDT [facility] Immunoglobulin G 734(L) 768 - 1632 mg/dL 11/03/2024 8:36 AM EDT [facility] Immunoglobulin G CSF 2.5 0.0 - 6.0 mg/dL 11/03/2024 8:36 AM EDT [facility] Albumin, Serum 3874 3500 - 5200 mg/dL 11/03/2024 8:36 AM EDT [facility] Albumin, CSF 23 0 - 35 mg/dL 11/03/2024 8:36 AM EDT [facility] Albumin Index 5.9 0.0 - 9.0 ratio 11/03/2024 8:36 AM EDT [facility] IgG Index 0.57 0.28 - 0.66 ratio 11/03/2024 8:36 AM EDT [facility] CSF IgG/Albumin Ratio 0.11 0.09 - 0.25 ratio 11/03/2024 8:36 AM EDT [facility] CSF Oligoclonal Bands Negative Negative 11/03/2024 8:36 AM EDT [facility] CSF IgG Synthesis Rate 0.0 <=8.0 mg/d 11/03/2024 8:36 AM EDT [facility] Interpretation See Note 11/03/2024 8:36 AM EDT [facility] Comment: Isoelectric focusing/immunofixation revealed no oligoclonal bands in either the CSF or the serum. This is considered to be a negative result for oligoclonal bands. Approximately 5 percent of patients with clinically definitive multiple sclerosis will have a negative result. INTERPRETIVE INFORMATION: Oligoclonal Band Profile To ensure accurate result interpretation, it is recommended that both CSF and serum specimens be collected on the same day. If specimens are not collected within this specified timeframe, it is advised to exercise caution when interpreting the results. Performed By: [id number] [address] [place] [address] Tobacco Cloth Reclaimer: Td Stock MD, PhD CLIA Number: [id number] 10/31/2024 8:00 AM EDT 10/31/2024 10:10 AM EDT us Kathy Carreon MD LAB BLOOD ORDERABLES Final R esult Performing Organization Address City/[facility]/ZIP Co de Phone Number [facility] [address] [place] [address], [facility] [phone] * (ABNORMAL) Glucose, CSF (10/31/2024 8:00 AM EDT) Glucose, CSF 80(H) 40 - 75 mg/dL 10/31/2024 10:40 AM EDT [facility] Specimen Source CSF, Tube 2 10/31/2024 10:40 AM EDT [facility] Cerebrospinal Fluid CEREBROSPINAL FLUID / Unknown 10/31/2024 8:00 AM EDT 10/31/2024 10:10 AM EDT us Kathy Careron MD BODY FLUIDS AND STOOLS ORDER BHARATH Final Result [facility] [address] [place] [address], [facility] [phone] * CSF Culture + Gram Stain (10/31/2024 8:00 AM EDT) Result No growth 11/03/2024 8:32 AM EDT [facility] Gram Stain Result No organisms seen 11/03/2024 8:32 AM EDT [facility] Gram Stain Result No cells seen 11/03/2024 8:32 AM EDT [facility] Cerebrospinal Fluid 11/01/19 8:00 AM EDT 10/31/2024 10:10 AM EDT us Kathy Carreon MD MICROBIOLOGY - GENERAL ORDER BHARATH Final Result Performing Organization Address [facility] Co de Phone Number [facility] [address] [phone] * CSF cell count with differential (10/31/2024 8:00 AM EDT) Appearance Clear 10/31/2024 10:40 AM EDT [facility] Color Colorless Colorless 10/31/2024 10:40 AM EDT [facility] Pellicle CSF None Seen None Seen 10/31/2024 10:40 AM EDT [facility] RBCs 0 0 - 5 /uL 10/31/2024 10:40 AM EDT [facility] Nucleated Cells, CSF 0 0 - 5 /uL 10/31/2024 10:40 AM EDT [facility] Xanthochromic CSF Absent Absent 10/31/2024 10:40 AM EDT [facility] Specimen Source CSF, Tube 1 11/01/19 10:40 AM EDT [facility] Cerebrospinal Fluid CEREBROSPINAL FLUID / Unknown 10/31/2024 8:00 AM EDT 10/31/2024 10:10 AM EDT us Kathy Carreon MD BODY FLUIDS AND STOOLS ORDER BHARATH Final Result Performing Organization Address [facility] Co de Phone Number [facility] [address] [phone] documented in this encounter Visit Diagnoses Diagnosis Demyelinating disease (HCC)- Primary Unspecified demyelinating disease of central nervous system Numbness and tingling of left upper and lower extremity Muscle spasm Spasm of muscle documented in this encounter Care Teams [employer] Former Supervisor Relationship Specialty Start Date End Date Gregory Malave, DO [address] [place] [address] PCP - General Internal Medicine 08/10/24 Mustapha Hernandez PA-C [address] [place] [address] Physician Sewing Machine Attachment Tester 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
--- OUTSIDE RECORDS SUMMARY | 2024-11-20 14:15 | XMS_ITS | Encounter Summary ---
Author Organization [employer] ([place], [place], [place], [place]) Address [address] [place] [address] Care Team Providers Care Laundromat Manager Name Role Phone Mustapha Hernandez PA-C Unavailable [phone] Gregory Malave DO Primary Care Provider [phone] Reason for Visit * Reason Comments RLS Peripheral Neuropathy Encounter Details Date Type Department Care Team (Late st Contact Info) Description 11/20/2024 2:15 PM EDT Office Visit [facility] Neurology - [facility] [address] [place] [address] [address] [place] [address] Madeleine Khan APRN [address] [facility] [address] [place] [address] Restless leg syndrome (Primary Dx) Social History [...] on file 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 Hannah Wallace at [facility]). She is a candidate for a spinal stimulator, but she needs neurology clearance. 01/21/22 MRI Brain - Chronic left hemisphere lacunar CVA's. 06/29/24 MRI Brain ([facility]) - Chronic vessel ischemia. She has chronic [...] NCV/EMG - Normal study. 06/29/24 MRI BRAIN ([facility]) - Abnormal signal in the left [...] Description 02/12/2025 10:15 AM EDT Office Visit [facility] Neurology - [facility] [address] [place] [address] [address] [place] [address] Madeleine Khan APRN [address] [facility] [address] [place] [address] documented as of this encounter Visit Diagnoses Diagnosis Restless leg syndrome- Primary Restless legs syndrome (RLS) documented in this encounter Care Teams Laundromat Manager Relationship Specialty Start Date End Date Gregory Malave, [address] [facility] [address] [place], [place] [id number] PCP - General Internal Medicine 08/10/24 Mustapha Hernandez PA-C [address] [place] [address] Physician Director Of Marketing Operations 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
--- NOTE | 2024-12-24 11:16 | EXP.PAIN.SOA ---
[facility] Disclaimer: The information contained in this section may have been updated after the patient was seen, as this information can be updated by other users. Medical History Diabetes Peripheral neuropathy GERD (gastroesophageal reflux disease) Movement disorder Iron deficiency PAD (peripheral artery disease) JOSE LUIS (obstructive sleep apnea) Daytime somnolence Postoperative edema Edema of both legs Aortic valve insufficiency Edema Type 2 diabetes mellitus History of CVA (cerebrovascular accident) Hyperlipidemia Hypertension Bipolar disorder Family History Other No significant family history Social History Smoking Status: Former smoker alcohol intake: never substance use type: denies use current occupational status: other Travel in the last 8 weeks?: None household members: significant other housing: house lives independently: No marital status: single number of children: 3 Have you lived/traveled outside US in past 30 days?: No Contact w/someone who lives/traveled outside US past 30 days?: No Exposure to someone with infectious disease in past 14 days?: No Do you have a fever (greater than 100.4 F or 38 C)?: No Have you tested positive for COVID-19?: No Exposed to someone with COVID-19 in past 14 days?: No Do you have a sore throat?: No Do you have a cough?: No Do you have any weakness?: No Do you have any diarrhea?: No Are you experiencing any unusual bleeding?: No Do you have any muscle aches/pain?: No Do you have any abdominal pain?: No Are you experiencing loss of taste or smell?: No PM Subjective & Objective Subjective Subjective:: Patient is a pleasant 44-year-old female who presents today for follow-up of lumbar epidural steroid injection L4-L5 on 12/04/2024. She rates her pain today a 9 out of 10. She denies any new trauma or injury. Patient does state that she really did not notice any improvement with this injection. Patient did previously have significant relief with her last epidural that did provide closer to 60 to 70% relief and lasted longer than 3 months. Patient does state that her daughter was with her at the date of this procedure and had gotten upset and she felt like she may have tensed up during that and whether this made any difference. Patient is currently managed with ropinirole 0.5 mg at bedtime from her neurologist. Patient is currently on tizanidine 2 mg 3 times a day for spasticity. Patient is currently wanting to still proceed forward with the spinal cord stimulator trial. Patient is asking if we had any updates on getting this approval. Patient is currently on Plavix. Her Александр has been reviewed and is appropriate. Review of Systems: General: No recent weight changes, no fever, no sleep disturbances Respiratory: No cough, no shortness of air, no recurring pulmonary infections Cardiovascular/peripheral vascular: No chest pain, no palpitations, no edema, no shortness of breath Gastrointestinal: No new onset incontinence, normal bowel movements reported Genitourinary: No new onset incontinence Musculoskeletal: Chronic back pain, leg pain Psychiatric: [Normal mood/affect] Neurological: [Denies weakness in extremities], [denies balance issues] Pain at rest (0-10 scale): 9 Objective Objective:: Physical Exam: General: Alert and oriented x3, no acute distress, pleasant and cooperative Lungs: Respirations even and unlabored, symmetrical chest expansion Eyes: PERRL Musculoskeletal: Flexion and extension of lumbar [spine] somewhat guarded secondary to pain, [antalgic gait noted] Neurological: Speech clear, no gross sensory deficit Has patient had previous pain injection?: Yes Percent improvement in pain since last injection: Minimal Conservative treatment options previously tried: Home exercise plan Length of treatment: Longer than 12 weeks Meds Home Medications and Allergies Home Medications ?Medication ?Instructions ?Recorded ?Confirmed ?Type aspirin 81 mg chewable tablet 81 mg PO DAILY heart health 10/07/21 12/04/24 History (Regine Chewable Low Dose Aspirin) levothyroxine 75 mcg tablet 75 mcg PO DAILY hypothyroidism 10/07/21 12/04/24 History (Synthroid) metformin 1,000 mg tablet 1,000 mg PO DAILY dm 07/25/22 12/04/24 History blood sugar diagnostic (Accu-Chek #10 ea 08/25/23 12/04/24 History Guide test strips) ezetimibe 10 mg tablet (Zetia) 10 mg PO DAILY 08/25/23 12/04/24 History lancets (Accu-Chek Softclix #100 ea 08/25/23 12/04/24 History Lancets) valsartan 160 mg tablet (Diovan) 160 mg PO DAILY 01/18/24 12/04/24 History empagliflozin 25 mg tablet 25 mg PO DAILY 03/08/24 12/04/24 History (Jardiance) verapamil 360 mg 24 hr 360 mg PO DAILY #90 caps 05/15/24 12/04/24 Rx capsule,extended release lancets 30 gauge (ArlenTouch Delica #100 ea 07/04/24 12/04/24 History Plus Lancet) duloxetine 60 mg capsule,delayed 120 mg (2 x 60 mg) PO DAILY 90 07/10/24 12/04/24 Rx release (Cymbalta) days #180 caps varenicline tartrate 1 mg tablet See Rx Instructions .Route 08/08/24 12/04/24 Rx .COMPLEX #56 tabs amitriptyline 50 mg tablet 50 mg PO HS #30 tabs 10/09/24 12/04/24 Rx aripiprazole 20 mg tablet (Abilify) See Rx Instructions PO BID 90 days 10/09/24 12/04/24 Rx #90 tabs ferrous sulfate 325 mg (65 mg 325 mg PO DAILY #30 tabs 10/09/24 12/04/24 Rx iron) tablet mirabegron 50 mg tablet,extended 50 mg PO DAILY #90 tabs 10/09/24 12/04/24 Rx release 24 hr (Myrbetriq) omeprazole 40 mg capsule,delayed 40 mg PO DAILY #90 caps 10/09/24 12/04/24 Rx release ropinirole 0.25 mg tablet See Rx Instructions .Route 10/09/24 12/04/24 Rx .COMPLEX #90 tabs rosuvastatin 20 mg tablet (Crestor) 20 mg PO ONCE #90 tabs 10/09/24 12/04/24 Rx semaglutide 2 mg/dose (8 mg/3 mL) See Rx Instructions .Route 10/24/24 12/04/24 Rx subcutaneous pen injector (Ozempic) .COMPLEX #3 mL tizanidine 2 mg capsule 2 mg PO TID PRN muscle spasticity 11/02/24 12/04/24 Rx #90 caps clopidogrel 75 mg tablet See Rx Instructions .Route 12/10/24 Rx .COMPLEX #90 tabs gabapentin 400 mg capsule 400 mg PO TID #90 caps 12/10/24 Rx gabapentin 800 mg tablet 800 mg PO TID #90 tabs 12/10/24 Rx New Prescriptions to Start Prescriptions: Allergies Allergy/AdvReac Type Severity Reaction Status Date / Time topiramate (From Topamax) Allergy Verified 10/30/24 08:27 Assessment and Plan *Assessment and plan (1) Diabetic peripheral neuropathy: Status: Acute Category: Medical Code(s): E11.42 - Type 2 diabetes mellitus with diabetic polyneuropathy (2) Lumbar facet arthropathy: Status: Acute Category: Medical Code(s): M47.816 - Spondylosis without myelopathy or radiculopathy, lumbar region (3) Lumbar radiculopathy: Status: Acute Category: Medical Code(s): M54.16 - Radiculopathy, lumbar region (4) Low back pain: Status: Acute Qualifiers: Chronicity: chronic Back pain laterality: bilateral Sciatica presence: with sciatica Sciatica laterality: bilateral sciatica Qualified Code(s): M54.42 - Lumbago with sciatica, left side; M54.41 - Lumbago with sciatica, right side; G89.29 - Other chronic pain Category: Medical Code(s): M54.50 - Low back pain, unspecified Plan I did again review over the risk and benefits of the spinal cord stimulator trial. We do already have this submitted and we did discuss that we will call her once we have approval for this procedure. Patient was counseled that this could have just been a fluke with her current injections and that it may be beneficial to repeat the epidural at a later date. We will continue to monitor this. I will send in a 5-day dose of prednisone 20 mg twice daily. Patient will follow-up with our office for her spinal cord stimulator trial at the next appointment. Patient has been instructed to contact the clinic with any concerns before the next appointment. Dr. Restrepo has reviewed this note and agrees with this plan of care. This note was dictated using voice recognition software and make contain errors or omissions. All injections are used with Lidocaine, Bupivacaine and dexamethasone. Occasionally urine drug screen is needed to verify patient's compliance with our office pain contract. This is ordered based off specific treatments related to chronic pain with the potential to abuse certain medications.
--- OUTSIDE RECORDS SUMMARY | 2024-12-24 11:23 | XMS_ITS | Encounter Summary ---
Author Organization [employer] ([place], [place], [place], [place]) Address [address] [place] [address] Care Team Providers Care Concrete Form Setter And Finisher Name Role Phone Mustapha Hernandez PA-C Unavailable Gregory Malave DO Primary Care Provider [phone] Encounter Details Date Type Department Care Team (Latest Contact Info) Description 10/31/2024 Travel Social History Tobacco Use Types Packs/Day Years Used Date Smoking Tobacco: Every Day Cigarettes Smokeless Tobacco: Never Alcohol Use Standard Drinks/Week Comments Never 0 (1 standard drink = 0.6 oz pur e alcohol) Comments Unknown Sex and Gender Information Value Date Recorded Sex Assigned at Not on file Legal Sex Female 1:57 PM PRIVATE SECRETARY Gender Identity Not on file Sexual Orientation Not on file documented as of this encounter Plan of Treatment Upcoming Encounters Date Type Department Care Team (Late st Contact Info) Description 02/12/2025 10:15 AM EDT Office Visit [facility] Neurology - [facility] [address] [place], [place] [address] [address] [place] [address] Madeleine Khan APRN [address] [facility] [address] [place], [place] [id number] documented as of this encounter Visit Diagnoses Not on filedocumented in this encounter Care Teams Concrete Form Setter And Finisher Relationship Specialty Start Date End Date Gregory Malave DO [address] [facility] [address] [place], [place] [id number] PCP - General Internal Medicine 08/10/24 Mustapha Hernandez PA-C [address] [facility] [address] [place] [address] Physician Operations Team Leader 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
--- OUTSIDE RECORDS SUMMARY | 2024-12-24 11:23 | XMS_ITS | Encounter Summary ---
Author Organization [employer] ([place], [place], [place], [place]) Address [address] [place] [address] Care Team Providers Care Vehicle Detailer Name Role Phone Mustapha Hernandez PA-C Unavailable [phone] Gregory Malave DO Primary Care Provider [phone] Encounter Details Date Type Department Care Team (Late st Contact Info) Description 11/07/2024 Orders Only [facility] [address] [place] [address] Provider, MD Say [address] [place], [place] [id number] Social History Tobacco Use Types Packs/Day Years Used Date Smoking Tobacco: Every Day Cigarettes Smokeless Tobacco: Never Alcohol Use Standard Drinks/Week Comments Never 0 (1 standard drink = 0.6 oz pur e alcohol) Comments Unknown Sex and Gender Information Value Date Recorded Sex Assigned at Not on file Legal Sex Female 1:57 PM SIGNAL OPERATOR TECHNICAL Gender Identity Not on file Sexual Orientation Not on file documented as of this encounter Plan of Treatment Upcoming Encounters Date Type Department Care Team (Late st Contact Info) Description 02/12/2025 10:15 AM EDT Office Visit [facility] [address] [place] [address] Madeleine Khan, BACK SHOE WORKER [address] [facility] [address] [place] [address] documented as of this encounter Procedures Procedure Name Priority Date/Time Associated Diagnosis Comments EXTERNAL LAB - MISC Routine 11/07/2024 10:14 AM EDT documented in this encounter Results * EXTERNAL LAB - MISC (11/07/2024 10:14 AM EDT) us Historical Provider LAB BLOOD ORDERABLES Keke l Result documented in this encounter Visit Diagnoses Not on filedocumented in this encounter Care Teams Vehicle Detailer Relationship Specialty Start Date End Date Gregory Malave DO [address] [facility] [address] [place] [address] PCP - General Internal Medicine 08/10/24 Mustapha Hernandez PA-C [address] [facility] [address] [place] [address] Physician Wind Up Operator 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
--- OUTSIDE RECORDS SUMMARY | 2024-12-24 11:23 | XMS_ITS | Encounter Summary ---
Author Organization [employer] ([place], [place], [place], [place]) Address [address] [place] [address] Care Team Providers Care Porcelain Mixer Name Role Phone Mustapha Hernandez PA-C Unavailable [phone] Vee Wells APRN Primary Care Provider [phone] Gregory Malave DO Primary Care Provider [phone] Reason for Referral * Consultation (Routine) - Closed Specialty Diagnoses / Procedures Referred By Ines singh Referred To Contact Neurology Diagnoses Numbness and tingling of left upper and lower extremity Dizziness Fatigue History of CVA (cerebrovascular accident) History of TIA (transient ischemic attack) Family history of CVA New pt-LUE/LLE Numbness, Dizziness, and Hx of CVA Mustapha Hernandez PA-C [address] [facility] [address] [place] [address] Phone: tel: fax: [facility] Neurology - [address] [place] [address] Phone: tel: fax: Referral ID Status Reason Start Date Expiration Date Visits Re quested Visits Authorized [id number] Closed 07/04/2024 07/04/2025 1 1 Encounter Details Date Type Department Care Team (Late st Contact Info) Description 07/04/2024 Outside Orders [facility] Neurology - [facility] [address] [facility] [address] [facility] [address] [place] [address] Mustapha Hernandez PA-C [address] [facility] [address] [place], [place] [id number] Numbness and tingling of left upper and lower extremity (Primary Dx); Dizziness; Fatigue; History of CVA (cerebrovascular accident); History of TIA (transient ischemic attack); Family history of CVA Social History Tobacco Use Types Packs/Day Years Used Date Smoking Tobacco: Never Assessed Comments Unknown Sex and Gender Information Value Date Recorded Sex Assigned at Not on file Legal Sex Female 1:57 PM [employer] Gender Identity Not on file Sexual Orientation Not on file documented as of this encounter Plan of Treatment Upcoming Encounters Date Type Department Care Team (Late st Contact Info) Description 02/12/2025 10:15 AM EDT Office Visit [facility] Neurology - [address] [facility] [address] [place] [address] Madeleine Khan APRN [address] [facility] [address] [place], [place] [id number] Scheduled Referrals Name Type Priority Associated Diagnoses Order Schedule Ambulatory referral to Neurology Outpatient Referral Routine Numbness and tingling of left upper and lower extremity Dizziness Fatigue History of CVA (cerebrovascular accident) History of TIA (transient ischemic attack) Family history of CVA Ordered: 07/04/2024 documented as of this encounter Visit Diagnoses Diagnosis Numbness and tingling of left upper and lower extremity- Primary Dizziness Dizziness and giddiness Fatigue Other malaise and fatigue History of CVA (cerebrovascular accident) Transient ischemic attack (TIA), and cerebral infarction without residual deficits History of TIA (transient ischemic attack) Family history of CVA documented in this encounter Care Teams Porcelain Mixer Relationship Specialty Start Date End Date Vee Wells APRN [address] [place] [address] PCP - General Nurse Practitioner 07/09/24 08/09/24 Gregory Malave [address] [place] [address] PCP - General Internal Medicine 08/10/24 Mustapha Hernandez PA-C [address] [place], [place] [id number] Physician Optimization Manager 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
--- OUTSIDE RECORDS SUMMARY | 2024-12-24 11:24 | XMS_ITS | Encounter Summary ---
Author Organization [employer] ([place], [place], [place], [place]) Address [address] [place] [address] Care Team Providers Care Railway Signal Technician Name Role Phone Mustapha Hernandez PA-C Unavailable [phone] Gregory Malave DO Primary Care Provider [phone] Encounter Details Date Type Department Care Team (Latest Contact Info) Description 11/20/2024 Travel Social History Tobacco Use Types Packs/Day Years Used Date Smoking Tobacco: Every Day Cigarettes 0.5 15 Smokeless Tobacco: Never Alcohol Use Standard Drinks/Week Comments Never 0 (1 standard drink = 0.6 oz pur e alcohol) Comments Unknown Sex and Gender Information Value Date Recorded Sex Assigned at Not on file Legal Sex Female 1:57 PM HOSE MENDER Gender Identity Not on file Sexual Orientation Not on file documented as of this encounter Plan of Treatment Upcoming Encounters Date Type Department Care Team (Late st Contact Info) Description 02/12/2025 10:15 AM EDT Office Visit [facility] Neurology - [facility] [address] [facility] [address] [place] [address] Madeleine Khan APRN [address] [facility] [address] [place], [place] [id number] documented as of this encounter Visit Diagnoses Not on filedocumented in this encounter Care Teams Railway Signal Technician Relationship Specialty Start Date End Date Gregory Malave DO [address] [facility] [address] [place], [place] [id number] PCP - General Internal Medicine 08/10/24 Mustapha Hernandez PA-C [address] [facility] [address] [place] [address] Physician Jigman 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
--- OUTSIDE RECORDS SUMMARY | 2024-12-24 11:24 | XMS_ITS | Referral Summary ---
Author Organization [employer] ([place], [place], [place], [place]) Address [address] [place] [address] Care Team Providers Care Hothouse Worker Name Role Phone Mustapha Hernandez PA-C Unavailable [phone] Gregory Malave DO Primary Care Provider [phone] Encounters Date Type Department Care Team Description 11/20/2024 Travel 11/20/2024 2:15 PM EDT Office Visit [facility] [address] [place] [address] Madeleine Khan APRN Restless leg syndrome (Primary Dx) 11/07/2024 Orders Only [facility] [address] [place] [address] Provider, MD Say 10/31/2024 Travel 10/31/2024 7:30 AM EDT Procedure Visit [facility] [address] [place] [address] Kathy Carreon MD Demyelinating disease (HCC) (Primary Dx); Numbness and tingling of left upper and lower extremity; Muscle spasm 10/19/2024 Orders Only [facility] [address] [place] [address] Say Garcia MD 10/18/2024 Telephone [facility] Neurology - [place] [address] [place] [address] Amber Mensah CMA Medication Problem 10/17/2024 Orders Only [facility] Neurology - [facility] [address] [place] [address] Say Garcia MD 10/16/2024 Orders Only [facility] Neurology - [facility] [address] [place] [address] Say Garcia MD 10/16/2024 Travel 10/16/2024 1:00 PM EDT Office Visit [facility] Neurology - [facility] [address] [place] [address] Madeleine Khan APRN Demyelinating disease (HCC) (Primary Dx); Neuropathy; Restless leg syndrome from Last 3 Months Allergies Active Allergy Reactions Criticality Noted Date Comments Topiramate Other (See Comments) 03/02/2023 Medications ARIPiprazole (ABILIFY) 20 MG tablet Take 0.5 tablets (10 mg total) by mouth 2 (two) times daily. 5 Active aspirin 81 MG EC tablet Take 1 tablet (81 mg total) by mouth daily. 5 Active clopidogreL (PLAVIX) 75 mg tablet Take 1 tablet (75 mg total) by mouth daily. 5 Active DULoxetine (CYMBALTA) 60 MG capsule Take 2 capsules (120 mg total) by mouth daily. 5 Active Jardiance 25 mg tablet Take 1 tablet (25 mg total) by mouth every morning. 5 Active ezetimibe (ZETIA) 10 mg tablet Take 1 tablet (10 mg total) by mouth daily. 4 Active levothyroxine (SYNTHROID) 75 MCG tablet Take 1 tablet (75 mcg total) by mouth daily. 5 Active metFORMIN (GLUCOPHAGE) 1000 MG tablet Take 1 tablet (1,000 mg total) by mouth every morning. Active rosuvastatin (CRESTOR) 20 MG tablet Take 1 tablet (20 mg total) by mouth daily. 5 Active Ozempic 2 mg/dose (8 mg/3 mL) pnij Inject 2 mg under the skin once a week. 5 Active tiZANidine (ZANAFLEX) 2 MG tablet Take 1 tablet (2 mg total) by mouth 3 (three) times daily as needed. 5 Active valsartan (DIOVAN) 160 MG tablet Take 1 tablet (160 mg total) by mouth 2 (two) times daily. 4 Active verapamiL ER (VERELAN) 360 MG 24 hr capsule Take 1 capsule (360 mg total) by mouth daily. 5 Active omeprazole (PriLOSEC) 40 MG capsule Take 1 capsule (40 mg total) by mouth daily. 5 Active rOPINIRole (REQUIP) 0.5 MG tabletIndicatio ns:Restless leg syndrome Take 1 tablet (0.5 mg total) by mouth 3 (three) times daily. 90 tablet 5 5 Active mirabegron (Myrbetriq) 50 mg Tb24 ER tablet Take 1 tablet (50 mg total) by mouth daily. 5 Active gabapentin (NEURONTIN) 400 MG capsule TAKE ONE CAPSULE BY MOUTH EVERY MORNING , TAKE ONE CAPSULE BY MOUTH EVERY AFTERNOONAND TAKE TWO CAPSULES BY MOUTH AT BEDTIME 5 Active rotigotine (Neupro) 2 mg/24 hourIndications :Restless leg syndrome Place 1 patch on the skin daily. 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 Gender Identity Not on file Sexual Orientation Not on file Last Filed Vital Signs Vital Sign Reading [...] Mass Index 34.72 11/20/2024 2:14 PM EDT Plan of Treatment Upcoming Encounters Date Type Department Care Team (Late st Contact Info) Description 02/12/2025 10:15 AM EDT Office Visit [facility] Neurology - [facility] [address] [place] [address] [address] [place] [address] Madeleine Khan, SPICE MIXER [address] [facility] [address] [place] [address] Procedures Procedure Name Priority Date/Time Associated Diagnosis Comments EXTERNAL LAB - MISC Routine 11/07/2024 1 0:14 AM EDT LUMBAR PUNCTURE Routine 10/31/2024 8:13 AM EDT [...] left upper and lower extremity Muscle spasm EXTERNAL LAB - MISC Routine 10/19/2024 3 :49 PM EDT EXTERNAL IMAGING - MR Routine 10/17/2024 3:32 PM EDT EXTERNAL LAB - MISC Routine 10/17/2024 2 :27 PM EDT EMG W/NCS Routine 10/16/2024 1:02 PM EDT from Last 3 Months Results * EXTERNAL LAB - MISC (11/07/2024 10:14 AM EDT) Only the most recent of3 resultswithin the time period is included. Historical Provider MD LAB BLOOD ORDERABLES Keke l Result * Lumbar Puncture (10/31/2024 8:13 AM EDT) Narrative Anu Hernandez APRN - 10/31/2024 8:13 AM EDT Anu [...] to the procedure. Will follow with Madeleine APPLICATION HELPER in 2 weeks to go over results. Anu Hernandez APRN PROCEDURE/MINOR SURGICAL ORDERABLES Final Result * (ABNORMAL) Oligoclonal Band Profile(SENDOUT) (10/31/2024 8:00 AM EDT) Oligoclonal Bands Number, CSF 0 0 - 1 Bands 11/03/2024 8:36 AM EDT [facility] Immunoglobulin G 734(L) 768 - 1632 mg/dL 11/03/2024 8:36 AM EDT [facility] Immunoglobulin G CSF 2.5 0.0 - 6.0 mg/dL 11/03/2024 8:36 AM EDT [facility] Albumin, Serum 3874 3500 - 5200 mg/dL 11/03/2024 8:36 AM EDT [facility] Albumin, CSF 23 0 - 35 mg/dL 11/03/2024 8:36 AM EDT [facility] Albumin Index 5.9 0.0 - 9.0 ratio 11/03/2024 8:36 AM EDT [facility] IgG Index 0.57 0.28 - 0.66 ratio 11/03/2024 8:36 AM EDT [facility] CSF IgG/Albumin Ratio 0.11 0.09 - 0.25 ratio 11/03/2024 8:36 AM EDT [facility] CSF Oligoclonal Bands Negative Negative 11/03/2024 8:36 AM T [facility] CSF IgG Synthesis Rate 0.0 <=8.0 mg/d 11/03/2024 8:36 AM T [facility] Interpretation See Note 11/03/2024 8:36 AM T [facility] Comment: Isoelectric focusing/immunofixation revealed no oligoclonal bands [...] caution when interpreting the results. Performed By: [employer] [address] [place] [address] Division Service Manager: Td Stock MD, PhD CLIA Number: [id number] 10/31/2024 8:00 AM EDT 10/31/2024 10:10 AM EDT us Kathy Carreon MD LAB BLOOD ORDERABLES Final R esult [id number] [place] [address] * CSF Culture + Gram Stain (10/31/2024 8:00 AM EDT) Result No growth 11/03/2024 8:32 AM EDT [facility] Gram Stain Result No organisms seen 11/03/2024 8:32 AM EDT [facility] Gram Stain Result No cells seen 11/03/2024 8:32 AM EDT [facility] Cerebrospinal Fluid 11/01/19 8:00 AM EDT 10/31/2024 10:10 AM EDT us Kathy Carreon MD MICROBIOLOGY - GENERAL ORDER BHARATH Final Result Performing Organization Address City/[facility] Co de Phone Number [facility] [address] [phone] * CSF cell count with differential (10/31/2024 8:00 AM EDT) Appearance Clear 10/31/2024 10:40 AM EDT [facility] Color Colorless Colorless 10/31/2024 10:40 AM EDT [facility] Pellicle CSF None Seen None Seen 10/31/2024 10:40 AM EDT [facility] RBCs 0 0 - 5 /uL 10/31/2024 10:40 AM EDT [facility] Nucleated Cells, CSF 0 0 - 5 /uL 10/31/2024 10:40 AM EDT [facility] Xanthochromic CSF Absent Absent 10/31/2024 10:40 AM EDT [facility] Specimen Source CSF, Tube 1 11/01/19 10:40 AM EDT [facility] Cerebrospinal Fluid CEREBROSPINAL FLUID / Unknown 10/31/2024 8:00 AM EDT 10/31/2024 10:10 AM EDT Kathy Carreon MD BODY FLUIDS AND STOOLS ORDER BHARATH Final Result Performing Organization Address [facility] Co de Phone Number [facility] [address] [phone] * (ABNORMAL) Glucose, CSF (10/31/2024 8:00 AM EDT) Glucose, CSF 80(H) 40 - 75 mg/dL 10/31/2024 10:40 AM EDT [facility] Specimen Source CSF, Tube 2 10/31/2024 10:40 AM EDT [facility] Cerebrospinal Fluid CEREBROSPINAL FLUID / Unknown 10/31/2024 8:00 AM EDT 10/31/2024 10:10 AM EDT Kathy Carreon MD BODY FLUIDS AND STOOLS ORDER BHARATH Final Result Performing Organization Address [facility] de Phone Number [facility] [address] [phone] * EXTERNAL IMAGING - MR (10/17/2024 3:32 PM EDT) Anatomical Region Laterality Modality Other Historical Provider HEALTH MAINTENANCE Final Result * EMG W/ NCS (10/16/2024 1:02 PM EDT) Anatomical Region Laterality Modality Other Historical Provider NEUROLOGY ORDERABLES (MCT ) Final Result from Last 3 Months Insurance [facility] [employer] Care Teams Hothouse Worker Relationship Specialty Start Date End Date Gregory Malave DO [address] [address] PCP - General Internal Medicine 08/10/24 Mustapha Hernandez PA-C [address] [phone] Physician Phone Circuit Operator Cardiology 07/04/24
--- OUTSIDE RECORDS SUMMARY | 2024-12-24 11:24 | XMS_ITS | Clinical Summary ---
Author Organization [employer] ([place], [place], [place], [place]) Address [address] [place] [address] Care Team Providers Care Impregnator And Drier Name Role Phone Mustapha Hernandez PA-C Unavailable [phone] Gregory Malave DO Primary Care Provider [phone] Allergies Active Allergy Reactions Criticality Noted Date [...] Active Active Problems No known active problems Encounters Date Type Department Care Team Description 11/20/2024 2:15 PM EDT Office Visit [facility] Neurology [place] [address] [place] [address] Madeleine Khan APRN Restless leg syndrome (Primary Dx) 11/20/2024 Travel 11/07/2024 Orders Only [facility] Neurology [facility] [address] [place] [address] Say Garcia MD 10/31/2024 7:30 AM EDT Procedure Visit [facility] Neurology - [place] [address] [place] [address] Kathy Carreon MD Demyelinating disease (HCC) (Primary Dx); Numbness and tingling of left upper and lower extremity; Muscle spasm 10/31/2024 Travel 10/19/2024 Orders Only [facility] Neurology - [place] [address] [place] [address] Say Garcia MD 10/18/2024 Telephone [facility] Neurology - [place] [address] [place] [address] Amber Mensah CMA Medication Problem 10/17/2024 Orders Only [facility] [place] [address] [place] [address] ProviderSay MD 10/16/2024 1:00 PM EDT Office Visit [facility] Neurology - [place] [address] [place] [address] Madeleine Khan APRN Demyelinating disease (HCC) (Primary Dx); Neuropathy; Restless leg syndrome 10/16/2024 Orders Only [facility] Neurology - [facility] [address] [place] [address] ProviderSay MD 10/16/2024 Travel from Last 3 Months Family History Medical History Relation Name Comments Diabetes Brother Christoph gu Diabetes Father Gregory gu Heart disease Father Gregory gu Stroke Father Gregory riccardo Depression Mother Hanny gu Hypertension Mother Hanny gu Multiple sclerosis Mother Hanny gu Anxiety disorder Other Cancer Other Depression Other Diabetes Sister Heart disease Sister Relation Name Status Comments Brother Christoph riccardo Father Gregory riccardo Mother Hanny gu Other Sister Social History Tobacco Use Types Packs/Day Years [...] on file 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 Gender Identity Not on file Sexual Orientation [...] Description 02/12/2025 10:15 AM EDT Office Visit [facility] Neurology - [facility] [address] [place] [id number] Madeleine Khan, LABORATORY TESTER [address] [facility] [address] [place] [address] Health Maintenance Due Date Last Done Comments Depression Screening (12+) 1993 HIV Screening 02/08/1996 Hepatitis C Screening 1999 DTAP/TDAP/TD VACCINES (1 - Tdap) 02/08/2000 Lipid Panel 2001 Pap Smear 2002 Pneumococcal Vaccine: 0-49 Y ears (2 of 2 - PCV) 03/18/2020 03/18/2019 Breast Cancer Screening 2021 COVID-19 VACCINE ( - 2023-2 5 season) 2024 03/29/2022, 09/30/2020, 09/19/2020, Additional history exists Medicare IPPE (Welcome to Medicare) [id number] 09/18/2024 Influenza Vaccine (#1) 2025 Tobacco Cessation Counseling and Screening (12+) 09/07/2025 09/07/2024 Procedures Procedure Name Priority Date/Time Associated Diagnosis [...] of3 resultswithin the time period is included. us Historical Provider LAB BLOOD ORDERABLES Keke l Result * [...] to the procedure. Will follow with Madeleine DE LA TORRE in 2 weeks to go over results. [...] - 0.25 ratio 11/03/2024 8:36 AM EDT [facility] CSF Oligoclonal Bands Negative Negative 11/03/2024 8:36 AM EDT [facility] CSF IgG Synthesis Rate 0.0 <=8.0 mg/d 11/03/2024 8:36 AM EDT [facility] Interpretation See Note 11/03/2024 8:36 AM EDT [facility] Comment: Isoelectric focusing/immunofixation revealed no oligoclonal bands [...] caution when interpreting the results. Performed By: [facility] [address] [place] [address] Hydroelectric Operator: Td Stock MD, PhD CLIA Number: [id number] 10/31/2024 8:00 AM EDT 10/31/2024 10:10 AM EDT us Kathy Carreon MD LAB BLOOD ORDERABLES Final R esult Performing Organization Address City/[facility] Co de Phone Number [facility] [address] [place] [address], [facility] [phone] * CSF Culture + Gram Stain (10/31/2024 8:00 AM EDT) Result No growth 11/03/2024 8:32 AM EDT [facility] Gram Stain Result No organisms seen 11/03/2024 8:32 AM EDT [facility] Gram Stain Result No cells seen 11/03/2024 8:32 AM EDT [facility] Cerebrospinal Fluid 11/01/19 8:00 AM EDT 10/31/2024 10:10 AM EDT us Kathy Carreon MD MICROBIOLOGY - GENERAL ORDER BHARATH Final Result [facility] [address] [phone] * CSF cell count with differential (10/31/2024 8:00 AM EDT) Appearance Clear 10/31/2024 10:40 AM EDT [facility] Color Colorless Colorless 10/31/2024 10:40 AM EDT [facility] Pellicle CSF None Seen None Seen 10/31/2024 10:40 AM EDT [facility] RBCs 0 0 - 5 /uL 10/31/2024 10:40 AM EDT [facility] Nucleated Cells, CSF 0 0 - 5 /uL 10/31/2024 10:40 AM EDT [facility] Xanthochromic CSF Absent Absent 10/31/2024 10:40 AM EDT [facility] Specimen Source CSF, Tube 1 11/01/19 10:40 AM EDT [facility] Cerebrospinal Fluid CEREBROSPINAL FLUID / Unknown 10/31/2024 8:00 AM EDT 10/31/2024 10:10 AM EDT us Kathy Carreon MD BODY FLUIDS AND STOOLS ORDER BHARATH Final Result Performing Organization Address [facility] de Phone Number [facility] [address] [phone] * (ABNORMAL) Glucose, CSF (10/31/2024 8:00 AM EDT) Glucose, CSF 80(H) 40 - 75 mg/dL 10/31/2024 10:40 AM EDT [facility] Specimen Source CSF, Tube 2 10/31/2024 10:40 AM EDT [facility] Cerebrospinal Fluid CEREBROSPINAL FLUID / Unknown 10/31/2024 8:00 AM EDT 10/31/2024 10:10 AM EDT us Kathy Carreon MD BODY FLUIDS AND STOOLS ORDER BHARATH Final Result Performing Organization Address City/[facility]/ZIP Co de Phone Number [facility] [address] [place] [id number], [facility] [phone] * EXTERNAL IMAGING - MR (10/17/2024 3:32 PM EDT) Anatomical Region Laterality Modality Other us Historical Provider HEALTH MAINTENANCE Final Result * EMG W/ NCS (10/16/2024 1:02 PM EDT) Anatomical Region Laterality Modality Other us Historical Provider NEUROLOGY ORDERABLES (MCT ) Final Result from Last [address] [facility] MEDIC[facility] ADVANTAGE Care Teams Impregnator And Drier Relationship Specialty Start Date End Date Gregory Malave DO [address] [place] [address] PCP - General Internal Medicine 08/10/24 Mustapha Hernandez PA-C [address] [place] [address] Physician Dampener Cardiology 07/04/24
--- OUTSIDE RECORDS SUMMARY | 2024-12-24 11:25 | XMS_ITS | Data Portability ---
Author Organization [facility] ADMIN Address [address] [place] [phone] Assessment No assessment recorded. Plan of Treatment Reminders Order Date Submit Date Provider Last Modified By Organization Details Last Modified Time Details Appointments None recorded. Lab None recorded. Referral None recorded. Procedures nerve conduction study/EMG, lower extremity (PROC) 2023 024 Not available 15:13:27 Surgeries None recorded. Imaging None recorded. Medication Orders None recorded. Patient TargetsNo targets recorded. Patient InstructionsNo instructions recorded. Reason for Referral None Reported. Problems Name Problem SNOMED Code Status Onset Date Resolution Date Notes Provider Name and Address Organization Details Recorded Time Paresthesia of lower extremity 175404909 Active 2023 DO Shanta Raza0 [address]ia [address], [place], [id number] , [facility] & [place] 15:13:19 Problem Notes None recorded. Procedures Surgical History Date Name Laterality Status Provider Name and Address Organization Details Recorded Time EMG/ Nerve Conduction Study completed DO [address], [place], [address], [facility] & [place] 11/24/2023 15:13:12 Imaging Results None recorded. Procedure Notes None recorded. Medical Equipment None Reported. Medications Name Sig Start Date Stop Date Status Note LastModified by Organization Details LastModified Time amantadine HCl 100 mg tablet active Not Available Not Available Not Available fluoxetine 40 mg capsule TAKE ONE CAPSULE BY MOUTH TWICE DAILY FOR mood active Not Available Not Available No t Available doxepin 50 mg capsule TAKE ONE CAPSULE BY MOUTH EVERY DAY AT BEDTIME active Not Available Not Available No t Available gabapentin 600 mg tablet TAKE ONE TABLET BY MOUTH EVERY MORNING AND TAKE TWO TABLETS AT BEDTIME MAY CAUSE DROWSINESS active Not Available Not Available N ot Available nicotine 14 mg/24 hr daily transdermal patch apply 1 PATCH topically EVERY DAY active Not Available Not Available No t Available triamcinolon e acetonide 0.5 % topical cream APPLY TOPICALLY TO THE AFFECTED AREA(S) EVERY DAY DIRECTED -- FOR EXTERNAL USE ONLY-- active Not Available Not Available N ot Available nicotine (polacrilex) 2 mg gum chew 1 piece of gum BY MOUTH EVERY 2 HOURS NEEDED AND DIRECTED active Not Available Not Available Not Available prednisone 20 mg tablet TAKE ONE TABLET BY MOUTH TWICE DAILY active Not Available Not Available No t Available olanzapine 5 mg tablet TAKE ONE TABLET BY MOUTH EVERY DAY AT BEDTIME active Not Available Not Available No t Available Anucort-HC 25 mg suppository UNWRAP AND INSERT 1 SUPPOSITORY RECTALLY TWICE DAILY FOR 2 WEEKS active Not Available Not Available Not Available hydroxyzine pamoate 50 mg capsule TAKE ONE CAPSULE BY MOUTH THREE TIMES DAILY NEEDED FOR ANXIETY MAY CAUSE DROWSINESS active Not Available Not Available N ot Available Accu-Chek Softclix Lancets USE TO test blood sugar FOUR TIMES DAILY active Not Available Not Available No t Available valsartan 80 mg tablet TAKE ONE TABLET BY MOUTH TWICE DAILY active Not Available Not Available No t Available potassium chloride ER 10 mEq tablet,exten ded release TAKE FOUR TABLETS BY MOUTH EVERY DAY with food active Not Available Not Available No t Available amlodipine 5 mg tablet TAKE ONE TABLET BY MOUTH EVERY EVENING active Not Available Not Available No t Available aspirin 81 mg tablet,delay ed release TAKE ONE TABLET BY MOUTH EVERY DAY active Not Available Not Available No t Available vancomycin 1,000 mg intravenous injection active Not Available Not Available No t Available baclofen 20 mg tablet TAKE ONE TABLET BY MOUTH THREE TIMES DAILY MAY CAUSE DROWSINESS active Not Available Not Available N ot Available levothyroxin e 75 mcg tablet TAKE ONE TABLET BY MOUTH EVERY DAY BEFORE a meal active Not Available Not Available No t Available bisoprolol fumarate 5 mg tablet TAKE ONE TABLET BY MOUTH EVERY DAY active Not Available Not Available No t Available amoxicillin 875 mg tablet TAKE ONE TABLET BY MOUTH EVERY TWELVE HOURS FOR 7 DAYS -- FINISH ALL MEDICINE -- active Not Available Not Available Not Available trazodone 100 mg tablet TAKE ONE TABLET BY MOUTH EVERY DAY AT BEDTIME FOR SLEEP active Not Available Not Available No t Available nicotine (polacrilex) 4 mg gum chew 1 piece of gum EVERY 2 HOURS NEEDED AND DIRECTED do not exceed maximum of 24 pieces PER 24 hours active Not Available Not Available No t Available lithium carbonate 300 mg capsule TAKE ONE CAPSULE BY MOUTH TWICE DAILY FOR mood active Not Available Not Available No t Available benzonatate 100 mg capsule TAKE ONE CAPSULE BY MOUTH THREE TIMES DAILY NEEDED FOR cough -SWALLOW WHOLE. DO NOT CRUSH OR CHEW- active Not Available Not Available No t Available cephalexin 500 mg capsule TAKE ONE CAPSULE BY MOUTH THREE TIMES DAILY FOR 7 DAYS -- FINISH ALL MEDICINE -- active Not Available Not Available Not Available trazodone 150 mg tablet TAKE ONE TABLET BY MOUTH EVERY DAY AT BEDTIME NEEDED FOR SLEEP active Not Available Not Available No t Available metformin 1,000 mg tablet TAKE ONE TABLET BY MOUTH EVERY DAY IN THE MORNING active Not Available Not Available No t Available buspirone 10 mg tablet TAKE TWO TABLETS BY MOUTH THREE TIMES DAILY active Not Available Not Available Not Available clonazepam 2 mg tablet TAKE ONE TABLET BY MOUTH EVERY DAY AT BEDTIME FOR insomnia MAY CAUSE DROWSINESS active Not Available Not Available N ot Available tobramycin 1.2 gram solution for injection active Not Available Not Available No t Available nicotine 21 mg/24 hr daily transdermal patch apply 1 PATCH topically EVERY DAY AND REMOVE AT bedtime active Not Available Not Available N ot Available polyethylene glycol 3350 17 gram/dose oral powder DISSOLVE 17 GRAMS OF POWDER INTO 4 TO 8 OUNCES OF WATER, JUICE, SODA, COFFEE, OR TEA THEN DRINK EVERY DAY do not exceed 17 grams PER day active Not Available Not Available No t Available albuterol sulfate HFA 90 mcg/actuatio n aerosol inhaler INHALE TWO PUFFS BY MOUTH EVERY 4 TO 6 HOURS NEEDED active Not Available Not Available No t Available fluticasone propionate 50 mcg/actuatio n nasal spray,suspen lazaro instill 1-2 SPRAYS IN EACH NOSTRIL EVERY DAY NEEDED active Not Available Not Available No t Available buspirone 15 mg tablet TAKE ONE TABLET BY MOUTH THREE TIMES DAILY FOR mood active Not Available Not Available No t Available valsartan 160 mg tablet TAKE ONE TABLET BY MOUTH TWICE DAILY active Not Available Not Available No t Available ezetimibe 10 mg tablet TAKE ONE TABLET BY MOUTH EVERY DAY active Not Available Not Available No t Available aripiprazole 10 mg tablet TAKE ONE TABLET BY MOUTH EVERY DAY AT BEDTIME active Not Available Not Available No t Available aripiprazole 5 mg tablet TAKE ONE TABLET BY MOUTH EVERY DAY AT BEDTIME FOR depression active Not Available Not Available N ot Available rosuvastatin 20 mg tablet TAKE ONE TABLET BY MOUTH EVERY DAY active Not Available Not Available No t Available Alcohol Prep Pads USE DIRECTED FOUR TIMES DAILY TO clean sides of fingers active Not Available Not Available N ot Available duloxetine 30 mg capsule,markie yed release TAKE THREE CAPSULES BY MOUTH EVERY DAY active Not Available Not Available No t Available duloxetine 60 mg capsule,markie yed release TAKE TWO CAPSULES BY MOUTH EVERY DAY active Not Available Not Available No t Available solifenacin 5 mg tablet TAKE ONE TABLET BY MOUTH EVERY DAY active Not Available Not Available No t Available Nyamyc 100,000 unit/gram topical powder active Not Available Not Available Not Available varenicline tartrate 0.5 mg (11)-1 mg (42) tablets in a dose pack TAKE ACCORDING TO PACKAGE INSTRUCTION S active Not Available Not Available No t Available peg 3350-electro lytes 236 gram-22.74 gram-6.74 gram-5.86 gram solution take 240 ML BY MOUTH EVERY 10 MINUTES FOR bowel prep; follow mailed instruction s active Not Available Not Available No t Available cholecalcife rol (vitamin D3) 50 mcg (2,000 unit) capsule TAKE ONE CAPSULE BY MOUTH EVERY DAY active Not Available Not Available No t Available Vitamin D3 125 mcg (5,000 unit) tablet TAKE ONE TABLET BY MOUTH EVERY DAY FOR maintenance active Not Available Not Available Not Available Myrbetriq 25 mg tablet,exten ded release TAKE ONE TABLET BY MOUTH EVERY DAY do not crush, chew, and/or divide take with water active Not Available Not Available N ot Available Trulicity 1.5 mg/0.5 mL subcutaneous pen injector INJECT 1.5 MG (0.5 ML) SUBCUTANEOU SLY ONCE A WEEK active Not Available Not Available No t Available Linzess 72 mcg capsule TAKE ONE CAPSULE BY MOUTH EVERY DAY ON AN EMPTY STOMACH AT LEAST 30 MINUTES BEFORE THE FIRST MEAL OF THE DAY active Not Available Not Available N ot Available Accu-Chek Guide test strips USE TO test blood sugar FOUR TIMES DAILY active Not Available Not Available No t Available Trulicity 3 mg/0.5 mL subcutaneous pen injector INJECT THE CONTENTS OF 1 PEN (3 MG / 0.5 ML) SUBCUTANEOU SLY ONCE A WEEK active Not Available Not Available No t Available Ozempic 1 mg/dose (4 mg/3 mL) subcutaneous pen injector INJECT 1 MG SUBCUTANEOU SLY ONCE WEEKLY ON THE same DAY each WEEK active Not Available Not Available No t Available Lybalvi 10 mg-10 mg tablet TAKE ONE TABLET BY MOUTH AT BEDTIME active Not Available Not Available No t Available Lybalvi 15 mg-10 mg tablet TAKE ONE TABLET BY MOUTH EVERY DAY active Not Available Not Available No t Available Ozempic 2 mg/dose (8 mg/3 mL) subcutaneous pen injector INJECT 2 MG SUBCUTANEOU SLY ONCE A WEEK (ON THE same DAY of each WEEK) active Not Available Not Available No t Available Ozempic 0.25 mg or 0.5 mg (2 mg/3 mL) subcutaneous pen injector INJECT 0.5 MG SUBCUTANEOU SLY ONCE A WEEK active Not Available Not Available No t Available Vitals Date Recorded Body height Body mass index (BMI) Body weight Heart rate Systolic And Diastolic Provider Name and Address Organization Details Last Updated DateTime 11/24/2023 160.02 cm 37.5 kg/m2 00246.15 g 84 /min 119/72 mm[Hg] Rand Pillo [place] - [facility] & [place] 11/24/2023 14:51:41 Social History None recorded. Functional Status None recorded. Mental Status None recorded. Family History Nothing Reported. Medical History No medical history recorded. Gynecological HistoryNo gynecological history recorded. Obstetrics History GPAL:G 0 P 0 0 0 0 Past Encounters Encounter ID Performer Location Encounter Start Date Encounter Closed Date Diagnosis/Indication Diagnosis SNOMED-CT Code Diagnosis ICD10 Code Diagnosis Note [id number] DO ISHAAN Raza [facility] [address] [place] [address] 11/24/2023 14:46:58 11/24/2023 15:40:32 Paresthesia of lower extremity 783373307 R20.2 Health Concerns Section Related Observation LastModified by Organization Detai ls LastModified Time None Recorded Concern Status LastModified by Organization Details LastModified Time None Recorded Advance Directives Directive None Recorded Payers Insurance Date Sequence Insurance Name Policy Number Policy Lin Covered Member ID Lin Member ID Guarantor Name 11/24/2023 1 [facility] PL[facility] (MEDICARE REPLACEMENT/A DVANTAGE - [id number] Bre[facility]aredio 11/24/2023 1 [place] [id number] Breana Caredio [id number] Breana Caredio OBGyn Episode No OBEpisode recorded.
--- OUTSIDE RECORDS SUMMARY | 2024-12-24 11:25 | XMS_ITS | Data Portability ---
Author Organization [place] [employer] Address [address] [place] [address] Assessment Encounter Date Assessment Date Assessment LastModified by Organization Details LastModified Time 04/08/2021 04/08/2021 Patient does not have insurance at this time - she is applying and states that she should soon. We will defer any labs today d/t financial concern of the patient. Patient advised to f/u with her other speciality doctors - cardiology and neurology. [email or web address] Not available 04/08/2021 17:14:22 Plan of Treatment Reminders Order Date Submit Date Provider Last Modified By Organization Details Last Modified Time Details Appointments None recorded. Lab lithium, serum 2021 022 [facility]), [address], [place], [address], 2 04:23:03 lithium, serum 2021 022 [facility] ([facility]), [address], [place], [address], 2 02:52:03 CMP, serum or plasma 2021 022 [facility] ([facility]), [address], [place], [address], 2 02:52:02 CBC w/ auto diff 2021 022 [place] [facility] ([facility]), [address], [place], [address], 2 02:52:02 TSH, serum or plasma 2021 022 [facility] ([facility]), [address], [place], [address], 2 02:52:03 vitamin D, 25-hydroxy , total, serum 2020 021 [facility] ([facility]), [address], [place], [address], 1 22:55:05 HbA1c (hemoglobi n A1c), blood 2020 021 [facility] ([facility]), [address], [place], [address], 1 05:37:53 CBC w/ auto diff 2020 021 [facility] ([facility]), [address], [place], [address], 1 05:37:52 CMP, serum or plasma 2020 021 [facility] ([facility]), [address], [place], [address], 1 05:37:53 lipid panel, serum 2020 021 [facility] ([facility]), [address], [place], [address], 05:37:52 Referral None recorded. Procedures None recorded. Surgeries None recorded. Imaging None recorded. Medication Orders levothyrox ine 75 mcg tablet 2021 [facility] [id number], [address] [place], [address], 17:18:41 cholecalci ferol (vitamin D3) 1,250 mcg (50,000 unit) capsule 2021 [facility] [id number], [address] [place], [address], 18:47:49 metformin 1,000 mg tablet 2021 [facility] [id number], [address] [place], [address], 18:47:47 carvedilol 12.5 mg tablet 2021 [facility] [id number], [address] [place], [address], 18:47:58 losartan 100 mg tablet 2021 [facility] [id number], [address] [place], [address], 18:47:53 atorvastat in 80 mg tablet 2021 [facility] [id number], [address] [place], [address], 18:47:48 fluticason e propionate 50 mcg/actuat ion nasal spray,susp ension 2020 [facility] [id number], [address] [place], [address], 17:41:54 aspirin 81 mg chewable tablet 2020 [facility] [id number], [address] [place], [address], 17:41:51 atorvastat in 80 mg tablet 2020 [facility] [id number], [address] [place] [address], [address], 17:41:58 cholecalci ferol (vitamin D3) 1,250 mcg (50,000 unit) capsule 2020 [facility] [id number], [address] [place] [address], [address], 17:42:02 metformin 1,000 mg tablet 2020 [facility] [id number], [address] [place] [address], [address], 17:42:06 carvedilol 12.5 mg tablet 2020 [facility] [id number], [address] [place], [address], 17:42:09 hydrochlor othiazide 25 mg tablet 2020 [facility] [id number], [address] [place] [address], [address], 17:41:50 losartan 100 mg tablet 2020 [facility] [id number], [address] [place] [address], [address], 17:42:05 ergocalcif grayson (vitamin D2) 1,250 mcg (50,000 unit) capsule 2020 021 [id number], [address], [id number], 22:18:39 metformin 1,000 mg tablet 2020 021 INTERFACE [facility][id number], [address], [id number], 14:10:47 Jardiance 10 mg tablet 2020 021 [facility][id number], [address], [id number], 17:39:08 Patient TargetsNo targets recorded. Patient Instructions Encounter Date Encounter Id Patient Instructions Last Modified By Organization Details Last Modified Time 07/23/2020 [id number] type 2 diabetes: care instructions Not available 07/23/2020 14:09:56 [email or web address] Not available 2020 13:35:51 10/21/2020 [id number] type 2 diabetes: care instructions Not available 10/21/2020 15:25:05 high blood pressure: care instructions Not available 10/21/2020 15:25:05 learning about high blood pressure Not available 10/21/2020 15:25:05 04/08/2021 [id number] influenza (flu) vaccine: care instructions Not available 04/08/2021 17:41:41 type 2 diabetes: care instructions Not available 04/08/2021 17:41:42 high blood pressure: care instructions Not available 04/08/2021 17:41:41 learning about high blood pressure Not available 04/08/2021 17:41:42 Reason for Referral None Reported. Results Created Date Observation Date Name Description Value Unit Range Abnormal Flag Note LastModifiedBy Organization Detail LastModifiedTime 06/23/19 21 06/24/2020 lipid panel , serum cholesterol 131 mg/dL <200 Not Available [facility] ([facility]) [address] [place] [address] [address], [place], [address], 06/24/2020 05:12:09 06/23/19 21 06/24/2020 lipid panel , serum triglyceride s 161 mg/dL <150 high Not Available [facility] ([facility]) [address] [place] [address] Dr [address], [place], [address], 06/24/2020 05:12:09 06/23/19 21 06/24/2020 lipid panel , serum HDL cholesterol 29 mg/dL >39 low Not Available [facility] ([facility]) [address] [place] [address] Dr [address], [place], [address], 06/24/2020 05:12:09 06/23/1906/24/2020 lipid panel , serum cholesterol / HDL ratio 4.52 ratio 0.00-4 .44 high Not Available [facility] ([facility]) [address] [place] [address] Dr [address], [place], [address], 06/24/2020 05:12:09 06/23/1906/24/2020 lipid panel , serum non-HDL cholesterol 102 mg/dL <130 Not Available [facility] ([facility]) [address] [place] [address] Dr [address], [place], [address], 06/24/2020 05:12:09 06/23/19 21 06/24/2020 lipid panel , serum LDL cholesterol (calculation ) 70 mg/dL <130 LDL Sravani stero l Level s Less than 100 mg/dL Optim al 100 to 129 mg/dL Near Optim al/ Above Optim al 130 to 159 mg/dL Borde rline High 160 to 189 mg/dL High 190 mg/dL and above Very High * Categ hodan as laurel cheatham by the 2004 ATPII I guide lines Not Available [facility] ([facility]) [address] [place] [address] Dr Shah, [place], [address], 06/24/2020 05:12:09 06/23/19 21 06/24/2020 lipid panel , serum LDL/HDL ratio 2.4 ratio <3.3 ___ LDL Sravani stero l Patie nt Histo ry ___ Test Date: 12/16 LDL Resul ts: 67 Units : mg/dL % Cross e: -50% ----- ----- ----- ----- ----- ----- ----- ----- ----- ----- ----- ----- ----- ----- --- Test Date: 03/21 LDL Resul ts: 72 Units : mg/dL % Cross e: +7% ----- ----- ----- ----- ----- ----- ----- ----- ----- ----- ----- ----- ----- ----- --- Test Date: 06/23 LDL Resul ts: 70 Units : mg/dL % Cross e: -2% ___ Note: [employer] iatio n recom mends using total sravani stero l and HDL numbe rs rathe r than ratio s for patie nt class ifica tion. New guide lines from AHA/A CC recom mend again st using speci fic LDL targe ts for patie nt manag ement . Rathe r a perce ntage decre ase is the carmenza ed patie nt manag ement algor ithm, betwe en 30% and 50% reduc tion. If you would like to have your patie nts Cardi ovasc ular Risk Asses sment class ifica tion (per 2013 AHA/A CC guide lines ) 10-ye ar ASCVD score , vikki e order the ASCVD Advan kvng Lipid Shanel gerber ([facility] VD). Not Available [facility] ([facility]) [address] [place] [address] Dr [address], [place], [address], 06/24/2020 05:12:09 06/23/19 21 06/24/2020 CBC w/ auto diff WBC 8.7 K/uL 3.8-11 .5 Not Available [facility] ([facility]) [address] [place] [address] Dr [address], [place], [address], 06/24/2020 05:12:10 06/23/19 21 06/24/2020 CBC w/ auto diff red blood cell count (RBC) 4.88 M/mm3 3.60-5 .30 Not Available [facility] ([facility]) [address] [place] [address] Dr [address], [place], [address], 06/24/2020 05:12:10 06/23/19 21 06/24/2020 CBC w/ auto diff hemoglobin (HGB) 14.7 gm/dL 11.5-1 5.5 Not Available [facility] ([facility]) [address] [place] [address] [address], [place], [address], 06/24/2020 05:12:10 06/23/19 21 06/24/2020 CBC w/ auto diff hematocrit (HCT) 42.0 % 35.2-4 6.4 Not Available [facility] ([facility]) [address] [place] [address] Dr Shah, [place], [address], 06/24/2020 05:12:10 06/23/19 21 06/24/2020 CBC w/ auto diff MCV 86.1 fL 79.0-9 9.0 Not Available [facility] ([facility]) [address] [place] [address] Dr [address], [place], [address], 06/24/2020 05:12:10 06/23/19 21 06/24/2020 CBC w/ auto diff MCH 30.1 pg 26.9-3 5.0 Not Available [facility] ([facility]) [address] [place] [address] Dr Shah, [place], [address], 06/24/2020 05:12:10 06/23/19 21 06/24/2020 CBC w/ auto diff MCHC 35.0 g/dL 30.4-3 4.8 high Not Available [facility] ([facility]) [address] [place] [address] Dr Shah, [place], [address], 06/24/2020 05:12:10 06/23/19 21 06/24/2020 CBC w/ auto diff RDW 40.2 fL 38.6-5 3.8 Not Available [facility] ([facility]) [address] [place] [address] Dr Shah, [place], [address], 06/24/2020 05:12:10 06/23/19 21 06/24/2020 CBC w/ auto diff platelet count 268 K/cum m 137-39 7 Not Available [facility] ([facility]) [address] [place] [address] Dr Shah, [place], [address], 06/24/2020 05:12:10 06/23/19 21 06/24/2020 CBC w/ auto diff neutrophils automated 68.8 % 41.0-7 7.0 Not Available [facility] ([facility]) [address] [place] [address] Dr Shah, [place], [address], 06/24/2020 05:12:10 06/23/19 21 06/24/2020 CBC w/ auto diff lymphocytes automated 23.2 % 14.0-4 8.0 Not Available [facility] ([facility]) [address] [place] [address] Dr Shah, [place], [address], 06/24/2020 05:12:10 06/23/19 21 06/24/2020 CBC w/ auto diff monocytes automated 6.1 % 4.0-13 .0 Not Available [facility] ([facility]) [address] [place] [address] Dr Shah, [place], [address], 06/24/2020 05:12:10 06/23/19 21 06/24/2020 CBC w/ auto diff eosinophils automated 1.0 % 0.0-8. 0 Not Available [facility] ([facility]) [address] [place] [address] Dr Shah, [place], [address], 06/24/2020 05:12:10 06/23/19 21 06/24/2020 CBC w/ auto diff basophils automated 0.3 % 0.0-1. 5 Not Available [facility] ([facility]) [address] [place] [address] Dr Shah, [place], [address], 06/24/2020 05:12:10 06/23/19 21 06/24/2020 CBC w/ auto diff immature granulocyte automated 0.6 % 0.0-1. 0 Not Available [facility] ([facility]) [address] [place] [address] Dr Shah, [place], [address], 06/24/2020 05:12:10 06/23/19 21 06/24/2020 CMP, serum or plasm a sodium 137 mEq/L 135-14 5 Not Available [facility] ([facility]) [address] [place] [address] Dr Shah, [place], [address], 06/24/2020 05:12:10 06/23/19 21 06/24/2020 CMP, serum or plasm a potassium 3.8 mEq/L 3.5-5. 3 Not Available [facility] ([facility]) [address] [place] [address] Dr Shah, [place], [address], 06/24/2020 05:12:10 06/23/1906/24/2020 CMP, serum or plasm a chloride 100 mEq/L 97-108 Not Available [facility] ([facility]) [address] [place] [address] Dr Shah, [place], [address], 06/24/2020 05:12:10 06/23/1906/24/2020 CMP, serum or plasm a CO2 22 mEq/L 22-32 Not Available [facility] ([facility]) [address] [place] [address] Dr Shah, [place], [address], 06/24/2020 05:12:10 06/23/1906/24/2020 CMP, serum or plasm a glucose 186 mg/dL 65-99 high Not Available [facility] ([facility]) [address] [place] [address] Dr Shah, [place], [address], 06/24/2020 05:12:10 06/23/1906/24/2020 CMP, serum or plasm a BUN 11 mg/dL 6-20 Not Available [facility] ([facility]) [address] [place] [address] Dr Shah, [place], [address], 06/24/2020 05:12:10 06/23/19 21 06/24/2020 CMP, serum or plasm a creatinine 0.69 mg/dL 0.50-1 .00 Not Available [facility] ([facility]) [address] [place] [address] Dr Shah, [place], [address], 06/24/2020 05:12:10 06/23/1906/24/2020 CMP, serum or plasm a calcium 10.1 mg/dL 8.6-10 .4 Not Available [facility] ([facility]) [address] [place] [address] Dr Shah, [place], [address], 06/24/2020 05:12:10 06/23/1906/24/2020 CMP, serum or plasm a protein 6.8 g/dL 6.0-8. 3 Not Available [facility] ([facility]) [address] [place] [address] Dr Shah, [place], [address], 06/24/2020 05:12:10 06/23/1906/24/2020 CMP, serum or plasm a albumin 4.3 g/dL 3.5-5. 3 Not Available [facility] ([facility]) [address] [place] [address] Dr Shah, [place], [address], 06/24/2020 05:12:10 06/23/1906/24/2020 CMP, serum or plasm a alkaline phosphatase 84 IU/L 35-121 Not Available [facility] ([facility]) [address] [place] [address] Dr Shah, [place], [address], 06/24/2020 05:12:10 06/23/1906/24/2020 CMP, serum or plasm a ALT (SGPT) 45 IU/L <5-47 Not Available [facility] ([facility]) [address] [place] [address] Dr Shah, [place], [address], 06/24/2020 05:12:10 06/23/19 21 06/24/2020 CMP, serum or plasm a AST (SGOT) 56 IU/L <5-40 high Not Available [facility] ([facility]) [address] [place] [address] Dr Shah, [place], [address], 06/24/2020 05:12:10 06/23/19 21 06/24/2020 CMP, serum or plasm a bilirubin, total 0.4 mg/dL <0.2-1 .2 Not Available [facility] [address] [place] [address] Dr Shah, [place], [address], 06/24/2020 05:12:10 06/23/19 21 06/24/2020 CMP, serum or plasm a A/G ratio 1.7 mg/dL 1.1-2. [address] [facility] ([facility]) [address] [place] [address] Dr Shah, [place], [address], 06/24/2020 05:12:10 06/23/19 21 06/24/2020 GFR, estim ated (eGFR ), serum estimated GFR (black) 127 mL/mi n/1.7 3m2 >[address] [facility] ([facility]) [address] [place] [address] Dr Shah, [place], [address], 06/24/2020 05:12:11 06/23/19 21 06/24/2020 GFR, estim ated (eGFR ), serum estimated GFR (other) 109 mL/mi n/1.7 3m2 >59 GFR Categ ories in Chron ic Kidne y Disea se (CKD) GFR Categ ory GFR (mL/m in/1. 73 sq. meter s) Inter preta tion G1 90 or great er Nano l or high* G2 60-89 Mild decre ase* G3a 45-59 Mild to moder ate decre ase G3b 30-44 Moder ate to sever e decre ase G4 15-29 Sever e decre ase G5 14 or less Kidgalo y laurenu re *In the absen ce of goyo thompson er GFR categ ory G1 or G2 fulfi ll the crite art for CKD (Gasper adams Int Suppl 2013; 3.1-1 50) The CKD-E PI calcu latio n is inten ded for use in patie nts 18 years of age and older . Decre ased calcu latio n accur acy may be seen in patie nts takin g medic ation s that affec t renal excre tion, or in those patie nts with extre mes in muscl e mass or diet. Not Available [facility] ([facility]) [facility][note 3][address] [facility] [address] Shah, [place], [address], 06/24/2020 05:12:11 06/23/19 21 06/24/2020 HbA1c (hemo globi n A1c), blood hemoglobin A1C 9.3 % <5.7 high The follo wing HbA1c range s recom tor d by the Luiseri can Diabe domonique Assoc iatio n (ADA) may be used as an aid in the diagn osis of diabe domonique melli tus. HA1c Sugge sted Diagn osis >=6.5 % Diabe tic 5.7% - 6.4% Pre-D iabet ic <5.7% Non-D iabet ic Not Available [facility] ([facility][note 3]0 [facility] [address], [place], [address], 06/24/2020 05:12:11 06/23/19 21 06/24/2020 estim ated avera ge gluco se estimated average glucose 220 mg/dL [place] ge Gluco se is calcu lated using the equat ion AG = (28.7 x HgbA1 c) - 46.7 based on the guide lines estab lishe d by the ADA. Not Available [facility] ([facility]) [facility][note 3][address] [facility] [address] Shah, [place], [address], 06/24/2020 05:12:11 10/22/19 21 10/22/2020 lipid panel , serum cholesterol 158 mg/dL <200 Not Available [facility] ([facility]) [address] [place] [address] Dr Shah, [place], [address], 10/22/2020 05:37:52 10/22/19 21 10/22/2020 lipid panel , serum triglyceride s 200 mg/dL <150 high Not Available [facility] ([facility]) [address] [place] [address] Dr Shah, [place], [address], 10/22/2020 05:37:52 10/22/19 21 10/22/2020 lipid panel , serum HDL cholesterol 27 mg/dL >39 low Not Available [facility] ([facility]) [address] [place] [address] Dr Shah, [place], [address], 10/22/2020 05:37:52 10/22/19 21 10/22/2020 lipid panel , serum cholesterol / HDL ratio 5.85 ratio 0.00-4 .44 high Not Available [facility] ([facility]) [address] [place] [address] Dr Shah, [place], [address], 10/22/2020 05:37:52 10/22/19 21 10/22/2020 lipid panel , serum non-HDL cholesterol 131 mg/dL <130 high Not Available [facility] ([facility]) [address] [place] [address] Dr Shah, [place], [address], 10/22/2020 05:37:52 10/22/1910/22/2020 lipid panel , serum LDL cholesterol (calculation ) 91 mg/dL <130 LDL Sravani stero l Level s Less than 100 mg/dL Optim al 100 to 129 mg/dL Near Optim al/ Above Optim al 130 to 159 mg/dL Borde rline High 160 to 189 mg/dL High 190 mg/dL and above Very High * Categ ories as recom tor d by the 2003 ATPII I guide lines Not Available [facility]) [address] [facility] [address] [address], [place], [address], 10/22/2020 05:37:52 10/22/19 21 10/22/2020 lipid panel , serum LDL/HDL ratio 3.4 ratio <3.3 high ___ LDL Sravani stero l Patie nt Histo ry ___ Test Date: 03/21 LDL Resul ts: 72 Units : mg/dL % Cross e: +7% ----- ----- ----- ----- ----- ----- ----- ----- ----- ----- ----- ----- ----- ----- --- Test Date: 06/23 LDL Resul ts: 70 Units : mg/dL % Tay e: -2% ----- ----- ----- ----- ----- ----- ----- ----- ----- ----- ----- ----- ----- ----- --- Test Date: 10/21 LDL Resul ts: 91 Units : mg/dL % Cross e: +30% ___ Note: [facility] [facility] [employer] iatio n recom mends using total sravani stero l and HDL numbe rs rathe r than ratio s for patie nt class ifica tion. New guide lines from AHA/A CC recom mend again st using speci fic LDL targe ts for patie nt manag ement . Rathe r a perce ntage decre ase is the carmenza ed patie nt manag ement algor ithm, betwe en 30% and 50% reduc tion. If you would like to have your patie nts Cardi ovasc ular Risk Asses sment class ifica tion (per 2013 AHA/A CC guide lines ) 10-ye ar ASCVD score , pleas e order the ASCVD Advan kvng Lipid Shanel gerber (LIPC VD). Not Available [facility] ([facility]) [facility][note 3][address] [facility] [address], [place], [address], 10/22/2020 05:37:52 10/22/19 21 10/22/2020 CBC w/ auto diff WBC 8.5 K/uL 3.8-11 .5 Not Available [facility]) [facility][note 3][address] [facility] [address], [place], [address], 10/22/2020 05:37:52 10/22/19 21 10/22/2020 CBC w/ auto diff red blood cell count (RBC) 5.07 M/mm3 3.60-5 .30 Not Available [facility] ([facility]) [address] [place] [address] Dr Shah, [place], [address], 10/22/2020 05:37:52 10/22/19 21 10/22/2020 CBC w/ auto diff hemoglobin (HGB) 15.9 gm/dL 11.5-1 5.5 high Not Available [facility] ([facility]) [address] Shah, [place], [address], 10/22/2020 05:37:52 10/22/19 21 10/22/2020 CBC w/ auto diff hematocrit (HCT) 46.2 % 35.2-4 6.4 Not Available [facility] ([facility]) [address] [place] [address] Dr Shah, [place], [address], 10/22/2020 05:37:52 10/22/19 21 10/22/2020 CBC w/ auto diff MCV 91.1 fL 79.0-9 9.0 Not Available [facility] ([facility]) [address] [place] [address] Dr Shah, [place], [address], 10/22/2020 05:37:52 10/22/19 21 10/22/2020 CBC w/ auto diff MCH 31.4 pg 26.9-3 5.0 Not Available [facility] ([facility]) [address] [place] [address] Dr Shah, [place], [address], 10/22/2020 05:37:52 10/22/19 21 10/22/2020 CBC w/ auto diff MCHC 34.4 g/dL 30.4-3 4.8 Not Available [facility] ([facility]) [address] [place] [address] Dr Shah, [place], [address], 10/22/2020 05:37:52 10/22/19 21 10/22/2020 CBC w/ auto diff RDW 46.2 fL 38.6-5 3.8 Not Available [facility] ([facility]) [address] [place] [address] Dr Shah, [place], [address], 10/22/2020 05:37:52 10/22/19 21 10/22/2020 CBC w/ auto diff platelet count 281 K/cum m 137-39 7 Not Available [facility] ([facility]) [address] [place] [address] Dr Shah, [place], [address], 10/22/2020 05:37:52 10/22/19 21 10/22/2020 CBC w/ auto diff neutrophils automated 68.9 % 41.0-7 7.0 Not Available [facility] ([facility]) [address] [place] [address] Dr Shah, [place], [address], 10/22/2020 05:37:52 10/22/19 21 10/22/2020 CBC w/ auto diff lymphocytes automated 20.4 % 14.0-4 8.0 Not Available [facility] ([facility]) [address] [place] [address] Dr Shah, [place], [address], 10/22/2020 05:37:52 10/22/19 21 10/22/2020 CBC w/ auto diff monocytes automated 7.5 % 4.0-13 .0 Not Available [facility] ([facility]) [address] [place] [address] Dr Shah, [place], [address], 10/22/2020 05:37:52 10/22/19 21 10/22/2020 CBC w/ auto diff eosinophils automated 2.2 % 0.0-8. 0 Not Available [facility] ([facility]) [address] [place] [address] Dr Shah, [place], [address], 10/22/2020 05:37:52 10/22/19 21 10/22/2020 CBC w/ auto diff basophils automated 0.5 % 0.0-1. 5 Not Available [facility] ([facility]) [address] [place] [address] Dr Shah, [place], [address], 10/22/2020 05:37:52 10/22/19 21 10/22/2020 CBC w/ auto diff immature granulocyte automated 0.5 % 0.0-1. 0 Not Available [facility] ([facility]) [address] [place] [address] Dr Shah, [place], [address], 10/22/2020 05:37:52 10/22/19 21 10/22/2020 CMP, serum or plasm a sodium 138 mEq/L 135-14 5 Not Available [facility] ([facility]) [address] [place] [address] Dr Shah, [place], [address], 10/22/2020 05:37:53 10/22/19 21 10/22/2020 CMP, serum or plasm a potassium 3.7 mEq/L 3.5-5. 3 Not Available [facility] ([facility]) [address] [place] [address] Dr Shah, [place], [address], 10/22/2020 05:37:53 10/22/19 21 10/22/2020 CMP, serum or plasm a chloride 100 mEq/L 97-108 Not Available [facility] ([facility]) [address] [place] [address] Dr Shah, [place], [address], 10/22/2020 05:37:53 10/22/19 21 10/22/2020 CMP, serum or plasm a CO2 24 mEq/L 22-32 Not Available [facility] ([facility]) [address] [place] [address] Dr Shah, [place], [address], 10/22/2020 05:37:53 10/22/19 21 10/22/2020 CMP, serum or plasm a glucose 139 mg/dL 65-99 high Not Available [facility] ([facility]) [address] [place] [address] Dr Shah, [place], [address], 10/22/2020 05:37:53 10/22/19 21 10/22/2020 CMP, serum or plasm a BUN 9 mg/dL 6-20 Not Available [facility] ([facility]) [address] [place] [address] Dr Shah, [place], [address], 10/22/2020 05:37:53 10/22/19 21 10/22/2020 CMP, serum or plasm a creatinine 0.76 mg/dL 0.50-1 .00 Not Available [facility] ([facility]) [address] [place] [address] Dr Shah, [place], [address], 10/22/2020 05:37:53 10/22/19 21 10/22/2020 CMP, serum or plasm a calcium 9.5 mg/dL 8.6-10 .4 Not Available [facility] ([facility]) [address] [place] [address] Dr Shah, [place], [address], 10/22/2020 05:37:53 10/22/19 21 10/22/2020 CMP, serum or plasm a protein 6.9 g/dL 6.0-8. 3 Not Available [facility] ([facility]) [address] [place] [address] Dr Shah, [place], [address], 10/22/2020 05:37:53 10/22/19 21 10/22/2020 CMP, serum or plasm a albumin 4.6 g/dL 3.5-5. 3 Not Available [facility] ([facility]) [address] [place] [address] Dr Shah, [place], [address], 10/22/2020 05:37:53 10/22/19 21 10/22/2020 CMP, serum or plasm a alkaline phosphatase 90 IU/L 35-121 Not Available [facility] ([facility]) [address] [place] [address] Dr Shah, [place], [address], 10/22/2020 05:37:53 10/22/19 21 10/22/2020 CMP, serum or plasm a ALT (SGPT) 43 IU/L <5-47 Not Available [facility] ([facility]) [address] [place] [address] Dr Shah, [place], [address], 10/22/2020 05:37:53 10/22/19 21 10/22/2020 CMP, serum or plasm a AST (SGOT) 54 IU/L <5-40 high Not Available [facility] ([facility]) [address] [place] [address] Dr Shah, [place], [address], 10/22/2020 05:37:53 10/22/19 21 10/22/2020 CMP, serum or plasm a bilirubin, total 0.3 mg/dL <0.2-1 .2 Not Available [facility] ([facility]) [address] [place] [address] Dr Shah, [place], [address], 10/22/2020 05:37:53 10/22/19 21 10/22/2020 CMP, serum or plasm a A/G ratio 2.0 mg/dL 1.1-2. [address] [facility] ([facility]) [address] [place] [address] Dr Shah, [place], [address], 10/22/2020 05:37:53 10/22/19 21 10/22/2020 CMP, serum or plasm a estimated GFR (black) 114 mL/mi n/1.7 3m2 >59 Not Available [facility] ([facility]) [address] [place] [address] Dr Shah, [place], [address], 10/22/2020 05:37:53 10/22/19 21 10/22/2020 CMP, serum or plasm a estimated GFR (other) 98 mL/mi n/1.7 3m2 >59 GFR Categ ories in Chron ic Kidne y Disea se (CKD) GFR Categ ory GFR (mL/m in/1. 73 sq. meter s) Inter preta tion G1 90 or great er Nano l or high* G2 60-89 Mild decre ase* G3a 45-59 Mild to moder ate decre ase G3b 30-44 Moder ate to sever e decre ase G4 15-29 Sever e decre ase G5 14 or less Solo aguilarmarisabel re *In the absen ce of mickygalo [place] goyo er GFR categ ory G1 or G2 fulfi ll the crite art for CKD (Kidn ey Int Suppl 2013; 3.1-1 50) The CKD-E PI calcu latio n is inten ded for use in patie nts 18 years of age and older . Decre ased calcu latio n accur acy may be seen in patie nts takin g medic ation s that affec t renal excre tion, or in those patie nts with extre mes in muscl e mass or diet. Not Available [facility] ([facility]) [address], [place], [address], 10/22/2020 05:37:53 10/22/19 21 10/22/2020 HbA1c (hemo globi n A1c), blood hemoglobin A1C 7.2 % <5.7 high The follo wing HbA1c range s recom tor d by the Romero beckwith Diabe domonique Assoc iatio n (ADA) may be used as an aid in the diagn osis of diabe domonique melli tus. HA1c Sugge sted Diagn osis >=6.5 % Diabe tic 5.7% - 6.4% Pre-D iabet ic <5.7% Non-D iabet ic Not Available [facility] ([facility]) [address], [place], [address], 10/22/2020 05:37:53 10/22/1910/22/2020 HbA1c (hemo globi n A1c), blood estimated average glucose 160 mg/dL [place] [facility] Gluco se is calcu lated using the equat ion AG = (28.7 x HgbA1 c) - 46.7 based on the guide lines adrian hammond d by the ADA. Not Available [facility] ([facility]) [address] [place] [address] Dr Shah, [place], [address], 10/22/2020 05:37:53 10/22/1910/22/2020 vitam in D, 25-hy droxy , total , serum vitamin D 25-hydroxy 23.4 NG/mL 30.0-1 00.0 low Inter preta tion of Vitam in D 25 OH: < 20 ng/mL - Defic iency 20 - 29 ng/mL - Insuf ficie ncy 30 - 100 ng/mL - Suffi cienc y > 100 ng/mL - Super -ther apeut ic- toxic ity may occur above this level . Clini bhanu corre latio n requi red. Not Available [facility] ([facility]) [address] [place] [address] Dr Shah, [place], [address], 10/22/2020 05:37:54 07/09/19 22 07/10/2021 CBC WITH PLATE LET AND DIFFE RENTI AL WBC 12.8 K/uL 3.8-11 .5 high Not Available [facility] ([facility]) [address] [place] [address] Dr Shah, [place], [address], 07/10/2021 02:52:02 07/09/19 22 07/10/2021 CBC WITH PLATE LET AND DIFFE RENTI AL red blood cell count (RBC) 3.94 M/mm3 3.60-5 .30 Not Available [facility] ([facility]) [address] [place] [address] Dr Shah, [place], [address], 07/10/2021 02:52:02 07/09/19 22 07/10/2021 CBC WITH PLATE LET AND DIFFE RENTI AL hemoglobin (HGB) 12.4 gm/dL 11.5-1 5.5 Not Available [facility] ([facility]) [address] [place] [address] Dr Shah, [place], [address], 07/10/2021 02:52:02 07/09/19 22 07/10/2021 CBC WITH PLATE LET AND DIFFE RENTI AL hematocrit (HCT) 35.9 % 35.2-4 6.4 Not Available [facility] ([facility]) [address] [place] [address] Dr Shah, [place], [address], 07/10/2021 02:52:02 07/09/19 22 07/10/2021 CBC WITH PLATE LET AND DIFFE RENTI AL MCV 91.1 fL 79.0-9 9.0 Not Available [facility] ([facility]) [address] [place] [address] Dr Shah, [place], [address], 07/10/2021 02:52:02 07/09/19 22 07/10/2021 CBC WITH PLATE LET AND DIFFE RENTI AL MCH 31.5 pg 26.9-3 5.0 Not Available [facility] ([facility]) [address] [place] [address] Dr Shah, [place], [address], 07/10/2021 02:52:02 07/09/19 22 07/10/2021 CBC WITH PLATE LET AND DIFFE RENTI AL MCHC 34.5 g/dL 30.4-3 4.8 Not Available [facility] ([facility]) [address] [place] [address] Dr Shah, [place], [address], 07/10/2021 02:52:02 07/09/19 22 07/10/2021 CBC WITH PLATE LET AND DIFFE RENTI AL RDW 44.5 fL 38.6-5 3.8 Not Available [facility] ([facility]) [address] [place] [address] Dr Shah, [place], [address], 07/10/2021 02:52:02 07/09/19 22 07/10/2021 CBC WITH PLATE LET AND DIFFE RENTI AL platelet count 324 K/cum m 137-39 7 Not Available [facility] ([facility]) [address] [place] [address] Dr Shah, [place], [address], 07/10/2021 02:52:02 07/09/19 22 07/10/2021 CBC WITH PLATE LET AND DIFFE RENTI AL neutrophils automated 75.6 % 41.0-7 7.0 Not Available [facility] ([facility]) [address] [place] [address] Dr Shah, [place], [address], 07/10/2021 02:52:02 07/09/19 22 07/10/2021 CBC WITH PLATE LET AND DIFFE RENTI AL lymphocytes automated 14.7 % 14.0-4 8.0 Not Available [facility] ([facility]) [address] [place] [address] Dr Shah, [place], [address], 07/10/2021 02:52:02 07/09/19 22 07/10/2021 CBC WITH PLATE LET AND DIFFE RENTI AL monocytes automated 6.6 % 4.0-13 .0 Not Available [facility] ([facility]) [address] [place] [address] Dr Shah, [place], [address], 07/10/2021 02:52:02 07/09/19 22 07/10/2021 CBC WITH PLATE LET AND DIFFE RENTI AL eosinophils automated 2.2 % 0.0-8. 0 Not Available [facility] ([facility]) [address] [place] [address] Dr Shah, [place], [address], 07/10/2021 02:52:02 07/09/19 22 07/10/2021 CBC WITH PLATE LET AND DIFFE RENTI AL basophils automated 0.4 % 0.0-1. 5 Not Available [facility] ([facility]) [address] [place] [address] Dr Shah, [place], [address], 07/10/2021 02:52:02 01/20/07/10/2021 CBC WITH PLATE LET AND DIFFE RENTI AL immature granulocyte automated 0.5 % 0.0-1. 0 Not Available [facility] ([facility]) [address] [place] [address] Dr Shah, [place], [address], 07/10/2021 02:52:02 07/09/19 22 07/10/2021 COMPR EHENS EMMY METAB OLIC PANEL (CMP) sodium 139 mEq/L 135-14 5 Not Available [facility] ([facility]) [address] [place] [address] Dr Shah, [place], [address], 07/10/2021 02:52:02 07/09/19 22 07/10/2021 COMPR EHENS EMMY METAB OLIC PANEL (CMP) potassium 3.7 mEq/L 3.5-5. 3 Not Available [facility] ([facility]) [address] [place] [address] Dr Shah, [place], [address], 07/10/2021 02:52:02 07/09/19 22 07/10/2021 COMPR EHENS EMMY METAB OLIC PANEL (CMP) chloride 101 mEq/L 97-108 Not Available [facility] ([facility]) [address] [place] [address] Dr Shah, [place], [address], 07/10/2021 02:52:02 07/09/19 22 07/10/2021 COMPR EHENS EMMY METAB OLIC PANEL (CMP) CO2 24 mEq/L 22-32 Not Available [facility] ([facility]) [address] [place] [address] Dr Shah, [place], [address], 07/10/2021 02:52:02 07/09/19 22 07/10/2021 COMPR EHENS EMMY METAB OLIC PANEL (CMP) glucose 54 mg/dL 65-99 low Not Available [facility] ([facility]) [address] [place] [address] Dr Shah, [place], [address], 07/10/2021 02:52:02 07/09/19 22 07/10/2021 COMPR EHENS EMMY METAB OLIC PANEL (CMP) BUN 15 mg/dL 6-20 Not Available [facility] ([facility]) [address] [place] [address] Dr Shah, [place], [address], 07/10/2021 02:52:02 07/09/19 22 07/10/2021 COMPR EHENS EMMY METAB OLIC PANEL (CMP) creatinine 0.82 mg/dL 0.50-1 .00 Not Available [facility] ([facility]) [address] [place] [address] Dr Shah, [place], [address], 07/10/2021 02:52:02 07/09/19 22 07/10/2021 COMPR EHENS EMMY METAB OLIC PANEL (CMP) calcium 10.4 mg/dL 8.6-10 .4 Not Available [facility] ([facility]) [address] [place] [address] Dr Shah, [place], [address], 07/10/2021 02:52:02 07/09/19 22 07/10/2021 COMPR EHENS EMMY METAB OLIC PANEL (CMP) protein 7.0 g/dL 6.0-8. 3 Not Available [facility] ([facility]) [address] [place] [address] Dr Shah, [place], [address], 07/10/2021 02:52:02 07/09/19 22 07/10/2021 COMPR EHENS EMMY METAB OLIC PANEL (CMP) albumin 4.7 g/dL 3.5-5. 3 Not Available [facility] ([facility]) [address] [place] [address] Dr Shah, [place], [address], 07/10/2021 02:52:02 07/09/19 22 07/10/2021 COMPR EHENS EMMY METAB OLIC PANEL (CMP) alkaline phosphatase 87 IU/L 35-121 Not Available [facility] ([facility]) [address] [place] [address] Dr Shah, [place], [address], 07/10/2021 02:52:02 07/09/19 22 07/10/2021 COMPR EHENS EMMY METAB OLIC PANEL (CMP) ALT (SGPT) 40 IU/L <5-47 Not Available [facility] ([facility]) [address] [place] [address] Dr Shah, [place], [address], 07/10/2021 02:52:02 07/09/19 22 07/10/2021 COMPR EHENS EMMY METAB OLIC PANEL (CMP) AST (SGOT) 26 IU/L <5-40 Not Available [facility] ([facility]) [address] [place] [address] Dr Shah, [place], [address], 07/10/2021 02:52:02 07/09/19 22 07/10/2021 COMPR EHENS EMMY METAB OLIC PANEL (CMP) bilirubin, total 0.3 mg/dL <0.2-1 .2 Not Available [facility] ([facility]) [address] [place] [address] Dr Shah, [place], [address], 07/10/2021 02:52:02 07/09/19 22 07/10/2021 COMPR EHENS EMMY METAB OLIC PANEL (CMP) A/G ratio 2.0 mg/dL 1.1-2. 5 Not Available [facility] ([facility]) [address] [place] [address] Dr Shah, [place], [address], 07/10/2021 02:52:02 07/09/19 22 07/10/2021 COMPR EHENS EMMY METAB OLIC PANEL (CMP) estimated GFR (black) 103 mL/mi n/1.7 3m2 >59 Not Available [facility] ([facility]) [address] [place] [address] Dr Shah, [place], [address], 07/10/2021 02:52:02 07/09/19 22 07/10/2021 COMPR EHENS EMMY METAB OLIC PANEL (CMP) estimated GFR (other) 89 mL/mi n/1.7 3m2 >59 GFR Categ ories in Chron ic Kidne y Disea se (CKD) GFR Categ ory GFR (mL/m in/1. 73 sq. meter s) Inter preta tion G1 90 or great er Nano l or high* G2 60-89 Mild decre ase* G3a 45-59 Mild to moder ate decre ase G3b 30-44 Moder ate to sever e decre ase G4 15-29 Sever e decre ase G5 14 or less Kidne y failu re *In the absen ce of kidne y damag e, neith er GFR categ ory G1 or G2 fulfi ll the crite art for CKD (Kidn ey Int Suppl 2013; 3.1-1 50) The CKD-E PI calcu latio n is inten ded for use in patie nts 18 years of age and older . Decre ased calcu latio n accur acy may be seen in patie nts takin g medic ation s that affec t renal excre tion, or in those patie nts with extre mes in muscl e mass or diet. Not Available [facility] ([facility]) [address] [facility] [facility] [address], [place], [address], 07/10/2021 02:52:02 07/09/19 22 07/10/2021 TSH TSH 6.81 mU/L 0.27-4 .20 high Not Available [facility] ([facility]) [address] [address] Shah, [place], [address], 07/10/2021 02:52:03 07/09/19 22 07/10/2021 LITHI UM lithium 2.00 mmol/ L 0.60-1 .20 critical high AL ERT VALUE Resul ts were repea lauren and confi rmed. Not Available [facility] ([facility]) [address], [place], [address], 07/10/2021 02:52:03 07/09/19 22 07/13/2021 HEMOG LOBIN A1C hemoglobin A1C 5.2 % <5.7 The follo wing HbA1c range s recom tor d by the Rom[employer] beck[employer] Diabe domonique Assoc iatio n (ADA) may be used as an aid in the diagn osis of diabe domonique melli tus. HA1c Sugge yandel Diagn osis >=6.5 % Diabe tic 5.7% - 6.4% Pre-D iabet ic <5.7% Non-D iabet ic Not Available [facility] ([facility]) [address] [place] [address] Dr Shah, [place], [address], 07/13/2021 23:01:35 07/09/19 22 07/13/2021 HEMOG LOBIN A1C estimated average glucose 103 mg/dL [place] [facility] Gluco se is calcu lated using the equat ion AG = (28.7 x HgbA1 c) - 46.7 based on the guide lines estab manish [place] by the ADA. Not Available [facility] ([facility]) [address] [place] [address] Dr Shah, [place], [address], 07/13/2021 23:01:35 07/15/19 22 07/16/2021 LITHI UM lithium 0.20 mmol/ L 0.60-1 .20 low Not Available [facility] ([facility]) [address] [place] [address] Dr Shah, [place], [address], 07/16/2021 04:23:00 Result Notes None recorded. Problems Name Problem SNOMED Code Status Onset Date Resolution Date Notes Provider Name and Address Organization Details Recorded Time Bursitis of shoulder 766752605 Active 2019 Not Available [facility] 06:27:26 Candidiasi s of vagina 07150159 Active 2019 Not Available [facility] 07/14/202 1 06:27:25 Vitamin deficiency 51750195 Active Not Available [facility] 1 06:27:26 Acute left otitis media 843675183 Active Not Available [facility] 1 06:27:25 Acute right otitis media 990769406 Active Not Available [facility] 1 06:27:26 Recurrent acute otitis media 988206319 Active Not Available [facility] 1 06:27:26 Essential hypertensi on 16243431 Active Not Available [facility] 1 06:27:25 Insomnia 208535726 Active Not Available [facility] 1 06:27:26 Breast lump 29361883 Active Not Available [facility] 1 06:27:25 Pain of breast 62403449 Active Not Available [facility] 1 06:27:25 Kidney stone 41435109 Active 2017 Not Available [facility] 1 06:27:25 Pain of toe of left foot [id number] 08 Active 2017 Not Available [facility] 1 06:27:25 Tobacco dependence syndrome 03625130 Active 2018 Not Available [facility] 1 06:27:26 Ankylosing spondyliti s 0077747 Active 2018 Not Available [facility] 1 06:27:26 Uncontroll ed type 2 diabetes mellitus 556764542 Active 2018 Not Available [facility] 1 06:27:25 Abnormal vaginal bleeding 257264845 Active 2018 Not Available [facility] 1 06:27:26 Problem Notes None recorded. Procedures Surgical History Date Name Laterality Status Provider Name and Address Organization Details Recorded Time 06/20/19 20 Other completed Chichi Yanes DNP, DEE [address], [place], [address], [place] - [facility] 02/11/2020 15:33:34 12/12/19 16 Date of Last Pap Smear completed Chichi Yanes DNP, FNP-BC [address] [place], [address], [employer] [facility] 12/26/2015 14:30:14 12/12/19 16 Most Recent Mammogram completed Chichi Yanes DNP FINANCE VICE PRESIDENT-BC [address] [place], [address], [employer] [facility] 12/26/2015 14:30:17 12/12/19 16 completed Chichi Yanes DNP FINANCE VICE PRESIDENT-BC [address] [place], [place], [address] [place] [address], [employer] [facility] 04/01/2016 17:05:55 Cholecystectomy completed Chichi Yanes DNP FINANCE VICE PRESIDENT-BC [address] [place], [place], [address] [place] [address], [employer] [facility] 01/15/2015 13:36:45 Orthopedic Surgery completed Nestor Yanes DNP FINANCE VICE PRESIDENT-BC [address] [place], [place], [address] [place] [address], [facility] 01/15/2015 13:36:45 Tubal Ligation completed Chichi Yanes DNP FINANCE VICE PRESIDENT-BC [address] [place], [address] [place] [address], [facility] 01/15/2015 13:36:45 Imaging Results None recorded. Procedure Notes None recorded. Medical Equipment None Reported. Allergies Allergen ID Allergen Name Allergen Category Reaction Reaction Severity Criticality Documentation Date Start Date Code Code System Note Provider Name and Address Organization Details Recorded Time 281 Topamax medicatio n other moderate Not available 01/15/2015 39087 3 RxNorm Tremo rs Chichi Yanes DNP FINANCE VICE PRESIDENT-BC [address] [place], [address], [facility] 5 13:34:41 Medications Name Sig Start Date Stop Date Status Note LastModified by Organization Details LastModified Time Prescriptio n - Renewal active Not Available Not Available Not Available losartan 50 mg tablet Take 1 tablet every day by oral route as directed for 30 days. 08/11 completed Not Available Not Available Not Available fluoxetine 40 mg capsule TAKE 1 CAPSULE BY MOUTH EVERY DAY active Not Available Not Available No t Available cyclobenzap rine 10 mg tablet 01/29 completed Not Available Not Available Not Available amoxicillin 500 mg capsule Take 1 capsule 3 times a day by oral route with meals for 10 days. 12/25 completed Not Available Not Available Not Available atorvastati n 40 mg tablet Take 1 tablet every day by oral route at bedtime for 90 days. 12/09 completed Not Available Not Available Not Available metformin 500 mg tablet TAKE 1 AND 1/2 TABLETS BY MOUTH TWICE DAILY DIRECTED 07/23 completed Not Available Not Available Not Available atorvastati n 80 mg tablet TAKE ONE TABLET BY MOUTH EVERY NIGHT AT BEDTIME active Not Available Not Available No t Available carvedilol 25 mg tablet TAKE 1 TABLET BY MOUTH TWICE DAILY DIRECTED 07/09 completed Not Available Not Available Not Available prednisone 10 mg tablet Take 1 tablet twice a day by oral route with meals for 5 days. 03/20 completed Not Available Not Available Not Available atorvastati n 20 mg tablet Take 1 tablet every day by oral route at bedtime for 90 days. 03/19 completed Not Available Not Available Not Available carvedilol 12.5 mg tablet Take 1 tablet twice a day by oral route as needed for 90 days. 2021 active Not Available Not Available Not Avai lable trazodone 50 mg tablet Take 1 tablet as needed by oral route at bedtime for 30 days. 07/12 completed Not Available Not Available Not Available azithromyci n 250 mg tablet TAKE 2 TABLETS (500 MG) BY ORAL ROUTE ONCE DAILY FOR 1 DAY THEN 1 TABLET (250 MG) BY ORAL ROUTE ONCE DAILY FOR 4 DAYS 08/11 completed Not Available Not Available Not Available fluconazole 150 mg tablet Take 1 tablet every day by oral route as directed for 1 day. 06/22 completed Not Available Not Available Not Available hydrocodone 5 mg-acetamin ophen 325 mg tablet 01/29 completed Not Available Not Available Not Available Maricel Steele 28 gauge 06/22 completed Not Available Not Available Not Available clonazepam 0.5 mg tablet TAKE 1/2 TABLET BY MOUTH TWICE DAILY 07/09 completed Not Available Not Available Not Available gabapentin 400 mg capsule Take 1 capsule twice a day by oral route as directed for 90 days. active Not Available Not Available No t Available Pyridium 100 mg tablet Take 1 tablet 3 times a day by oral route as directed for 3 days. 07/12 completed Not Available Not Available Not Available metronidazo le 500 mg tablet Take 1 tablet every 12 hours by oral route as directed for 7 days. 12/09 completed Not Available Not Available Not Available amlodipine 5 mg tablet Take 1 tablet every day by oral route as directed for 30 days. 12/09 completed Not Available Not Available Not Available sulfamethox azole 800 mg-trimetho prim 160 mg tablet Take 1 tablet every 12 hours by oral route as directed for 10 days. 08/11 completed Not Available Not Available Not Available tramadol 50 mg tablet Take 1 tablet 4 times a day by oral route as needed for 7 days. 08/10 completed Not Available Not Available Not Available quetiapine 100 mg tablet TAKE 1 TABLET BY MOUTH AT BEDTIME active Not Available Not Available No t Available amoxicillin 500 mg tablet Take 1 tablet every 12 hours by oral route as directed for 10 days. 03/19 completed Not Available Not Available Not Available baclofen 20 mg tablet TAKE 1 TABLET BY MOUTH THREE TIMES DAILY active Not Available Not Available No t Available levothyroxi ne 75 mcg tablet TAKE ONE TABLET BY MOUTH DAILY BEFORE A MEAL active Not Available Not Available No t Available alprazolam 0.5 mg tablet Take 1 tablet 3 times a day by oral route as needed for 30 days. 08/15 completed Not Available Not Available Not Available propranolol 10 mg tablet TAKE 1 TABLET BY MOUTH THREE TIMES DAILY 07/09 completed Not Available Not Available Not Available tamsulosin 0.4 mg capsule 08/11 completed Not Available Not Available Not Available trazodone 100 mg tablet TAKE 2 TABLETS BY MOUTH EVERY NIGHT active Not Available Not Available No t Available baclofen 10 mg tablet 03/20 completed Not Available Not Available Not Available lithium carbonate 300 mg capsule active Not Available Not Available Not Available benzonatate 100 mg capsule 08/11 completed Not Available Not Available Not Available hydrocodone 7.5 mg-acetamin ophen 325 mg tablet Take 1 tablet every 8 hours by oral route as directed for 5 days. 01/29 completed Not Available Not Available Not Available cephalexin 500 mg capsule Take 1 capsule twice a day by oral route as directed for 7 days. 03/19 completed Not Available Not Available Not Available trazodone 150 mg tablet TAKE 1 TABLET BY MOUTH EVERY NIGHT AT BEDTIME active Not Available Not Available No t Available metformin 1,000 mg tablet Take 1 tablet twice a day by oral route as directed for 90 days. 2021 active Not Available Not Available Not Avai lable nystatin 100,000 unit/gram topical cream APPLY EXTERNALL Y TO THE AFFECTED AREA TWICE DAILY 08/10 completed Not Available Not Available Not Available metoprolol tartrate 50 mg tablet TAKE 1 TABLET TWICE A DAY DIRECTED 12/09 completed Not Available Not Available Not Available fluoxetine 10 mg capsule TAKE 1 CAPSULE DAILY DIRECTED 12/09 completed Not Available Not Available Not Available triamterene 37.5 mg-hydrochl orothiazide 25 mg tablet 1 tablet every day by oral route. 04/27 completed Not Available Not Available Not Available aspirin 81 mg chewable tablet CHEW ONE TABLET BY MOUTH DAILY DIRECTED active Not Available Not Available No t Available hydrochloro thiazide 25 mg tablet TAKE ONE TABLET BY MOUTH DAILY active Not Available Not Available No t Available norethindro ne acetate 1 mg-ethinyl estradiol 20 mcg tablet Take 1 tablet every day by oral route as directed for 21 days. 01/29 completed Not Available Not Available Not Available gabapentin 100 mg capsule 03/20 completed Not Available Not Available Not Available triamterene 75 mg-hydrochl orothiazide 50 mg tablet TAKE 1 TABLET BY MOUTH EVERY DAY IN THE MORNING 08/15 completed Not Available Not Available Not Available ergocalcife rol (vitamin D2) 1,250 mcg (50,000 unit) capsule TAKE 1 CAPSULE BY MOUTH EVERY WEEK DIRECTED active Not Available Not Available No t Available methylpredn isolone 4 mg tablets in a dose pack 01/29 completed Not Available Not Available Not Available propranolol 20 mg tablet TAKE 1 TABLET BY MOUTH THREE TIMES DAILY 07/09 completed Not Available Not Available Not Available bromphenira mine-pseudo ephedrine-D M 2 mg-30 mg-10 mg/5 mL oral syrup Take 10 mL every 8 hours by oral route as needed for 5 days. 03/19 completed Not Available Not Available Not Available cefdinir 300 mg capsule Take 1 capsule every 12 hours by oral route with meals for 10 days. 01/29 completed Not Available Not Available Not Available losartan 100 mg tablet TAKE 1 TABLET BY MOUTH EVERY DAY DIRECTED 2021 active Not Available Not Available Not Avai lable fluoxetine 20 mg capsule TAKE 3 CAPSULES BY MOUTH EVERY DAY active Not Available Not Available No t Available fluticasone propionate 50 mcg/actuati on nasal spray,suspe nsion [place] 1 spray every day by intranasa l route as needed for 30 days. 2020 active Not Available Not Available Not Avai lable clotrimazol e 1 % topical cream APPLY EXTERNALL Y TO THE AFFECTED AND SURROUNDI NG AREAS TWICE DAILY IN THE MORNING AND IN THE EVENING 2020 active Not Available Not Available Not Avai lable sertraline 50 mg tablet Take 1 tablet every day by oral route as directed for 30 days. 08/11 completed Not Available Not Available Not Available naproxen 500 mg tablet 03/19 completed Not Available Not Available Not Available amoxicillin 875 mg-potassiu m clavulanate 125 mg tablet Take 1 tablet every 12 hours by oral route as directed for 10 days. 12/09 completed Not Available Not Available Not Available amoxicillin 500 mg-potassiu m clavulanate 125 mg tablet 12/09 completed Not Available Not Available Not Available hydroxyzine pamoate 25 mg capsule TAKE 1 CAPSULE BY MOUTH AT BEDTIME NEEDED 04/08 completed Not Available Not Available Not Available neomycin-po lymyxin-hyd rocort 3.5 mg-10,000 unit/mL-1 % ear drops,susp INSTILL 4 DROPS INTO AFFECTED EAR(S) BY OTIC ROUTE 3 TIMES PER DAY 01/29 completed Not Available Not Available Not Available Ciprodex 0.3 %-0.1 % ear drops,suspe nsion INSTILL 4 DROPS INTO AFFECTED EAR(S) BY OTIC ROUTE 2 TIMES PER DAY FOR 7 DAYS 12/25 completed Not Available Not Available Not Available bupropion HCl XL 150 mg 24 hr tablet, extended release active Not Available Not Available Not Available metoprolol tartrate 25 mg tablet Take 1 tablet twice a day by oral route as directed for 30 days. 03/19 completed Not Available Not Available Not Available FreeStyle Lite Strips Take 1 strip 4 times a day by miscell. route as directed for 30 days. 06/22 completed Not Available Not Available Not Available cholecalcif grayson (vitamin D3) 1,250 mcg (50,000 unit) capsule TAKE ONE CAPSULE BY MOUTH ONCE WEEKLY active Not Available Not Available No t Available fluoxetine 60 mg tablet TAKE 1 TABLET BY MOUTH DAILY active Not Available Not Available No t Available Chantix Continuing Month Box 1 mg tablet Take 1 tablet every day by oral route as directed for 90 days. 12/09 completed Not Available Not Available Not Available Chantix Starting Month Box 0.5 mg (11)-1 mg (42) tablets in dose pack Take 1 tablet every day by oral route as directed for 30 days. 01/29 completed Not Available Not Available Not Available Jardiance 10 mg tablet TAKE 1 TABLET BY MOUTH EVERY DAY DIRECTED 07/09 completed Not Available Not Available Not Available FreeStyle Marlene 14 Day [place] USE DIRECTED active Not Available Not Available No t Available FreeStyle Marlene 14 Day Sensor kit USE DIRECTED 2021 active Not Available Not Available Not Avai lable Vitals Date Recorded Body height Heart rate Respiratory rate Body temperature Body mass index (BMI) Body weight Oxygen saturation Oxygen saturation in Arterial blood by Pulse oximetry Systolic And Diastolic Provider Name and Address Organization Details Last Updated DateTime 2 160.02 cm 88 /min 20 /min 98.8 [degF] 31.1 kg/m2 75043.1 g 98 % 98 % 109/62 mm[Hg] Tila tang [facility] 2 16:35:12 Date Recorded Body height Body mass index (BMI) Body weight Respiratory rate Heart rate Body temperature Oxygen saturation Oxygen saturation in Arterial blood by Pulse oximetry Systolic And Diastolic Provider Name and Address Organization Details Last Updated DateTime 1 160.02 cm 39 kg/m2 00320.7 6 g 16 /min 75 /min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 swelling. Patient states that she did not take pain meds after her fall. Chichi Yanes DNP, [facility] [address] [place], [address], [employer] [facility] 07/20/2021 19:33:15 07/15/2021 text/html Patient here for repeat lithium blood work. She has been off her lithium for 6 days after her critical lithium level of 2.00 on 07.09.21. Chichi Yanes DNP, [employer] [address] [facility], [place], [address], [facility] 07/15/2021 21:32:16 OBGyn Episode No OBEpisode recorded.
--- OUTSIDE RECORDS SUMMARY | 2024-12-24 11:25 | XMS_ITS | Patient Health Record ---
Author Organization [facility] Physician Dixie rock Billing Info Address [address] [place] [address] Care Team Providers Care Experimental Mechanic Name Role Phone MOE LOW Primary Care Provider U navailable Allergies Allergen (clinical drug ingredient) Drug/Non Drug Allergy documented on EMR Reaction Allergy Type Onset Date Status topiramate Topamax Unknown Drug Allergy Active Reason For Referral No Information Medications Medication SIG (Take, Route, Frequency, Duration) Notes Start Date End Date Status Cyclobenzaprine HCl 10 MG 1 tablet as ne eded Orally Three times a day Unknown Chantix 1 MG 1 tablet Orally Twic e a day for 30 day(s) Unknown Atorvastatin Calcium 20 MG 1 tablet Oral ly Once a day for 30 day(s) Unknown Metformin HCl 500 MG 1 tablet with meals Orally Twice a day Unknown Losartan Potassium 100 MG 1 tablet Orall y Once a day 08/25/2016 Unknown Fluoxetine HCl 10 MG 1 capsule Orally On ce a day for 30 day(s) Unknown EPINEPHrine 0.3 MG/0.3ML INJECT INTRAMUS CULARLY DIRECTED WITH BEE AND WASP STINGS Injection as needed for allergic reactions Unknown Amlodipine Besylate 5 MG 1 tablet Orally Once a day for 90 day(s) 08/31/2018 Unknown Naproxen 500 MG 1 tablet with food o r milk as needed Orally every 12 hrs Unknown Metoprolol Tartrate 50 mg 1 tablet Orall y Twice a day Unknown MethylPREDNISolone ([place]) Unknown Social History Tobacco Use: Social History Observation Description Date Details (start date - stop date) Current Smoker NA - NA Tobacco Status: Question Answer Notes Patient is a current every day smoker appro x 3 cig per day Problems Problem Type SNOMED Code ICD Code Onset Dates Problem Status W/U Status Risk Notes Problem 717100887 Tobacco use (Z72.0) Active confirmed Problem 90010218 Heart palpitatio ns (R00.2) Active confirmed Problem Chest pain (R07.9) Active confirmed Problem 31627140 Hypertension, essential (I10) Active confirmed Problem 13085318 Hyperlipidemia, unspecified hyperlipidemia type (E78.5) Active confirmed Plan Of Treatment No Information Insurance Providers Payer Name Payer Address Payer Phone Subscriber Number Group Number Insured Name Patient Relationship to Insured Coverage Start Date Coverage End Date [employer] P[employer]WORK P [facility] [address] [facility] [place] [id number] Breana Garcia Self - patient is the insured 9 9 Medical (General) History Medical History History ICD Code hypertension Type 2 diabetes mellitus wit hout complication, without long-term current use of insulin E11.9 Hyperlipidemia, unspecified hyperlipidem ia type E78.5 Surgical History Surgery Date(Month/Year) cholecystectomy knee arthroscopy-Left tubal ligation Hospitalization History Reason Date(Month/Year) Shortness of breath 03/2016
[2024-12-24 12:15] VITALS: BP 109/73; PULSE 118; RESP 18; O2SAT 100; BMI 34.7
--- OUTSIDE RECORDS SUMMARY | 2024-12-24 12:25 | XMS_ITS | CCD ---
Author Name Marian Solis NP Address [address] [facility] [address] [place] [address] Phone Organization [facility] Phone Care Team Providers Care Graphic Engineer Name Role Phone Unavailable Primary Care Provider Unavailabl e Unavailable Chronic Care Management Unavaila ble Summary Purpose DataExchange Insurance Providers Payer name Policy type / Coverage type Covered green party ID Effective Begin Date Effective End Date [facility] [id number] Unknown Unknown Family history Father Diagnosis Age [...] cessation counseling) 02/03/[address]: [id number] Never drinks alco hol 02/03/2024 Illegal/Recreational drug history Unknown *Has never used illegal/recreational drugs 02/03/2024 Allergies, Adverse Reactions, Alerts Substance Reaction Codes Entered Date Inactivated Date Status * Food Allergy _ Unknown 02/03/2024 No Inactive Date Active Topamax RxNorm: 856185 02/03/2024 No Inactive Da te Active Seasonal [...] 21 mg/24 hr daily transdermal patch RxNorm: 207742 Apply 1 Patch Transdermal 02/03/20 24 025 Active valsartan 160 mg tablet RxNorm: 615434 Take 1 Tablet(s) Oral two times a day 02/03/20 Active lithium carbonate 300 mg capsule RxNorm: 811345 TAKE ONE CAPSULE BY MOUTH TWICE DAILY FOR mood 02/03/20 24 Active buspirone 10 mg tablet RxNorm: 398359 Take 2 Tablet(s) Oral three times a day 02/03/20 24 Active amlodipine 5 mg tablet RxNorm: 751347 Take 1 Tablet(s) Oral every evening 02/03/20 24 Active rosuvastatin 20 mg tablet RxNorm: 321907 Take 1 Tablet(s) Oral every day 02/03/20 24 Active fluticasone propionate 50 mcg/actuation nasal spray,suspension ... RxNorm: 8923128 instill 1-2 SPRAYS IN EACH NOSTRIL EVERY DAY NEEDED 02/03/20 24 Active Nyamyc 100,000 unit/gram topical powder RxNorm: 497897 top 02/03/20 24 Active polyethylene glycol 3350 17 gram/dose oral powder RxNorm: 543126 DISSOLVE 17 GRAMS OF POWDER INTO 4 TO 8 OUNCES OF WATER, JUICE, SODA, COFFEE, OR TEA THEN DRINK EVERY DAY do not exceed 17 grams PER day 02/03/20 24 Active fluoxetine 40 mg capsule RxNorm: 887833 TAKE ONE CAPSULE BY MOUTH TWICE DAILY FOR mood 02/03/20 24 Active cholecalciferol (vitamin D3) 50 mcg (2,000 unit) capsule RxNorm: 097554 Take 1 Capsule(s) Oral every day 02/03/20 24 Active tobramycin 1.2 gram solution for injection RxNorm: 967339 inj 02/03/20 24 Active benzonatate 100 mg capsule RxNorm: 032061 TAKE ONE CAPSULE BY MOUTH THREE TIMES DAILY NEEDED FOR cough -SWALLOW WHOLE. DO NOT CRUSH OR CHEW- 02/03/20 24 Active Linzess 72 mcg capsule RxNorm: 2649733 TAKE ONE CAPSULE BY MOUTH EVERY DAY ON AN EMPTY STOMACH AT LEAST 30 MINUTES BEFORE THE FIRST MEAL OF THE DAY 02/03/20 24 Active aripiprazole 10 mg tablet RxNorm: 433362 Take 1 Tablet(s) Oral HS 02/03/20 24 Active Trulicity 1.5 mg/0.5 mL subcutaneous pen injector RxNorm: 9429240 INJECT 1.5 MG (0.5 ML) SUBCUTANEOUSLY ONCE A WEEK 02/03/20 24 Active levothyroxine 75 mcg tablet RxNorm: 299861 Take 1 Tablet(s) Oral every day BEFORE a meal 02/03/20 Active Ozempic 0.25 mg or 0.5 mg (2 mg/3 mL) subcutaneous pen injector ... RxNorm: 7588630 Inject 0.5 Milligram(s) Subcutaneous QW 02/03/20 Active Myrbetriq 25 mg tablet,extended release RxNorm: 1055704 TAKE ONE TABLET BY MOUTH EVERY DAY do not crush, chew, and/or divide take with water 02/03/20 Active bisoprolol fumarate 5 mg tablet RxNorm: 148391 Take 1 Tablet(s) Oral every day 02/03/20 24 Active aspirin 81 mg tablet,delayed release RxNorm: 279994 Take 1 Tablet(s) Oral every day 02/03/20 24 Active solifenacin 5 mg tablet RxNorm: 682400 Take 1 Tablet(s) Oral every day 02/03/20 24 Active metformin 1,000 mg tablet RxNorm: 602748 Take 1 Tablet(s) Oral every morning 02/03/20 Active amantadine HCl 100 mg tablet RxNorm: 086892 oral 02/03/20 24 Active trazodone 150 mg tablet RxNorm: 986829 Take 1 Tablet(s) Oral HS as needed 02/03/20 Active duloxetine 60 mg capsule,delayed release RxNorm: 138670 Take 2 Capsule(s) Oral every day 02/03/20 24 Active baclofen 20 mg tablet RxNorm: 719507 TAKE ONE TABLET BY MOUTH THREE TIMES DAILY MAY CAUSE DROWSINESS 02/03/20 Active valsartan 80 mg tablet RxNorm: 624798 Take 1 Tablet(s) Oral two times a day 02/03/20 24 Active Lybalvi 15 mg-10 mg tablet RxNorm: 8977419 Take 1 Tablet(s) Oral every day 02/03/20 24 Active olanzapine 5 mg tablet RxNorm: 296882 Take 1 Tablet(s) Oral HS 02/03/20 24 Active Anucort-HC 25 mg suppository RxNorm: 1281343 UNWRAP AND INSERT 1 SUPPOSITORY RECTALLY TWICE DAILY FOR 2 WEEKS 02/03/20 24 Active gabapentin 600 mg tablet RxNorm: 925049 TAKE ONE TABLET BY MOUTH EVERY MORNING AND TAKE TWO TABLETS AT BEDTIME MAY CAUSE DROWSINESS 02/03/20 Active doxepin 50 mg capsule RxNorm: 5041719 Take 1 Capsule(s) Oral HS 02/03/20 Active trazodone 100 mg tablet RxNorm: 412073 Take 1 Tablet(s) Oral HS FOR SLEEP 02/03/20 Active ezetimibe 10 mg tablet RxNorm: 285375 Take 1 Tablet(s) Oral every day 02/03/20 Active duloxetine 30 mg capsule,delayed release RxNorm: 828241 Take 3 Capsule(s) Oral every day 02/03/20 24 Inactive Medication Administered No Medication Administered data Results Observation Observation Code Item Item Code Result Date Service Location CHEM 14 (METABOLIC PANEL) 96986 Glucose 2345-7 101 mg/dL [facility] [address] [place] [address] CHEM 14 (METABOLIC PANEL) 20821 BUN 3094-0 11 mg/dL [facility] [address] [place] [address] CHEM 14 (METABOLIC PANEL) 32230 Creatinine 2160-0 0.8 mg/dL [facility] [address] [place] [address] CHEM 14 (METABOLIC PANEL) 72735 BUN/Creat Ratio 3097-3 14.1 024 [facility] [address] [place] [address] CHEM 14 (METABOLIC PANEL) 86667 GFR Estimated 02117-5 96 mL/min/1.73 m2 024 [facility] [address] [place] [address] CHEM 14 (METABOLIC PANEL) 80615 Sodium 2951-2 141 mmol/L [facility] [address] [place] [address] CHEM 14 (METABOLIC PANEL) 65761 Potassium 2823-3 3.5 mmol/L 024 [facility] [address] [place] [address] CHEM 14 (METABOLIC PANEL) 26894 Chloride 2075-0 107 mmol/L 024 [facility] [address] [place] [address] CHEM 14 (METABOLIC PANEL) 15916 Total CO2 2028-9 24 mmol/L 024 [facility] [address] [place] [address] CHEM 14 (METABOLIC PANEL) 13828 Anion Gap 1863-0 13.5 mEq/L 024 [facility] [address] [place] [address] 21470 CHEM 14 (METABOLIC PANEL) 23085 Calculated Serum Osmolality 46662-0 292 mOsm/kg 024 [facility] [address] [place] [address] 40359 CHEM 14 (METABOLIC PANEL) 00781 Albumin 17585-2 4.0 g/dL 024 [facility] [address] [place] [address] 22124 CHEM 14 (METABOLIC PANEL) 08786 Total Protein 2885-2 7.0 g/dL 024 [facility] [address] [place] [address] 46432 CHEM 14 (METABOLIC PANEL) 73141 Globulin 2336-6 3.0 g/dL 024 [facility] [address] [place] [address] 92329 CHEM 14 (METABOLIC PANEL) 62381 Albumin/Globulin Ratio 1759-0 1.3 024 [facility] [address] [place] [address] 61972 CHEM 14 (METABOLIC PANEL) 16495 ALK PHOS 6768-6 84.00 U/L 024 [facility] [address] [place] [address] 24362 CHEM 14 (METABOLIC PANEL) 59894 SGOT/AST 1920-8 35 U/L 024 [facility] [address] [place] [address] 01671 CHEM 14 (METABOLIC PANEL) 44508 SGPT/ALT 1743-4 54 U/L 024 [facility] [address] [place] [address] 33272 CHEM 14 (METABOLIC PANEL) 92965 Total Bilirubin 1975-2 0.3 mg/dL 024 [facility] [address] [place] [address] 56932 CHEM 14 (METABOLIC PANEL) 45224 Calcium 47519-9 9.5 mg/dL 024 [facility] [address] [place] [address] 92685 CHEM 14 (METABOLIC PANEL) 87176 Corrected Calcium 85545-2 9.7 mg/dL 024 [facility] [address] [place] [address] 86200 FREE T-3 59822 FT3 3051-0 2.21 pg/mL 024 [facility] [address] [place] [address] FREE T-4 69483 FT4 3024-7 1.23 ng/dL 024 [facility] [address] [place] [address] 48068 VITAMIN B-12 49454 Vitamin B12 2132-9 459 pg/mL 02/05 024 [facility] [address] [place] [address] 47602 TSH 06351 TSH 10675-9 0.475 uIU/mL 024 [facility] [address] [place] [address] COMPLETE CBC W/ DIFF WBC 88382 WBC 6690-2 10.5 K/ul 024 [facility] [address] [place] [address] 33008 COMPLETE CBC W/ DIFF WBC 88174 RBC 789-8 4.22 M/uL 024 [facility] [address] [place] [address] 64302 COMPLETE CBC W/ DIFF WBC 80013 Hemoglobin 718-7 12.6 g/dL 024 [facility] [address] [place] [address] 47364 COMPLETE CBC W/ DIFF WBC 21793 Hematocrit 4544-3 38.6 % 024 [facility] [address] [place] [address] 13605 COMPLETE CBC W/ DIFF WBC 67340 MCV 787-2 91.5 fL 024 [facility] [address] [place] [address] 66266 COMPLETE CBC W/ DIFF WBC 29014 MCH 785-6 29.8 pg 024 [facility] [address] [place] [address] 31335 COMPLETE CBC W/ DIFF WBC 95000 MCHC 786-4 32.6 g/dL 024 [facility] [address] [place] [address] 08358 COMPLETE CBC W/ DIFF WBC 39750 RDW 788-0 15.5 % 024 [facility] [address] [place] [address] 88983 COMPLETE CBC W/ DIFF WBC 64843 Platelet Count 777-3 312 K/uL 024 [facility] [address] [place] [address] 98374 COMPLETE CBC W/ DIFF WBC 14119 MPV 24436-6 7.7 fL 024 [facility] [address] [place] [address] 92817 COMPLETE CBC W/ DIFF WBC 59685 Neutrophils % 770-8 68.1 % 024 [facility] [address] [place] [address] 23220 COMPLETE CBC W/ DIFF WBC 51823 Lymphocytes % 736-9 22.5 % 024 [facility] [address] [place] [address] COMPLETE CBC W/ DIFF WBC 22136 Monocytes % 5905-5 8.0 % 024 [facility] [address] [place] [address] COMPLETE CBC W/ DIFF WBC 98434 Eosinophils % 713-8 0.8 % 024 [facility] [address] [place] [address] COMPLETE CBC W/ DIFF WBC 85910 Basophils% 706-2 0.6 % 024 [facility] [address] [place] [address] COMPLETE CBC W/ DIFF WBC 06388 Absolute Neutrophil 751-8 7151 /ul 024 [facility] [address] [place] [address] 48015 COMPLETE CBC W/ DIFF WBC 76903 Absolute Lymphocyte 71625-2 2363 /ul 024 [facility] [address] [place] [address] 63639 COMPLETE CBC W/ DIFF WBC 18379 Absolute Monocyte 742-7 840 /ul 024 [facility] [address] [place] [address] 19151 COMPLETE CBC W/ DIFF WBC 18982 Absolute Eosinophil 711-2 84 /ul 024 [facility] [address] [place] [address] 10682 COMPLETE CBC W/ DIFF WBC 34863 Absolute Basophil 704-7 63 /ul 024 [facility] [address] [place] [address] 52620 Direct LDL 99229 LDL-Direct 86222-9 72 mg/dL 024 [facility] [address] [place] [address] 10285 VITAMIN D 54535 Vitamin D 77103-0 27.4 ng/mL 024 [facility] [address] [place] [address] HDL - CHOL 94430 HDL 2085-9 44 mg/dL 024 [facility] [address] [place] [address] 16032 HDL - CHOL 17451 CHD 05681-3 34 % 024 [facility] [address] [place] [address] TRIGLYCERIDES 78819 Triglycerides 2571-8 124 mg/dL 024 [facility] [address] [place] [address] 85142 TRIGLYCERIDES 68666 VLDL 64535-1 25 mg/dL 024 [facility] [address] [place] [address] 11556 MICROALBUMIN (URINE) 63659 Microalbumin 60321-7 2.4 mg/dL 024 [facility] [address] [place] [address] 89353 MICROALBUMIN (URINE) 88246 Microalbumin/Cre atinine Ratio 70790-0 30 MCG/MGCREAT 024 [facility] [address] [place] [address] MICROALBUMIN (URINE) 43890 Urine Creatinine 2161-8 81.20 mg/dL 024 [facility] [address] [place] [address] 18359 CHOLESTEROL 30255 Cholesterol 2093-3 131 mg/dL 024 [facility] [address] [place] [address] 10175 No Orders UA NoOrdersUA NO ORDERS UA 0.00 08/08 024 [facility] [address] [place] [address] 07643 URINALYSIS 44702 Glucose 2345-7 >1000 mg/dL ++++ mg/dL 024 [facility] [address] [place] [address] 68887 URINALYSIS 77808 Protein Negative mg/dL 024 [facility] [address] [place] [address] 29344 URINALYSIS 90839 Bilirubin Negative mg/dL 024 [facility] [address] [place] [address] 00927 URINALYSIS 58217 Urobilinogen Negative mg/dL 024 [facility] [address] [place] [address] 54316 URINALYSIS 62528 Ph 6.00 024 [facility] [address] [place] [address] 88843 URINALYSIS 42275 Blood Negative mg/dL 024 [facility] [address] [place] [address] 41467 URINALYSIS 52437 Ketones Negative mg/dL 024 [facility] [address] [place] [address] 37721 URINALYSIS 05779 Nitrite Negative 024 [facility] [address] [place] [address] 89704 URINALYSIS 48096 Leukocytes Negative Jae/uL 024 [facility] [address] [place] [address] 05596 URINALYSIS 46596 Clarity Clear 024 [facility] [address] [place] [address] URINALYSIS 92770 Specific [place] 1.024 024 [facility] [address] [place] [address] URINALYSIS 66332 Color Light-Yello w 024 [facility] [address] [place] [address] [id number] [place] 4548-4 Glyco HGB A1C 68219-5 7.2 % 024 [facility] [address] [facility] [address] [id number] IN 4548-4 eAG 54742-9 160 mg/dL 024 [facility] [address] [facility] [place] [address] Procedures Procedure Codes Date Most recent A1c = 7.0% and < 8.0% CPT-4: 3051F 03/28/2024 Most recent A1c = 7.0% and < 8.0% CPT-4: 3051F 03/08/2024 MED LIST DOCD IN [facility] CPT-4: 1159F 02/03/2024 RVW MEDS BY RX/DR IN [facility] CPT-4: 1160F 2023 Screening for clinical depre ssion is negative, follow-up plan not required CPT-4: G8510 02/03/2024 [id number] CPT-4: 24439 Unknown Vital Signs Date Vital 02/03/2024 Blood Pressure 1: 125/80 Code: 8480-6 BMI: 36.8 Code: 21704-8 Heart Rate 1: 90 bpm Height: 5'3 Code: 8302-2 Respiratory Rate: 16 bpm SpO2: 96% Temperature: 35.9 (C) / 96.7 (F) Weight: 211 lbs Code: 07470-5 Reason For Visit Reason For Visit Effective Dates Notes new patient welcome visit 02/03/2024 Encounters Encounter Performer Location Location Address Codes Date (95893) Other Reason/Patient not seen Diagnosis: Patient not seen[ICD10: UXZ.01] Marian Solis [place] [facility] [address] [facility] [address] [place] [address] CPT-4: 96161 03/28/2024 (87358) Other Reason/Patient not seen Diagnosis: Patient not seen[ICD10: UXZ.01] Marian Solis [place] [facility] [address] [place] [address] CPT-4: 18858 03/08/2024 (63586) 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, 60 mins Diagnosis: Primary [...] Diagnosis: Fatigue, unspecified type[ICD10: R53.83] Marian Solis [place] [facility] [address] [place] [address] CPT-4: 61710 02/03/2024 Plan of Care Planned Activity Notes Codes Status Date Appointment: Marian Solis WPtel: [address] [place], [place] [id number] 03/28/2024 Patient Education: Patient Medication Summary Completed 03/28/2024 Appointment: Marian Solis WPtel: [address] [place], [place] [id number] 03/08/2024 Patient Education: Patient Medication Summary Completed 03/08/2024 Patient Education: Patient Medication Summary Completed 02/06/2024 Visit Plan: I10-401.9 Primary hy pertension M79.2-729.2 [...] and agreeable to plan of care. 02/03/2024 Appointment: Marian Solis WPtel: [facility] [address] [place], [place] [id number] 02/03/2024 Patient Education: Patient Medication Summary Completed [...]
== END 2024-12-24 23:59 | disposition home or self-care (01) ==
PROVIDERS: PCP Family Medicine; Visit Provider Nurse Practitioner Family
DX: E11.42 Type 2 diabetes mellitus with diabetic polyneuropathy (principal); M47.816 Spondylosis without myelopathy or radiculopathy, lumbar region; M54.41 Lumbago with sciatica, right side; M54.42 Lumbago with sciatica, left side; G89.29 Other chronic pain; Z79.899 Other long term (current) drug therapy
CPT/HCPCS: 99212; G0463

== ENCOUNTER 2025-01-02 10:11 | Outpatient (CLI) | payer MEDICARE, SELFPAY ==
--- OUTSIDE RECORDS SUMMARY | 2024-11-20 14:15 | XMS_ITS | Encounter Summary ---
Author Organization [employer] ([place], [place], [place], [place]) Address [address] [place] [address] Care Team Providers Care Mid Level Java Developer Name Role Phone Mutsapha Hernandez PA-C Unavailable [phone] Gregory Malave DO Primary Care Provider [phone] Reason for Visit * Reason Comments RLS Peripheral Neuropathy Encounter Details Date Type Department Care Team (Late st Contact Info) Description 11/20/2024 2:15 PM EDT Office Visit [facility] Neurology - [facility] [address] [place] [address] [address] [place] [address] Madeleine Khan APRN [address] [facility] [address] [place] [address] Restless leg syndrome (Primary Dx) Social History Tobacco Use Types Packs/Day Years Used Date Smoking Tobacco: Every Day Cigarettes 0.5 15 Smokeless Tobacco: Never Tobacco Cessation:Ready to Q uit: Yes; Counseling Given: Not Answered Alcohol Use Standard Drinks/Week Comments Never 0 (1 standard drink = 0.6 oz pur e alcohol) Comments Unknown Sex and Gender Information Value Date Recorded Sex Assigned at Not on file 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 Gender Identity Not on file Sexual Orientation Not on file documented as of this encounter Last Filed Vital Signs Vital Sign Reading Time Taken Comments Blood Pressure 130/82 11/20/2024 2:14 PM EDT Pulse 108 11/20/2024 2:14 PM EDT Temperature - - Respiratory Rate - - Oxygen Saturation 98% 11/20/2024 2:14 PM EDT Inhaled Oxygen Concentration - - Weight 88.9 kg (196 lb) 11/20/2024 2:14 PM EDT Height 160 cm (5' 3 ) 11/20/2024 2:14 PM EDT Body Mass Index 34.72 11/20/2024 2:14 PM EDT documented in this encounter Progress Notes * Madeleine Khan, WATER RESOURCE MANAGER - 11/20/2024 2:15 PM EDT Subjective: Breana Garcia is a 44 y.o. female. Chief Complaint Patient presents with RLS Peripheral Neuropathy I have reviewed and/or updated the following: Tobacco Allergies Meds Problems Med Hx Surg Hx Fam Hx History: Ms. Garcia is here today for consultation regarding numbness, tingling of left side of body, dizziness, history of CVA. Had a stroke in May 2020 and a second stroke in August of 2019. Currently on Aspirin, Plavix, statin, and has a Loop Recorder. She is on Chantix to quit smoking. She has Hx of HTN, DM, HLD. She will be having lumbar spine injections (L5-S1) soon (Dr. Hannah Wallace at [facility]). She is a candidate for a spinal stimulator, but she needs neurology clearance. 01/21/22 MRI Brain - Chronic left hemisphere lacunar CVA's. 06/29/24 MRI Brain ([facility]) - Chronic vessel ischemia. She has chronic right arm numbness since the stroke. Her left arm and leg is numb. Having constant muscle spasms in her legs that are very painful occurring since May 2024. Her PCP changed her from Baclofen to Tizanidine (taking it TID x1 week), no benefit yet. Taking gabapentin 800mg TID (recently increased). Also taking Cymbalta 120mg daily. She has neuropathy in her feet. 10/16/24 NCV/EMG - Normal study. 06/29/24 MRI BRAIN ([facility]) - Abnormal signal in the left periventricular white matter, may be related to chronic ischemia or demyelination. Images viewed from CD with Dr. Carreon. She has RLS - Taking Ropinirole 0.25mg TID with no benefit. Today: Had LP 10/31/24 for CSF analysis. CSF findings negative for MS. Increased ropinirole dose has not helped her RLS. Review of Systems Constitutional: Positive for fatigue. Eyes: Positive for photophobia and pain. Gastrointestinal: Positive for diarrhea. Endocrine: Positive for cold intolerance and polyuria. Genitourinary: Positive for frequency. Musculoskeletal: Positive for back pain and myalgias. Neurological: Positive for weakness, light-headedness, numbness and headaches. Psychiatric/Behavioral: Positive for sleep disturbance. The patient is nervous/anxious. Objective: BP 130/82 Pulse 108 Ht 1.6 m (5' 3 ) Wt 88.9 kg (196 lb) SpO2 98% BMI 34.72 kg/m?? Physical Exam Constitutional: She is oriented to person, place, and time. HENT: Head: Normocephalic. Eyes: Pupils are equal, round, and reactive to light. Cardiovascular: Normal rate. Pulmonary/Chest: Effort normal. Abdominal: Normal appearance. Musculoskeletal: General: Normal range of motion. Cervical back: Normal range of motion. Neurological: She is alert and oriented to person, place, and time. Right-sided weakness (chronic, stroke) Decreased sensation (tmp, vib) stocking-glove distribution. Wide-based gait, slow, cautious. Positive Romberg. Unable to tandem-gait. Positive Tinel's sign bilaterally at wrists. Skin: Skin is warm and dry. Psychiatric: Mood normal. Neurological Exam Mental Status Alert. Oriented to person, place, and time. Cranial Nerves CN III, IV, : Extraocular movements intact bilaterally. Pupils equal round and reactive to light bilaterally. Right-sided weakness (chronic, stroke) Decreased sensation (tmp, vib) stocking-glove distribution. Wide-based gait, slow, cautious. Positive Romberg. Unable to tandem-gait. Positive Tinel's sign bilaterally at wrists.. Assessment: 1. Restless leg syndrome Plan: Diagnoses and all orders for this visit: Restless leg syndrome - rotigotine (Neupro) 2 mg/24 hour; Place 1 patch on the skin daily. Return in about 2 months (around 01/20/2025). Ms. Garcia has history of CVA x2 in 2020. Risk factors include HLD, HTN, DM, smoking. She is on maximum medical management with Aspirin, Plavix and statin for future stroke prevention. She also has a Loop Recorder. She likely has small fiber neuropathy most likely due to her diabetes as well as lumbar radiculopathy. These things are affecting her balance. She will have lumbar spine injections soon and she has found out she's a candidate for a spinal stimulator. She is needing neurology clearance. From a neurological standpoint, she is clear to have stimulator placement. Restless Leg Syndrome - No benefit with Ropinirole 0.50mg TID. I want her to try Neupro Patch. She will start the patch and after 1 week will decrease Ropinirole to 1/2 tablet (0.25mg) TID X1 weeks, then drop 1 dose every 3 days until stopped. Can increase Neupro Patch dose as-needed. Consider akathisia as her inability to keep from moving. Viewed images of MRI brain done 06/29/24. There is abnormal signal in the left periventricular whitematter that may be related to her strokes or possibly a demyelinating condition such as MS. LP performed 10/31/24 for CSF analysis which was negative for MS. KRYSTLE negative, neurofilament light chain within normal range. F/u 2 months. documented in this encounter Plan of Treatment Upcoming Encounters Date Type Department Care Team (Late st Contact Info) Description 02/12/2025 10:15 AM EDT Office Visit [facility] Neurology - [facility] [address] [place] [address] [address] [place] [address] Madeleine Khan APRN [address] [facility] [address] [place] [address] documented as of this encounter Visit Diagnoses Diagnosis Restless leg syndrome- Primary Restless legs syndrome (RLS) documented in this encounter Care Teams Mid Level Java Developer Relationship Specialty Start Date End Date Gregory Malave, [address] [facility] [address] [place], [place] [id number] PCP - General Internal Medicine 08/10/24 Mustapha Hernandez PA-C [address] [place] [address] Physician Rn Prior Authorization 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
--- OUTSIDE RECORDS SUMMARY | 2025-01-02 10:15 | XMS_ITS | Encounter Summary ---
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 Gender Identity Not on file Sexual Orientation Not on file documented as of this encounter Plan of Treatment Upcoming Encounters Date Type Department Care Team (Late st Contact Info) Description 02/12/2025 10:15 AM EDT Office Visit [facility] Neurology - [facility] [address] [employer] [address] [address] [place] [address] Madeleine Khan APRN [address] [facility] [address] [place], [place] [id number] documented as of this encounter Visit Diagnoses Not on filedocumented in this encounter Care Teams Rn Radiation Oncology Relationship Specialty Start Date End Date Gregory Malave DO [address] [facility] [address] [place], [place] [id number] PCP - General Internal Medicine 08/10/24 Mustapha Hernandez PA-C [address] [facility] [address] [place] [address] Physician Burial 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
--- OUTSIDE RECORDS SUMMARY | 2025-01-02 10:15 | XMS_ITS | Encounter Summary ---
Author Organization [employer] ([place], [place], [place], [place]) Address [address] [place] [address] Care Team Providers Care Transmitter Chief Name Role Phone Mustapha Hernandez PA-C Unavailable [phone] Vee Wells APRN Primary Care Provider [phone] Gregory Malave DO Primary Care Provider [phone] Reason for Referral * Consultation (Routine) - Closed Specialty Diagnoses / Procedures Referred By Ines singh Referred To Contact Neurology Diagnoses Numbness and tingling of left upper and lower extremity Dizziness Fatigue History of CVA (cerebrovascular accident) History of TIA (transient ischemic attack) Family history of CVA New pt-LUE/LLE Numbness, Dizziness, and Hx of CVA Mustapha Hernandez PA-C [address] [facility] [address] [place] [address] Phone: tel: fax: [facility] Neurology - [address] [place] [address] Phone: tel: fax: Referral ID Status Reason Start Date Expiration Date Visits Re quested Visits Authorized [id number] Closed 07/04/2024 07/04/2025 1 1 Encounter Details Date Type Department Care Team (Late st Contact Info) Description 07/04/2024 Outside Orders [facility] Neurology - [facility] [address] [facility] [address] [facility] [address] [place] [address] Mustapha Hernandez PA-C [address] [facility] [address] [place], [place] [address] Numbness and tingling of left upper and lower extremity (Primary Dx); Dizziness; Fatigue; History of CVA (cerebrovascular accident); History of TIA (transient ischemic attack); Family history of CVA Social History Tobacco Use Types Packs/Day Years Used Date Smoking Tobacco: Never Assessed Comments Unknown Sex and Gender Information Value Date Recorded Sex Assigned at Not on file 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 Gender Identity Not on file Sexual Orientation Not on file documented as of this encounter Plan of Treatment Upcoming Encounters Date Type Department Care Team (Late st Contact Info) Description 02/12/2025 10:15 AM EDT Office Visit [facility] Neurology - [address] [facility] [address] [place] [address] Madeleine Khan APRN [address] [facility] [address] [place], [place] [id number] Scheduled Referrals Name Type Priority Associated Diagnoses [...] CVA documented in this encounter Care Teams Transmitter Chief Relationship Specialty Start Date End Date Vee Wells APRN [address] [place] [address] PCP - General Nurse Practitioner 07/09/24 08/09/24 Gregory Malave [address] [place] [address] PCP - General Internal Medicine 08/10/24 Mustapha Hernandez PA-C [address] [place], [place] [id number] Physician Environmental Services Director 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
--- OUTSIDE RECORDS SUMMARY | 2025-01-02 10:15 | XMS_ITS | Clinical Summary ---
Author Organization [employer] ([place], [place], [place], [place]) Address [address] [place] [address] Care Team Providers Care Coo [employer] Co Founder Name Role Phone Mustapha Hernandez PA-C Unavailable [phone] Gregory Malave DO Primary Care Provider [phone] Allergies Active Allergy Reactions Criticality Noted Date [...] Description 11/20/2024 2:15 PM EDT Office Visit [facility] [place] [address] [place] [address] Madeleine Khan APRN Restless leg syndrome (Primary Dx) 11/20/2024 Travel 11/07/2024 Orders Only [facility] [address] [place] [address] Say Garcia MD 10/31/2024 7:30 AM EDT Procedure Visit [facility] - [facility] [address] [place] [address] Kathy Carreon MD Demyelinating disease (HCC) (Primary Dx); Numbness and tingling of left upper and lower extremity; Muscle spasm 10/31/2024 Travel 10/19/2024 Orders Only [facility] - [facility] [address] [place] [address] Say Garcia MD 10/18/2024 Telephone [facility] - [facility] [address] [place] [address] Amber Mensah CMA Medication Problem 10/17/2024 Orders Only [facility] - 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 Gender Identity Not on file Sexual Orientation [...] Office Visit [facility] - [facility] [address] [facility] [address] [place] [id number] Madeleine Khan, CODE MACHINE OPERATOR [address] [facility] [address] [place] [address] Health Maintenance Due Date Last Done Comments [...] ratio 11/03/2024 8:36 AM EDT [facility] CSF Oligoclonal Bands Negative Negative 11/03/2024 8:36 AM EDT [facility] CSF IgG Synthesis Rate 0.0 <=8.0 mg/d 11/03/2024 8:36 AM EDT [facility] Interpretation See Note 11/03/2024 8:36 AM EDT [facility] Comment: Isoelectric focusing/immunofixation revealed no oligoclonal bands [...] caution when interpreting the results. Performed By: [facility] [address] [place] [address] Rod Finisher: Td Stock MD, PhD CLIA Number: [id number] 10/31/2024 8:00 AM EDT 10/31/2024 10:10 AM EDT us Kathy Carreon MD LAB BLOOD ORDERABLES Final R esult Performing Organization Address City/[facility] Co de Phone Number [facility] [address] [place] [address], [facility] [phone] * CSF Culture + Gram Stain (10/31/2024 8:00 AM EDT) Result No growth 11/03/2024 8:32 AM EDT [facility] Gram Stain Result No organisms seen 11/03/2024 8:32 AM EDT [facility] Gram Stain Result No cells seen 11/03/2024 8:32 AM EDT [facility] Cerebrospinal Fluid 11/01/19 8:00 AM EDT 10/31/2024 10:10 AM EDT us Kathy Carreon MD MICROBIOLOGY - GENERAL ORDER BHARATH Final Result [facility] [address] [phone] * CSF cell count with differential (10/31/2024 8:00 AM EDT) Appearance Clear 10/31/2024 10:40 AM EDT [facility] Color Colorless Colorless 10/31/2024 10:40 AM EDT [facility] Pellicle CSF None Seen None Seen 10/31/2024 10:40 AM EDT [facility] RBCs 0 0 - 5 /uL 10/31/2024 10:40 AM EDT [facility] Nucleated Cells, CSF 0 0 - 5 /uL 10/31/2024 10:40 AM EDT [facility] Xanthochromic CSF Absent Absent 10/31/2024 10:40 AM EDT [facility] Specimen Source CSF, Tube 1 11/01/19 10:40 AM EDT [facility] Cerebrospinal Fluid CEREBROSPINAL FLUID / Unknown 10/31/2024 8:00 AM EDT 10/31/2024 10:10 AM EDT us Kathy Carreon MD BODY FLUIDS AND STOOLS ORDER BHARATH Final Result Performing Organization Address [facility] de Phone Number [facility] [address] [phone] * (ABNORMAL) Glucose, CSF (10/31/2024 8:00 AM EDT) Glucose, CSF 80(H) 40 - 75 mg/dL 10/31/2024 10:40 AM EDT [facility] Specimen Source CSF, Tube 2 10/31/2024 10:40 AM EDT [facility] Cerebrospinal Fluid CEREBROSPINAL FLUID / Unknown 10/31/2024 8:00 AM EDT 10/31/2024 10:10 AM EDT us Kathy Carreon MD BODY FLUIDS AND STOOLS ORDER BHARATH Final Result Performing Organization Address City/[facility]/ZIP Co de Phone Number [facility] [address] [id number], [facility] [phone] * EXTERNAL IMAGING - MR (10/17/2024 3:32 PM EDT) Anatomical Region Laterality Modality Other us Historical Provider HEALTH MAINTENANCE Final Result * EMG W/ NCS (10/16/2024 1:02 PM EDT) Anatomical Region Laterality Modality Other us Historical Provider NEUROLOGY ORDERABLES (MCT ) Final Result from Last 3 Months Insurance [facility] MEDICARE ADVANTAGE Care Teams [employer] Founder Relationship Specialty Start Date End Date Gregory Malave DO [address] [place] [address] PCP - General Internal Medicine 08/10/24 Mustapha Hernandez PA-C [address] [place] [address] Physician Print Line Feeder Cardiology 07/04/24
--- OUTSIDE RECORDS SUMMARY | 2025-01-02 10:15 | XMS_ITS | Encounter Summary ---
Author Organization [employer] ([place], [place], [place], [place]) Address [address] [place] [address] Care Team Providers Care Renewal Specialist Name Role Phone Mustapha Hernandez PA-C Unavailable [phone] Gregory Malave DO Primary Care Provider [phone] Encounter Details Date Type Department Care Team (Late st Contact Info) Description 11/07/2024 Orders Only [facility] [address] [place] [address] Provider, MD Say [address] [place], [place] [id number] Social History Tobacco Use Types Packs/Day Years Used Date Smoking Tobacco: Every Day Cigarettes Smokeless Tobacco: Never Alcohol Use Standard Drinks/Week Comments Never 0 (1 standard drink = 0.6 oz pur e alcohol) Comments Unknown Sex and Gender Information Value Date Recorded Sex Assigned at Not on file 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 Gender Identity Not on file Sexual Orientation Not on file documented as of this encounter Plan of Treatment Upcoming Encounters Date Type Department Care Team (Late st Contact Info) Description 02/12/2025 10:15 AM EDT Office Visit [facility] [address] [place] [address] Madeleine Khan, DO ALL OPERATOR [address] [facility] [address] [place] [address] documented as of this encounter Procedures Procedure Name Priority Date/Time Associated Diagnosis Comments EXTERNAL LAB - MISC Routine 11/07/2024 10:14 AM EDT documented in this encounter Results * EXTERNAL LAB - MISC (11/07/2024 10:14 AM EDT) us Historical Provider LAB BLOOD ORDERABLES Keke l Result documented in this encounter Visit Diagnoses Not on filedocumented in this encounter Care Teams Renewal Specialist Relationship Specialty Start Date End Date Gregory Malave DO [address] [facility] [address] [place] [address] PCP - General Internal Medicine 08/10/24 Mustapha Hernandez PA-C [address] [facility] [address] [place] [address] Physician Commercial Counsel 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
--- OUTSIDE RECORDS SUMMARY | 2025-01-02 10:15 | XMS_ITS | Referral Summary ---
Author Organization [employer] ([place], [place], [place], [place]) Address [address] [place] [address] Care Team Providers Care Liquid Waste Treatment Plant Operator Name Role Phone Mustapha Hernandez PA-C Unavailable [phone] Gregory Malave DO Primary Care Provider [phone] Encounters Date Type Department Care Team Description 11/20/2024 Travel 11/20/2024 2:15 PM EDT Office Visit [facility] [address] [place] [address] Madeleine hKan APRN Restless leg syndrome (Primary Dx) 11/07/2024 Orders Only [facility] [address] [place] [address] Provider, MD Say 10/31/2024 Travel 10/31/2024 7:30 AM EDT Procedure Visit [facility] [address] [place] [address] Kathy Carreon MD Demyelinating disease (HCC) (Primary Dx); Numbness and tingling of left upper and lower extremity; Muscle spasm 10/19/2024 Orders Only [facility] [address] [place] [address] Say Garcia MD 10/18/2024 Telephone [facility] - [facility] [place] [address] [place] [address] Amber Mensah CMA Medication Problem 10/17/2024 Orders Only [facility] [address] [place] [address] Say aGrcia MD 10/16/2024 Orders Only [facility] - [facility] [address] [place] [address] Say Garcia MD 10/16/2024 Travel 10/16/2024 1:00 PM EDT Office Visit [facility] - [facility] [address] [place] [address] Madeleine Khan APRN Demyelinating disease [...] on file 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 Will follow with Madeleine TOP AND SEAT COVER FITTER in 2 weeks to go over results. Anu Hernandez APRN PROCEDURE/MINOR SURGICAL ORDERABLES Final Result * (ABNORMAL) Oligoclonal Band Profile(SENDOUT) (10/31/2024 8:00 AM EDT) Oligoclonal Bands Number, CSF 0 0 - 1 Bands 11/03/2024 8:36 AM EDT [facility] Immunoglobulin G 734(L) 768 - 1632 mg/dL 11/03/2024 8:36 AM EDT [facility] Immunoglobulin G CSF 2.5 0.0 - 6.0 mg/dL 11/03/2024 8:36 AM EDT [facility] Albumin, Serum 3874 3500 - 5200 mg/dL 11/03/2024 8:36 AM EDT [facility] Albumin, CSF 23 0 - 35 mg/dL 11/03/2024 8:36 AM EDT [facility] Albumin Index 5.9 0.0 - 9.0 ratio 11/03/2024 8:36 AM EDT [facility] IgG Index 0.57 0.28 - 0.66 ratio 11/03/2024 8:36 AM EDT [facility] CSF IgG/Albumin Ratio 0.11 0.09 - 0.25 ratio 11/03/2024 8:36 AM EDT [facility] CSF Oligoclonal Bands Negative Negative 11/03/2024 8:36 AM T [facility] CSF IgG Synthesis Rate 0.0 <=8.0 mg/d 11/03/2024 8:36 AM T [facility] Interpretation See Note 11/03/2024 8:36 AM T [facility] Comment: Isoelectric focusing/immunofixation revealed no oligoclonal bands [...] caution when interpreting the results. Performed By: [employer] [address] [place] [id number] Leacher: Td Stock MD, PhD CLIA Number: [id number] 10/31/2024 8:00 AM EDT 10/31/2024 10:10 AM EDT us Kathy Carreon MD LAB BLOOD ORDERABLES Final R esult [id number] [place] [address] * CSF Culture + Gram Stain (10/31/2024 8:00 AM EDT) Result No growth 11/03/2024 8:32 AM EDT [facility] Gram Stain Result No organisms seen 11/03/2024 8:32 AM EDT [facility] Gram Stain Result No cells seen 11/03/2024 8:32 AM EDT [facility] Cerebrospinal Fluid 11/01/19 8:00 AM EDT 10/31/2024 10:10 AM EDT us Kathy Carreon MD MICROBIOLOGY - GENERAL ORDER BHARATH Final Result Performing Organization Address City/[facility] Co de Phone Number [facility] [address] [phone] * CSF cell count with differential (10/31/2024 8:00 AM EDT) Appearance Clear 10/31/2024 10:40 AM EDT [facility] Color Colorless Colorless 10/31/2024 10:40 AM EDT [facility] Pellicle CSF None Seen None Seen 10/31/2024 10:40 AM EDT [facility] RBCs 0 0 - 5 /uL 10/31/2024 10:40 AM EDT [facility] Nucleated Cells, CSF 0 0 - 5 /uL 10/31/2024 10:40 AM EDT [facility] Xanthochromic CSF Absent Absent 10/31/2024 10:40 AM EDT [facility] Specimen Source CSF, Tube 1 11/01/19 10:40 AM EDT [facility] Cerebrospinal Fluid CEREBROSPINAL FLUID / Unknown 10/31/2024 8:00 AM EDT 10/31/2024 10:10 AM EDT Kathy Carreon MD BODY FLUIDS AND STOOLS ORDER BHARATH Final Result Performing Organization Address [facility] Co de Phone Number [facility] [address] [phone] * (ABNORMAL) Glucose, CSF (10/31/2024 8:00 AM EDT) Glucose, CSF 80(H) 40 - 75 mg/dL 10/31/2024 10:40 AM EDT [facility] Specimen Source CSF, Tube 2 10/31/2024 10:40 AM EDT [facility] Cerebrospinal Fluid CEREBROSPINAL FLUID / Unknown 10/31/2024 8:00 AM EDT 10/31/2024 10:10 AM EDT Kathy Carreon MD BODY FLUIDS AND STOOLS ORDER BHARATH Final Result Performing Organization Address [facility] de Phone Number [facility] [address] [phone] * EXTERNAL IMAGING - MR (10/17/2024 3:32 PM EDT) Anatomical Region Laterality Modality Other Historical Provider HEALTH MAINTENANCE Final Result * EMG W/ NCS (10/16/2024 1:02 PM EDT) Anatomical Region Laterality Modality Other Historical Provider NEUROLOGY ORDERABLES (MCT ) Final Result from Last [address] [facility] MEDICARE ADVANTAGE Care Teams Liquid Waste Treatment Plant Operator Relationship Specialty Start Date End Date Gregory Malave DO [address] [address] PCP - General Internal Medicine 08/10/24 Mustapha Hernandez PA-C [address] [phone] Physician Cattle Inspector Cardiology 07/04/24
--- OUTSIDE RECORDS SUMMARY | 2025-01-02 11:15 | XMS_ITS | CCD ---
Author Name Marian Solis NP Address [address] [facility] [address] [place] [address] Phone Organization [email or web address] Phone Care Team Providers Care Sieve Grader Tender Name Role Phone Unavailable Primary Care Provider Unavailabl e Unavailable Chronic Care Management Unavaila ble Summary Purpose DataExchange Insurance Providers Payer name Policy type / Coverage type Covered democrat ID Effective Begin Date Effective End Date [employer] [place] [id number] Unknown Unknown Family history Father Diagnosis Age [...] cessation counseling) 02/03/[address]: [id number] Never drinks alco hol 02/03/2024 Illegal/Recreational drug history Unknown *Has never used illegal/recreational drugs 02/03/2024 Allergies, Adverse Reactions, Alerts Substance Reaction Codes Entered Date Inactivated Date Status * Food Allergy _ Unknown 02/03/2024 No Inactive Date Active Topamax RxNorm: 237499 02/03/2024 No Inactive Da te Active Seasonal [...] 21 mg/24 hr daily transdermal patch RxNorm: 884784 Apply 1 Patch Transdermal 02/03/20 24 025 Active valsartan 160 mg tablet RxNorm: 853708 Take 1 Tablet(s) Oral two times a day 02/03/20 Active lithium carbonate 300 mg capsule RxNorm: 196045 TAKE ONE CAPSULE BY MOUTH TWICE DAILY FOR mood 02/03/20 24 Active buspirone 10 mg tablet RxNorm: 486631 Take 2 Tablet(s) Oral three times a day 02/03/20 24 Active amlodipine 5 mg tablet RxNorm: 676803 Take 1 Tablet(s) Oral every evening 02/03/20 24 Active rosuvastatin 20 mg tablet RxNorm: 534743 Take 1 Tablet(s) Oral every day 02/03/20 24 Active fluticasone propionate 50 mcg/actuation nasal spray,suspension ... RxNorm: 3948401 instill 1-2 SPRAYS IN EACH NOSTRIL EVERY DAY NEEDED 02/03/20 24 Active Nyamyc 100,000 unit/gram topical powder RxNorm: 520523 top 02/03/20 24 Active polyethylene glycol 3350 17 gram/dose oral powder RxNorm: 976025 DISSOLVE 17 GRAMS OF POWDER INTO 4 TO 8 OUNCES OF WATER, JUICE, SODA, COFFEE, OR TEA THEN DRINK EVERY DAY do not exceed 17 grams PER day 02/03/20 24 Active fluoxetine 40 mg capsule RxNorm: 968657 TAKE ONE CAPSULE BY MOUTH TWICE DAILY FOR mood 02/03/20 24 Active cholecalciferol (vitamin D3) 50 mcg (2,000 unit) capsule RxNorm: 480116 Take 1 Capsule(s) Oral every day 02/03/20 24 Active tobramycin 1.2 gram solution for injection RxNorm: 172186 inj 02/03/20 24 Active benzonatate 100 mg capsule RxNorm: 069208 TAKE ONE CAPSULE BY MOUTH THREE TIMES DAILY NEEDED FOR cough -SWALLOW WHOLE. DO NOT CRUSH OR CHEW- 02/03/20 24 Active Linzess 72 mcg capsule RxNorm: 4710588 TAKE ONE CAPSULE BY MOUTH EVERY DAY ON AN EMPTY STOMACH AT LEAST 30 MINUTES BEFORE THE FIRST MEAL OF THE DAY 02/03/20 24 Active aripiprazole 10 mg tablet RxNorm: 367637 Take 1 Tablet(s) Oral HS 02/03/20 24 Active Trulicity 1.5 mg/0.5 mL subcutaneous pen injector RxNorm: 4275922 INJECT 1.5 MG (0.5 ML) SUBCUTANEOUSLY ONCE A WEEK 02/03/20 24 Active levothyroxine 75 mcg tablet RxNorm: 725898 Take 1 Tablet(s) Oral every day BEFORE a meal 02/03/20 Active Ozempic 0.25 mg or 0.5 mg (2 mg/3 mL) subcutaneous pen injector ... RxNorm: 4927260 Inject 0.5 Milligram(s) Subcutaneous QW 02/03/20 Active Myrbetriq 25 mg tablet,extended release RxNorm: 5583325 TAKE ONE TABLET BY MOUTH EVERY DAY do not crush, chew, and/or divide take with water 02/03/20 Active bisoprolol fumarate 5 mg tablet RxNorm: 901530 Take 1 Tablet(s) Oral every day 02/03/20 24 Active aspirin 81 mg tablet,delayed release RxNorm: 859619 Take 1 Tablet(s) Oral every day 02/03/20 24 Active solifenacin 5 mg tablet RxNorm: 677944 Take 1 Tablet(s) Oral every day 02/03/20 24 Active metformin 1,000 mg tablet RxNorm: 161979 Take 1 Tablet(s) Oral every morning 02/03/20 Active amantadine HCl 100 mg tablet RxNorm: 040591 oral 02/03/20 24 Active trazodone 150 mg tablet RxNorm: 869216 Take 1 Tablet(s) Oral HS as needed 02/03/20 Active duloxetine 60 mg capsule,delayed release RxNorm: 483971 Take 2 Capsule(s) Oral every day 02/03/20 24 Active baclofen 20 mg tablet RxNorm: 071391 TAKE ONE TABLET BY MOUTH THREE TIMES DAILY MAY CAUSE DROWSINESS 02/03/20 Active valsartan 80 mg tablet RxNorm: 905743 Take 1 Tablet(s) Oral two times a day 02/03/20 24 Active Lybalvi 15 mg-10 mg tablet RxNorm: 8342465 Take 1 Tablet(s) Oral every day 02/03/20 24 Active olanzapine 5 mg tablet RxNorm: 108498 Take 1 Tablet(s) Oral HS 02/03/20 24 Active Anucort-HC 25 mg suppository RxNorm: 0434065 UNWRAP AND INSERT 1 SUPPOSITORY RECTALLY TWICE DAILY FOR 2 WEEKS 02/03/20 24 Active gabapentin 600 mg tablet RxNorm: 243382 TAKE ONE TABLET BY MOUTH EVERY MORNING AND TAKE TWO TABLETS AT BEDTIME MAY CAUSE DROWSINESS 02/03/20 Active doxepin 50 mg capsule RxNorm: 1049693 Take 1 Capsule(s) Oral HS 02/03/20 Active trazodone 100 mg tablet RxNorm: 617532 Take 1 Tablet(s) Oral HS FOR SLEEP 02/03/20 Active ezetimibe 10 mg tablet RxNorm: 233592 Take 1 Tablet(s) Oral every day 02/03/20 Active duloxetine 30 mg capsule,delayed release RxNorm: 096768 Take 3 Capsule(s) Oral every day 02/03/20 24 Inactive Medication Administered No Medication Administered data Results Observation Observation Code Item Item Code Result Date Service Location CHEM 14 (METABOLIC PANEL) 44478 Glucose 2345-7 101 mg/dL [facility] [address] [place] [address] CHEM 14 (METABOLIC PANEL) 07980 BUN 3094-0 11 mg/dL [facility] [address] [place] [address] CHEM 14 (METABOLIC PANEL) 39208 Creatinine 2160-0 0.8 mg/dL [facility] [address] [place] [address] CHEM 14 (METABOLIC PANEL) 15172 BUN/Creat Ratio 3097-3 14.1 024 [facility] [address] [place] [address] CHEM 14 (METABOLIC PANEL) 54185 GFR Estimated 32112-7 96 mL/min/1.73 m2 024 [facility] [address] [place] [address] CHEM 14 (METABOLIC PANEL) 23765 Sodium 2951-2 141 mmol/L [facility] [address] [place] [address] CHEM 14 (METABOLIC PANEL) 56227 Potassium 2823-3 3.5 mmol/L 024 [facility] [address] [place] [address] CHEM 14 (METABOLIC PANEL) 08515 Chloride 2075-0 107 mmol/L 024 [facility] [address] [place] [address] CHEM 14 (METABOLIC PANEL) 06188 Total CO2 2028-9 24 mmol/L 024 [facility] [address] [place] [address] CHEM 14 (METABOLIC PANEL) 90619 Anion Gap 1863-0 13.5 mEq/L 024 [facility] [address] [place] [address] 90128 CHEM 14 (METABOLIC PANEL) 68927 Calculated Serum Osmolality 44955-8 292 mOsm/kg 024 [facility] [address] [place] [address] 49484 CHEM 14 (METABOLIC PANEL) 36128 Albumin 07154-7 4.0 g/dL 024 [facility] [address] [place] [address] 02752 CHEM 14 (METABOLIC PANEL) 84078 Total Protein 2885-2 7.0 g/dL 024 [facility] [address] [place] [address] 85192 CHEM 14 (METABOLIC PANEL) 65345 Globulin 2336-6 3.0 g/dL 024 [facility] [address] [place] [address] 83873 CHEM 14 (METABOLIC PANEL) 54111 Albumin/Globulin Ratio 1759-0 1.3 024 [facility] [address] [place] [address] 23579 CHEM 14 (METABOLIC PANEL) 57548 ALK PHOS 6768-6 84.00 U/L 024 [facility] [address] [place] [address] 59344 CHEM 14 (METABOLIC PANEL) 08368 SGOT/AST 1920-8 35 U/L 024 [facility] [address] [place] [address] 78513 CHEM 14 (METABOLIC PANEL) 42869 SGPT/ALT 1743-4 54 U/L 024 [facility] [address] [place] [address] 96462 CHEM 14 (METABOLIC PANEL) 41238 Total Bilirubin 1975-2 0.3 mg/dL 024 [facility] [address] [place] [address] 86833 CHEM 14 (METABOLIC PANEL) 92690 Calcium 11242-8 9.5 mg/dL 024 [facility] [address] [place] [address] 44064 CHEM 14 (METABOLIC PANEL) 08549 Corrected Calcium 44782-4 9.7 mg/dL 024 [facility] [address] [place] [address] 20041 FREE T-3 14748 FT3 3051-0 2.21 pg/mL 024 [facility] [address] [place] [address] FREE T-4 44480 FT4 3024-7 1.23 ng/dL 024 [facility] [address] [place] [address] 67297 VITAMIN B-12 18735 Vitamin B12 2132-9 459 pg/mL 02/05 024 [facility] [address] [place] [address] 63729 TSH 51184 TSH 19934-2 0.475 uIU/mL 024 [facility] [address] [place] [address] COMPLETE CBC W/ DIFF WBC 37201 WBC 6690-2 10.5 K/ul 024 [facility] [address] [place] [address] 19396 COMPLETE CBC W/ DIFF WBC 67077 RBC 789-8 4.22 M/uL 024 [facility] [address] [place] [address] 14047 COMPLETE CBC W/ DIFF WBC 38482 Hemoglobin 718-7 12.6 g/dL 024 [facility] [address] [place] [address] 70962 COMPLETE CBC W/ DIFF WBC 96642 Hematocrit 4544-3 38.6 % 024 [facility] [address] [place] [address] 26277 COMPLETE CBC W/ DIFF WBC 06101 MCV 787-2 91.5 fL 024 [facility] [address] [place] [address] 27407 COMPLETE CBC W/ DIFF WBC 71050 MCH 785-6 29.8 pg 024 [facility] [address] [place] [address] 95846 COMPLETE CBC W/ DIFF WBC 83165 MCHC 786-4 32.6 g/dL 024 [facility] [address] [place] [address] 88464 COMPLETE CBC W/ DIFF WBC 41654 RDW 788-0 15.5 % 024 [facility] [address] [place] [address] 71627 COMPLETE CBC W/ DIFF WBC 48076 Platelet Count 777-3 312 K/uL 024 [facility] [address] [place] [address] 77845 COMPLETE CBC W/ DIFF WBC 49249 MPV 31292-0 7.7 fL 024 [facility] [address] [place] [address] 01184 COMPLETE CBC W/ DIFF WBC 80291 Neutrophils % 770-8 68.1 % 024 [facility] [address] [place] [address] 90846 COMPLETE CBC W/ DIFF WBC 38788 Lymphocytes % 736-9 22.5 % 024 [facility] [address] [place] [address] COMPLETE CBC W/ DIFF WBC 15325 Monocytes % 5905-5 8.0 % 024 [facility] [address] [place] [address] COMPLETE CBC W/ DIFF WBC 84626 Eosinophils % 713-8 0.8 % 024 [facility] [address] [place] [address] COMPLETE CBC W/ DIFF WBC 91464 Basophils% 706-2 0.6 % 024 [facility] [address] [place] [address] COMPLETE CBC W/ DIFF WBC 56746 Absolute Neutrophil 751-8 7151 /ul 024 [facility] [address] [place] [address] 33137 COMPLETE CBC W/ DIFF WBC 27625 Absolute Lymphocyte 34852-5 2363 /ul 024 [facility] [address] [place] [address] 12130 COMPLETE CBC W/ DIFF WBC 13673 Absolute Monocyte 742-7 840 /ul 024 [facility] [address] [place] [address] 24551 COMPLETE CBC W/ DIFF WBC 44683 Absolute Eosinophil 711-2 84 /ul 024 [facility] [address] [place] [address] 36736 COMPLETE CBC W/ DIFF WBC 78819 Absolute Basophil 704-7 63 /ul 024 [facility] [address] [place] [address] 05331 Direct LDL 14996 LDL-Direct 35237-2 72 mg/dL 024 [facility] [address] [place] [address] 58860 VITAMIN D 68971 Vitamin D 05696-2 27.4 ng/mL 024 [facility] [address] [place] [address] HDL - CHOL 84194 HDL 2085-9 44 mg/dL 024 [facility] [address] [place] [address] 01172 HDL - CHOL 03843 CHD 23313-9 34 % 024 [facility] [address] [place] [address] TRIGLYCERIDES 91551 Triglycerides 2571-8 124 mg/dL 024 [facility] [address] [place] [address] 55813 TRIGLYCERIDES 85131 VLDL 41049-7 25 mg/dL 024 [facility] [address] [place] [address] 73951 MICROALBUMIN (URINE) 60161 Microalbumin 33864-5 2.4 mg/dL 024 [facility] [address] [place] [address] 97979 MICROALBUMIN (URINE) 03186 Microalbumin/Cre atinine Ratio 02317-5 30 MCG/MGCREAT 024 [facility] [address] [place] [address] MICROALBUMIN (URINE) 90493 Urine Creatinine 2161-8 81.20 mg/dL 024 [facility] [address] [place] [address] 54029 CHOLESTEROL 10371 Cholesterol 2093-3 131 mg/dL 024 [facility] [address] [place] [address] 82236 No Orders UA NoOrdersUA NO ORDERS UA 0.00 08/08 024 [facility] [address] [place] [address] 76765 URINALYSIS 51920 Glucose 2345-7 >1000 mg/dL ++++ mg/dL 024 [facility] [address] [place] [address] 18385 URINALYSIS 86045 Protein Negative mg/dL 024 [facility] [address] [place] [address] 58483 URINALYSIS 12894 Bilirubin Negative mg/dL 024 [facility] [address] [place] [address] 18806 URINALYSIS 62108 Urobilinogen Negative mg/dL 024 [facility] [address] [place] [address] 33059 URINALYSIS 57889 Ph 6.00 024 [facility] [address] [place] [address] 59963 URINALYSIS 93335 Blood Negative mg/dL 024 [facility] [address] [place] [address] 66072 URINALYSIS 22742 Ketones Negative mg/dL 024 [facility] [address] [place] [address] 11710 URINALYSIS 76336 Nitrite Negative 024 [facility] [address] [place] [address] 34250 URINALYSIS 14107 Leukocytes Negative Jae/uL 024 [facility] [address] [place] [address] 97203 URINALYSIS 22397 Clarity Clear 024 [facility] [address] [place] [address] URINALYSIS 82563 Specific Menard 1.024 024 [facility] [address] [place] [address] URINALYSIS 63356 Color Light-Yello w 024 [facility] [address] [place] [address] [id number] IN 4548-4 Glyco HGB A1C 78864-3 7.2 % 024 [facility] [address] [facility] [place] [address] [id number] IN 4548-4 eAG 90340-7 160 mg/dL 024 [facility] [address] [facility] [place] [address] Procedures Procedure Codes Date Most recent A1c = 7.0% and < 8.0% CPT-4: 3051F 03/28/2024 Most recent A1c = 7.0% and < 8.0% CPT-4: 3051F 03/08/2024 MED LIST DOCD IN [facility] CPT-4: 1159F 02/03/2024 RVW MEDS BY RX/DR IN [facility] CPT-4: 1160F 2023 Screening for clinical depre ssion is negative, follow-up plan not required CPT-4: G8510 02/03/2024 [id number] CPT-4: 22540 Unknown Vital Signs Date Vital 02/03/2024 Blood Pressure 1: 125/80 Code: 8480-6 BMI: 36.8 Code: 70249-2 Heart Rate 1: 90 bpm Height: 5'3 Code: 8302-2 Respiratory Rate: 16 bpm SpO2: 96% Temperature: 35.9 (C) / 96.7 (F) Weight: 211 lbs Code: 26158-8 Reason For Visit Reason For Visit Effective Dates Notes new patient welcome visit 02/03/2024 Encounters Encounter Performer Location Location Address Codes Date (38095) Other Reason/Patient not seen Diagnosis: Patient not seen[ICD10: UXZ.01] Marian Solis [place] [facility] [address] [facility] [address] [place] [address] CPT-4: 67986 03/28/2024 (54459) Other Reason/Patient not seen Diagnosis: Patient not seen[ICD10: UXZ.01] Marian Solis [place] [facility] [address] [place] [address] CPT-4: 54688 03/08/2024 (83527) 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 Visit POUNCER - Moderate Level, 60 mins Diagnosis: Primary [...] Diagnosis: Fatigue, unspecified type[ICD10: R53.83] Marian Solis [place] [facility] [address] [place] [address] CPT-4: 84259 02/03/2024 Plan of Care Planned Activity Notes Codes Status Date Appointment: Marian Solis WPtel: [address] [place], [place] [id number] 03/28/2024 Patient Education: Patient Medication Summary Completed 03/28/2024 Appointment: Marian Solis WPtel: [address] [place], [place] [id number] 03/08/2024 Patient Education: Patient Medication Summary [...] 02/03/2024 Appointment: Marian Solis WPtel: [facility] [address] [place], [place] [id number] 02/03/2024 Patient Education: Patient Medication Summary [...]
== END 2025-01-02 23:59 | disposition home or self-care (01) ==
LOC: RT 10:12
PROVIDERS: PCP Family Medicine; Visit Provider Physician Assistant
DX: I49.1 Atrial premature depolarization (principal); I49.3 Ventricular premature depolarization; I35.1 Nonrheumatic aortic (valve) insufficiency; I10 Essential (primary) hypertension; E78.2 Mixed hyperlipidemia; R00.0 Tachycardia, unspecified
CPT/HCPCS: 93270

== ENCOUNTER 2025-01-17 06:46 | Outpatient (CLI) | payer MEDICARE, SELFPAY ==
--- OUTSIDE RECORDS SUMMARY | 2024-11-20 14:15 | XMS_ITS | Encounter Summary ---
Author Organization [employer] ([place], [place], [place], [place]) Address [address] [place] [address] Care Team Providers Care Contact Lens Curve Grinder Name Role Phone Mustapha Hernandez PA-C Unavailable [phone] Gregory Malave DO Primary Care Provider [phone] Reason for Visit * Reason Comments RLS Peripheral Neuropathy Encounter Details Date Type Department Care Team (Late st Contact Info) Description 11/20/2024 2:15 PM EDT Office Visit [facility] Neurology - [facility] [address] [place] [address] [address] [place] [address] Madeleine Khan APRN [address] [facility] [address] [place] [address] Restless leg syndrome (Primary Dx) Social History [...] on file 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 Hannah Wallace at [facility]). She is a candidate for a spinal stimulator, but she needs neurology clearance. 01/21/22 MRI Brain - Chronic left hemisphere lacunar CVA's. 06/29/24 MRI Brain ([facility]) - Chronic vessel ischemia. She has [...] NCV/EMG - Normal study. 06/29/24 MRI BRAIN ([facility]) - Abnormal signal in the [...] Description 02/12/2025 10:15 AM EDT Office Visit [facility] Neurology - [facility] [address] [place] [address] [address] [place] [address] Madeleine Khan APRN [address] [facility] [address] [place] [address] documented as of this encounter Visit Diagnoses Diagnosis Restless leg syndrome- Primary Restless legs syndrome (RLS) documented in this encounter Care Teams Contact Lens Curve Grinder Relationship Specialty Start Date End Date Gregory Malave, [address] [facility] [address] [place], [place] [id number] PCP - General Internal Medicine 08/10/24 Mustapha Hernandez PA-C [address] [place] [address] Physician Grid Casting Machine Operator Helper 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
--- NOTE | 2025-01-17 | CA_ITS ---
APPROVED REPORT Exam: Pharmacologic Technologist: Katy Beth Ht: 5 ft 3 in Wt: 200 lbs BSA: 1.93 m2 HR: 87 bpm BP: 118/81 mmHg Medical History Medical History: HTN, Hyperlipidemia, Diabetes, , Smoking Medications: Amitriptyline, Aripiprazole, Aspirin, Clopidogrel, Duloxetine, Empagliflozin, Ezetimibe, Ferrous Sulfate, Gabapentin, Levothyroxine, Metformin, Mirabegron ER, Omeprazole, Ropinirole, Rosuvastatin, Semaglutide, Tizanidine, Valsartan, Varenicline tartrate, Verapamil ER Allergies: Topiramate Cardiac Risk Factors: HTN, Hyperlipidemia, Diabetes, Smoking Stress Test Details Test: Lexiscan HR Resting HR: 87 bpm Max Heart Rate (APMHR): 177 bpm Target HR (85% APMHR): 150 bpm Recovery HR: 101 bpm BP Resting BP: 118.0/81.0 mmHg Max BP: 120.0/80.0 mmHg Recovery BP: 120.0/80.0 mmHg ECG Stress ECG Conclusion Pt had mild chest pain and soa EKG nondiagnostic - Elif Electronically signed by : Kayla Hilton MD 01/17/2025 12:27:24
--- OUTSIDE RECORDS SUMMARY | 2025-01-17 06:49 | XMS_ITS | Referral Summary ---
Author Organization [employer] ([place], [place], [place], [place]) Address [address] [place] [address] Care Team Providers Care Director Of Operations Support Name Role Phone Mustapha Hernandez PA-C Unavailable [phone] Gregory Malave DO Primary Care Provider [phone] Encounters Date Type Department Care Team Description 11/20/2024 Travel 11/20/2024 2:15 PM EDT Office Visit [facility] [address] [place] [address] Madeleine Khan APRN Restless leg syndrome (Primary Dx) 11/07/2024 Orders Only [facility] [address] [place] [address] Provider, MD Say 10/31/2024 Travel 10/31/2024 7:30 AM EDT Procedure Visit [facility] [address] [place] [address] Kathy Carreon MD Demyelinating disease (HCC) (Primary Dx); Numbness and tingling of left upper and lower extremity; Muscle spasm 10/19/2024 Orders Only [facility] [address] [place] [address] Say Garcia MD 10/18/2024 Telephone [facility] - [facility] [address] [place] [address] Amber Mensah CMA Medication Problem 10/17/2024 Orders Only [facility] [address] [place] [address] Say Garcia MD from Last 3 Months Allergies Active Allergy [...] on file 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 Gender Identity Not on file Sexual Orientation [...] Description 02/12/2025 10:15 AM EDT Office Visit [facility] Neu[facility] - [facility] [address] [place] [address] BillMadeleine sanchez, APRICOT WASHER [address] [facility] [address] [place] [address] Procedures Procedure Name Priority Date/Time [...] MISC Routine 10/17/2024 2 :27 PM EDT from Last 3 Months Results [...] - 35 mg/dL 11/03/2024 8:36 AM EDT [facility] Albumin Index 5.9 0.0 - 9.0 ratio 11/03/2024 8:36 AM EDT [facility] IgG Index 0.57 0.28 - 0.66 ratio 11/03/2024 8:36 AM EDT [facility] CSF IgG/Albumin Ratio 0.11 0.09 - 0.25 ratio 11/03/2024 8:36 AM EDT [facility] CSF Oligoclonal Bands Negative Negative 11/03/2024 8:36 AM EDT [facility] CSF IgG Synthesis Rate 0.0 <=8.0 mg/d 11/03/2024 8:36 AM EDT [facility] Interpretation See Note 11/03/2024 8:36 AM EDT [facility] Comment: Isoelectric focusing/immunofixation revealed no oligoclonal [...] caution when interpreting the results. Performed By: [facility] [address] [place] [address] Icebox Man: Td Stock MD, PhD CLIA Number: [id number] 10/31/2024 8:00 AM EDT 10/31/2024 10:10 AM EDT Kathy Carreon MD LAB BLOOD ORDERABLES Final R esult [facility] [address] [place] [address], [facility] [phone] * CSF Culture + Gram Stain (10/31/2024 8:00 AM EDT) Result No growth 11/03/2024 8:32 AM EDT [facility] Gram Stain Result No organisms seen 11/03/2024 8:32 AM EDT [facility] Gram Stain Result No cells seen 11/03/2024 8:32 AM EDT [facility] Cerebrospinal Fluid 11/01/19 8:00 AM EDT 10/31/2024 10:10 AM EDT us Kathy Carreon MD MICROBIOLOGY - GENERAL ORDER BHARATH Final Result Performing Organization Address [facility]/ZIP Co de Phone Number [facility] [address] [phone] * CSF cell count with differential (10/31/2024 8:00 AM EDT) Appearance Clear 10/31/2024 10:40 AM EDT [facility] Color Colorless Colorless 10/31/2024 10:40 AM EDT [facility] Pellicle CSF None Seen None Seen 10/31/2024 10:40 AM EDT [facility] RBCs 0 0 - 5 /uL 10/31/2024 10:40 AM EDT [facility] Nucleated Cells, CSF 0 0 - 5 /uL 10/31/2024 10:40 AM EDT [facility] Xanthochromic CSF Absent Absent 10/31/2024 10:40 AM EDT [facility] Specimen Source CSF, Tube 1 11/01/19 10:40 AM EDT [facility] Cerebrospinal Fluid CEREBROSPINAL FLUID / Unknown 10/31/2024 8:00 AM EDT 10/31/2024 10:10 AM EDT us Kathy Carreon MD BODY FLUIDS AND STOOLS ORDER BHARATH Final Result [facility] [address] [phone] * (ABNORMAL) Glucose, CSF (10/31/2024 8:00 AM EDT) Glucose, CSF 80(H) 40 - 75 mg/dL 10/31/2024 10:40 AM EDT [facility] Specimen Source CSF, Tube 2 10/31/2024 10:40 AM EDT [facility] Cerebrospinal Fluid CEREBROSPINAL FLUID / Unknown 10/31/2024 8:00 AM EDT 10/31/2024 10:10 AM EDT us Kathy Carreon MD BODY FLUIDS AND STOOLS ORDER BHARATH Final Result [facility] [address] [place] [address], [facility] [phone] * EXTERNAL IMAGING - MR (10/17/2024 3:32 PM EDT) Anatomical Region Laterality Modality Other us Historical Provider HEALTH MAINTENANCE Final Result from Last 3 Months Insurance Care Teams Director Of Operations Support Relationship Specialty Start Date End Date Gregory Malave DO [address] [place] [address] PCP - General Internal Medicine 08/10/24 Mustapha Hernandez PA-C [address] [place] [address] Physician Roll Examiner Cardiology 07/04/24
--- OUTSIDE RECORDS SUMMARY | 2025-01-17 06:49 | XMS_ITS | Encounter Summary ---
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 Gender Identity Not on file Sexual Orientation Not on file documented as of this encounter Plan of Treatment Upcoming Encounters Date Type Department Care Team (Late st Contact Info) Description 02/12/2025 10:15 AM EDT Office Visit [facility] Neurology - [facility] [address] [facility] [address] [place] [address] Madeleine Khan APRN [address] [facility] [address] [place], [place] [id number] documented as of this encounter Visit Diagnoses Not on filedocumented in this encounter Care Teams Equal Opportunity Representative Relationship Specialty Start Date End Date Gregory Malave DO [address] [facility] [address] [place], [place] [id number] PCP - General Internal Medicine 08/10/24 Mustapha Hernandez PA-C [address] [facility] [address] [place] [address] Physician Sewer Pipe Press Operator 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
--- OUTSIDE RECORDS SUMMARY | 2025-01-17 06:51 | XMS_ITS | Patient Health Record ---
Author Organization [facility] Physician Dixie rock Billing Info Address [address] [place] [address] Care Team Providers Care Central Supply Nurse Name Role Phone MOE LOW Primary Care [...] Problem Status W/U Status Risk Notes Problem 646780762 Tobacco use (Z72.0) Active confirmed Problem 14815582 Heart palpitatio ns (R00.2) Active confirmed Problem Chest pain (R07.9) Active confirmed Problem 95055806 Hypertension, essential (I10) Active confirmed Problem 65050467 Hyperlipidemia, unspecified hyperlipidemia type (E78.5) Active confirmed Plan Of Treatment No Information Insurance Providers Payer Name Payer Address Payer Phone Subscriber Number Group Number Insured Name Patient Relationship to Insured Coverage Start Date Coverage End Date [id number] PPO NETWORK P 1 [facility] BEATRICE 0002 [facility] [place] [id number] [phone] [id number] Breana Garcia Self - patient is the insured 9 9 Medical (General) History Medical History History ICD Code hypertension Type 2 diabetes mellitus wit hout complication, without long-term current use of insulin E11.9 Hyperlipidemia, unspecified hyperlipidem ia type E78.5 Surgical History Surgery Date(Month/Year) tubal ligation knee arthroscopy-Left cholecystectomy Hospitalization History Reason Date(Month/Year) Shortness of breath 03/2016
--- OUTSIDE RECORDS SUMMARY | 2025-01-17 06:51 | XMS_ITS | Encounter Summary ---
Author Organization [employer] ([place], [place], [place], [place]) Address [address] [place] [address] Care Team Providers Care Ore Puncher Name Role Phone Mustapha Hernandez PA-C Unavailable [phone] Vee Wells APRN Primary Care Provider [phone] Gregory Malave DO Primary Care Provider [phone] Reason for Referral * Consultation (Routine) - Closed Specialty Diagnoses / Procedures Referred By Ines singh Referred To Contact Neurology Diagnoses Numbness and tingling of left upper and lower extremity Dizziness Fatigue History of CVA (cerebrovascular accident) History of TIA (transient ischemic attack) Family history of CVA New pt-LUE/LLE Numbness, Dizziness, and Hx of CVA Mustapha Hernandez PA-C [address] [facility] [address] [place] [address] Phone: tel: fax: [facility] Neurology - [address] [place] [address] Phone: tel: fax: Referral ID Status Reason Start Date Expiration Date Visits Re quested Visits Authorized [id number] Closed 07/04/2024 07/04/2025 1 1 Encounter Details Date Type Department Care Team (Late st Contact Info) Description 07/04/2024 Outside Orders [facility] Neurology - [facility] [address] [facility] [address] [place] [address] Mustapha Hernandez PA-C [address] [facility] [address] [place], [place] [id number] Numbness and tingling of left upper and lower extremity (Primary Dx); Dizziness; Fatigue; History of CVA (cerebrovascular accident); History of TIA (transient ischemic attack); Family history of CVA Social History Tobacco Use Types Packs/Day Years Used Date Smoking Tobacco: Never Assessed Comments Unknown Sex and Gender Information Value Date Recorded Sex Assigned at Not on file 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 Gender Identity Not on file Sexual Orientation Not on file documented as of this encounter Plan of Treatment Upcoming Encounters Date Type Department Care Team (Late st Contact Info) Description 02/12/2025 10:15 AM EDT Office Visit [facility] Neurology - [address] [facility] [address] [place] [address] Madeleine Khan APRN [address] [facility] [address] [place], [place] [id number] Scheduled Referrals Name Type Priority Associated Diagnoses [...] CVA documented in this encounter Care Teams Ore Puncher Relationship Specialty Start Date End Date Vee Wells APRN [address] [place] [address] PCP - General Nurse Practitioner 07/09/24 08/09/24 Gregory Malave [address] [place] [address] PCP - General Internal Medicine 08/10/24 Mustapha Hernandez PA-C [address] [place], [place] [id number] Physician Bleach Machine Operator 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
--- NOTE | 2025-01-17 07:00 | NM_ITS ---
APPROVED REPORT Exam: Nuclear Stress Test Indication: Chest pain, HTN, DM, High cholesterol, Tobacco use, Family history Patient Location: Outpatient Stress Tech: Katy Beth [place] Tech:Joleen Kemp, ARRT, RT (R)(N) Ht: 5 ft 3 in Wt: 198 lbs Bra Size: 40D HR: 91 bpm BP: 118/81 mmHg BSA: 1.93 m2 TID: 0.77 BMI: 35.0 History: Chest pain, HTN, DM, High cholesterol, Tobacco use, Family history Procedure: Patient received 0.4 mg of intravenous Lexiscan, resting heart rate 91 bpm, resting blood pressure 118/81 mmHg, with Lexiscan maximum heart rate achieved was 121 bpm which is % of the maximum predicted heart rate and blood pressure was 120/80 mmHg. With Lexiscan, patient denied any complaint of chest pain. Cardiac Stress and Resting SPECT Images: Cardiac Stress and Resting SPECT images were obtained using technetium 99m Myoview 29.1 mCi stress and 10.55 mCi at rest. Technically difficult study due to significant soft tissue overlap in the resting images. Resting and stress imaging in supine and prone position demonstrate no evidence of fixed or reversible perfusion defects. Gated imaging demonstrates normal global and regional LV systolic function. LVEF is calculated at 60%. Conclusion: Technically difficult study No evidence of fixed or reversible perfusion defects. Gated imaging demonstrates normal global and regional LV systolic function. LVEF is calculated at 60%. Electronically signed by : Kayla Hilton MD 01/17/2025 12:27:07
--- OUTSIDE RECORDS SUMMARY | 2025-01-17 07:48 | XMS_ITS | CCD ---
Author Name Marian Soils NP Address [address] [facility] [address] [place] [address] Phone Organization [facility] Phone Care Team Providers Care Drill Rig Operator Name Role Phone Unavailable Primary Care Provider Unavailabl e Unavailable Chronic Care Management Unavaila ble Summary Purpose DataExchange Insurance Providers Payer name Policy type / Coverage type Covered democrat ID Effective Begin Date Effective End Date [facility] [id number] Unknown Unknown Family history Father Diagnosis Age [...] cessation counseling) 02/03/[address]: 670974984 Never drinks alco hol 02/03/2024 Illegal/Recreational drug history Unknown *Has never used illegal/recreational drugs 02/03/2024 Allergies, Adverse Reactions, Alerts Substance Reaction Codes Entered Date Inactivated Date Status * Food Allergy _ Unknown 02/03/2024 No Inactive Date Active Topamax RxNorm: 562128 02/03/2024 No Inactive Da te Active Seasonal [...] 21 mg/24 hr daily transdermal patch RxNorm: 661455 Apply 1 Patch Transdermal 02/03/20 24 025 Active valsartan 160 mg tablet RxNorm: 927907 Take 1 Tablet(s) Oral two times a day 02/03/20 Active lithium carbonate 300 mg capsule RxNorm: 785096 TAKE ONE CAPSULE BY MOUTH TWICE DAILY FOR mood 02/03/20 24 Active buspirone 10 mg tablet RxNorm: 967034 Take 2 Tablet(s) Oral three times a day 02/03/20 24 Active amlodipine 5 mg tablet RxNorm: 323565 Take 1 Tablet(s) Oral every evening 02/03/20 24 Active rosuvastatin 20 mg tablet RxNorm: 462794 Take 1 Tablet(s) Oral every day 02/03/20 24 Active fluticasone propionate 50 mcg/actuation nasal spray,suspension ... RxNorm: 2214575 instill 1-2 SPRAYS IN EACH NOSTRIL EVERY DAY NEEDED 02/03/20 24 Active Nyamyc 100,000 unit/gram topical powder RxNorm: 639305 top 02/03/20 24 Active polyethylene glycol 3350 17 gram/dose oral powder RxNorm: 156178 DISSOLVE 17 GRAMS OF POWDER INTO 4 TO 8 OUNCES OF WATER, JUICE, SODA, COFFEE, OR TEA THEN DRINK EVERY DAY do not exceed 17 grams PER day 02/03/20 24 Active fluoxetine 40 mg capsule RxNorm: 176095 TAKE ONE CAPSULE BY MOUTH TWICE DAILY FOR mood 02/03/20 24 Active cholecalciferol (vitamin D3) 50 mcg (2,000 unit) capsule RxNorm: 837922 Take 1 Capsule(s) Oral every day 02/03/20 24 Active tobramycin 1.2 gram solution for injection RxNorm: 689060 inj 02/03/20 24 Active benzonatate 100 mg capsule RxNorm: 883152 TAKE ONE CAPSULE BY MOUTH THREE TIMES DAILY NEEDED FOR cough -SWALLOW WHOLE. DO NOT CRUSH OR CHEW- 02/03/20 24 Active Linzess 72 mcg capsule RxNorm: 3033829 TAKE ONE CAPSULE BY MOUTH EVERY DAY ON AN EMPTY STOMACH AT LEAST 30 MINUTES BEFORE THE FIRST MEAL OF THE DAY 02/03/20 24 Active aripiprazole 10 mg tablet RxNorm: 113943 Take 1 Tablet(s) Oral HS 02/03/20 24 Active Trulicity 1.5 mg/0.5 mL subcutaneous pen injector RxNorm: 9389445 INJECT 1.5 MG (0.5 ML) SUBCUTANEOUSLY ONCE A WEEK 02/03/20 24 Active levothyroxine 75 mcg tablet RxNorm: 087604 Take 1 Tablet(s) Oral every day BEFORE a meal 02/03/20 Active Ozempic 0.25 mg or 0.5 mg (2 mg/3 mL) subcutaneous pen injector ... RxNorm: 6985194 Inject 0.5 Milligram(s) Subcutaneous QW 02/03/20 Active Myrbetriq 25 mg tablet,extended release RxNorm: 2936923 TAKE ONE TABLET BY MOUTH EVERY DAY do not crush, chew, and/or divide take with water 02/03/20 Active bisoprolol fumarate 5 mg tablet RxNorm: 920456 Take 1 Tablet(s) Oral every day 02/03/20 24 Active aspirin 81 mg tablet,delayed release RxNorm: 814184 Take 1 Tablet(s) Oral every day 02/03/20 24 Active solifenacin 5 mg tablet RxNorm: 109025 Take 1 Tablet(s) Oral every day 02/03/20 24 Active metformin 1,000 mg tablet RxNorm: 066416 Take 1 Tablet(s) Oral every morning 02/03/20 Active amantadine HCl 100 mg tablet RxNorm: 399140 oral 02/03/20 24 Active trazodone 150 mg tablet RxNorm: 847934 Take 1 Tablet(s) Oral HS as needed 02/03/20 Active duloxetine 60 mg capsule,delayed release RxNorm: 473758 Take 2 Capsule(s) Oral every day 02/03/20 24 Active baclofen 20 mg tablet RxNorm: 269771 TAKE ONE TABLET BY MOUTH THREE TIMES DAILY MAY CAUSE DROWSINESS 02/03/20 Active valsartan 80 mg tablet RxNorm: 186686 Take 1 Tablet(s) Oral two times a day 02/03/20 24 Active Lybalvi 15 mg-10 mg tablet RxNorm: 1522241 Take 1 Tablet(s) Oral every day 02/03/20 24 Active olanzapine 5 mg tablet RxNorm: 971081 Take 1 Tablet(s) Oral HS 02/03/20 24 Active Anucort-HC 25 mg suppository RxNorm: 6405098 UNWRAP AND INSERT 1 SUPPOSITORY RECTALLY TWICE DAILY FOR 2 WEEKS 02/03/20 24 Active gabapentin 600 mg tablet RxNorm: 642552 TAKE ONE TABLET BY MOUTH EVERY MORNING AND TAKE TWO TABLETS AT BEDTIME MAY CAUSE DROWSINESS 02/03/20 Active doxepin 50 mg capsule RxNorm: 8138504 Take 1 Capsule(s) Oral HS 02/03/20 Active trazodone 100 mg tablet RxNorm: 984113 Take 1 Tablet(s) Oral HS FOR SLEEP 02/03/20 Active ezetimibe 10 mg tablet RxNorm: 302883 Take 1 Tablet(s) Oral every day 02/03/20 Active duloxetine 30 mg capsule,delayed release RxNorm: 160750 Take 3 Capsule(s) Oral every day 02/03/20 24 Inactive Medication Administered No Medication Administered data Results Observation Observation Code Item Item Code Result Date Service Location CHEM 14 (METABOLIC PANEL) 04292 Glucose 2345-7 101 mg/dL [facility] [address] [place] [address] CHEM 14 (METABOLIC PANEL) 50621 BUN 3094-0 11 mg/dL [facility] [address] [place] [address] CHEM 14 (METABOLIC PANEL) 11866 Creatinine 2160-0 0.8 mg/dL 024 [facility] [address] [place] [address] CHEM 14 (METABOLIC PANEL) 20449 BUN/Creat Ratio 3097-3 14.1 024 [facility] [address] [place] [address] CHEM 14 (METABOLIC PANEL) 96194 GFR Estimated 03148-9 96 mL/min/1.73 m2 024 [facility] [address] [place] [address] CHEM 14 (METABOLIC PANEL) 52757 Sodium 2951-2 141 mmol/L [facility] [address] [place] [address] CHEM 14 (METABOLIC PANEL) 69593 Potassium 2823-3 3.5 mmol/L 024 [facility] [address] [place] [address] CHEM 14 (METABOLIC PANEL) 85803 Chloride 2075-0 107 mmol/L 024 [facility] [address] [place] [address] CHEM 14 (METABOLIC PANEL) 42744 Total CO2 2028-9 24 mmol/L 024 [facility] [address] [place] [address] CHEM 14 (METABOLIC PANEL) 02935 Calculated Serum Osmolality 81937-9 292 mOsm/kg 024 [facility] [address] [place] [address] CHEM 14 (METABOLIC PANEL) 95205 Anion Gap 1863-0 13.5 mEq/L 024 [facility] [address] [place] [address] CHEM 14 (METABOLIC PANEL) 23564 Albumin 42800-0 4.0 g/dL 024 [facility] [address] [place] [address] CHEM 14 (METABOLIC PANEL) 68483 Total Protein 2885-2 7.0 g/dL 024 [facility] [address] [place] [address] 46778 CHEM 14 (METABOLIC PANEL) 16830 Globulin 2336-6 3.0 g/dL 024 [facility] [address] [place] [address] 08369 CHEM 14 (METABOLIC PANEL) 16305 Albumin/Globulin Ratio 1759-0 1.3 024 [facility] [address] [place] [address] 07687 CHEM 14 (METABOLIC PANEL) 73093 ALK PHOS 6768-6 84.00 U/L 024 [facility] [address] [place] [address] 52496 CHEM 14 (METABOLIC PANEL) 70769 SGOT/AST 1920-8 35 U/L 024 [facility] [address] [place] [address] 37521 CHEM 14 (METABOLIC PANEL) 02744 SGPT/ALT 1743-4 54 U/L 024 [facility] [address] [place] [address] 60555 CHEM 14 (METABOLIC PANEL) 89760 Total Bilirubin 1975-2 0.3 mg/dL 024 [facility] [address] [place] [address] 63065 CHEM 14 (METABOLIC PANEL) 33837 Calcium 41237-0 9.5 mg/dL 024 [facility] [address] [place] [address] 44021 CHEM 14 (METABOLIC PANEL) 48094 Corrected Calcium 90188-0 9.7 mg/dL 024 [facility] [address] [place] [address] 49670 FREE T-3 88198 FT3 3051-0 2.21 pg/mL 024 [facility] [address] [place] [address] FREE T-4 39987 FT4 3024-7 1.23 ng/dL 024 [facility] [address] [place] [address] 78550 VITAMIN B-12 83094 Vitamin B12 2132-9 459 pg/mL 02/05 024 [facility] [address] [place] [address] 43454 TSH 27607 TSH 99838-6 0.475 uIU/mL 024 [facility] [address] [place] [address] COMPLETE CBC W/ DIFF WBC 65086 WBC 6690-2 10.5 K/ul 024 [facility] [address] [place] [address] 77804 COMPLETE CBC W/ DIFF WBC 30805 RBC 789-8 4.22 M/uL 024 [facility] [address] [place] [address] 52844 COMPLETE CBC W/ DIFF WBC 67832 Hemoglobin 718-7 12.6 g/dL 024 [facility] [address] [place] [address] 36266 COMPLETE CBC W/ DIFF WBC 49751 Hematocrit 4544-3 38.6 % 024 [facility] [address] [place] [address] 75515 COMPLETE CBC W/ DIFF WBC 81339 MCV 787-2 91.5 fL 024 [facility] [address] [place] [address] 29685 COMPLETE CBC W/ DIFF WBC 60628 MCH 785-6 29.8 pg 024 [facility] [address] [place] [address] 43765 COMPLETE CBC W/ DIFF WBC 85336 MCHC 786-4 32.6 g/dL 024 [facility] [address] [place] [address] 22069 COMPLETE CBC W/ DIFF WBC 48642 RDW 788-0 15.5 % 024 [facility] [address] [place] [address] 24747 COMPLETE CBC W/ DIFF WBC 14903 Platelet Count 777-3 312 K/uL 024 [facility] [address] [place] [address] 02343 COMPLETE CBC W/ DIFF WBC 75304 MPV 94898-1 7.7 fL 024 [facility] [address] [place] [address] 65125 COMPLETE CBC W/ DIFF WBC 68087 Neutrophils % 770-8 68.1 % 024 [facility] [address] [place] [address] 87832 COMPLETE CBC W/ DIFF WBC 69776 Lymphocytes % 736-9 22.5 % 024 [facility] [address] [place] [address] COMPLETE CBC W/ DIFF WBC 42607 Monocytes % 5905-5 8.0 % 024 [facility] [address] [place] [address] COMPLETE CBC W/ DIFF WBC 68763 Eosinophils % 713-8 0.8 % 024 [facility] [address] [place] [address] COMPLETE CBC W/ DIFF WBC 23748 Basophils% 706-2 0.6 % 024 [facility] [address] [place] [address] COMPLETE CBC W/ DIFF WBC 52310 Absolute Neutrophil 751-8 7151 /ul 024 [facility] [address] [place] [address] 51165 COMPLETE CBC W/ DIFF WBC 64739 Absolute Lymphocyte 81706-8 2363 /ul 024 [facility] [address] [place] [address] 66982 COMPLETE CBC W/ DIFF WBC 60671 Absolute Monocyte 742-7 840 /ul 024 [facility] [address] [place] [address] 78531 COMPLETE CBC W/ DIFF WBC 44369 Absolute Eosinophil 711-2 84 /ul 024 [facility] [address] [place] [address] 78030 COMPLETE CBC W/ DIFF WBC 30981 Absolute Basophil 704-7 63 /ul 024 [facility] [address] [place] [address] 73930 Direct LDL 39956 LDL-Direct 54675-8 72 mg/dL 024 [facility] [address] [place] [address] 33018 VITAMIN D 49396 Vitamin D 17223-5 27.4 ng/mL 024 [facility] [address] [place] [address] HDL - CHOL 32614 HDL 2085-9 44 mg/dL 024 [facility] [address] [place] [address] 57636 HDL - CHOL 98674 CHD 28767-4 34 % 024 [facility] [address] [place] [address] TRIGLYCERIDES 51580 Triglycerides 2571-8 124 mg/dL 024 [facility] [address] [place] [address] 75749 TRIGLYCERIDES 35586 VLDL 31587-0 25 mg/dL 024 [facility] [address] [place] [address] 24406 MICROALBUMIN (URINE) 34368 Microalbumin 29865-7 2.4 mg/dL 024 [facility] [address] [place] [address] 10449 MICROALBUMIN (URINE) 07627 Microalbumin/Cre atinine Ratio 54482-6 30 MCG/MGCREAT 024 [facility] [address] [place] [address] MICROALBUMIN (URINE) 67072 Urine Creatinine 2161-8 81.20 mg/dL 024 [facility] [address] [place] [address] 31463 CHOLESTEROL 34696 Cholesterol 2093-3 131 mg/dL 024 [facility] [address] [place] [address] 81227 No Orders UA NoOrdersUA NO ORDERS UA 0.00 08/08 024 [facility] [address] [place] [address] 61999 URINALYSIS 53244 Glucose 2345-7 >1000 mg/dL ++++ mg/dL 024 [facility] [address] [place] [address] 80946 URINALYSIS 35195 Protein Negative mg/dL 024 [facility] [address] [place] [address] 06792 URINALYSIS 98628 Bilirubin Negative mg/dL 024 [facility] [address] [place] [address] 90927 URINALYSIS 81239 Urobilinogen Negative mg/dL 024 [facility] [address] [place] [address] 85989 URINALYSIS 21747 Ph 6.00 024 [facility] [address] [place] [address] 74622 URINALYSIS 08635 Blood Negative mg/dL 024 [facility] [address] [place] [address] 43316 URINALYSIS 93864 Ketones Negative mg/dL 024 [facility] [address] [place] [address] 47145 URINALYSIS 88161 Nitrite Negative 024 [facility] [address] [place] [address] 66181 URINALYSIS 53688 Leukocytes Negative Jae/uL 024 [facility] [address] [place] [address] 61375 URINALYSIS 51521 Clarity Clear 024 [facility] [address] [place] [address] URINALYSIS 79759 Specific [place] 1.024 024 [facility] [address] [place] [address] URINALYSIS 11148 Color Light-Yello w 024 [facility] [address] [place] [address] [id number] IN 4548-4 Glyco HGB A1C 19267-2 7.2 % 024 [facility] [address] [facility] [place] [address] [id number] IN 4548-4 eAG 90168-5 160 mg/dL 024 [facility] [address] [facility] [place] [address] Procedures Procedure Codes Date Most recent A1c = 7.0% and < 8.0% CPT-4: 3051F 03/28/2024 Most recent A1c = 7.0% and < 8.0% CPT-4: 3051F 03/08/2024 MED LIST DOCD IN [facility] CPT-4: 1159F 02/03/2024 RVW MEDS BY RX/DR IN [facility] CPT-4: 1160F 2023 Screening for clinical depre ssion is negative, follow-up plan not required CPT-4: G8510 02/03/2024 [id number] CPT-4: 79608 Unknown Vital Signs Date Vital 02/03/2024 Blood Pressure 1: 125/80 Code: 8480-6 BMI: 36.8 Code: 03761-8 Heart Rate 1: 90 bpm Height: 5'3 Code: 8302-2 Respiratory Rate: 16 bpm SpO2: 96% Temperature: 35.9 (C) / 96.7 (F) Weight: 211 lbs Code: 00338-7 Reason For Visit Reason For Visit Effective Dates Notes new patient welcome visit 02/03/2024 Encounters Encounter Performer Location Location Address Codes Date (31681) Other Reason/Patient not seen Diagnosis: Patient not seen[ICD10: UXZ.01] Marian Solis [place] [facility] [address] [facility] [address] [place] [address] CPT-4: 11253 03/28/2024 (33878) Other Reason/Patient not seen Diagnosis: Patient not seen[ICD10: UXZ.01] Marian Solis [place] [facility] [address] [place] [address] CPT-4: 95534 03/08/2024 (73078) 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 02/03/2024 Appointment: Marian Solis WPtel: [facility], [id number] [address] [place], [place] [id number] 02/03/2024 Patient Education: Patient Medication Summary [...]
--- OUTSIDE RECORDS SUMMARY | 2025-01-17 07:48 | XMS_ITS | CCD ---
Author Name Marian Solis NP Address [address] [facility] [address] [place] [address] Phone Organization [facility] Phone Care Team Providers Care Transportation Sales Consultant Name Role Phone Unavailable Primary Care Provider Unavailabl e Unavailable Chronic Care Management Unavaila ble Summary Purpose DataExchange Insurance Providers Payer name Policy type / Coverage type Covered republican ID Effective Begin Date Effective End Date [facility] [id number] Unknown Unknown Family history Father Diagnosis Age [...] cessation counseling) 02/03/[address]: [id number] Never drinks alco hol 02/03/2024 Illegal/Recreational drug history Unknown *Has never used illegal/recreational drugs 02/03/2024 Allergies, Adverse Reactions, Alerts Substance Reaction Codes Entered Date Inactivated Date Status * Food Allergy _ Unknown 02/03/2024 No Inactive Date Active Topamax RxNorm: 785725 02/03/2024 No Inactive Da te Active Seasonal [...] 21 mg/24 hr daily transdermal patch RxNorm: 088458 Apply 1 Patch Transdermal 02/03/20 24 025 Active valsartan 160 mg tablet RxNorm: 447637 Take 1 Tablet(s) Oral two times a day 02/03/20 Active lithium carbonate 300 mg capsule RxNorm: 255993 TAKE ONE CAPSULE BY MOUTH TWICE DAILY FOR mood 02/03/20 24 Active buspirone 10 mg tablet RxNorm: 557298 Take 2 Tablet(s) Oral three times a day 02/03/20 24 Active amlodipine 5 mg tablet RxNorm: 910200 Take 1 Tablet(s) Oral every evening 02/03/20 24 Active rosuvastatin 20 mg tablet RxNorm: 690045 Take 1 Tablet(s) Oral every day 02/03/20 24 Active fluticasone propionate 50 mcg/actuation nasal spray,suspension ... RxNorm: 8932532 instill 1-2 SPRAYS IN EACH NOSTRIL EVERY DAY NEEDED 02/03/20 24 Active Nyamyc 100,000 unit/gram topical powder RxNorm: 648287 top 02/03/20 24 Active polyethylene glycol 3350 17 gram/dose oral powder RxNorm: 604628 DISSOLVE 17 GRAMS OF POWDER INTO 4 TO 8 OUNCES OF WATER, JUICE, SODA, COFFEE, OR TEA THEN DRINK EVERY DAY do not exceed 17 grams PER day 02/03/20 24 Active fluoxetine 40 mg capsule RxNorm: 335054 TAKE ONE CAPSULE BY MOUTH TWICE DAILY FOR mood 02/03/20 24 Active cholecalciferol (vitamin D3) 50 mcg (2,000 unit) capsule RxNorm: 792167 Take 1 Capsule(s) Oral every day 02/03/20 24 Active tobramycin 1.2 gram solution for injection RxNorm: 623614 inj 02/03/20 24 Active benzonatate 100 mg capsule RxNorm: 376389 TAKE ONE CAPSULE BY MOUTH THREE TIMES DAILY NEEDED FOR cough -SWALLOW WHOLE. DO NOT CRUSH OR CHEW- 02/03/20 24 Active Linzess 72 mcg capsule RxNorm: 1559933 TAKE ONE CAPSULE BY MOUTH EVERY DAY ON AN EMPTY STOMACH AT LEAST 30 MINUTES BEFORE THE FIRST MEAL OF THE DAY 02/03/20 24 Active aripiprazole 10 mg tablet RxNorm: 172753 Take 1 Tablet(s) Oral HS 02/03/20 24 Active Trulicity 1.5 mg/0.5 mL subcutaneous pen injector RxNorm: 6569265 INJECT 1.5 MG (0.5 ML) SUBCUTANEOUSLY ONCE A WEEK 02/03/20 24 Active levothyroxine 75 mcg tablet RxNorm: 680398 Take 1 Tablet(s) Oral every day BEFORE a meal 02/03/20 Active Ozempic 0.25 mg or 0.5 mg (2 mg/3 mL) subcutaneous pen injector ... RxNorm: 7415692 Inject 0.5 Milligram(s) Subcutaneous QW 02/03/20 Active Myrbetriq 25 mg tablet,extended release RxNorm: 6247341 TAKE ONE TABLET BY MOUTH EVERY DAY do not crush, chew, and/or divide take with water 02/03/20 Active bisoprolol fumarate 5 mg tablet RxNorm: 626480 Take 1 Tablet(s) Oral every day 02/03/20 24 Active aspirin 81 mg tablet,delayed release RxNorm: 873218 Take 1 Tablet(s) Oral every day 02/03/20 24 Active solifenacin 5 mg tablet RxNorm: 235121 Take 1 Tablet(s) Oral every day 02/03/20 24 Active metformin 1,000 mg tablet RxNorm: 655915 Take 1 Tablet(s) Oral every morning 02/03/20 Active amantadine HCl 100 mg tablet RxNorm: 927894 oral 02/03/20 24 Active trazodone 150 mg tablet RxNorm: 971686 Take 1 Tablet(s) Oral HS as needed 02/03/20 Active duloxetine 60 mg capsule,delayed release RxNorm: 064712 Take 2 Capsule(s) Oral every day 02/03/20 24 Active baclofen 20 mg tablet RxNorm: 029917 TAKE ONE TABLET BY MOUTH THREE TIMES DAILY MAY CAUSE DROWSINESS 02/03/20 Active valsartan 80 mg tablet RxNorm: 049821 Take 1 Tablet(s) Oral two times a day 02/03/20 24 Active Lybalvi 15 mg-10 mg tablet RxNorm: 3991712 Take 1 Tablet(s) Oral every day 02/03/20 24 Active olanzapine 5 mg tablet RxNorm: 142967 Take 1 Tablet(s) Oral HS 02/03/20 24 Active Anucort-HC 25 mg suppository RxNorm: 5255533 UNWRAP AND INSERT 1 SUPPOSITORY RECTALLY TWICE DAILY FOR 2 WEEKS 02/03/20 24 Active gabapentin 600 mg tablet RxNorm: 425332 TAKE ONE TABLET BY MOUTH EVERY MORNING AND TAKE TWO TABLETS AT BEDTIME MAY CAUSE DROWSINESS 02/03/20 Active doxepin 50 mg capsule RxNorm: 5612691 Take 1 Capsule(s) Oral HS 02/03/20 Active trazodone 100 mg tablet RxNorm: 506228 Take 1 Tablet(s) Oral HS FOR SLEEP 02/03/20 Active ezetimibe 10 mg tablet RxNorm: 041295 Take 1 Tablet(s) Oral every day 02/03/20 Active duloxetine 30 mg capsule,delayed release RxNorm: 747307 Take 3 Capsule(s) Oral every day 02/03/20 24 Inactive Medication Administered No Medication Administered data Results Observation Observation Code Item Item Code Result Date Service Location CHEM 14 (METABOLIC PANEL) 25058 Glucose 2345-7 101 mg/dL [facility] [address] [place] [address] CHEM 14 (METABOLIC PANEL) 93035 BUN 3094-0 11 mg/dL [facility] [address] [place] [address] CHEM 14 (METABOLIC PANEL) 08944 Creatinine 2160-0 0.8 mg/dL 024 [facility] [address] [place] [address] CHEM 14 (METABOLIC PANEL) 09082 BUN/Creat Ratio 3097-3 14.1 024 [facility] [address] [place] [address] CHEM 14 (METABOLIC PANEL) 29064 GFR Estimated 21944-9 96 mL/min/1.73 m2 024 [facility] [address] [place] [address] CHEM 14 (METABOLIC PANEL) 67643 Sodium 2951-2 141 mmol/L [facility] [address] [place] [address] CHEM 14 (METABOLIC PANEL) 31107 Potassium 2823-3 3.5 mmol/L 024 [facility] [address] [place] [address] CHEM 14 (METABOLIC PANEL) 91775 Chloride 2075-0 107 mmol/L 024 [facility] [address] [place] [address] CHEM 14 (METABOLIC PANEL) 11375 Total CO2 2028-9 24 mmol/L 024 [facility] [address] [place] [address] CHEM 14 (METABOLIC PANEL) 29051 Calculated Serum Osmolality 59609-2 292 mOsm/kg 024 [facility] [address] [place] [address] CHEM 14 (METABOLIC PANEL) 94832 Anion Gap 1863-0 13.5 mEq/L 0[address] [facility] [address] [place] [address] 03731 CHEM 14 (METABOLIC PANEL) 69273 Albumin 66376-8 4.0 g/dL 024 [facility] [address] [place] [address] CHEM 14 (METABOLIC PANEL) 40257 Total Protein 2885-2 7.0 g/dL 0[address] [facility] [address] [place] [address] 92257 CHEM 14 (METABOLIC PANEL) 88185 Globulin 2336-6 3.0 g/dL 024 [facility] [address] [place] [address] 52121 CHEM 14 (METABOLIC PANEL) 02791 Albumin/Globulin Ratio 1759-0 1.3 024 [facility] [address] [place] [address] 31943 CHEM 14 (METABOLIC PANEL) 90210 ALK PHOS 6768-6 84.00 U/L 024 [facility] [address] [place] [address] 48270 CHEM 14 (METABOLIC PANEL) 53528 SGOT/AST 1920-8 35 U/L 024 [facility] [address] [place] [address] 54177 CHEM 14 (METABOLIC PANEL) 28722 SGPT/ALT 1743-4 54 U/L 024 [facility] [address] [place] [address] 35076 CHEM 14 (METABOLIC PANEL) 00810 Total Bilirubin 1975-2 0.3 mg/dL 024 [facility] [address] [place] [address] 90166 CHEM 14 (METABOLIC PANEL) 70520 Calcium 38636-2 9.5 mg/dL 024 [facility] [address] [place] [address] 37367 CHEM 14 (METABOLIC PANEL) 76303 Corrected Calcium 14127-0 9.7 mg/dL 024 [facility] [address] [place] [address] 01286 FREE T-3 19907 FT3 3051-0 2.21 pg/mL 024 [facility] [address] [place] [address] FREE T-4 51174 FT4 3024-7 1.23 ng/dL 024 [facility] [address] [place] [address] 53581 VITAMIN B-12 48558 Vitamin B12 2132-9 459 pg/mL 02/05 024 [facility] [address] [place] [address] 48342 TSH 88934 TSH 40139-8 0.475 uIU/mL 024 [facility] [address] [place] [address] COMPLETE CBC W/ DIFF WBC 56407 WBC 6690-2 10.5 K/ul 024 [facility] [address] [place] [address] 80198 COMPLETE CBC W/ DIFF WBC 82015 RBC 789-8 4.22 M/uL 024 [facility] [address] [place] [address] 83648 COMPLETE CBC W/ DIFF WBC 57887 Hemoglobin 718-7 12.6 g/dL 024 [facility] [address] [place] [address] 93527 COMPLETE CBC W/ DIFF WBC 39944 Hematocrit 4544-3 38.6 % 024 [facility] [address] [place] [address] 76977 COMPLETE CBC W/ DIFF WBC 86277 MCV 787-2 91.5 fL 024 [facility] [address] [place] [address] 89252 COMPLETE CBC W/ DIFF WBC 04525 MCH 785-6 29.8 pg 024 [facility] [address] [place] [address] 27248 COMPLETE CBC W/ DIFF WBC 33076 MCHC 786-4 32.6 g/dL 024 [facility] [address] [place] [address] 92057 COMPLETE CBC W/ DIFF WBC 33633 RDW 788-0 15.5 % 024 [facility] [address] [place] [address] 87900 COMPLETE CBC W/ DIFF WBC 82188 Platelet Count 777-3 312 K/uL 024 [facility] [address] [place] [address] 12961 COMPLETE CBC W/ DIFF WBC 42584 MPV 55464-0 7.7 fL 024 [facility] [address] [place] [address] 70192 COMPLETE CBC W/ DIFF WBC 87114 Neutrophils % 770-8 68.1 % 024 [facility] [address] [place] [address] 30591 COMPLETE CBC W/ DIFF WBC 99963 Lymphocytes % 736-9 22.5 % 024 [facility] [address] [place] [address] COMPLETE CBC W/ DIFF WBC 60534 Monocytes % 5905-5 8.0 % 024 [facility] [address] [place] [address] COMPLETE CBC W/ DIFF WBC 32837 Eosinophils % 713-8 0.8 % 024 [facility] [address] [place] [address] COMPLETE CBC W/ DIFF WBC 85014 Basophils% 706-2 0.6 % 024 [facility] [address] [place] [address] COMPLETE CBC W/ DIFF WBC 85519 Absolute Neutrophil 751-8 7151 /ul 024 [facility] [address] [place] [address] 10508 COMPLETE CBC W/ DIFF WBC 02456 Absolute Lymphocyte 20649-4 2363 /ul 024 [facility] [address] [place] [address] 15047 COMPLETE CBC W/ DIFF WBC 84440 Absolute Monocyte 742-7 840 /ul 024 [facility] [address] [place] [address] 46536 COMPLETE CBC W/ DIFF WBC 50721 Absolute Eosinophil 711-2 84 /ul 024 [facility] [address] [place] [address] 73009 COMPLETE CBC W/ DIFF WBC 20114 Absolute Basophil 704-7 63 /ul 024 [facility] [address] [place] [address] 17026 Direct LDL 34718 LDL-Direct 82048-4 72 mg/dL 024 [facility] [address] [place] [address] 57080 VITAMIN D 42192 Vitamin D 41683-1 27.4 ng/mL 024 [facility] [address] [place] [address] HDL - CHOL 68069 HDL 2085-9 44 mg/dL 024 [facility] [address] [place] [address] 85883 HDL - CHOL 22815 CHD 61627-4 34 % 024 [facility] [address] [place] [address] TRIGLYCERIDES 18226 Triglycerides 2571-8 124 mg/dL 024 [facility] [address] [place] [address] 57708 TRIGLYCERIDES 06908 VLDL 58866-9 25 mg/dL 0[address] [facility] [address] [place] [address] 31385 MICROALBUMIN (URINE) 02008 Microalbumin 95349-0 2.4 mg/dL 024 [facility] [address] [place] [address] 72586 MICROALBUMIN (URINE) 37684 Microalbumin/Cre atinine Ratio 98882-4 30 MCG/MGCREAT 024 [facility] [address] [place] [address] MICROALBUMIN (URINE) 66688 Urine Creatinine 2161-8 81.20 mg/dL 024 [facility] [address] [place] [address] 49995 CHOLESTEROL 19507 Cholesterol 2093-3 131 mg/dL 0[address] [facility] [address] [place] [address] 01345 No Orders UA NoOrdersUA NO ORDERS UA 0.00 08/08 024 [facility] [address] [place] [address] 60756 URINALYSIS 79962 Glucose 2345-7 >1000 mg/dL ++++ mg/dL 024 [facility] [address] [place] [address] 82269 URINALYSIS 85275 Protein Negative mg/dL 024 [facility] [address] [place] [address] 42763 URINALYSIS 06979 Bilirubin Negative mg/dL 024 [facility] [address] [place] [address] 88423 URINALYSIS 20237 Urobilinogen Negative mg/dL 024 [facility] [address] [place] [address] 55053 URINALYSIS 74457 Ph 6.00 024 [facility] [address] [place] [address] 49121 URINALYSIS 74162 Blood Negative mg/dL 024 [facility] [address] [place] [address] 69678 URINALYSIS 98834 Ketones Negative mg/dL 024 [facility] [address] [place] [address] 19230 URINALYSIS 90772 Nitrite Negative 0[address] [facility] [address] [place] [address] 42846 URINALYSIS 81116 Leukocytes Negative Jae/uL 024 [facility] [address] [place] [address] 87866 URINALYSIS 03435 Clarity Clear 024 [facility] [address] [place] [address] URINALYSIS 84514 Specific [place] 1.024 024 [facility] [address] [place] [address] URINALYSIS 87257 Color Light-Yello w 024 [facility] [address] [place] [address] [id number] IN 4548-4 Glyco HGB A1C 88337-5 7.2 % 024 [facility] [address] [facility] [place] [address] [id number] IN 4548-4 eAG 72339-9 160 mg/dL 024 [facility] [address] [facility] [place] [address] Procedures Procedure Codes Date Most recent A1c = 7.0% and < 8.0% CPT-4: 3051F 03/28/2024 Most recent A1c = 7.0% and < 8.0% CPT-4: 3051F 03/08/2024 MED LIST DOCD IN [facility] CPT-4: 1159F 02/03/2024 RVW MEDS BY RX/DR IN [facility] CPT-4: 1160F 2023 Screening for clinical depre ssion is negative, follow-up plan not required CPT-4: G8510 02/03/2024 [id number] CPT-4: 69788 Unknown Vital Signs Date Vital 02/03/2024 Blood Pressure 1: 125/80 Code: 8480-6 BMI: 36.8 Code: 39397-9 Heart Rate 1: 90 bpm Height: 5'3 Code: 8302-2 Respiratory Rate: 16 bpm SpO2: 96% Temperature: 35.9 (C) / 96.7 (F) Weight: 211 lbs Code: 13089-8 Reason For Visit Reason For Visit Effective Dates Notes new patient welcome visit 02/03/2024 Encounters Encounter Performer Location Location Address Codes Date (82718) Other Reason/Patient not seen Diagnosis: Patient not seen[ICD10: UXZ.01] Marian Solis [facility] [address] [facility] [address] [place] [address] CPT-4: 45671 03/28/2024 (38354) Other Reason/Patient not seen Diagnosis: Patient not seen[ICD10: UXZ.01] Marian Solis [facility] [address] [place] [address] CPT-4: 41889 03/08/2024 (17453) 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 Visit SALVAGER - Moderate Level, 60 mins Diagnosis: Primary [...] Diagnosis: Fatigue, unspecified type[ICD10: R53.83] Marian Solis [facility] [address] [place] [address] CPT-4: 71504 02/03/2024 Plan of Care Planned Activity Notes Codes Status Date Appointment: Marian Solis WPtel: [address] [place], [place] [id number] 03/28/2024 Patient Education: Patient Medication Summary Completed 03/28/2024 Appointment: Marian Solis WPtel: [address] [place], [place] [id number] 03/08/2024 Patient Education: Patient Medication Summary [...] of care. 02/03/2024 Appointment: Marian Solis WPtel: [facility] [address] [place], [place] [id number] 02/03/2024 Patient Education: Patient Medication Summary [...]
[2025-01-17] MEDS: SODIUM CHLORIDE 0.9% 10ML SYR (RAD ONLY) 10 ML IV ×2 (09:08)
[2025-01-17] MEDS: ISOTOPE MYOVIEW (PER STUDY) 1 DOSE IV (09:08)
--- NOTE | 2025-01-17 09:45 | CA_ITS ---
APPROVED REPORT EXAM: Comprehensive 2D, Doppler, and color-flow Echocardiogram Parks And Recreation Manager: Eileen Martin RVT Ht: 5 ft 3 in Wt: 200lbs BSA: 1.93 BP: 114/71 mmHg Indications: CHEST PAIN,SHORTNESS OF BREATH 2D Dimensions LA Volume 36.60 mL LA Volume Index 18.87 mL/m2 (M/F) 16-34 M-Mode Dimensions RVDd 2.79 cm (0.9-2.6) LA Diam 3.84 cm (1.9-4.0) LVDd 4.19 cm (3.5-5.7) LVDs 2.86 cm (3.5-5.7) IVSd 1.11 cm (0.6-1.1) PWd 0.43 cm (0.6-1.1) EF (Teich) 60.20% FS 31.70% EDV (Teich) 78.10 mL TAPSE 1.61 (<1.7) ESV (Teich) 31.10 mL LV Diastology E Decel Time 150 (160-240 msec) E/A Ratio 0.6 Aortic Valve KURT Index 1.29 cm2/m2 AoV Peak Jesus Alberto. 162.0 (50-130 cm/s) AI PHT 816.00 ms AO Peak GR. 10.50 mmHg AO Mean GR. 5.70 (<5 mmHg) AO VTI 31.1 (18-25 cm) KRUT (VTI) 2.56 (2.5-4.5 cm2) Mitral Valve MV E Max Jesus Alberto. 66.0 (40-130 cm/s) MV A Velocity 115.0 (40-130 cm/s) E/A Ratio 0.58 MV PHT 44.0 ms Pulmonary Valve PV Peak Velocity 72.0 (50-150 cm/s) Left Ventricle The left ventricle is normal size. Left ventricular systolic function is normal. The left ventricular ejection fraction is within the normal range. There is normal left ventricular wall thickness. There is normal LV segmental wall motion. The left ventricular diastolic function is normal. LVEF is 55% Right Ventricle The right ventricle is normal size. The right ventricular systolic function is normal. Atria The left atrium size is normal. The right atrium size is normal. There is no color Doppler evidence of interatrial shunt. Aortic Valve The aortic valve opens well. There is no hemodynamically significant aortic valvular stenosis. Mild aortic regurgitation is present. Mitral Valve The mitral valve is normal in structure. No evidence of mitral valve stenosis. Trace mitral regurgitation is present. Tricuspid Valve The tricuspid valve leaflets are thin and pliable. Trace tricuspid regurgitation. There is insufficient TR jet to estimate RVSP. Pulmonic Valve The pulmonary valve is grossly normal in structure. Trace pulmonic valve regurgitation is present. Great Vessels The aortic root is normal in size. IVC is normal in size and collapses >50% with inspiration. Pericardium There is no pericardial effusion. Other Information Study Quality: Fair Conclusion Normal biventricular systolic function. Mild AI. Electronically signed by : Kayla Hilton MD 01/17/2025 12:01:29
== END 2025-01-17 23:59 | disposition home or self-care (01) ==
LOC: RAD 06:47
PROVIDERS: PCP Family Medicine; Visit Provider Physician Assistant
DX: I35.1 Nonrheumatic aortic (valve) insufficiency (principal); R94.31 Abnormal electrocardiogram [ECG] [EKG]; R42 Dizziness and giddiness; I10 Essential (primary) hypertension; E78.2 Mixed hyperlipidemia; E11.9 Type 2 diabetes mellitus without complications; Z72.0 Tobacco use
CPT/HCPCS: 78452; 93016; 93017; 93018; 93306; A9502; J2785

== ENCOUNTER 2025-01-22 10:53 | Outpatient (CLI) | payer MEDICARE, SELFPAY ==
[2025-01-22 08:36] VITALS: BMI 35.4
--- OUTSIDE RECORDS SUMMARY | 2025-01-22 10:56 | XMS_ITS | Referral Summary ---
Author Organization [employer] ([place], [place], [place], [place]) Address [address] [place] [address] Care Team Providers Care Documentation Lead Name Role Phone Mustapha Hernandez PA-C Unavailable [phone] Gregory Malave DO Primary Care Provider [phone] Encounters Date Type Department Care Team Description 11/20/2024 Travel 11/20/2024 2:15 PM EDT Office Visit [place] [address] [place] [address] Madeleine Khan APRN Restless leg syndrome (Primary Dx) 11/07/2024 Orders Only [facility] [address] [place] [address] Provider, MD Say 10/31/2024 Travel 10/31/2024 7:30 AM EDT Procedure Visit [facility] [address] [place] [address] Kathy Carreon MD Demyelinating disease (HCC) (Primary Dx); Numbness and tingling of left upper and lower extremity; Muscle spasm from Last 3 Months Allergies Active Allergy [...] on file Legal Sex Female 1:57 PM GIFTS OFFICER Gender Identity Not on file Sexual Orientation [...] Description 02/12/2025 10:15 AM EDT Office Visit [facility] Neurology - [facility] [address] [facility] [address] [place] [address] Madeleine Khan APRN [address] [facility] [address] [place], [place] [id number] Procedures Procedure Name Priority Date/Time Associated Diagnosis [...] left upper and lower extremity Muscle spasm from Last 3 Months Results * EXTERNAL [...] to the procedure. Will follow with Madeleine SNACK BAR CASHIER in 2 weeks to go over results. [...] caution when interpreting the results. Performed By: [id number] [address] [place] [address] Immigration Associate: Td Stock MD, PhD CLIA Number: [id number] 10/31/2024 8:00 AM EDT 10/31/2024 10:10 AM EDT us Kathy Carreon MD LAB BLOOD ORDERABLES Final R esult Performing Organization Address [facility] Co de Phone Number [email or web address] [address] [address], [facility] [phone] * CSF Culture + Gram Stain (10/31/2024 8:00 AM EDT) Result No growth 11/03/2024 8:32 AM EDT [facility] Gram Stain Result No organisms seen 11/03/2024 8:32 AM EDT [facility] Gram Stain Result No cells seen 11/03/2024 8:32 AM EDT [facility] Cerebrospinal Fluid 11/01/19 25 8:00 AM EDT 10/31/2024 10:10 AM EDT us Kathy Carreon MD MICROBIOLOGY - GENERAL ORDER BHARATH Final Result [facility] [address] [phone] * CSF cell count with differential (10/31/2024 8:00 AM EDT) Appearance Clear 10/31/2024 10:40 AM EDT [facility] Color Colorless Colorless 10/31/2024 10:40 AM EDT [facility] Pellicle CSF None Seen None Seen 10/31/2024 10:40 AM EDT [facility] RBCs 0 0 - 5 /uL 10/31/2024 10:40 AM EDT [facility] Nucleated Cells, CSF 0 0 - 5 /uL 10/31/2024 10:40 AM EDT [facility] Xanthochromic CSF Absent Absent 10/31/2024 10:40 AM EDT [facility] Specimen Source CSF, Tube 1 11/01/19 10:40 AM EDT [facility] Cerebrospinal Fluid CEREBROSPINAL FLUID / Unknown 10/31/2024 8:00 AM EDT 10/31/2024 10:10 AM EDT us Kathy Carreon MD BODY FLUIDS AND STOOLS ORDER BHARATH Final Result [facility] [address] [place] [address], [facility] [phone] * (ABNORMAL) Glucose, CSF (10/31/2024 8:00 AM EDT) Glucose, CSF 80(H) 40 - 75 mg/dL 10/31/2024 10:40 AM EDT [facility] Specimen Source CSF, Tube 2 10/31/2024 10:40 AM EDT [facility] Cerebrospinal Fluid CEREBROSPINAL FLUID / Unknown 10/31/2024 8:00 AM EDT 10/31/2024 10:10 AM EDT us Kathy Carreon MD BODY FLUIDS AND STOOLS ORDER BAHRATH Final Result [facility] [address] [place] [address], [facility] [phone] from Last 3 Months Insurance [facility] MEDIC[facility] [employer]VANTAGE Care Teams Documentation Lead Relationship Specialty Start Date End Date Gregory Malave DO [address] [facility] [address] [place] [address] PCP - General Internal Medicine 08/10/24 Mustapha Hernandez PA-C [address] [facility] [address] [place] [id number] Physician Professor Of Poultry Science Cardiology 07/04/24
--- OUTSIDE RECORDS SUMMARY | 2025-01-22 10:56 | XMS_ITS | Patient Health Record ---
Author Organization [facility] Physician Dixie rock Billing Info Address [address] [place] [address] Care Team Providers Care Party Plan Dealer Name Role Phone MOE LOW Primary Care [...] Problem Status W/U Status Risk Notes Problem [id number] Tobacco use (Z72.0) Active confirmed Problem 50985736 Heart palpitatio ns (R00.2) Active confirmed Problem Chest pain (R07.9) Active confirmed Problem 74927689 Hypertension, essential (I10) Active confirmed Problem 41792197 Hyperlipidemia, unspecified hyperlipidemia type (E78.5) Active confirmed Plan Of Treatment No Information Insurance Providers Payer Name Payer Address Payer Phone Subscriber Number Group Number Insured Name Patient Relationship to Insured Coverage Start Date Coverage End Date [id number] PPO [employer]WORK P 1 [facility] [address] [facility] [place] [id number] Breana Garcia Self - patient is the insured 9 9 Medical (General) History Medical History History ICD Code hypertension Type 2 diabetes mellitus wit hout complication, without long-term current use of insulin E11.9 Hyperlipidemia, unspecified hyperlipidem ia type E78.5 Surgical History Surgery Date(Month/Year) cholecystectomy knee arthroscopy-Left tubal ligation Hospitalization History Reason Date(Month/Year) Shortness of breath 03/2016
--- OUTSIDE RECORDS SUMMARY | 2025-01-22 10:56 | XMS_ITS | Encounter Summary ---
Author Organization [employer]) ([place], [place], [place], [place]) Address [address] [place] [address] Care Team Providers Care Ribbon Tier Name Role Phone Mustapha Hernandez PA-C Unavailable [phone] Vee Wells APRN Primary Care Provider [phone] Gregory Malave DO Primary Care Provider [phone] Reason for Referral * Consultation (Routine) - Closed Specialty Diagnoses / Procedures Referred By Ines singh Referred To Contact Neurology Diagnoses Numbness and tingling of left upper and lower extremity Dizziness Fatigue History of CVA (cerebrovascular accident) History of TIA (transient ischemic attack) Family history of CVA New pt-LUE/LLE Numbness, Dizziness, and Hx of CVA Mustapha Hernandez PA-C [address] [facility] [address] [place] [address] Phone: tel: fax: [facility] Neurology - [address] [place] [address] Phone: tel: fax: Referral ID Status Reason Start Date Expiration Date Visits Re quested Visits Authorized [id number] Closed 07/04/2024 07/04/2025 1 1 Encounter Details Date Type Department Care Team (Late st Contact Info) Description 07/04/2024 Outside Orders [facility] Neurology - [facility] [address] [facility] [address] [facility] [address] [place] [address] Mustapha Hernandez PA-C [address] [facility] [address] [place], [place] [id number] Numbness and tingling of left upper and lower extremity (Primary Dx); Dizziness; Fatigue; History of CVA (cerebrovascular accident); History of TIA (transient ischemic attack); Family history of CVA Social History Tobacco Use Types Packs/Day Years Used Date Smoking Tobacco: Never Assessed Comments Unknown Sex and Gender Information Value Date Recorded Sex Assigned at Not on file 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 Gender Identity Not on file Sexual Orientation Not on file documented as of this encounter Plan of Treatment Upcoming Encounters Date Type Department Care Team (Late st Contact Info) Description 02/12/2025 10:15 AM EDT Office Visit [facility] Neurology - [address] [facility] [address] [place] [address] Madeleine Khan APRN [address] [facility] [address] [place], [place] [address] Scheduled Referrals Name Type Priority Associated Diagnoses [...] CVA documented in this encounter Care Teams Ribbon Tier Relationship Specialty Start Date End Date Vee Wells APRN [address] [place] [address] PCP - General Nurse Practitioner 07/09/24 08/09/24 Gregory Malave [address] [place] [address] PCP - General Internal Medicine 08/10/24 Mustapha Hernandez PA-C [address] [place], [place] [address] Physician Carbon Plant Grinder 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
--- OUTSIDE RECORDS SUMMARY | 2025-01-22 10:56 | XMS_ITS | Clinical Summary ---
Author Organization [employer] ([place], [place], [place], [place]) Address [address] [place] [address] Care Team Providers Care Employment Manager Name Role Phone Mustapha Hernandez PA-C Unavailable [phone] Gregory Malave DO Primary Care Provider [phone] Allergies Active Allergy Reactions Criticality Noted Date [...] Description 11/20/2024 2:15 PM EDT Office Visit [facility] Neurology [place] [address] [place] [address] Madeleine Khan APRN Restless leg syndrome (Primary Dx) 11/20/2024 Travel 11/07/2024 Orders Only [facility] Neurology [facility] [address] [place] [address] Provider, MD Say 10/31/2024 7:30 AM EDT Procedure Visit [facility] Neurology [place] [address] [place] [address] Kathy Carreon MD Demyelinating disease (HCC) (Primary Dx); Numbness and tingling of left upper and lower extremity; Muscle spasm 10/31/2024 Travel from Last 3 Months Family History Medical History Relation Name Comments Diabetes Brother Christoph gu Diabetes Father Gregory gu Heart disease Father Gregory gu Stroke Father Gregory gu Depression Mother Hanny gu Hypertension Mother Hanny gu Multiple sclerosis Mother Hanny gu Anxiety disorder Other Cancer Other Depression Other Diabetes Sister Heart disease Sister Relation Name Status Comments Brother Christoph gu Father Gregory gu Mother Hanny gu Other Sister Social History [...] on file 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 Gender Identity Not on file Sexual Orientation [...] Description 02/12/2025 10:15 AM EDT Office Visit [facility] [address] [place] [address] Madeleine Khan, MANNEQUIN MOUNTER [address] [facility] [address] [place] [address] Health Maintenance Due Date Last Done Comments [...] LAB - MISC (11/07/2024 10:14 AM EDT) Historical Provider MD LAB BLOOD ORDERABLES Keke [...] mg/dL 11/03/2024 8:36 AM EDT [facility] Albumin, Serum 3874 3500 - 5200 mg/dL 11/03/2024 8:36 AM EDT [facility] Albumin, CSF 23 0 - 35 mg/dL 11/03/2024 8:36 AM EDT [facility] Albumin Index 5.9 0.0 - 9.0 ratio 11/03/2024 8:36 AM EDT [facility] IgG Index 0.57 0.28 - 0.66 ratio 11/03/2024 8:36 AM EDT [facility] CSF IgG/Albumin Ratio 0.11 0.09 - 0.25 ratio 11/03/2024 8:36 AM EDT [facility] CSF Oligoclonal Bands Negative Negative 11/03/2024 8:36 AM EDT [facility] CSF IgG Synthesis Rate 0.0 <=8.0 mg/d 11/03/2024 8:36 AM EDT [facility] Interpretation See Note 11/03/2024 8:36 AM EDT [facility] Comment: Isoelectric focusing/immunofixation revealed no oligoclonal bands [...] caution when interpreting the results. Performed By: [facility] [place] [address] [place] [address] Motion Picture Scene Builder: Td Stock MD, PhD CLIA Number: [id number] 10/31/2024 8:00 AM EDT 10/31/2024 10:10 AM EDT us Kathy Carreon MD LAB BLOOD ORDERABLES Final R esult [facility] [employer] [address] [place] [address], [facility] [phone] * CSF Culture + Gram Stain (10/31/2024 8:00 AM EDT) Result No growth 11/03/2024 8:32 AM EDT [facility] Gram Stain Result No organisms seen 11/03/2024 8:32 AM EDT [facility] Gram Stain Result No cells seen 11/03/2024 8:32 AM EDT [facility] Cerebrospinal Fluid 11/01/19 8:00 AM EDT 10/31/2024 10:10 AM EDT us Kathy Carreon MD MICROBIOLOGY - GENERAL ORDER BHARATH Final Result [facility] [address] [phone] * CSF cell count with differential (10/31/2024 8:00 AM EDT) Appearance Clear 10/31/2024 10:40 AM EDT [facility] Color Colorless Colorless 10/31/2024 10:40 AM EDT [facility] Pellicle CSF None Seen None Seen 10/31/2024 10:40 AM EDT [facility] RBCs 0 0 - 5 /uL 10/31/2024 10:40 AM EDT [facility] Nucleated Cells, CSF 0 0 - 5 /uL 10/31/2024 10:40 AM EDT [facility] Xanthochromic CSF Absent Absent 10/31/2024 10:40 AM EDT [facility] Specimen Source CSF, Tube 1 11/01/19 10:40 AM EDT [facility] Cerebrospinal Fluid CEREBROSPINAL FLUID / Unknown 10/31/2024 8:00 AM EDT 10/31/2024 10:10 AM EDT us Kathy Carreon MD BODY FLUIDS AND STOOLS ORDER BHARATH Final Result [facility] [address] [phone] * (ABNORMAL) Glucose, CSF (10/31/2024 8:00 AM EDT) Glucose, CSF 80(H) 40 - 75 mg/dL 10/31/2024 10:40 AM EDT [facility] Specimen Source CSF, Tube 2 10/31/2024 10:40 AM EDT [facility] Cerebrospinal Fluid CEREBROSPINAL FLUID / Unknown 10/31/2024 8:00 AM EDT 10/31/2024 10:10 AM EDT us Kathy Carreon MD BODY FLUIDS AND STOOLS ORDER BHARATH Final Result [facility] [address] [place] [address], [facility] [phone] from Last 3 Months Insurance Care Teams Employment Manager Relationship Specialty Start Date End Date Gregory Malave DO [address] [place] [address] PCP - General Internal Medicine 08/10/24 Mustapha Hernandez PA-C [address] [place] [address] Physician Machine Maintenance Repairer Cardiology 07/04/24
[2025-01-22 11:42] LABS: Hematocrit 36.7 % (37.0-47.0); Hemoglobin 11.9 g/dL (12.2-16.2); Immature Granulocytes % 0.9 %; Mean Corpuscular HGB Conc 32.4 g/dL (31.8-35.4); Mean Corpuscular Hemoglobin 26.2 pg (27.0-31.2); Mean Corpuscular Volume 80.8 fl (81-99); Nucleated Red Blood Cells % 0 %; Platelet Count 309 K/mm3 (142-424); Red Blood Count 4.54 M/mm3 (4.20-5.40); Red Cell Distribution Width-SD 47.3 fL; White Blood Count 9.2 K/mm3 (4.8-10.8)
--- OUTSIDE RECORDS SUMMARY | 2025-01-22 11:55 | XMS_ITS | CCD ---
Author Name Marian Solis NP Address [address] [facility] [address] [place] [address] Phone Organization [employer] Phone Care Team Providers Care Building Services Engineer Name Role Phone Unavailable Primary Care Provider Unavailabl e Unavailable Chronic Care Management Unavaila ble Summary Purpose DataExchange Insurance Providers Payer name Policy type / Coverage type Covered democrat ID Effective Begin Date Effective End Date [facility] [id number] Unknown Unknown Family history Father Diagnosis Age [...] cessation counseling) 02/03/[address]: 242207150 Never drinks alco hol 02/03/2024 Illegal/Recreational drug history Unknown *Has never used illegal/recreational drugs 02/03/2024 Allergies, Adverse Reactions, Alerts Substance Reaction Codes Entered Date Inactivated Date Status * Food Allergy _ Unknown 02/03/2024 No Inactive Date Active Topamax RxNorm: 802679 02/03/2024 No Inactive Da te Active Seasonal [...] 21 mg/24 hr daily transdermal patch RxNorm: 051087 Apply 1 Patch Transdermal 02/03/20 24 025 Active valsartan 160 mg tablet RxNorm: 420772 Take 1 Tablet(s) Oral two times a day 02/03/20 Active lithium carbonate 300 mg capsule RxNorm: 526383 TAKE ONE CAPSULE BY MOUTH TWICE DAILY FOR mood 02/03/20 24 Active buspirone 10 mg tablet RxNorm: 765916 Take 2 Tablet(s) Oral three times a day 02/03/20 24 Active amlodipine 5 mg tablet RxNorm: 193655 Take 1 Tablet(s) Oral every evening 02/03/20 24 Active rosuvastatin 20 mg tablet RxNorm: 130934 Take 1 Tablet(s) Oral every day 02/03/20 24 Active fluticasone propionate 50 mcg/actuation nasal spray,suspension ... RxNorm: 9732753 instill 1-2 SPRAYS IN EACH NOSTRIL EVERY DAY NEEDED 02/03/20 24 Active Nyamyc 100,000 unit/gram topical powder RxNorm: 818404 top 02/03/20 24 Active polyethylene glycol 3350 17 gram/dose oral powder RxNorm: 394182 DISSOLVE 17 GRAMS OF POWDER INTO 4 TO 8 OUNCES OF WATER, JUICE, SODA, COFFEE, OR TEA THEN DRINK EVERY DAY do not exceed 17 grams PER day 02/03/20 24 Active fluoxetine 40 mg capsule RxNorm: 975480 TAKE ONE CAPSULE BY MOUTH TWICE DAILY FOR mood 02/03/20 24 Active cholecalciferol (vitamin D3) 50 mcg (2,000 unit) capsule RxNorm: 611682 Take 1 Capsule(s) Oral every day 02/03/20 24 Active tobramycin 1.2 gram solution for injection RxNorm: 909177 inj 02/03/20 24 Active benzonatate 100 mg capsule RxNorm: 908506 TAKE ONE CAPSULE BY MOUTH THREE TIMES DAILY NEEDED FOR cough -SWALLOW WHOLE. DO NOT CRUSH OR CHEW- 02/03/20 24 Active Linzess 72 mcg capsule RxNorm: 1236291 TAKE ONE CAPSULE BY MOUTH EVERY DAY ON AN EMPTY STOMACH AT LEAST 30 MINUTES BEFORE THE FIRST MEAL OF THE DAY 02/03/20 24 Active aripiprazole 10 mg tablet RxNorm: 663683 Take 1 Tablet(s) Oral HS 02/03/20 24 Active Trulicity 1.5 mg/0.5 mL subcutaneous pen injector RxNorm: 1610950 INJECT 1.5 MG (0.5 ML) SUBCUTANEOUSLY ONCE A WEEK 02/03/20 24 Active levothyroxine 75 mcg tablet RxNorm: 171310 Take 1 Tablet(s) Oral every day BEFORE a meal 02/03/20 Active Ozempic 0.25 mg or 0.5 mg (2 mg/3 mL) subcutaneous pen injector ... RxNorm: 3689888 Inject 0.5 Milligram(s) Subcutaneous QW 02/03/20 Active Myrbetriq 25 mg tablet,extended release RxNorm: 5264533 TAKE ONE TABLET BY MOUTH EVERY DAY do not crush, chew, and/or divide take with water 02/03/20 Active bisoprolol fumarate 5 mg tablet RxNorm: 274171 Take 1 Tablet(s) Oral every day 02/03/20 24 Active aspirin 81 mg tablet,delayed release RxNorm: 249784 Take 1 Tablet(s) Oral every day 02/03/20 24 Active solifenacin 5 mg tablet RxNorm: 408115 Take 1 Tablet(s) Oral every day 02/03/20 24 Active metformin 1,000 mg tablet RxNorm: 360239 Take 1 Tablet(s) Oral every morning 02/03/20 Active amantadine HCl 100 mg tablet RxNorm: 192466 oral 02/03/20 24 Active trazodone 150 mg tablet RxNorm: 553087 Take 1 Tablet(s) Oral HS as needed 02/03/20 Active duloxetine 60 mg capsule,delayed release RxNorm: 781249 Take 2 Capsule(s) Oral every day 02/03/20 24 Active baclofen 20 mg tablet RxNorm: 797004 TAKE ONE TABLET BY MOUTH THREE TIMES DAILY MAY CAUSE DROWSINESS 02/03/20 Active valsartan 80 mg tablet RxNorm: 371154 Take 1 Tablet(s) Oral two times a day 02/03/20 24 Active Lybalvi 15 mg-10 mg tablet RxNorm: 9159783 Take 1 Tablet(s) Oral every day 02/03/20 24 Active olanzapine 5 mg tablet RxNorm: 697321 Take 1 Tablet(s) Oral HS 02/03/20 24 Active Anucort-HC 25 mg suppository RxNorm: 6483473 UNWRAP AND INSERT 1 SUPPOSITORY RECTALLY TWICE DAILY FOR 2 WEEKS 02/03/20 24 Active gabapentin 600 mg tablet RxNorm: 568159 TAKE ONE TABLET BY MOUTH EVERY MORNING AND TAKE TWO TABLETS AT BEDTIME MAY CAUSE DROWSINESS 02/03/20 Active doxepin 50 mg capsule RxNorm: 3230707 Take 1 Capsule(s) Oral HS 02/03/20 Active trazodone 100 mg tablet RxNorm: 211613 Take 1 Tablet(s) Oral HS FOR SLEEP 02/03/20 Active ezetimibe 10 mg tablet RxNorm: 099281 Take 1 Tablet(s) Oral every day 02/03/20 Active duloxetine 30 mg capsule,delayed release RxNorm: 826944 Take 3 Capsule(s) Oral every day 02/03/20 24 024 Inactive Medication Administered No Medication Administered data Results Observation Observation Code Item Item Code Result Date Service Location FREE -3 91156 3 3051-0 2.21 pg/mL 024 [facility] [address] [place] [address] 96256 VITAMIN B-12 47123 Vitamin B12 2132-9 459 pg/mL 02/05 024 [facility] [address] [place] [address] 17623 COMPLETE CBC W/ DIFF WBC 05143 WBC 6690-2 10.5 K/ul 024 [facility] [address] [place] [address] 10494 COMPLETE CBC W/ DIFF WBC 78002 RBC 789-8 4.22 M/uL 024 [facility] [address] [place] [address] 38829 COMPLETE CBC W/ DIFF WBC 34984 Hemoglobin 718-7 12.6 g/dL 024 [facility] [address] [place] [address] 08036 COMPLETE CBC W/ DIFF WBC 28574 Hematocrit 4544-3 38.6 % 024 [facility] [address] [place] [address] 11936 COMPLETE CBC W/ DIFF WBC 95357 MCV 787-2 91.5 fL 024 [facility] [address] [place] [address] 83941 COMPLETE CBC W/ DIFF WBC 18048 MCH 785-6 29.8 pg 024 [facility] [address] [place] [address] 13618 COMPLETE CBC W/ DIFF WBC 80024 MCHC 786-4 32.6 g/dL 024 [facility] [address] [place] [address] 15002 COMPLETE CBC W/ DIFF WBC 30113 RDW 788-0 15.5 % 024 [facility] [address] [place] [address] 40743 COMPLETE CBC W/ DIFF WBC 03948 Platelet Count 777-3 312 K/uL 024 [facility] [address] [place] [address] 66870 COMPLETE CBC W/ DIFF WBC 69335 MPV 44926-6 7.7 fL 024 [facility] [address] [place] [address] 04361 COMPLETE CBC W/ DIFF WBC 73560 Neutrophils % 770-8 68.1 % 024 [facility] [address] [place] [address] 52091 COMPLETE CBC W/ DIFF WBC 60320 Lymphocytes % 736-9 22.5 % 024 [facility] [address] [place] [address] 66651 COMPLETE CBC W/ DIFF WBC 79668 Monocytes % 5905-5 8.0 % 024 [facility] [address] [place] [address] 85575 COMPLETE CBC W/ DIFF WBC 02696 Eosinophils % 713-8 0.8 % 024 [facility] [address] [place] [address] 15716 COMPLETE CBC W/ DIFF WBC 29943 Basophils% 706-2 0.6 % 024 [facility] [address] [place] [address] 36770 COMPLETE CBC W/ DIFF WBC 89302 Absolute Neutrophil 751-8 7151 /ul 024 [facility] [address] [place] [address] 80516 COMPLETE CBC W/ DIFF WBC 51913 Absolute Lymphocyte 99877-1 2363 /ul 024 [facility] [address] [place] [address] 13076 COMPLETE CBC W/ DIFF WBC 90846 Absolute Monocyte 742-7 840 /ul 024 [facility] [address] [place] [address] 56673 COMPLETE CBC W/ DIFF WBC 97354 Absolute Eosinophil 711-2 84 /ul 024 [facility] [address] [place] [address] 47697 COMPLETE CBC W/ DIFF WBC 04753 Absolute Basophil 704-7 63 /ul 024 [facility] [address] [place] [address] 06671 Direct LDL 34634 LDL-Direct 08228-5 72 mg/dL 024 [facility] [address] [place] [address] 61732 HDL - CHOL 25546 HDL 2085-9 44 mg/dL 024 [facility] [address] [place] [address] 05420 HDL - CHOL 84850 CHD 11626-9 34 % 024 [facility] [address] [place] [address] TRIGLYCERIDES 01392 Triglycerides 2571-8 124 mg/dL 024 [facility] [address] [place] [address] 40788 TRIGLYCERIDES 03993 VLDL 15529-1 25 mg/dL 024 [facility] [address] [place] [address] 69093 MICROALBUMIN (URINE) 76304 Microalbumin 52510-2 2.4 mg/dL 024 [facility] [address] [place] [address] 45365 MICROALBUMIN (URINE) 69222 Microalbumin/Cre atinine Ratio 37383-3 30 MCG/MGCREAT 024 [facility] [address] [place] [address] 83043 MICROALBUMIN (URINE) 59470 Urine Creatinine 2161-8 81.20 mg/dL 024 [facility] [address] [place] [address] 17380 CHOLESTEROL 86303 Cholesterol 2093-3 131 mg/dL 024 [facility] [address] [place] [address] 03900 No Orders UA NoOrdersUA NO ORDERS UA 0.00 08/08 [facility] [address] [place] [address] 32330 VITAMIN D 84490 Vitamin D 22266-0 27.4 ng/mL 024 [facility] [address] [place] [address] 16454 TSH 90543 TSH 43082-5 0.475 uIU/mL 024 [facility] [address] [place] [address] 32750 FREE T-4 38374 FT4 3024-7 1.23 ng/dL 024 [facility] [address] [place] [address] 08252 CHEM 14 (METABOLIC PANEL) 45849 Glucose 2345-7 101 mg/dL 024 [facility] [address] [place] [address] 89469 CHEM 14 (METABOLIC PANEL) 01880 BUN 3094-0 11 mg/dL 024 [facility] [address] [place] [address] 68222 CHEM 14 (METABOLIC PANEL) 59399 Creatinine 2160-0 0.8 mg/dL [facility] [address] [place] [address] 22530 CHEM 14 (METABOLIC PANEL) 28941 BUN/Creat Ratio 3097-3 14.1 024 [facility] [address] [place] [address] 91495 CHEM 14 (METABOLIC PANEL) 88884 GFR Estimated 52353-1 96 mL/min/1.73 m2 024 [facility] [address] [place] [address] CHEM 14 (METABOLIC PANEL) 39571 Sodium 2951-2 141 mmol/L 024 [facility] [address] [place] [address] 11605 CHEM 14 (METABOLIC PANEL) 66041 Potassium 2823-3 3.5 mmol/L 024 [facility] [address] [place] [address] 52033 CHEM 14 (METABOLIC PANEL) 62147 Chloride 2075-0 107 mmol/L 024 [facility] [address] [place] [address] 13475 CHEM 14 (METABOLIC PANEL) 01699 Total CO2 2028-9 24 mmol/L 024 [facility] [address] [place] [address] 02162 CHEM 14 (METABOLIC PANEL) 08307 Anion Gap 1863-0 13.5 mEq/L 024 [facility] [address] [place] [address] 82643 CHEM 14 (METABOLIC PANEL) 92545 Calculated Serum Osmolality 63461-5 292 mOsm/kg 024 [facility] [address] [place] [address] 72506 CHEM 14 (METABOLIC PANEL) 87297 Albumin 56704-3 4.0 g/dL 024 [facility] [address] [place] [address] 61025 CHEM 14 (METABOLIC PANEL) 60282 Total Protein 2885-2 7.0 g/dL 024 [facility] [address] [place] [address] 81093 CHEM 14 (METABOLIC PANEL) 36730 Globulin 2336-6 3.0 g/dL 024 [facility] [address] [place] [address] 75353 CHEM 14 (METABOLIC PANEL) 28763 Albumin/Globulin Ratio 1759-0 1.3 024 [facility] [address] [place] [address] 28355 CHEM 14 (METABOLIC PANEL) 96072 ALK PHOS 6768-6 84.00 U/L 024 [facility] [address] [place] [address] CHEM 14 (METABOLIC PANEL) 29435 SGOT/AST 1920-8 35 U/L 024 [facility] [address] [place] [address] CHEM 14 (METABOLIC PANEL) 94604 SGPT/ALT 1743-4 54 U/L 024 [facility] [address] [place] [address] CHEM 14 (METABOLIC PANEL) 21174 Total Bilirubin 1975-2 0.3 mg/dL 024 [facility] [address] [place] [address] CHEM 14 (METABOLIC PANEL) 07421 Calcium 71655-8 9.5 mg/dL 024 [facility] [address] [place] [address] CHEM 14 (METABOLIC PANEL) 46588 Corrected Calcium 53775-7 9.7 mg/dL 024 [facility] [address] [place] [address] 10449 URINALYSIS 80072 Glucose 2345-7 >1000 mg/dL ++++ mg/dL 024 [facility] [address] [place] [address] 95037 URINALYSIS 75450 Protein Negative mg/dL 024 [facility] [address] [place] [address] 61727 URINALYSIS 21441 Bilirubin Negative mg/dL 024 [facility] [address] [place] [address] 99847 URINALYSIS 95503 Urobilinogen Negative mg/dL 024 [facility] [address] [place] [address] 84327 URINALYSIS 60539 Ph 6.00 024 [facility] [address] [place] [address] 79975 URINALYSIS 51427 Blood Negative mg/dL 024 [facility] [address] [place] [address] 22740 URINALYSIS 06043 Ketones Negative mg/dL 024 [facility] [address] [place] [address] 29252 URINALYSIS 68758 Nitrite Negative 024 [facility] [address] [place] [address] 26826 URINALYSIS 28821 Leukocytes Negative Jae/uL 024 [facility] [address] [place] [address] 37200 URINALYSIS 60984 Clarity Clear 024 [facility] [address] [place] [address] URINALYSIS 58370 Specific [place]e 1.024 024 [facility] [address] [place] [address] URINALYSIS 47865 Color Light-Yello w 024 [facility] [address] [place] [address] [id number] IN 4548-4 Glyco HGB A1C 16270-5 7.2 % 024 [facility] [address] [facility] [place] [address] [id number] IN 4548-4 eAG 91078-3 160 mg/dL 024 [facility] [address] [facility] [place] [address] Procedures Procedure Codes Date Most recent A1c = 7.0% and < 8.0% CPT-4: 3051F 03/28/2024 Most recent A1c = 7.0% and < 8.0% CPT-4: 3051F 03/08/2024 MED LIST DOCD IN [facility] CPT-4: 1159F 02/03/2024 RVW MEDS BY RX/DR IN [facility] CPT-4: 1160F 2023 Screening for clinical depre ssion is negative, follow-up plan not required CPT-4: G8510 02/03/2024 [id number] CPT-4: 86030 Unknown Vital Signs Date Vital 02/03/2024 Blood Pressure 1: 125/80 Code: 8480-6 BMI: 36.8 Code: 64050-5 Heart Rate 1: 90 bpm Height: 5'3 Code: 8302-2 Respiratory Rate: 16 bpm SpO2: 96% Temperature: 35.9 (C) / 96.7 (F) Weight: 211 lbs Code: 37312-1 Reason For Visit Reason For Visit Effective Dates Notes new patient welcome visit 02/03/2024 Encounters Encounter Performer Location Location Address Codes Date (45903) Other Reason/Patient not seen Diagnosis: Patient not seen[ICD10: UXZ.01] Marian Solis [place] [facility] [address] [facility] [address] [place] [address] CPT-4: 56802 03/28/2024 (28122) Other Reason/Patient not seen Diagnosis: Patient not seen[ICD10: UXZ.01] Marian Solis [place] [facility] [address] [place] [address] CPT-4: 09293 03/08/2024 (25281) 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 Visit MORTGAGE LENDER - Moderate Level, 60 mins Diagnosis: Primary [...] Diagnosis: Fatigue, unspecified type[ICD10: R53.83] Marian Solis [place] [facility] [address] [place] [address] CPT-4: 06097 02/03/2024 Plan of Care Planned Activity Notes Codes Status Date Appointment: Marian Solis WPtel: [address] [place], [place] [id number] 03/28/2024 Patient Education: Patient Medication Summary Completed 03/28/2024 Appointment: Marian Solis WPtel: [address] [place], [place] [id number] 03/08/2024 Patient Education: Patient Medication Summary [...] of care. 02/03/2024 Appointment: Marian Solis WPtel: [facility] [place], [place] [id number] 02/03/2024 Patient Education: Patient Medication Summary [...]
--- OUTSIDE RECORDS SUMMARY | 2025-01-22 11:56 | XMS_ITS | CCD ---
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 Role Phone Unavailable Primary Care Provider Unavailabl e Unavailable Chronic Care Management Unavaila ble Summary Purpose DataExchange Insurance Providers Payer name Policy type / Coverage type Covered libertarian ID Effective Begin Date Effective End Date [facility] [id number] Unknown Unknown Family history Father Diagnosis Age [...] cessation counseling) 02/03/[address]: [id number] Never drinks alco hol 02/03/2024 Illegal/Recreational drug history Unknown *Has never used illegal/recreational drugs 02/03/2024 Allergies, Adverse Reactions, Alerts Substance Reaction Codes Entered Date Inactivated Date Status * Food Allergy _ Unknown 02/03/2024 No Inactive Date Active Topamax RxNorm: 598649 02/03/2024 No Inactive Da te Active Seasonal [...] 21 mg/24 hr daily transdermal patch RxNorm: 113819 Apply 1 Patch Transdermal 02/03/20 24 025 Active valsartan 160 mg tablet RxNorm: 251471 Take 1 Tablet(s) Oral two times a day 02/03/20 Active lithium carbonate 300 mg capsule RxNorm: 187808 TAKE ONE CAPSULE BY MOUTH TWICE DAILY FOR mood 02/03/20 24 Active buspirone 10 mg tablet RxNorm: 080149 Take 2 Tablet(s) Oral three times a day 02/03/20 24 Active amlodipine 5 mg tablet RxNorm: 470696 Take 1 Tablet(s) Oral every evening 02/03/20 24 Active rosuvastatin 20 mg tablet RxNorm: 029613 Take 1 Tablet(s) Oral every day 02/03/20 24 Active fluticasone propionate 50 mcg/actuation nasal spray,suspension ... RxNorm: 1077851 instill 1-2 SPRAYS IN EACH NOSTRIL EVERY DAY NEEDED 02/03/20 24 Active Nyamyc 100,000 unit/gram topical powder RxNorm: 936506 top 02/03/20 24 Active polyethylene glycol 3350 17 gram/dose oral powder RxNorm: 260571 DISSOLVE 17 GRAMS OF POWDER INTO 4 TO 8 OUNCES OF WATER, JUICE, SODA, COFFEE, OR TEA THEN DRINK EVERY DAY do not exceed 17 grams PER day 02/03/20 24 Active fluoxetine 40 mg capsule RxNorm: 327648 TAKE ONE CAPSULE BY MOUTH TWICE DAILY FOR mood 02/03/20 24 Active cholecalciferol (vitamin D3) 50 mcg (2,000 unit) capsule RxNorm: 847739 Take 1 Capsule(s) Oral every day 02/03/20 24 Active tobramycin 1.2 gram solution for injection RxNorm: 945470 inj 02/03/20 24 Active benzonatate 100 mg capsule RxNorm: 028806 TAKE ONE CAPSULE BY MOUTH THREE TIMES DAILY NEEDED FOR cough -SWALLOW WHOLE. DO NOT CRUSH OR CHEW- 02/03/20 24 Active Linzess 72 mcg capsule RxNorm: 2615895 TAKE ONE CAPSULE BY MOUTH EVERY DAY ON AN EMPTY STOMACH AT LEAST 30 MINUTES BEFORE THE FIRST MEAL OF THE DAY 02/03/20 24 Active aripiprazole 10 mg tablet RxNorm: 558534 Take 1 Tablet(s) Oral HS 02/03/20 24 Active Trulicity 1.5 mg/0.5 mL subcutaneous pen injector RxNorm: 7614254 INJECT 1.5 MG (0.5 ML) SUBCUTANEOUSLY ONCE A WEEK 02/03/20 24 Active levothyroxine 75 mcg tablet RxNorm: 356730 Take 1 Tablet(s) Oral every day BEFORE a meal 02/03/20 Active Ozempic 0.25 mg or 0.5 mg (2 mg/3 mL) subcutaneous pen injector ... RxNorm: 8651758 Inject 0.5 Milligram(s) Subcutaneous QW 02/03/20 Active Myrbetriq 25 mg tablet,extended release RxNorm: 3061427 TAKE ONE TABLET BY MOUTH EVERY DAY do not crush, chew, and/or divide take with water 02/03/20 Active bisoprolol fumarate 5 mg tablet RxNorm: 997855 Take 1 Tablet(s) Oral every day 02/03/20 24 Active aspirin 81 mg tablet,delayed release RxNorm: 260570 Take 1 Tablet(s) Oral every day 02/03/20 24 Active solifenacin 5 mg tablet RxNorm: 036232 Take 1 Tablet(s) Oral every day 02/03/20 24 Active metformin 1,000 mg tablet RxNorm: 008777 Take 1 Tablet(s) Oral every morning 02/03/20 Active amantadine HCl 100 mg tablet RxNorm: 780710 oral 02/03/20 24 Active trazodone 150 mg tablet RxNorm: 839899 Take 1 Tablet(s) Oral HS as needed 02/03/20 Active duloxetine 60 mg capsule,delayed release RxNorm: 861763 Take 2 Capsule(s) Oral every day 02/03/20 24 Active baclofen 20 mg tablet RxNorm: 007440 TAKE ONE TABLET BY MOUTH THREE TIMES DAILY MAY CAUSE DROWSINESS 02/03/20 Active valsartan 80 mg tablet RxNorm: 125541 Take 1 Tablet(s) Oral two times a day 02/03/20 24 Active Lybalvi 15 mg-10 mg tablet RxNorm: 5934031 Take 1 Tablet(s) Oral every day 02/03/20 24 Active olanzapine 5 mg tablet RxNorm: 301206 Take 1 Tablet(s) Oral HS 02/03/20 24 Active Anucort-HC 25 mg suppository RxNorm: 6092443 UNWRAP AND INSERT 1 SUPPOSITORY RECTALLY TWICE DAILY FOR 2 WEEKS 02/03/20 24 Active gabapentin 600 mg tablet RxNorm: 184419 TAKE ONE TABLET BY MOUTH EVERY MORNING AND TAKE TWO TABLETS AT BEDTIME MAY CAUSE DROWSINESS 02/03/20 Active doxepin 50 mg capsule RxNorm: 3333806 Take 1 Capsule(s) Oral HS 02/03/20 Active trazodone 100 mg tablet RxNorm: 363510 Take 1 Tablet(s) Oral HS FOR SLEEP 02/03/20 Active ezetimibe 10 mg tablet RxNorm: 029289 Take 1 Tablet(s) Oral every day 02/03/20 Active duloxetine 30 mg capsule,delayed release RxNorm: 475041 Take 3 Capsule(s) Oral every day 02/03/20 24 Inactive Medication Administered No Medication Administered data Results Observation Observation Code Item Item Code Result Date Service Location CHEM 14 (METABOLIC PANEL) 40042 Glucose 2345-7 101 mg/dL [facility] [address] [place] [address] CHEM 14 (METABOLIC PANEL) 77339 BUN 3094-0 11 mg/dL [facility] [address] [place] [address] CHEM 14 (METABOLIC PANEL) 43610 Creatinine 2160-0 0.8 mg/dL [facility] [address] [place] [address] CHEM 14 (METABOLIC PANEL) 04770 BUN/Creat Ratio 3097-3 14.1 024 [facility] [address] [place] [address] CHEM 14 (METABOLIC PANEL) 03531 GFR Estimated 34877-0 96 mL/min/1.73 m2 024 [facility] [address] [place] [address] CHEM 14 (METABOLIC PANEL) 61252 Sodium 2951-2 141 mmol/L [facility] [address] [place] [address] CHEM 14 (METABOLIC PANEL) 81515 Potassium 2823-3 3.5 mmol/L 024 [facility] [address] [place] [address] CHEM 14 (METABOLIC PANEL) 91650 Chloride 2075-0 107 mmol/L 024 [facility] [address] [place] [address] CHEM 14 (METABOLIC PANEL) 34555 Total CO2 2028-9 24 mmol/L 024 [facility] [address] [place] [address] CHEM 14 (METABOLIC PANEL) 90367 Anion Gap 1863-0 13.5 mEq/L 024 [facility] [address] [place] [address] 03538 CHEM 14 (METABOLIC PANEL) 38718 Calculated Serum Osmolality 89660-0 292 mOsm/kg 024 [facility] [address] [place] [address] 30945 CHEM 14 (METABOLIC PANEL) 12388 Albumin 55350-3 4.0 g/dL 024 [facility] [address] [place] [address] 69581 CHEM 14 (METABOLIC PANEL) 18952 Total Protein 2885-2 7.0 g/dL 024 [facility] [address] [place] [address] 33664 CHEM 14 (METABOLIC PANEL) 65929 Globulin 2336-6 3.0 g/dL 024 [facility] [address] [place] [address] 01290 CHEM 14 (METABOLIC PANEL) 82847 Albumin/Globulin Ratio 1759-0 1.3 024 [facility] [address] [place] [address] 51606 CHEM 14 (METABOLIC PANEL) 22986 ALK PHOS 6768-6 84.00 U/L 024 [facility] [address] [place] [address] 55401 CHEM 14 (METABOLIC PANEL) 37581 SGOT/AST 1920-8 35 U/L 024 [facility] [address] [place] [address] 01721 CHEM 14 (METABOLIC PANEL) 11552 SGPT/ALT 1743-4 54 U/L 024 [facility] [address] [place] [address] 35318 CHEM 14 (METABOLIC PANEL) 31481 Total Bilirubin 1975-2 0.3 mg/dL 024 [facility] [address] [place] [address] 84834 CHEM 14 (METABOLIC PANEL) 30715 Calcium 71082-5 9.5 mg/dL 024 [facility] [address] [place] [address] 29441 CHEM 14 (METABOLIC PANEL) 13156 Corrected Calcium 58629-4 9.7 mg/dL 024 [facility] [address] [place] [address] 92882 FREE T-3 61790 FT3 3051-0 2.21 pg/mL 024 [facility] [address] [place] [address] FREE T-4 26565 FT4 3024-7 1.23 ng/dL 024 [facility] [address] [place] [address] 31006 VITAMIN B-12 35924 Vitamin B12 2132-9 459 pg/mL 02/05 024 [facility] [address] [place] [address] 52824 TSH 41876 TSH 32544-5 0.475 uIU/mL 024 [facility] [address] [place] [address] COMPLETE CBC W/ DIFF WBC 99582 WBC 6690-2 10.5 K/ul 024 [facility] [address] [place] [address] 40240 COMPLETE CBC W/ DIFF WBC 52664 RBC 789-8 4.22 M/uL 024 [facility] [address] [place] [address] 72809 COMPLETE CBC W/ DIFF WBC 08457 Hemoglobin 718-7 12.6 g/dL 024 [facility] [address] [place] [address] 88985 COMPLETE CBC W/ DIFF WBC 56686 Hematocrit 4544-3 38.6 % 024 [facility] [address] [place] [address] 72504 COMPLETE CBC W/ DIFF WBC 79639 MCV 787-2 91.5 fL 024 [facility] [address] [place] [address] 25746 COMPLETE CBC W/ DIFF WBC 20857 MCH 785-6 29.8 pg 024 [facility] [address] [place] [address] 63500 COMPLETE CBC W/ DIFF WBC 84777 MCHC 786-4 32.6 g/dL 024 [facility] [address] [place] [address] 54789 COMPLETE CBC W/ DIFF WBC 85662 RDW 788-0 15.5 % 024 [facility] [address] [place] [address] 87978 COMPLETE CBC W/ DIFF WBC 22801 Platelet Count 777-3 312 K/uL 024 [facility] [address] [place] [address] 55702 COMPLETE CBC W/ DIFF WBC 15290 MPV 07794-8 7.7 fL 024 [facility] [address] [place] [address] 89171 COMPLETE CBC W/ DIFF WBC 28313 Neutrophils % 770-8 68.1 % 024 [facility] [address] [place] [address] 37817 COMPLETE CBC W/ DIFF WBC 64880 Lymphocytes % 736-9 22.5 % 024 [facility] [address] [place] [address] COMPLETE CBC W/ DIFF WBC 79448 Monocytes % 5905-5 8.0 % 024 [facility] [address] [place] [address] COMPLETE CBC W/ DIFF WBC 53960 Eosinophils % 713-8 0.8 % 024 [facility] [address] [place] [address] COMPLETE CBC W/ DIFF WBC 59084 Basophils% 706-2 0.6 % 024 [facility] [address] [place] [address] COMPLETE CBC W/ DIFF WBC 94604 Absolute Neutrophil 751-8 7151 /ul 024 [facility] [address] [place] [address] 42398 COMPLETE CBC W/ DIFF WBC 15111 Absolute Lymphocyte 26812-8 2363 /ul 024 [facility] [address] [place] [address] 16852 COMPLETE CBC W/ DIFF WBC 14866 Absolute Monocyte 742-7 840 /ul 024 [facility] [address] [place] [address] 03576 COMPLETE CBC W/ DIFF WBC 27418 Absolute Eosinophil 711-2 84 /ul 024 [facility] [address] [place] [address] 02536 COMPLETE CBC W/ DIFF WBC 80488 Absolute Basophil 704-7 63 /ul 024 [facility] [address] [place] [address] 44584 Direct LDL 39898 LDL-Direct 79470-9 72 mg/dL 024 [facility] [address] [place] [address] 67748 VITAMIN D 43582 Vitamin D 25130-7 27.4 ng/mL 024 [facility] [address] [place] [address] HDL - CHOL 76178 HDL 2085-9 44 mg/dL 024 [facility] [address] [place] [address] 64038 HDL - CHOL 97257 CHD 97663-7 34 % 024 [facility] [address] [place] [address] TRIGLYCERIDES 66753 Triglycerides 2571-8 124 mg/dL 024 [facility] [address] [place] [address] 94831 TRIGLYCERIDES 37014 VLDL 06346-6 25 mg/dL 0[address] [facility] [address] [place] [address] 03240 MICROALBUMIN (URINE) 28350 Microalbumin 55296-2 2.4 mg/dL 024 [facility] [address] [place] [address] 54283 MICROALBUMIN (URINE) 91637 Microalbumin/Cre atinine Ratio 10090-9 30 MCG/MGCREAT 024 [facility] [address] [place] [address] MICROALBUMIN (URINE) 28138 Urine Creatinine 2161-8 81.20 mg/dL 024 [facility] [address] [place] [address] 63244 CHOLESTEROL 35064 Cholesterol 2093-3 131 mg/dL 024 [facility] [address] [place] [address] 17500 No Orders UA NoOrdersUA NO ORDERS UA 0.00 08/08 024 [facility] [address] [place] [address] 98318 URINALYSIS 13645 Glucose 2345-7 >1000 mg/dL ++++ mg/dL 024 [facility] [address] [place] [address] 03628 URINALYSIS 86643 Protein Negative mg/dL 024 [facility] [address] [place] [address] 10908 URINALYSIS 41501 Bilirubin Negative mg/dL 024 [facility] [address] [place] [address] 36623 URINALYSIS 25585 Urobilinogen Negative mg/dL 024 [facility] [address] [place] [address] 25763 URINALYSIS 48987 Ph 6.00 024 [facility] [address] [place] [address] 39797 URINALYSIS 72481 Blood Negative mg/dL 024 [facility] [address] [place] [address] 37558 URINALYSIS 20979 Ketones Negative mg/dL 024 [facility] [address] [place] [address] 24756 URINALYSIS 71957 Nitrite Negative 024 [facility] [address] [place] [address] 64076 URINALYSIS 65587 Leukocytes Negative Jae/uL 024 [facility] [address] [place] [address] 77732 URINALYSIS 04355 Clarity Clear 024 [facility] [address] [place] [address] URINALYSIS 77542 Specific [place] 1.024 024 [facility] [address] [place] [address] URINALYSIS 17344 Color Light-Yello w 024 [facility] [address] [place] [address] [id number] IN 4548-4 Glyco HGB A1C 81681-6 7.2 % 024 [facility] [address] [facility] [address] [id number] IN 4548-4 eAG 52536-7 160 mg/dL 024 [facility] [address] [facility] [place] [address] Procedures Procedure Codes Date Most recent A1c = 7.0% and < 8.0% CPT-4: 3051F 03/28/2024 Most recent A1c = 7.0% and < 8.0% CPT-4: 3051F 03/08/2024 MED LIST DOCD IN [facility] CPT-4: 1159F 02/03/2024 RVW MEDS BY RX/DR IN [facility] CPT-4: 1160F 2023 Screening for clinical depre ssion is negative, follow-up plan not required CPT-4: G8510 02/03/2024 [id number] CPT-4: 40905 Unknown Vital Signs Date Vital 02/03/2024 Blood Pressure 1: 125/80 Code: 8480-6 BMI: 36.8 Code: 28987-2 Heart Rate 1: 90 bpm Height: 5'3 Code: 8302-2 Respiratory Rate: 16 bpm SpO2: 96% Temperature: 35.9 (C) / 96.7 (F) Weight: 211 lbs Code: 73348-9 Reason For Visit Reason For Visit Effective Dates Notes new patient welcome visit 02/03/2024 Encounters Encounter Performer Location Location Address Codes Date (64775) Other Reason/Patient not seen Diagnosis: Patient not seen[ICD10: UXZ.01] Marian Solis [place] [facility] [address] [facility] [address] [facility] [address] [place] [address] CPT-4: 33396 03/28/2024 (67961) Other Reason/Patient not seen Diagnosis: Patient not seen[ICD10: UXZ.01] Marian Solis [place] [facility] [address] [place] [address] CPT-4: 30853 03/08/2024 (20717) 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 Visit METAL FABRICATOR - Moderate Level, 60 mins Diagnosis: Primary [...] Diagnosis: Fatigue, unspecified type[ICD10: R53.83] Marian Solis [place] [facility] [address] [place] [address] CPT-4: 55447 02/03/2024 Plan of Care Planned Activity Notes Codes Status Date Appointment: Marian Solis WPtel: [address] [place], [place] [id number] 03/28/2024 Patient Education: Patient Medication Summary Completed 03/28/2024 Appointment: Marian Solis WPtel: [address] [place], [place] [id number] 03/08/2024 Patient Education: Patient Medication Summary [...] of care. 02/03/2024 Appointment: Marian Solis WPtel: [facility] [place], [place] [id number] 02/03/2024 Patient Education: Patient Medication Summary [...]
[2025-01-22 12:00] LABS: Chloride 103 mmol/L (98-107); Potassium 3.7 mmoL/L (3.5-5.1); Sodium 132 mmol/L (136-145)
[2025-01-22 12:03] LABS: Anion Gap 9.7 mEq/L (5-15); Blood Urea Nitrogen 7 mg/dl (7-17); Calcium 9.7 mg/dl (8.4-10.2); Carbon Dioxide 23 mmol/L (22.0-30.0); Creatinine Clearance Estimated 148 mL/min (50-200); Creatinine,Serum 0.70 mg/dl (0.52-1.04); Estimated Glomerular Filt Rate 91 ml/min (>60); GFR (African American) 111 ML/MIN (>60); Glucose 152 mg/dl (74-100)
[2025-01-22 12:51] LABS: HCG Qualitative, Serum Negative (Negative)
== END 2025-01-22 23:59 | disposition home or self-care (01) ==
LOC: PREOP 10:54
PROVIDERS: PCP Family Medicine; Visit Provider Anesthesiology
DX: Z01.812 Encounter for preprocedural laboratory examination (principal)
CPT/HCPCS: 80048; 84703; 85025

== ENCOUNTER 2025-02-01 05:52 | Day surgery (SDC) | payer MEDICARE, SELFPAY ==
--- NOTE | 2025-01-22 11:33 | SUR.PREOP ---
Instructed pt to hold Ozempic until after procedure and clear liquids day before procedure
[2025-01-23 05:45] VITALS: BMI 35.4
[2025-02-01 06:17] VITALS: BMI 35.4
[2025-02-01 06:30] VITALS: BP 113/69; PULSE 105; RESP 18; TEMP 36.2; O2SAT 94
[2025-02-01] MEDS: LACTATED RINGERS 1000ML 1,000 ML 25 ML IV (06:43)
[2025-02-01 07:04] LABS: HCG Qualitative, Serum Negative (Negative)
--- NOTE | 2025-02-01 07:10 | P.PNANES_ITS ---
[facility] Disclaimer: The information contained in this section may have been updated after the patient was seen, as this information can be updated by other users. Medical History Pre-op exam Mixed hyperlipidemia Dizziness SOB (shortness of breath) Diabetes Peripheral neuropathy GERD (gastroesophageal reflux disease) Movement disorder Iron deficiency PAD (peripheral artery disease) JOSE LUIS (obstructive sleep apnea) Daytime somnolence Postoperative edema Edema of both legs Aortic valve insufficiency Edema Type 2 diabetes mellitus History of CVA (cerebrovascular accident) Hyperlipidemia Hypertension Bipolar disorder Surgical History History of cholecystectomy History of injection of tarsal tunnel History of section History of arthroscopy of left knee History of tubal ligation Family History Other Family history of depression Family history of diabetes mellitus Family history of hypertension Social History (Updated 02/01/25 @ 06:31 by Arianne Shi RN) Smoking Status: Former smoker alcohol intake: never substance use type: denies use current occupational status: disabled Travel in the last 8 weeks?: None household members: significant other housing: house lives independently: No marital status: single number of children: 3 Have you lived/traveled outside US in past 30 days?: No Contact w/someone who lives/traveled outside US past 30 days?: No Exposure to someone with infectious disease in past 14 days?: No Do you have a fever (greater than 100.4 F or 38 C)?: No Have you tested positive for COVID-19?: No Exposed to someone with COVID-19 in past 14 days?: No Do you have a sore throat?: No Do you have a cough?: No Do you have any weakness?: No Are you experiencing any nausea/vomitting?: No Do you have any diarrhea?: No Are you experiencing any unusual bleeding?: No Do you have any muscle aches/pain?: No Do you have any abdominal pain?: No Are you experiencing loss of taste or smell?: No [facility] Anesthesia Checklist Patient Identification Patient Identification: Arm Band and Family Structural Data Admitted From: Home Planned Operative Procedure/s: placement of pain pump, trial, back. Consent for Planned Operative Procedure(s) Verified: Yes Verified Documents: Surgical Consent and History and Physical NPO Status Verified Time NPO: 00:00 Additional verifications Patient : No Anesthesia Reactions: No Hx Blood Transfusions: No Blood Transfusion Reaction: No Cephalosporin Allergy: No Previous Colonoscopy: No Airway Assessment Mallampati Score:: Class III C-Spine Mobility Assessed: Yes TMJ Mobility Assessed: Yes Dentition: Good Dentition Neurological Assessment Level of Consciousness: Awake, Alert, Appropriate and Follows Commands Hx Seizures: No Numbness or tingling in extremities: No Anesthesia Plan Anesthesia Risk discussed: Yes ASA Class: II Anesthesia Type: MAC
[2025-02-01 07:14] LABS: POC Glucose,Bedside 119 (70-110)
[2025-02-01] MEDS: CEFAZOLIN SODIUM 1GM ADV 1 GM IV (07:35)
--- NOTE | 2025-02-01 07:38 | EXP.HP ---
History of Present Illness *Admission Date: 02/01/25 *Reason for visit:: Spinal cord stimulator trial *History of present illness: This patient has degenerative disease of lumbar spine with lumbar radiculopathy symptoms. She has failed all previous conservative therapy. She presents for spinal cord similar trial today. [facility] Disclaimer: The information contained in this section may have been updated after the patient was seen, as this information can be updated by other users. Medical History Pre-op exam Mixed hyperlipidemia Dizziness SOB (shortness of breath) Diabetes Peripheral neuropathy GERD (gastroesophageal reflux disease) Movement disorder Iron deficiency PAD (peripheral artery disease) JOSE LUIS (obstructive sleep apnea) Daytime somnolence Postoperative edema Edema of both legs Aortic valve insufficiency Edema Type 2 diabetes mellitus History of CVA (cerebrovascular accident) Hyperlipidemia Hypertension Bipolar disorder Surgical History History of cholecystectomy History of injection of tarsal tunnel History of section History of arthroscopy of left knee History of tubal ligation Family History Family history of diabetes mellitus Family history of hypertension Family history of depression Social History Smoking Status: Former smoker alcohol intake: never substance use type: denies use current occupational status: disabled Travel in the last 8 weeks?: None household members: significant other housing: house lives independently: No marital status: single number of children: 3 Have you lived/traveled outside US in past 30 days?: No Contact w/someone who lives/traveled outside US past 30 days?: No Exposure to someone with infectious disease in past 14 days?: No Do you have a fever (greater than 100.4 F or 38 C)?: No Have you tested positive for COVID-19?: No Exposed to someone with COVID-19 in past 14 days?: No Do you have a sore throat?: No Do you have a cough?: No Do you have any weakness?: No Are you experiencing any nausea/vomitting?: No Do you have any diarrhea?: No Are you experiencing any unusual bleeding?: No Do you have any muscle aches/pain?: No Do you have any abdominal pain?: No Are you experiencing loss of taste or smell?: No Other Medical History Have you received the Flu Vaccine for this season: Yes Have you received the Pneumonia Vaccine: Yes Review of Systems Review of Systems Review of systems:: pertinent systems reviewed and negative unless documented below Meds Home Medications and Allergies Home Medications ?Medication ?Instructions ?Recorded ?Confirmed ?Type aspirin 81 mg chewable tablet 81 mg PO DAILY heart health 10/07/21 02/01/25 History (Regine Chewable Low Dose Aspirin) levothyroxine 75 mcg tablet 75 mcg PO DAILY hypothyroidism 10/07/21 01/23/25 History (Synthroid) metformin 1,000 mg tablet 1,000 mg PO DAILY dm 07/25/22 01/23/25 History blood sugar diagnostic (Accu-Chek #10 ea 08/25/23 01/23/25 History Guide test strips) ezetimibe 10 mg tablet (Zetia) 10 mg PO DAILY 08/25/23 01/23/25 History lancets (Accu-Chek Softclix #100 ea 08/25/23 01/23/25 History Lancets) valsartan 160 mg tablet (Diovan) 160 mg PO DAILY 01/18/24 01/23/25 History empagliflozin 25 mg tablet 25 mg PO DAILY 03/08/24 01/23/25 History (Jardiance) verapamil 360 mg 24 hr 360 mg PO DAILY #90 caps 05/15/24 01/23/25 Rx capsule,extended release lancets 30 gauge (OneTouch Delica #100 ea 07/04/24 01/23/25 History Plus Lancet) rosuvastatin 20 mg tablet (Crestor) 20 mg PO ONCE #90 tabs 10/09/24 01/23/25 Rx tizanidine 2 mg capsule 2 mg PO TID PRN muscle spasticity 11/02/24 01/23/25 Rx #90 caps clopidogrel 75 mg tablet See Rx Instructions .Route 12/10/24 02/01/25 Rx .COMPLEX #90 tabs gabapentin 400 mg capsule 400 mg PO TID #90 caps 12/10/24 01/23/25 Rx gabapentin 800 mg tablet 800 mg PO TID #90 tabs 12/10/24 01/23/25 Rx amitriptyline 50 mg tablet See Rx Instructions .Route 01/07/25 01/23/25 Rx .COMPLEX #30 tabs aripiprazole 20 mg tablet See Rx Instructions .Route 01/07/25 01/23/25 Rx .COMPLEX #30 tabs duloxetine 60 mg capsule,delayed See Rx Instructions .Route 01/07/25 01/23/25 Rx release .COMPLEX #60 caps mirabegron 50 mg tablet,extended See Rx Instructions .Route 01/07/25 01/23/25 Rx release 24 hr .COMPLEX #30 tabs omeprazole 40 mg capsule,delayed See Rx Instructions .Route 01/07/25 01/23/25 Rx release .COMPLEX #30 caps semaglutide 2 mg/dose (8 mg/3 mL) See Rx Instructions .Route 01/07/25 02/01/25 Rx subcutaneous pen injector (Ozempic) .COMPLEX #3 mL rotigotine 2 mg/24 hour 2 mg transdermal DAILY 01/22/25 01/23/25 History transdermal 24 hour patch (Neupro) New Prescriptions to Start Prescriptions: Allergies Allergy/AdvReac Type Severity Reaction Status Date / Time topiramate (From Topamax) Allergy Shakiness Verified 02/01/25 06:44 Exam Data for Last 24 hours Vital signs and Labs for Last 24 Hours: Temp Pulse Resp BP Pulse Ox O2 Del Method 97.2 F L 105 H 18 113/69 94 L Room Air 02/01/25 06:30 02/01/25 06:30 02/01/25 06:30 02/01/25 06:30 02/01/25 06:30 02/01/25 06:30 Laboratory Results - last 24 hr 02/01/25 06:40: Serum HCG, Qual Negative 02/01/25 07:05: POC Glucose 119 H I & O for Last 24 hours: Intake & Output 01/29/25 01/30/25 01/31/25 02/01/25 11:59 11:59 11:59 11:59 Weight 200 lb *Routine HEENT Exam Head: Present normocephalic Eye: Present EOMI and normal accommodation ENT: Present mucous membranes moist *Routine Respiratory Exam Respiratory: Present normal respiratory effort *Routine Cardiovascular Exam Cardiovascular: Present RRR, Normal S1 and Normal S2 *Routine Abdominal Exam Abdominal: Present soft *Routine Rectal Exam Rectal:: deferred *Routine Genitalia Exam Genitalia:: deferred H&P: Result Impressions Degenerative disease of lumbar spine with lumbar colopathy symptoms Assessment and Plan *Assessment and plan (1) Degenerative disc disease: Status: Acute Category: Medical (2) Lumbar radiculopathy: Status: Acute Category: Medical Code(s): M54.16 - Radiculopathy, lumbar region Plan Spinal cord stimulator trial
[2025-02-01] MEDS: LIDOCAINE 1% W/EPI 1:100,000 20ML VIAL 20 ML (07:56)
[2025-02-01 08:12] VITALS: BP 101/61; PULSE 113; RESP 16; TEMP 36.3; O2SAT 94
--- NOTE | 2025-02-01 08:16 | EXP.OP.NOTE ---
Date of procedure: 02/01/25 Pre-op Diagnosis:: Degenerative disease of lumbar spine with lumbar radiculopathy symptoms Post-op Diagnosis:: Same Procedure performed:: Spinal cord stimulator trial with epidural lead placement x 2 Surgeon:: Timothy Restrepo MD [employer] TERRITORY MANAGER:: Jignesh Paz Anesthesia: MAC Estimated blood loss (mL): 1 Clinical Note:: This patient is a pleasant 44-year-old white female who we have been treating for degenerative disease of lumbar spine with lumbar radiculopathy symptoms. She has failed all previous conservative treatments including injections, oral medications, physical therapy and she is not a candidate for surgery. She has had a successful psychological evaluation. She presents for spinal cord similar trial today. Operative findings:: None Operative note:: Informed consent was obtained risk and benefits of the procedure were explained to the patient. Patient was taken to the operating room placed prone on the procedure table. She was prepped and draped in sterile fashion. C-arm fluoroscopy was used to view the lumbar spine. The skin and subtenons tissues adjacent to the L1-L2 interspace where anesthetized using lidocaine. A 17-gauge epidural needle was inserted and advanced into the L1-L2 interspace. After confirmation of needle placement in the epidural space a stimulator lead was inserted and advanced very easily to the T7-T8-T9 vertebral body. A second needle was inserted and advanced again into the L1-L2 interspace. Again after confirmation of needle placement in the epidural space a second stimulator lead was inserted and advanced very easily to the T7-T8-T9 vertebral body. Leads were checked in AP and lateral views and found to be in good position. We did test on the table with good stimulation in all areas of pain. The leads were secured in place. The patient was taken recovery. The patient was then programmed by the [email or web address] airport representative with good relief of pain symptoms. She was discharged home neurologically intact with good relief of pain symptoms. Will plan on seeing this patient next Tuesday. Will shorten this trial since she is on Plavix. She will remain off of her Plavix until her leads are pulled. She can continue her 81 mg aspirin. Condition: stable Disposition: PACU Complications:: None
[2025-02-01 08:22] VITALS: BP 113/66; PULSE 112; RESP 16; O2SAT 97
[2025-02-01 08:32] VITALS: BP 127/71; PULSE 113; RESP 16; O2SAT 97
[2025-02-01 08:42] VITALS: BP 119/71; PULSE 111; RESP 16; O2SAT 97
== END 2025-02-01 09:03 | disposition home or self-care (01) ==
PROVIDERS: PCP Family Medicine; Visit Provider Anesthesiology
PROC: (CPT 63650; principal; 2025-02-01 07:30)
DX: M51.16 Intervertebral disc disorders with radiculopathy, lumbar region (principal); E11.42 Type 2 diabetes mellitus with diabetic polyneuropathy; E11.51 Type 2 diabetes mellitus with diabetic peripheral angiopathy without gangrene; E78.2 Mixed hyperlipidemia; K21.9 Gastro-esophageal reflux disease without esophagitis; F31.9 Bipolar disorder, unspecified; I10 Essential (primary) hypertension; Z79.899 Other long term (current) drug therapy; Z79.82 Long term (current) use of aspirin; Z79.84 Long term (current) use of oral hypoglycemic drugs; Z87.891 Personal history of nicotine dependence; Z88.8 Allergy status to other drugs, medicaments and biological substances; Z79.02 Long term (current) use of antithrombotics/antiplatelets; Z86.73 Personal history of transient ischemic attack (TIA), and cerebral infarction without residual deficits
CPT/HCPCS: 63650 ×2; 82962; 84703; 96374; 99221; C1778; J0690; J2004; J2250; J3010; J7120

== ENCOUNTER 2025-02-06 14:23 | Outpatient (POV) | payer MEDICARE, SELFPAY ==
--- OUTSIDE RECORDS SUMMARY | 2025-02-06 14:34 | XMS_ITS | Patient Health Record ---
Author Organization [facility] Physician Dixie rock Billing Info Address [address] [place] [id number] Care Team Providers Care Yeast Maker Name Role Phone MOE LOW Primary Care [...] Problem Status W/U Status Risk Notes Problem 529336137 Tobacco use (Z72.0) Active confirmed Problem [id number] Heart palpitatio ns (R00.2) Active confirmed Problem Chest pain (R07.9) Active confirmed Problem [id number] Hypertension, essential (I10) Active confirmed Problem [id number] Hyperlipidemia, unspecified hyperlipidemia type (E78.5) Active confirmed Plan Of Treatment No Information Insurance Providers Payer Name Payer Address Payer Phone Subscriber Number Group Number Insured Name Patient Relationship to Insured Coverage Start Date Coverage End Date [id number] P[employer]WORK P 1 [facility] [address] [facility] [place] [id number] [phone] [id number] Breana Garcia Self - patient is the insured 9 9 Medical (General) History Medical History History ICD Code hypertension Type 2 diabetes mellitus wit hout complication, without long-term current use of insulin E11.9 Hyperlipidemia, unspecified hyperlipidem ia type E78.5 Surgical History Surgery Date(Month/Year) tubal ligation knee arthroscopy-Left cholecystectomy Hospitalization History Reason Date(Month/Year) Shortness of breath 03/2016
--- NOTE | 2025-02-06 15:17 | EXP.PAIN.SOA ---
[facility] Disclaimer: The information contained in this section may have been updated after the patient was seen, as this information can be updated by other users. Medical History Pre-op exam Mixed hyperlipidemia Dizziness SOB (shortness of breath) Diabetes Peripheral neuropathy GERD (gastroesophageal reflux disease) Movement disorder Iron deficiency PAD (peripheral artery disease) JOSE LUIS (obstructive sleep apnea) Daytime somnolence Postoperative edema Edema of both legs Aortic valve insufficiency Edema Type 2 diabetes mellitus History of CVA (cerebrovascular accident) Hyperlipidemia Hypertension Bipolar disorder Surgical History History of cholecystectomy History of injection of tarsal tunnel History of section History of arthroscopy of left knee History of tubal ligation Family History Family history of diabetes mellitus Family history of hypertension Family history of depression Social History Smoking Status: Former smoker alcohol intake: never substance use type: denies use current occupational status: disabled Travel in the last 8 weeks?: None household members: significant other housing: house lives independently: No marital status: single number of children: 3 Have you lived/traveled outside [place] in past 30 days?: No Contact w/someone who lives/traveled outside US past 30 days?: No Exposure to someone with infectious disease in past 14 days?: No Do you have a fever (greater than 100.4 F or 38 C)?: No Have you tested positive for COVID-19?: No Exposed to someone with COVID-19 in past 14 days?: No Do you have a sore throat?: No Do you have a cough?: No Do you have any weakness?: No Do you have any diarrhea?: No Are you experiencing any unusual bleeding?: No Do you have any muscle aches/pain?: No Do you have any abdominal pain?: No Are you experiencing loss of taste or smell?: No PM Subjective & Objective Subjective Subjective:: Patient is a pleasant 44-year-old female who presents today for her follow-up of her spinal cord stimulator trial on Tuesday. Patient rates her pain today a 1 out of 10. Patient denies any new falls or injuries. She states that she has had amazing relief with this device and rates at least 80 to 85% improvement. Patient states that she had not even felt her feet for so long and she actually noticed and had improvement in her sensations. Patient denies any new falls or injuries. Patient states that she wants to get this device implanted as soon as possible. She states it has been years since she has had this significant improvement. Patient is currently managed with ropinirole 0.5 mg at bedtime from her neurologist and tizanidine 2 mg 3 times a day for spasticity. Patient denies any side effects. Her Александр has been reviewed and is appropriate. Review of Systems: General: No recent weight changes, no fever, no sleep disturbances Respiratory: No cough, no shortness of air, no recurring pulmonary infections Cardiovascular/peripheral vascular: No chest pain, no palpitations, no edema, no shortness of breath Gastrointestinal: No new onset incontinence, normal bowel movements reported Genitourinary: No new onset incontinence Musculoskeletal: Low back pain Psychiatric: [Normal mood/affect] Neurological: [Denies weakness in extremities], [denies balance issues] Pain at rest (0-10 scale): 1 Objective Objective:: Physical Exam: General: Alert and oriented x3, no acute distress, pleasant and cooperative Lungs: Respirations even and unlabored, symmetrical chest expansion Eyes: PERRL Musculoskeletal: Flexion and extension of lumbar [spine] somewhat guarded secondary to pain, [antalgic gait noted] Neurological: Speech clear, no gross sensory deficit Has patient had previous pain injection?: Yes What percentage of improvement in pain since last injection?: 80 to 85% improvement Conservative treatment options previously tried: Home exercise plan Length of treatment: Longer than 12 weeks Meds Home Medications and Allergies Home Medications ?Medication ?Instructions ?Recorded ?Confirmed ?Type aspirin 81 mg chewable tablet 81 mg PO DAILY heart health 10/07/21 02/01/25 History (Regine Chewable Low Dose Aspirin) levothyroxine 75 mcg tablet 75 mcg PO DAILY hypothyroidism 10/07/21 01/23/25 History (Synthroid) metformin 1,000 mg tablet 1,000 mg PO DAILY dm 07/25/22 01/23/25 History blood sugar diagnostic (Accu-Chek #10 ea 08/25/23 01/23/25 History Guide test strips) ezetimibe 10 mg tablet (Zetia) 10 mg PO DAILY 08/25/23 01/23/25 History lancets (Accu-Chek Softclix #100 ea 08/25/23 01/23/25 History Lancets) valsartan 160 mg tablet (Diovan) 160 mg PO DAILY 01/18/24 01/23/25 History empagliflozin 25 mg tablet 25 mg PO DAILY 03/08/24 01/23/25 History (Jardiance) lancets 30 gauge (OneTouch Delica #100 ea 07/04/24 01/23/25 History Plus Lancet) rosuvastatin 20 mg tablet (Crestor) 20 mg PO ONCE #90 tabs 10/09/24 01/23/25 Rx clopidogrel 75 mg tablet See Rx Instructions .Route 12/10/24 02/01/25 Rx .COMPLEX #90 tabs gabapentin 400 mg capsule 400 mg PO TID #90 caps 12/10/24 01/23/25 Rx gabapentin 800 mg tablet 800 mg PO TID #90 tabs 12/10/24 01/23/25 Rx semaglutide 2 mg/dose (8 mg/3 mL) See Rx Instructions .Route 01/07/25 02/01/25 Rx subcutaneous pen injector (Ozempic) .COMPLEX #3 mL rotigotine 2 mg/24 hour 2 mg transdermal DAILY 01/22/25 01/23/25 History transdermal 24 hour patch (Neupro) sulfamethoxazole 800 1 tab PO BID 7 days #14 tabs 02/01/25 Rx mg-trimethoprim 160 mg tablet (Bactrim DS) amitriptyline 50 mg tablet See Rx Instructions .Route 02/04/25 Rx .COMPLEX #90 tabs aripiprazole 20 mg tablet See Rx Instructions .Route 02/04/25 Rx .COMPLEX #90 tabs duloxetine 60 mg capsule,delayed See Rx Instructions .Route 02/04/25 Rx release .COMPLEX #60 caps mirabegron 50 mg tablet,extended See Rx Instructions .Route 02/04/25 Rx release 24 hr (Myrbetriq) .COMPLEX #90 tabs omeprazole 40 mg capsule,delayed See Rx Instructions .Route 02/04/25 Rx release .COMPLEX #90 caps tizanidine 2 mg tablet See Rx Instructions .Route 02/04/25 Rx .COMPLEX #180 tabs verapamil 360 mg 24 hr 360 mg PO DAILY #90 caps 02/05/25 Rx capsule,extended release New Prescriptions to Start Prescriptions: Allergies Allergy/AdvReac Type Severity Reaction Status Date / Time topiramate (From Topamax) Allergy Shakiness Verified 02/01/25 06:44 Assessment and Plan *Assessment and plan (1) Diabetic peripheral neuropathy: Status: Acute Category: Medical Code(s): E11.42 - Type 2 diabetes mellitus with diabetic polyneuropathy (2) Degenerative disc disease: Status: Acute Category: Medical (3) Lumbar facet arthropathy: Status: Acute Category: Medical Code(s): M47.816 - Spondylosis without myelopathy or radiculopathy, lumbar region Plan Patient had her spinal cord stimulator leads pulled with no complications and was discharged neurologically intact. Leads were intact. Risk and benefits of the spinal cord stimulator implant were explained to the patient and she would like to proceed forward with this plan of care. Patient has tried and failed conservative therapy including oral medication, heat and ice, topicals, physical therapy and continued at home stretching exercise for longer than 12 weeks. Patient has also had injection therapy. Patient does have significant diabetic peripheral neuropathy and actually noticed improvement in sensation in her feet almost immediately following the lead placement.Patient did rate 80 to 85% relief. Patient was counseled that we will submit to insurance for the stimulator implant and contact her once we have official approval. This will be done in the OR and she will have incisions with 6-week postop recovery time. Patient acknowledges understanding and agrees with plan of care. This will be done under fluoroscopic guidance. Patient has been instructed to contact the clinic with any concerns before the next appointment. Dr. Restrepo has reviewed this note and agrees with this plan of care. This note was dictated using voice recognition software and make contain errors or omissions. All injections are used with Lidocaine, Bupivacaine and dexamethasone. Occasionally urine drug screen is needed to verify patient's compliance with our office pain contract. This is ordered based off specific treatments related to chronic pain with the potential to abuse certain medications.
[2025-02-06 15:23] VITALS: BP 119/65; PULSE 110; RESP 14; O2SAT 97; BMI 35.4
--- OUTSIDE RECORDS SUMMARY | 2025-02-06 15:34 | XMS_ITS | CCD ---
Author Name Marian Solis NP Address [address] [facility] [address] [place] [address] Phone Organization [facility] Phone Care Team Providers Care Svp [employer] Name Role Phone Unavailable Primary Care Provider Unavailabl e Unavailable Chronic Care Management Unavaila ble Summary Purpose DataExchange Insurance Providers Payer name Policy type / Coverage type Covered alliance party ID Effective Begin Date Effective End Date [facility] [id number] Unknown Unknown Family history Father Diagnosis Age [...] cessation counseling) 02/03/[address]: [id number] Never drinks alco hol 02/03/2024 Illegal/Recreational drug history Unknown *Has never used illegal/recreational drugs 02/03/2024 Allergies, Adverse Reactions, Alerts Substance Reaction Codes Entered Date Inactivated Date Status * Food Allergy _ Unknown 02/03/2024 No Inactive Date Active Topamax RxNorm: 664306 02/03/2024 No Inactive Da te Active Seasonal [...] 21 mg/24 hr daily transdermal patch RxNorm: 735173 Apply 1 Patch Transdermal 02/03/20 24 025 Active valsartan 160 mg tablet RxNorm: 064067 Take 1 Tablet(s) Oral two times a day 02/03/20 Active lithium carbonate 300 mg capsule RxNorm: 455471 TAKE ONE CAPSULE BY MOUTH TWICE DAILY FOR mood 02/03/20 24 Active buspirone 10 mg tablet RxNorm: 138138 Take 2 Tablet(s) Oral three times a day 02/03/20 24 Active amlodipine 5 mg tablet RxNorm: 715673 Take 1 Tablet(s) Oral every evening 02/03/20 24 Active rosuvastatin 20 mg tablet RxNorm: 062596 Take 1 Tablet(s) Oral every day 02/03/20 24 Active fluticasone propionate 50 mcg/actuation nasal spray,suspension ... RxNorm: 7993222 instill 1-2 SPRAYS IN EACH NOSTRIL EVERY DAY NEEDED 02/03/20 24 Active Nyamyc 100,000 unit/gram topical powder RxNorm: 475819 top 02/03/20 24 Active polyethylene glycol 3350 17 gram/dose oral powder RxNorm: 486235 DISSOLVE 17 GRAMS OF POWDER INTO 4 TO 8 OUNCES OF WATER, JUICE, SODA, COFFEE, OR TEA THEN DRINK EVERY DAY do not exceed 17 grams PER day 02/03/20 24 Active fluoxetine 40 mg capsule RxNorm: 530760 TAKE ONE CAPSULE BY MOUTH TWICE DAILY FOR mood 02/03/20 24 Active cholecalciferol (vitamin D3) 50 mcg (2,000 unit) capsule RxNorm: 772393 Take 1 Capsule(s) Oral every day 02/03/20 24 Active tobramycin 1.2 gram solution for injection RxNorm: 248682 inj 02/03/20 24 Active benzonatate 100 mg capsule RxNorm: 855735 TAKE ONE CAPSULE BY MOUTH THREE TIMES DAILY NEEDED FOR cough -SWALLOW WHOLE. DO NOT CRUSH OR CHEW- 02/03/20 24 Active Linzess 72 mcg capsule RxNorm: 3742773 TAKE ONE CAPSULE BY MOUTH EVERY DAY ON AN EMPTY STOMACH AT LEAST 30 MINUTES BEFORE THE FIRST MEAL OF THE DAY 02/03/20 24 Active aripiprazole 10 mg tablet RxNorm: 256370 Take 1 Tablet(s) Oral HS 02/03/20 24 Active Trulicity 1.5 mg/0.5 mL subcutaneous pen injector RxNorm: 5281256 INJECT 1.5 MG (0.5 ML) SUBCUTANEOUSLY ONCE A WEEK 02/03/20 24 Active levothyroxine 75 mcg tablet RxNorm: 373369 Take 1 Tablet(s) Oral every day BEFORE a meal 02/03/20 Active Ozempic 0.25 mg or 0.5 mg (2 mg/3 mL) subcutaneous pen injector ... RxNorm: 2962905 Inject 0.5 Milligram(s) Subcutaneous QW 02/03/20 Active Myrbetriq 25 mg tablet,extended release RxNorm: 1380931 TAKE ONE TABLET BY MOUTH EVERY DAY do not crush, chew, and/or divide take with water 02/03/20 Active bisoprolol fumarate 5 mg tablet RxNorm: 702405 Take 1 Tablet(s) Oral every day 02/03/20 24 Active aspirin 81 mg tablet,delayed release RxNorm: 193241 Take 1 Tablet(s) Oral every day 02/03/20 24 Active solifenacin 5 mg tablet RxNorm: 655597 Take 1 Tablet(s) Oral every day 02/03/20 24 Active metformin 1,000 mg tablet RxNorm: 583052 Take 1 Tablet(s) Oral every morning 02/03/20 Active amantadine HCl 100 mg tablet RxNorm: 950466 oral 02/03/20 24 Active trazodone 150 mg tablet RxNorm: 982663 Take 1 Tablet(s) Oral HS as needed 02/03/20 Active duloxetine 60 mg capsule,delayed release RxNorm: 060702 Take 2 Capsule(s) Oral every day 02/03/20 24 Active baclofen 20 mg tablet RxNorm: 979317 TAKE ONE TABLET BY MOUTH THREE TIMES DAILY MAY CAUSE DROWSINESS 02/03/20 Active valsartan 80 mg tablet RxNorm: 283762 Take 1 Tablet(s) Oral two times a day 02/03/20 24 Active Lybalvi 15 mg-10 mg tablet RxNorm: 1264236 Take 1 Tablet(s) Oral every day 02/03/20 24 Active olanzapine 5 mg tablet RxNorm: 087282 Take 1 Tablet(s) Oral HS 02/03/20 24 Active Anucort-HC 25 mg suppository RxNorm: 5130362 UNWRAP AND INSERT 1 SUPPOSITORY RECTALLY TWICE DAILY FOR 2 WEEKS 02/03/20 24 Active gabapentin 600 mg tablet RxNorm: 305423 TAKE ONE TABLET BY MOUTH EVERY MORNING AND TAKE TWO TABLETS AT BEDTIME MAY CAUSE DROWSINESS 02/03/20 Active doxepin 50 mg capsule RxNorm: 1836758 Take 1 Capsule(s) Oral HS 02/03/20 Active trazodone 100 mg tablet RxNorm: 600406 Take 1 Tablet(s) Oral HS FOR SLEEP 02/03/20 Active ezetimibe 10 mg tablet RxNorm: 340898 Take 1 Tablet(s) Oral every day 02/03/20 Active duloxetine 30 mg capsule,delayed release RxNorm: 902829 Take 3 Capsule(s) Oral every day 02/03/20 24 Inactive Medication Administered No Medication Administered data Results Observation Observation Code Item Item Code Result Date Service Location CHEM 14 (METABOLIC PANEL) 54556 Glucose 2345-7 101 mg/dL [facility] [address] [place] [address] CHEM 14 (METABOLIC PANEL) 91255 BUN 3094-0 11 mg/dL [facility] [address] [place] [address] CHEM 14 (METABOLIC PANEL) 08960 Creatinine 2160-0 0.8 mg/dL [facility] [address] [place] [address] CHEM 14 (METABOLIC PANEL) 65310 BUN/Creat Ratio 3097-3 14.1 024 [facility] [address] [place] [address] CHEM 14 (METABOLIC PANEL) 36170 GFR Estimated 94118-0 96 mL/min/1.73 m2 024 [facility] [address] [place] [address] CHEM 14 (METABOLIC PANEL) 65399 Sodium 2951-2 141 mmol/L [facility] [address] [place] [address] CHEM 14 (METABOLIC PANEL) 05537 Potassium 2823-3 3.5 mmol/L 024 [facility] [address] [place] [address] CHEM 14 (METABOLIC PANEL) 13646 Chloride 2075-0 107 mmol/L 024 [facility] [address] [place] [address] CHEM 14 (METABOLIC PANEL) 89444 Total CO2 2028-9 24 mmol/L 024 [facility] [address] [place] [address] CHEM 14 (METABOLIC PANEL) 27826 Anion Gap 1863-0 13.5 mEq/L 024 [facility] [address] [place] [address] 84589 CHEM 14 (METABOLIC PANEL) 30737 Calculated Serum Osmolality 13650-2 292 mOsm/kg 024 [facility] [address] [place] [address] 42162 CHEM 14 (METABOLIC PANEL) 85211 Albumin 89999-6 4.0 g/dL 024 [facility] [address] [place] [address] 68374 CHEM 14 (METABOLIC PANEL) 26461 Total Protein 2885-2 7.0 g/dL 024 [facility] [address] [place] [address] 28773 CHEM 14 (METABOLIC PANEL) 88935 Globulin 2336-6 3.0 g/dL 024 [facility] [address] [place] [address] 97994 CHEM 14 (METABOLIC PANEL) 46556 Albumin/Globulin Ratio 1759-0 1.3 024 [facility] [address] [place] [address] 66422 CHEM 14 (METABOLIC PANEL) 90174 ALK PHOS 6768-6 84.00 U/L 024 [facility] [address] [place] [address] 15375 CHEM 14 (METABOLIC PANEL) 62704 SGOT/AST 1920-8 35 U/L 024 [facility] [address] [place] [address] 83904 CHEM 14 (METABOLIC PANEL) 22424 SGPT/ALT 1743-4 54 U/L 024 [facility] [address] [place] [address] 13951 CHEM 14 (METABOLIC PANEL) 69938 Total Bilirubin 1975-2 0.3 mg/dL 024 [facility] [address] [place] [address] 70203 CHEM 14 (METABOLIC PANEL) 39832 Calcium 24548-4 9.5 mg/dL 024 [facility] [address] [place] [address] 57779 CHEM 14 (METABOLIC PANEL) 38559 Corrected Calcium 11570-6 9.7 mg/dL 024 [facility] [address] [place] [address] 54934 FREE T-3 52856 FT3 3051-0 2.21 pg/mL 024 [facility] [address] [place] [address] FREE T-4 16482 FT4 3024-7 1.23 ng/dL 024 [facility] [address] [place] [address] 62310 VITAMIN B-12 80877 Vitamin B12 2132-9 459 pg/mL 02/05 024 [facility] [address] [place] [address] 42143 TSH 34314 TSH 21705-0 0.475 uIU/mL 024 [facility] [address] [place] [address] COMPLETE CBC W/ DIFF WBC 06377 WBC 6690-2 10.5 K/ul 024 [facility] [address] [place] [address] 24986 COMPLETE CBC W/ DIFF WBC 52530 RBC 789-8 4.22 M/uL 024 [facility] [address] [place] [address] 04336 COMPLETE CBC W/ DIFF WBC 36529 Hemoglobin 718-7 12.6 g/dL 024 [facility] [address] [place] [address] 52056 COMPLETE CBC W/ DIFF WBC 16921 Hematocrit 4544-3 38.6 % 024 [facility] [address] [place] [address] 97408 COMPLETE CBC W/ DIFF WBC 61866 MCV 787-2 91.5 fL 024 [facility] [address] [place] [address] 34972 COMPLETE CBC W/ DIFF WBC 98991 MCH 785-6 29.8 pg 024 [facility] [address] [place] [address] 70853 COMPLETE CBC W/ DIFF WBC 04851 MCHC 786-4 32.6 g/dL 024 [facility] [address] [place] [address] 46736 COMPLETE CBC W/ DIFF WBC 66103 RDW 788-0 15.5 % 024 [facility] [address] [place] [address] 49980 COMPLETE CBC W/ DIFF WBC 60765 Platelet Count 777-3 312 K/uL 024 [facility] [address] [place] [address] 80000 COMPLETE CBC W/ DIFF WBC 00165 MPV 22419-3 7.7 fL 024 [facility] [address] [place] [address] 40228 COMPLETE CBC W/ DIFF WBC 70775 Neutrophils % 770-8 68.1 % 024 [facility] [address] [place] [address] 18322 COMPLETE CBC W/ DIFF WBC 05597 Lymphocytes % 736-9 22.5 % 024 [facility] [address] [place] [address] COMPLETE CBC W/ DIFF WBC 54655 Monocytes % 5905-5 8.0 % 024 [facility] [address] [place] [address] COMPLETE CBC W/ DIFF WBC 02780 Eosinophils % 713-8 0.8 % 024 [facility] [address] [place] [address] COMPLETE CBC W/ DIFF WBC 60507 Basophils% 706-2 0.6 % 024 [facility] [address] [place] [address] COMPLETE CBC W/ DIFF WBC 10900 Absolute Neutrophil 751-8 7151 /ul 024 [facility] [address] [place] [address] 31504 COMPLETE CBC W/ DIFF WBC 04040 Absolute Lymphocyte 15957-2 2363 /ul 024 [facility] [address] [place] [address] 74968 COMPLETE CBC W/ DIFF WBC 14463 Absolute Monocyte 742-7 840 /ul 024 [facility] [address] [place] [address] 93790 COMPLETE CBC W/ DIFF WBC 69039 Absolute Eosinophil 711-2 84 /ul 024 [facility] [address] [place] [address] 40963 COMPLETE CBC W/ DIFF WBC 67212 Absolute Basophil 704-7 63 /ul 024 [facility] [address] [place] [address] 92802 Direct LDL 18151 LDL-Direct 14966-4 72 mg/dL 024 [facility] [address] [place] [address] 72017 VITAMIN D 84176 Vitamin D 66733-2 27.4 ng/mL 024 [facility] [address] [place] [address] HDL - CHOL 84948 HDL 2085-9 44 mg/dL 024 [facility] [address] [place] [address] 74834 HDL - CHOL 27679 CHD 87241-2 34 % 024 [facility] [address] [place] [address] TRIGLYCERIDES 51390 Triglycerides 2571-8 124 mg/dL 024 [facility] [address] [place] [address] 57122 TRIGLYCERIDES 45181 VLDL 47131-9 25 mg/dL 024 [facility] [address] [place] [address] 98794 MICROALBUMIN (URINE) 88014 Microalbumin 28546-9 2.4 mg/dL 024 [facility] [address] [place] [address] 10835 MICROALBUMIN (URINE) 09322 Microalbumin/Cre atinine Ratio 65056-6 30 MCG/MGCREAT 024 [facility] [address] [place] [address] MICROALBUMIN (URINE) 26294 Urine Creatinine 2161-8 81.20 mg/dL 024 [facility] [address] [place] [address] 26901 CHOLESTEROL 18631 Cholesterol 2093-3 131 mg/dL 024 [facility] [address] [place] [address] 26516 No Orders UA NoOrdersUA NO ORDERS UA 0.00 08/08 024 [facility] [address] [place] [address] 07464 URINALYSIS 08240 Glucose 2345-7 >1000 mg/dL ++++ mg/dL 024 [facility] [address] [place] [address] 10714 URINALYSIS 81309 Protein Negative mg/dL 024 [facility] [address] [place] [address] 75059 URINALYSIS 38365 Bilirubin Negative mg/dL 024 [facility] [address] [place] [address] 34686 URINALYSIS 18512 Urobilinogen Negative mg/dL 024 [facility] [address] [place] [address] 47828 URINALYSIS 24411 Ph 6.00 024 [facility] [address] [place] [address] 94103 URINALYSIS 51726 Blood Negative mg/dL 024 [facility] [address] [place] [address] 04732 URINALYSIS 72762 Ketones Negative mg/dL 024 [facility] [address] [place] [address] 39320 URINALYSIS 42986 Nitrite Negative 024 [facility] [address] [place] [address] 86736 URINALYSIS 35762 Leukocytes Negative Jae/uL 024 [facility] [address] [place] [address] 30203 URINALYSIS 67776 Clarity Clear 024 [facility] [address] [place] [address] URINALYSIS 44543 Specific [place] 1.024 024 [facility] [address] [place] [address] URINALYSIS 93362 Color Light-Yello w 024 [facility] [address] [place] [address] [id number] [place] 4548-4 Glyco HGB A1C 04988-1 7.2 % 024 [facility] [address] [facility] [place] [address] [id number] IN 4548-4 eAG 11830-6 160 mg/dL 024 [facility] [address] [facility] [place] [address] Procedures Procedure Codes Date Most recent A1c = 7.0% and < 8.0% CPT-4: 3051F 03/28/2024 Most recent A1c = 7.0% and < 8.0% CPT-4: 3051F 03/08/2024 MED LIST DOCD IN [facility] CPT-4: 1159F 02/03/2024 RVW MEDS BY RX/DR IN [facility] CPT-4: 1160F 2023 Screening for clinical depre ssion is negative, follow-up plan not required CPT-4: G8510 02/03/2024 [id number] CPT-4: 76714 Unknown Vital Signs Date Vital 02/03/2024 Blood Pressure 1: 125/80 Code: 8480-6 BMI: 36.8 Code: 90598-5 Heart Rate 1: 90 bpm Height: 5'3 Code: 8302-2 Respiratory Rate: 16 bpm SpO2: 96% Temperature: 35.9 (C) / 96.7 (F) Weight: 211 lbs Code: 20255-1 Reason For Visit Reason For Visit Effective Dates Notes new patient welcome visit 02/03/2024 Encounters Encounter Performer Location Location Address Codes Date (86030) Other Reason/Patient not seen Diagnosis: Patient not seen[ICD10: UXZ.01] Marian Solis [place] [facility] [address] [facility] [address] [place] [address] CPT-4: 08562 03/28/2024 (04301) Other Reason/Patient not seen Diagnosis: Patient not seen[ICD10: UXZ.01] Marian Solis [place] [facility] [address] [place] [address] CPT-4: 07947 03/08/2024 (84644) 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 Visit [employer] - Moderate Level, 60 mins Diagnosis: Primary [...] Diagnosis: Fatigue, unspecified type[ICD10: R53.83] Marian Solis [place] [facility] [address] [place] [address] CPT-4: 72208 02/03/2024 Plan of Care Planned Activity Notes Codes Status Date Appointment: Marian Solis WPtel: [address] [place], [place] [id number] 03/28/2024 Patient Education: Patient Medication Summary Completed 03/28/2024 Appointment: Marian Solis WPtel: [address] [place], [place] [id number] 03/08/2024 Patient Education: Patient Medication Summary [...] of care. 02/03/2024 Appointment: Marian Solis WPtel: [facility] [address] [place], [place] [id number] 02/03/2024 Patient Education: Patient Medication Summary [...]
--- OUTSIDE RECORDS SUMMARY | 2025-02-06 15:34 | XMS_ITS | CCD ---
Author Name Marian Solis NP Address [address] [facility] [address] [facility] [address] [place] [address] Phone Organization [employer] Phone Care Team Providers Care Senior Administrative Assistant Name Role Phone Unavailable Primary Care Provider Unavailabl e Unavailable Chronic Care Management Unavaila ble Summary Purpose DataExchange Insurance Providers Payer name Policy type / Coverage type Covered green party ID Effective Begin Date Effective End Date [facility] [id number] Unknown Unknown Family history Father Diagnosis Age [...] cessation counseling) 02/03/[address]: 920271410 Never drinks alco hol 02/03/2024 Illegal/Recreational drug history Unknown *Has never used illegal/recreational drugs 02/03/2024 Allergies, Adverse Reactions, Alerts Substance Reaction Codes Entered Date Inactivated Date Status * Food Allergy _ Unknown 02/03/2024 No Inactive Date Active Topamax RxNorm: 635030 02/03/2024 No Inactive Da te Active Seasonal [...] 21 mg/24 hr daily transdermal patch RxNorm: 283416 Apply 1 Patch Transdermal 02/03/20 24 025 Active valsartan 160 mg tablet RxNorm: 318450 Take 1 Tablet(s) Oral two times a day 02/03/20 Active lithium carbonate 300 mg capsule RxNorm: 910014 TAKE ONE CAPSULE BY MOUTH TWICE DAILY FOR mood 02/03/20 24 Active buspirone 10 mg tablet RxNorm: 312711 Take 2 Tablet(s) Oral three times a day 02/03/20 24 Active amlodipine 5 mg tablet RxNorm: 560366 Take 1 Tablet(s) Oral every evening 02/03/20 24 Active rosuvastatin 20 mg tablet RxNorm: 485521 Take 1 Tablet(s) Oral every day 02/03/20 24 Active fluticasone propionate 50 mcg/actuation nasal spray,suspension ... RxNorm: 9558955 instill 1-2 SPRAYS IN EACH NOSTRIL EVERY DAY NEEDED 02/03/20 24 Active Nyamyc 100,000 unit/gram topical powder RxNorm: 054539 top 02/03/20 24 Active polyethylene glycol 3350 17 gram/dose oral powder RxNorm: 171051 DISSOLVE 17 GRAMS OF POWDER INTO 4 TO 8 OUNCES OF WATER, JUICE, SODA, COFFEE, OR TEA THEN DRINK EVERY DAY do not exceed 17 grams PER day 02/03/20 24 Active fluoxetine 40 mg capsule RxNorm: 646971 TAKE ONE CAPSULE BY MOUTH TWICE DAILY FOR mood 02/03/20 24 Active cholecalciferol (vitamin D3) 50 mcg (2,000 unit) capsule RxNorm: 438850 Take 1 Capsule(s) Oral every day 02/03/20 24 Active tobramycin 1.2 gram solution for injection RxNorm: 040711 inj 02/03/20 24 Active benzonatate 100 mg capsule RxNorm: 365864 TAKE ONE CAPSULE BY MOUTH THREE TIMES DAILY NEEDED FOR cough -SWALLOW WHOLE. DO NOT CRUSH OR CHEW- 02/03/20 24 Active Linzess 72 mcg capsule RxNorm: 7309577 TAKE ONE CAPSULE BY MOUTH EVERY DAY ON AN EMPTY STOMACH AT LEAST 30 MINUTES BEFORE THE FIRST MEAL OF THE DAY 02/03/20 24 Active aripiprazole 10 mg tablet RxNorm: 359453 Take 1 Tablet(s) Oral HS 02/03/20 24 Active Trulicity 1.5 mg/0.5 mL subcutaneous pen injector RxNorm: 8992150 INJECT 1.5 MG (0.5 ML) SUBCUTANEOUSLY ONCE A WEEK 02/03/20 24 Active levothyroxine 75 mcg tablet RxNorm: 677626 Take 1 Tablet(s) Oral every day BEFORE a meal 02/03/20 Active Ozempic 0.25 mg or 0.5 mg (2 mg/3 mL) subcutaneous pen injector ... RxNorm: 7155572 Inject 0.5 Milligram(s) Subcutaneous QW 02/03/20 Active Myrbetriq 25 mg tablet,extended release RxNorm: 6495121 TAKE ONE TABLET BY MOUTH EVERY DAY do not crush, chew, and/or divide take with water 02/03/20 Active bisoprolol fumarate 5 mg tablet RxNorm: 070872 Take 1 Tablet(s) Oral every day 02/03/20 24 Active aspirin 81 mg tablet,delayed release RxNorm: 008630 Take 1 Tablet(s) Oral every day 02/03/20 24 Active solifenacin 5 mg tablet RxNorm: 363527 Take 1 Tablet(s) Oral every day 02/03/20 24 Active metformin 1,000 mg tablet RxNorm: 963766 Take 1 Tablet(s) Oral every morning 02/03/20 Active amantadine HCl 100 mg tablet RxNorm: 847820 oral 02/03/20 24 Active trazodone 150 mg tablet RxNorm: 195217 Take 1 Tablet(s) Oral HS as needed 02/03/20 Active duloxetine 60 mg capsule,delayed release RxNorm: 601956 Take 2 Capsule(s) Oral every day 02/03/20 24 Active baclofen 20 mg tablet RxNorm: 838350 TAKE ONE TABLET BY MOUTH THREE TIMES DAILY MAY CAUSE DROWSINESS 02/03/20 Active valsartan 80 mg tablet RxNorm: 107997 Take 1 Tablet(s) Oral two times a day 02/03/20 24 Active Lybalvi 15 mg-10 mg tablet RxNorm: 5696244 Take 1 Tablet(s) Oral every day 02/03/20 24 Active olanzapine 5 mg tablet RxNorm: 869009 Take 1 Tablet(s) Oral HS 02/03/20 24 Active Anucort-HC 25 mg suppository RxNorm: 8944518 UNWRAP AND INSERT 1 SUPPOSITORY RECTALLY TWICE DAILY FOR 2 WEEKS 02/03/20 24 Active gabapentin 600 mg tablet RxNorm: 021102 TAKE ONE TABLET BY MOUTH EVERY MORNING AND TAKE TWO TABLETS AT BEDTIME MAY CAUSE DROWSINESS 02/03/20 Active doxepin 50 mg capsule RxNorm: 4723551 Take 1 Capsule(s) Oral HS 02/03/20 Active trazodone 100 mg tablet RxNorm: 352438 Take 1 Tablet(s) Oral HS FOR SLEEP 02/03/20 Active ezetimibe 10 mg tablet RxNorm: 468540 Take 1 Tablet(s) Oral every day 02/03/20 Active duloxetine 30 mg capsule,delayed release RxNorm: 488778 Take 3 Capsule(s) Oral every day 02/03/20 24 024 Inactive Medication Administered No Medication Administered data Results Observation Observation Code Item Item Code Result Date Service Location FREE -3 86102 3 3051-0 2.21 pg/mL 024 [facility] [address] [place] [address] 07200 VITAMIN B-12 42648 Vitamin B12 2132-9 459 pg/mL 02/05 024 [facility] [address] [place] [address] 68470 COMPLETE CBC W/ DIFF WBC 76413 WBC 6690-2 10.5 K/ul 024 [facility] [address] [place] [address] 02901 COMPLETE CBC W/ DIFF WBC 44530 RBC 789-8 4.22 M/uL 024 [facility] [address] [place] [address] 61665 COMPLETE CBC W/ DIFF WBC 79874 Hemoglobin 718-7 12.6 g/dL 024 [facility] [address] [place] [address] 36177 COMPLETE CBC W/ DIFF WBC 67819 Hematocrit 4544-3 38.6 % 024 [facility] [address] [place] [address] 04747 COMPLETE CBC W/ DIFF WBC 93785 MCV 787-2 91.5 fL 024 [facility] [address] [place] [address] 63790 COMPLETE CBC W/ DIFF WBC 98848 MCH 785-6 29.8 pg 024 [facility] [address] [place] [address] 06348 COMPLETE CBC W/ DIFF WBC 62809 MCHC 786-4 32.6 g/dL 024 [facility] [address] [place] [address] 47992 COMPLETE CBC W/ DIFF WBC 75187 RDW 788-0 15.5 % 024 [facility] [address] [place] [address] 22865 COMPLETE CBC W/ DIFF WBC 55492 Platelet Count 777-3 312 K/uL 024 [facility] [address] [place] [address] 32934 COMPLETE CBC W/ DIFF WBC 16912 MPV 96454-0 7.7 fL 024 [facility] [address] [place] [address] 37272 COMPLETE CBC W/ DIFF WBC 87803 Neutrophils % 770-8 68.1 % 024 [facility] [address] [place] [address] 97108 COMPLETE CBC W/ DIFF WBC 22600 Lymphocytes % 736-9 22.5 % 024 [facility] [address] [place] [address] 31722 COMPLETE CBC W/ DIFF WBC 19112 Monocytes % 5905-5 8.0 % 024 [facility] [address] [place] [address] 19139 COMPLETE CBC W/ DIFF WBC 14477 Eosinophils % 713-8 0.8 % 024 [facility] [address] [place] [address] 49947 COMPLETE CBC W/ DIFF WBC 98161 Basophils% 706-2 0.6 % 024 [facility] [address] [place] [address] 10161 COMPLETE CBC W/ DIFF WBC 62802 Absolute Neutrophil 751-8 7151 /ul 024 [facility] [address] [place] [address] 24427 COMPLETE CBC W/ DIFF WBC 23986 Absolute Lymphocyte 17723-7 2363 /ul 024 [facility] [address] [place] [address] 84577 COMPLETE CBC W/ DIFF WBC 02573 Absolute Monocyte 742-7 840 /ul 024 [facility] [address] [place] [address] 92781 COMPLETE CBC W/ DIFF WBC 74007 Absolute Eosinophil 711-2 84 /ul 024 [facility] [address] [place] [address] 95024 COMPLETE CBC W/ DIFF WBC 99284 Absolute Basophil 704-7 63 /ul 024 [facility] [address] [place] [address] 09357 Direct LDL 28475 LDL-Direct 40468-1 72 mg/dL 024 [facility] [address] [place] [address] 32896 VITAMIN D 44416 Vitamin D 50421-8 27.4 ng/mL 024 [facility] [address] [place] [address] 45572 HDL - CHOL 54343 HDL 2085-9 44 mg/dL 024 [facility] [address] [place] [address] HDL - CHOL 41523 CHD 53025-8 34 % 024 [facility] [address] [place] [address] TRIGLYCERIDES 91470 Triglycerides 2571-8 124 mg/dL 024 [facility] [address] [place] [address] 68497 TRIGLYCERIDES 73679 VLDL 50899-1 25 mg/dL 024 [facility] [address] [place] [address] 60536 CHEM 14 (METABOLIC PANEL) 78723 Glucose 2345-7 101 mg/dL [facility] [address] [place] [address] 35362 CHEM 14 (METABOLIC PANEL) 89690 BUN 3094-0 11 mg/dL [facility] [address] [place] [address] 33930 CHEM 14 (METABOLIC PANEL) 71253 Creatinine 2160-0 0.8 mg/dL 024 [facility] [address] [place] [address] 62376 CHEM 14 (METABOLIC PANEL) 86306 BUN/Creat Ratio 3097-3 14.1 [facility] [address] [place] [address] 76919 CHEM 14 (METABOLIC PANEL) 31643 GFR Estimated 84553-4 96 mL/min/1.73 m2 [facility] [address] [place] [address] 28512 CHEM 14 (METABOLIC PANEL) 82838 Sodium 2951-2 141 mmol/L 024 [facility] [address] [place] [address] 50620 CHEM 14 (METABOLIC PANEL) 16915 Potassium 2823-3 3.5 mmol/L [facility] [address] [place] [address] 73425 CHEM 14 (METABOLIC PANEL) 56677 Chloride 2075-0 107 mmol/L 024 [facility] [address] [place] [address] 44184 CHEM 14 (METABOLIC PANEL) 36384 Total CO2 2028-9 24 mmol/L 024 [facility] [address] [place] [address] 67937 CHEM 14 (METABOLIC PANEL) 66847 Anion Gap 1863-0 13.5 mEq/L 024 [facility] [address] [place] [address] 33362 CHEM 14 (METABOLIC PANEL) 24205 Calculated Serum Osmolality 56652-2 292 mOsm/kg 024 [facility] [address] [place] [address] CHEM 14 (METABOLIC PANEL) 65758 Albumin 34149-0 4.0 g/dL 024 [facility] [address] [place] [address] CHEM 14 (METABOLIC PANEL) 80134 Total Protein 2885-2 7.0 g/dL 024 [facility] [address] [place] [address] CHEM 14 (METABOLIC PANEL) 96346 Globulin 2336-6 3.0 g/dL 024 [facility] [address] [place] [address] 09077 CHEM 14 (METABOLIC PANEL) 96803 Albumin/Globulin Ratio 1759-0 1.3 024 [facility] [address] [place] [address] 90215 CHEM 14 (METABOLIC PANEL) 39874 ALK PHOS 6768-6 84.00 U/L 024 [facility] [address] [place] [address] 51053 CHEM 14 (METABOLIC PANEL) 03263 SGOT/AST 1920-8 35 U/L 024 [facility] [address] [place] [address] 19270 CHEM 14 (METABOLIC PANEL) 23740 SGPT/ALT 1743-4 54 U/L 024 [facility] [address] [place] [address] 25824 CHEM 14 (METABOLIC PANEL) 98542 Total Bilirubin 1975-2 0.3 mg/dL 024 [facility] [address] [place] [address] CHEM 14 (METABOLIC PANEL) 26866 Calcium 88065-6 9.5 mg/dL 024 [facility] [address] [place] [address] 39149 CHEM 14 (METABOLIC PANEL) 25937 Corrected Calcium 11763-1 9.7 mg/dL 024 [facility] [address] [place] [address] 21911 TSH 62874 TSH 13962-5 0.475 uIU/mL 024 [facility] [address] [place] [address] FREE T-4 65009 FT4 3024-7 1.23 ng/dL 024 [facility] [address] [place] [address] 84092 No Orders UA NoOrdersUA NO ORDERS UA 0.00 08/08 024 [facility] [address] [place] [address] 02788 MICROALBUMIN (URINE) 21816 Microalbumin 01753-6 2.4 mg/dL 024 [facility] [address] [place] [address] 79753 MICROALBUMIN (URINE) 54722 Microalbumin/Cre atinine Ratio 70263-9 30 MCG/MGCREAT 024 [facility] [address] [place] [address] 12274 MICROALBUMIN (URINE) 40411 Urine Creatinine 2161-8 81.20 mg/dL 024 [facility] [address] [place] [address] 82237 CHOLESTEROL 45543 Cholesterol 2093-3 131 mg/dL 024 [facility] [address] [place] [address] 74019 URINALYSIS 75142 Glucose 2345-7 >1000 mg/dL ++++ mg/dL 024 [facility] [address] [place] [address] 64601 URINALYSIS 69807 Protein Negative mg/dL 024 [facility] [address] [place] [address] 00046 URINALYSIS 12657 Bilirubin Negative mg/dL 024 [facility] [address] [place] [address] 93332 URINALYSIS 97135 Urobilinogen Negative mg/dL 024 [facility] [address] [place] [address] 28693 URINALYSIS 63585 Ph 6.00 024 [facility] [address] [place] [address] 30096 URINALYSIS 06506 Blood Negative mg/dL 024 [facility] [address] [place] [address] 73449 URINALYSIS 76918 Ketones Negative mg/dL 024 [facility] [address] [place] [address] 07287 URINALYSIS 08717 Nitrite Negative 024 [facility] [address] [place] [address] 65376 URINALYSIS 35021 Leukocytes Negative Jae/uL 024 [facility] [address] [place] [address] 06769 URINALYSIS 71373 Clarity Clear 024 [facility] [address] [place] [address] URINALYSIS 81980 Specific [place] 1.024 024 [facility] [address] [place] [address] URINALYSIS 70248 Color Light-Yello w 024 [facility] [address] [place] [address] [id number] IN 4548-4 Glyco HGB A1C 80483-2 7.2 % 024 [facility] [address] [facility] [address] [id number] IN 4548-4 eAG 01338-8 160 mg/dL 024 [facility] [address] [facility] [place] [address] Procedures Procedure Codes Date Most recent A1c = 7.0% and < 8.0% CPT-4: 3051F 03/28/2024 Most recent A1c = 7.0% and < 8.0% CPT-4: 3051F 03/08/2024 MED LIST DOCD IN [facility] CPT-4: 1159F 02/03/2024 RVW MEDS BY RX/DR IN [facility] CPT-4: 1160F 2023 Screening for clinical depre ssion is negative, follow-up plan not required CPT-4: G8510 02/03/2024 [id number] CPT-4: 87364 Unknown Vital Signs Date Vital 02/03/2024 Blood Pressure 1: 125/80 Code: 8480-6 BMI: 36.8 Code: 58934-4 Heart Rate 1: 90 bpm Height: 5'3 Code: 8302-2 Respiratory Rate: 16 bpm SpO2: 96% Temperature: 35.9 (C) / 96.7 (F) Weight: 211 lbs Code: 27079-5 Reason For Visit Reason For Visit Effective Dates Notes new patient welcome visit 02/03/2024 Encounters Encounter Performer Location Location Address Codes Date (23121) Other Reason/Patient not seen Diagnosis: Patient not seen[ICD10: UXZ.01] Marian Solis [place] [facility] [address] [facility] [address] [facility] [address] [place] [address] CPT-4: 32065 03/28/2024 (55779) Other Reason/Patient not seen Diagnosis: Patient not seen[ICD10: UXZ.01] Marian Solis [place] [facility] [address] [place] [address] CPT-4: 42179 03/08/2024 (52778) 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 Visit SURGICAL ONCOLOGIST - Moderate Level, 60 mins Diagnosis: Primary [...] Diagnosis: Fatigue, unspecified type[ICD10: R53.83] Marian Solis [place] [facility] [address] [place] [address] CPT-4: 43870 02/03/2024 Plan of Care Planned Activity Notes Codes Status Date Appointment: Marian Solis WPtel: [address] [place], [place] [id number] 03/28/2024 Patient Education: Patient Medication Summary Completed 03/28/2024 Appointment: Marian Solis WPtel: [address] [place], [place] [id number] 03/08/2024 Patient Education: Patient Medication Summary [...] of care. 02/03/2024 Appointment: Marian Solis WPtel: [facility] [place], [place] [id number] 02/03/2024 Patient Education: Patient Medication Summary [...]
== END 2025-02-06 23:59 | disposition home or self-care (01) ==
LOC: SC.PAIN 14:24
PROVIDERS: PCP Family Medicine; Visit Provider Nurse Practitioner Family
DX: E11.42 Type 2 diabetes mellitus with diabetic polyneuropathy (principal); M47.816 Spondylosis without myelopathy or radiculopathy, lumbar region; Z79.899 Other long term (current) drug therapy
CPT/HCPCS: 99212; G0463

== ENCOUNTER 2025-02-22 10:07 | Outpatient (CLI) | payer MEDICARE, SELFPAY ==
[2025-02-22 08:14] VITALS: BMI 35.6
--- OUTSIDE RECORDS SUMMARY | 2025-02-22 10:09 | XMS_ITS | Clinical Summary ---
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 Gender Identity Not on file Sexual Orientation [...] Care Team (Late st Contact Info) Description 03/05/2025 9:30 AM EDT Office Visit [facility] Neurology - [facility] [address] [facility] [address] [place] [phone] Madeleine Khan, PACKAGE WRAPPER [address] [facility] [address] [place] [address] Health Maintenance Due Date Last Done Comments [...] Cessation Counseling and Screening (12+) 09/07/2025 09/07/2024 Insurance [facility] MEDICARE ADVANTAGE Care Teams Road Tester Relationship Specialty Start Date End Date Gregory Malave DO [address] [place] [address] PCP - General Internal Medicine 08/10/24 Mustapha Hernandez PA-C [address] [place] [address] Physician Electrical Assistant Cardiology 07/04/24
--- OUTSIDE RECORDS SUMMARY | 2025-02-22 10:09 | XMS_ITS | Referral Summary ---
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 Gender Identity Not on file Sexual Orientation [...] Description 03/05/2025 9:30 AM EDT Office Visit [facility] Neurology - [facility] [address] [place] [address] [address] [place] [phone] Madeleine Khan APRN [address] [facility] [address] [place], [place] [phone] Insurance Care Teams Customs Manager Relationship Specialty Start Date End Date Gregory Malave DO [address] [place] [address] PCP - General Internal Medicine 08/10/24 Mustapha Hernandez PA-C [address] [facility] [address] [place] [phone] Physician Hand Assembler Cardiology 07/04/24
--- OUTSIDE RECORDS SUMMARY | 2025-02-22 10:09 | XMS_ITS | Encounter Summary ---
Author Organization [employer] ([place], [place], [place], [place]) Address [address] [place] [address] Care Team Providers Care Lapidary Apprentice Name Role Phone Mustapha Hernandez PA-C Unavailable [phone] Vee Wells APRN Primary Care Provider [phone] Gregory Malave DO Primary Care Provider [phone] Reason for Referral * Consultation (Routine) - Closed Specialty Diagnoses / Procedures Referred By Ines singh Referred To Contact Neurology Diagnoses Numbness and tingling of left upper and lower extremity Dizziness Fatigue History of CVA (cerebrovascular accident) History of TIA (transient ischemic attack) Family history of CVA New pt-LUE/LLE Numbness, Dizziness, and Hx of CVA Mustapha Hernandez PA-C [address] [facility] [address] [place] [address] Phone: tel: fax: [facility] Neurology - [address] [place] [address] Phone: tel: fax: Referral ID Status Reason Start Date Expiration Date Visits Re quested Visits Authorized [id number] Closed 07/04/2024 07/04/2025 1 1 Encounter Details Date Type Department Care Team (Late st Contact Info) Description 07/04/2024 Outside Orders [facility] Neurology - [facility] [address] [facility] [address] [facility] [address] [place] [address] Mustapha Hernandez PA-C [address] [facility] [address] [place], [place] [phone] Numbness and tingling of left upper and lower extremity (Primary Dx); Dizziness; Fatigue; History of CVA (cerebrovascular accident); History of TIA (transient ischemic attack); Family history of CVA Social History Tobacco Use Types Packs/Day Years Used Date Smoking Tobacco: Never Assessed Comments Unknown Sex and Gender Information Value Date Recorded Sex Assigned at Not on file 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 Gender Identity Not on file Sexual Orientation Not on file documented as of this encounter Plan of Treatment Upcoming Encounters Date Type Department Care Team (Late st Contact Info) Description 03/05/2025 9:30 AM EDT Office Visit [facility] Neurology - [address] [facility] [address] [place] [address] Madeleine Khan APRN [address] [facility] [address] [place], [place] [phone] Scheduled Referrals Name Type Priority Associated Diagnoses [...] CVA documented in this encounter Care Teams Lapidary Apprentice Relationship Specialty Start Date End Date Vee Wells APRN [address] [place] [address] PCP - General Nurse Practitioner 07/09/24 08/09/24 Gregroy Malave [address] [place] [address] PCP - General Internal Medicine 08/10/24 Mustapha Hernandez PA-C [address] [place], [place] [phone] Physician Vba Developer 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
--- OUTSIDE RECORDS SUMMARY | 2025-02-22 10:10 | XMS_ITS | Patient Health Record ---
Author Organization [facility] Physician Dixie rock Billing Info Address [address] [place] [address] Care Team Providers Care Pulp Beater Name Role Phone MOE LOW Primary Care [...] Problem Status W/U Status Risk Notes Problem 357566373 Tobacco use (Z72.0) Active confirmed Problem 21305013 Heart palpitatio ns (R00.2) Active confirmed Problem Chest pain (58170549) Chest pain (R07.9) Active confirmed Problem 81574965 Hypertension, essential (I10) Active confirmed Problem 34590388 Hyperlipidemia, unspecified hyperlipidemia type (E78.5) Active confirmed Plan Of Treatment No Information Insurance Providers Payer Name Payer Address Payer Phone Subscriber Number Group Number Insured Name Patient Relationship to Insured Coverage Start Date Coverage End Date [id number] P[employer] P [address] [facility] [address] [place], [place] [id number] Breana Garcia Self - patient is the insured 9 9 Medical (General) History Medical History History ICD Code hypertension Type 2 diabetes mellitus wit hout complication, without long-term current use of insulin E11.9 Hyperlipidemia, unspecified hyperlipidem ia type E78.5 Surgical History Surgery Date(Month/Year) cholecystectomy knee arthroscopy-Left tubal ligation Hospitalization History Reason Date(Month/Year) Shortness of breath 03/2016
[2025-02-22 11:00] LABS: Hematocrit 36.7 % (37.0-47.0); Hemoglobin 12.2 g/dL (12.2-16.2); Immature Granulocytes % 0.7 %; Mean Corpuscular HGB Conc 33.2 g/dL (31.8-35.4); Mean Corpuscular Hemoglobin 26.3 pg (27.0-31.2); Mean Corpuscular Volume 79.3 fl (81-99); Nucleated Red Blood Cells % 0 %; Platelet Count 305 K/mm3 (142-424); Red Blood Count 4.63 M/mm3 (4.20-5.40); Red Cell Distribution Width-SD 49.6 fL; White Blood Count 9.9 K/mm3 (4.8-10.8)
--- OUTSIDE RECORDS SUMMARY | 2025-02-22 11:09 | XMS_ITS | CCD ---
Author Name Marian Solis NP Address [address] [facility] [address] [facility] [address] [place] [address] Phone Organization [facility] Phone Care Team Providers Care Calender Roll Operator Name Role Phone Unavailable Primary Care Provider Unavailabl e Unavailable Chronic Care Management Unavaila ble Summary Purpose DataExchange Insurance Providers Payer name Policy type / Coverage type Covered alliance party ID Effective Begin Date Effective End Date [facility] [id number] Unknown Unknown Family history Father Diagnosis Age [...] cessation counseling) 02/03/[address]: [id number] Never drinks alco hol 02/03/2024 Illegal/Recreational drug history Unknown *Has never used illegal/recreational drugs 02/03/2024 Allergies, Adverse Reactions, Alerts Substance Reaction Codes Entered Date Inactivated Date Status * Food Allergy _ Unknown 02/03/2024 No Inactive Date Active Topamax RxNorm: 586240 02/03/2024 No Inactive Da te Active Seasonal [...] 21 mg/24 hr daily transdermal patch RxNorm: 064237 Apply 1 Patch Transdermal 02/03/20 24 025 Active valsartan 160 mg tablet RxNorm: 588993 Take 1 Tablet(s) Oral two times a day 02/03/20 Active lithium carbonate 300 mg capsule RxNorm: 459771 TAKE ONE CAPSULE BY MOUTH TWICE DAILY FOR mood 02/03/20 24 Active buspirone 10 mg tablet RxNorm: 999487 Take 2 Tablet(s) Oral three times a day 02/03/20 24 Active amlodipine 5 mg tablet RxNorm: 285419 Take 1 Tablet(s) Oral every evening 02/03/20 24 Active rosuvastatin 20 mg tablet RxNorm: 805882 Take 1 Tablet(s) Oral every day 02/03/20 24 Active fluticasone propionate 50 mcg/actuation nasal spray,suspension ... RxNorm: 8688361 instill 1-2 SPRAYS IN EACH NOSTRIL EVERY DAY NEEDED 02/03/20 24 Active Nyamyc 100,000 unit/gram topical powder RxNorm: 668078 top 02/03/20 24 Active polyethylene glycol 3350 17 gram/dose oral powder RxNorm: 124919 DISSOLVE 17 GRAMS OF POWDER INTO 4 TO 8 OUNCES OF WATER, JUICE, SODA, COFFEE, OR TEA THEN DRINK EVERY DAY do not exceed 17 grams PER day 02/03/20 24 Active fluoxetine 40 mg capsule RxNorm: 164076 TAKE ONE CAPSULE BY MOUTH TWICE DAILY FOR mood 02/03/20 24 Active cholecalciferol (vitamin D3) 50 mcg (2,000 unit) capsule RxNorm: 542608 Take 1 Capsule(s) Oral every day 02/03/20 24 Active tobramycin 1.2 gram solution for injection RxNorm: 846009 inj 02/03/20 24 Active benzonatate 100 mg capsule RxNorm: 897699 TAKE ONE CAPSULE BY MOUTH THREE TIMES DAILY NEEDED FOR cough -SWALLOW WHOLE. DO NOT CRUSH OR CHEW- 02/03/20 24 Active Linzess 72 mcg capsule RxNorm: 9490078 TAKE ONE CAPSULE BY MOUTH EVERY DAY ON AN EMPTY STOMACH AT LEAST 30 MINUTES BEFORE THE FIRST MEAL OF THE DAY 02/03/20 24 Active aripiprazole 10 mg tablet RxNorm: 059261 Take 1 Tablet(s) Oral HS 02/03/20 24 Active Trulicity 1.5 mg/0.5 mL subcutaneous pen injector RxNorm: 0433152 INJECT 1.5 MG (0.5 ML) SUBCUTANEOUSLY ONCE A WEEK 02/03/20 24 Active levothyroxine 75 mcg tablet RxNorm: 265900 Take 1 Tablet(s) Oral every day BEFORE a meal 02/03/20 Active Ozempic 0.25 mg or 0.5 mg (2 mg/3 mL) subcutaneous pen injector ... RxNorm: 3278502 Inject 0.5 Milligram(s) Subcutaneous QW 02/03/20 Active Myrbetriq 25 mg tablet,extended release RxNorm: 1600320 TAKE ONE TABLET BY MOUTH EVERY DAY do not crush, chew, and/or divide take with water 02/03/20 Active bisoprolol fumarate 5 mg tablet RxNorm: 846178 Take 1 Tablet(s) Oral every day 02/03/20 24 Active aspirin 81 mg tablet,delayed release RxNorm: 855861 Take 1 Tablet(s) Oral every day 02/03/20 24 Active solifenacin 5 mg tablet RxNorm: 474461 Take 1 Tablet(s) Oral every day 02/03/20 24 Active metformin 1,000 mg tablet RxNorm: 318158 Take 1 Tablet(s) Oral every morning 02/03/20 Active amantadine HCl 100 mg tablet RxNorm: 784328 oral 02/03/20 24 Active trazodone 150 mg tablet RxNorm: 735437 Take 1 Tablet(s) Oral HS as needed 02/03/20 Active duloxetine 60 mg capsule,delayed release RxNorm: 602931 Take 2 Capsule(s) Oral every day 02/03/20 24 Active baclofen 20 mg tablet RxNorm: 481090 TAKE ONE TABLET BY MOUTH THREE TIMES DAILY MAY CAUSE DROWSINESS 02/03/20 Active valsartan 80 mg tablet RxNorm: 250004 Take 1 Tablet(s) Oral two times a day 02/03/20 24 Active Lybalvi 15 mg-10 mg tablet RxNorm: 8446071 Take 1 Tablet(s) Oral every day 02/03/20 24 Active olanzapine 5 mg tablet RxNorm: 839584 Take 1 Tablet(s) Oral HS 02/03/20 24 Active Anucort-HC 25 mg suppository RxNorm: 4076956 UNWRAP AND INSERT 1 SUPPOSITORY RECTALLY TWICE DAILY FOR 2 WEEKS 02/03/20 24 Active gabapentin 600 mg tablet RxNorm: 172310 TAKE ONE TABLET BY MOUTH EVERY MORNING AND TAKE TWO TABLETS AT BEDTIME MAY CAUSE DROWSINESS 02/03/20 Active doxepin 50 mg capsule RxNorm: 2829570 Take 1 Capsule(s) Oral HS 02/03/20 Active trazodone 100 mg tablet RxNorm: 657041 Take 1 Tablet(s) Oral HS FOR SLEEP 02/03/20 Active ezetimibe 10 mg tablet RxNorm: 807876 Take 1 Tablet(s) Oral every day 02/03/20 Active duloxetine 30 mg capsule,delayed release RxNorm: 051722 Take 3 Capsule(s) Oral every day 02/03/20 24 Inactive Medication Administered No Medication Administered data Results Observation Observation Code Item Item Code Result Date Service Location CHEM 14 (METABOLIC PANEL) 20842 Glucose 2345-7 101 mg/dL [facility] [address] [place] [address] CHEM 14 (METABOLIC PANEL) 70092 BUN 3094-0 11 mg/dL [facility] [address] [place] [address] CHEM 14 (METABOLIC PANEL) 52729 Creatinine 2160-0 0.8 mg/dL [facility] [address] [place] [address] CHEM 14 (METABOLIC PANEL) 28553 BUN/Creat Ratio 3097-3 14.1 024 [facility] [address] [place] [address] CHEM 14 (METABOLIC PANEL) 48577 GFR Estimated 42999-7 96 mL/min/1.73 m2 024 [facility] [address] [place] [address] CHEM 14 (METABOLIC PANEL) 82563 Sodium 2951-2 141 mmol/L [facility] [address] [place] [address] CHEM 14 (METABOLIC PANEL) 92475 Potassium 2823-3 3.5 mmol/L 024 [facility] [address] [place] [address] CHEM 14 (METABOLIC PANEL) 55130 Chloride 2075-0 107 mmol/L 024 [facility] [address] [place] [address] CHEM 14 (METABOLIC PANEL) 18891 Total CO2 2028-9 24 mmol/L 024 [facility] [address] [place] [address] CHEM 14 (METABOLIC PANEL) 83942 Anion Gap 1863-0 13.5 mEq/L 024 [facility] [address] [place] [address] 04234 CHEM 14 (METABOLIC PANEL) 02752 Calculated Serum Osmolality 68634-3 292 mOsm/kg 024 [facility] [address] [place] [address] 52802 CHEM 14 (METABOLIC PANEL) 64204 Albumin 30175-2 4.0 g/dL 024 [facility] [address] [place] [address] 99504 CHEM 14 (METABOLIC PANEL) 17453 Total Protein 2885-2 7.0 g/dL 024 [facility] [address] [place] [address] 81690 CHEM 14 (METABOLIC PANEL) 03104 Globulin 2336-6 3.0 g/dL 024 [facility] [address] [place] [address] 53731 CHEM 14 (METABOLIC PANEL) 23283 Albumin/Globulin Ratio 1759-0 1.3 024 [facility] [address] [place] [address] 37331 CHEM 14 (METABOLIC PANEL) 14906 ALK PHOS 6768-6 84.00 U/L 024 [facility] [address] [place] [address] 24132 CHEM 14 (METABOLIC PANEL) 54199 SGOT/AST 1920-8 35 U/L 024 [facility] [address] [place] [address] 79073 CHEM 14 (METABOLIC PANEL) 19238 SGPT/ALT 1743-4 54 U/L 024 [facility] [address] [place] [address] 46093 CHEM 14 (METABOLIC PANEL) 43148 Total Bilirubin 1975-2 0.3 mg/dL 024 [facility] [address] [place] [address] 24493 CHEM 14 (METABOLIC PANEL) 90182 Calcium 05867-3 9.5 mg/dL 024 [facility] [address] [place] [address] 45666 CHEM 14 (METABOLIC PANEL) 21910 Corrected Calcium 18719-8 9.7 mg/dL 024 [facility] [address] [place] [address] 95127 FREE T-3 23058 FT3 3051-0 2.21 pg/mL 024 [facility] [address] [place] [address] FREE T-4 80759 FT4 3024-7 1.23 ng/dL 024 [facility] [address] [place] [address] 05346 VITAMIN B-12 44010 Vitamin B12 2132-9 459 pg/mL 02/05 024 [facility] [address] [place] [address] 58155 TSH 45204 TSH 92692-3 0.475 uIU/mL 024 [facility] [address] [place] [address] COMPLETE CBC W/ DIFF WBC 34517 WBC 6690-2 10.5 K/ul 024 [facility] [address] [place] [address] 07795 COMPLETE CBC W/ DIFF WBC 15090 RBC 789-8 4.22 M/uL 024 [facility] [address] [place] [address] 88625 COMPLETE CBC W/ DIFF WBC 77504 Hemoglobin 718-7 12.6 g/dL 024 [facility] [address] [place] [address] 34862 COMPLETE CBC W/ DIFF WBC 46072 Hematocrit 4544-3 38.6 % 024 [facility] [address] [place] [address] 27854 COMPLETE CBC W/ DIFF WBC 45923 MCV 787-2 91.5 fL 024 [facility] [address] [place] [address] 44823 COMPLETE CBC W/ DIFF WBC 19007 MCH 785-6 29.8 pg 024 [facility] [address] [place] [address] 20637 COMPLETE CBC W/ DIFF WBC 12419 MCHC 786-4 32.6 g/dL 024 [facility] [address] [place] [address] 71699 COMPLETE CBC W/ DIFF WBC 34467 RDW 788-0 15.5 % 024 [facility] [address] [place] [address] 54899 COMPLETE CBC W/ DIFF WBC 66207 Platelet Count 777-3 312 K/uL 024 [facility] [address] [place] [address] 06020 COMPLETE CBC W/ DIFF WBC 28224 MPV 65576-3 7.7 fL 024 [facility] [address] [place] [address] 75099 COMPLETE CBC W/ DIFF WBC 67076 Neutrophils % 770-8 68.1 % 024 [facility] [address] [place] [address] 46846 COMPLETE CBC W/ DIFF WBC 56559 Lymphocytes % 736-9 22.5 % 024 [facility] [address] [place] [address] COMPLETE CBC W/ DIFF WBC 37283 Monocytes % 5905-5 8.0 % 024 [facility] [address] [place] [address] COMPLETE CBC W/ DIFF WBC 52869 Eosinophils % 713-8 0.8 % 024 [facility] [address] [place] [address] COMPLETE CBC W/ DIFF WBC 99895 Basophils% 706-2 0.6 % 024 [facility] [address] [place] [address] COMPLETE CBC W/ DIFF WBC 65951 Absolute Neutrophil 751-8 7151 /ul 024 [facility] [address] [place] [address] 18662 COMPLETE CBC W/ DIFF WBC 93254 Absolute Lymphocyte 96457-8 2363 /ul 024 [facility] [address] [place] [address] 34244 COMPLETE CBC W/ DIFF WBC 53432 Absolute Monocyte 742-7 840 /ul 024 [facility] [address] [place] [address] 57087 COMPLETE CBC W/ DIFF WBC 65769 Absolute Eosinophil 711-2 84 /ul 024 [facility] [address] [place] [address] 57701 COMPLETE CBC W/ DIFF WBC 80944 Absolute Basophil 704-7 63 /ul 024 [facility] [address] [place] [address] 34457 Direct LDL 40309 LDL-Direct 45317-6 72 mg/dL 024 [facility] [address] [place] [address] 65920 VITAMIN D 29318 Vitamin D 88984-2 27.4 ng/mL 024 [facility] [address] [place] [address] HDL - CHOL 82757 HDL 2085-9 44 mg/dL 024 [facility] [address] [place] [address] 76085 HDL - CHOL 37449 CHD 72950-6 34 % 024 [facility] [address] [place] [address] TRIGLYCERIDES 47098 Triglycerides 2571-8 124 mg/dL 0[address] [facility] [address] [place] [address] 04720 TRIGLYCERIDES 20797 VLDL 77907-8 25 mg/dL 0[address] [facility] [address] [place] [address] 67960 MICROALBUMIN (URINE) 99156 Microalbumin 68885-7 2.4 mg/dL 024 [facility] [address] [place] [address] 14307 MICROALBUMIN (URINE) 40641 Microalbumin/Cre atinine Ratio 11621-8 30 MCG/MGCREAT 024 [facility] [address] [place] [address] MICROALBUMIN (URINE) 39374 Urine Creatinine 2161-8 81.20 mg/dL 024 [facility] [address] [place] [address] 58369 CHOLESTEROL 59849 Cholesterol 2093-3 131 mg/dL 024 [facility] [address] [place] [address] 55368 No Orders UA NoOrdersUA NO ORDERS UA 0.00 08/08 024 [facility] [address] [place] [address] 36232 URINALYSIS 23386 Glucose 2345-7 >1000 mg/dL ++++ mg/dL 024 [facility] [address] [place] [address] 19114 URINALYSIS 82745 Protein Negative mg/dL 024 [facility] [address] [place] [address] 13233 URINALYSIS 02382 Bilirubin Negative mg/dL 024 [facility] [address] [place] [address] 39588 URINALYSIS 81472 Urobilinogen Negative mg/dL 024 [facility] [address] [place] [address] 64683 URINALYSIS 05768 Ph 6.00 024 [facility] [address] [place] [address] 78221 URINALYSIS 38532 Blood Negative mg/dL 024 [facility] [address] [place] [address] 56663 URINALYSIS 45872 Ketones Negative mg/dL 024 [facility] [address] [place] [address] 12442 URINALYSIS 71677 Nitrite Negative 024 [facility] [address] [place] [address] 39902 URINALYSIS 17903 Leukocytes Negative Jae/uL 024 [facility] [address] [place] [address] 75994 URINALYSIS 99007 Clarity Clear 024 [facility] [address] [place] [address] URINALYSIS 12000 Specific [place] 1.024 024 [facility] [address] [place] [address] URINALYSIS 82313 Color Light-Yello w 024 [facility] [address] [place] [address] [id number] IN 4548-4 Glyco HGB A1C 66243-6 7.2 % 024 [facility] [address] [facility] [place] [address] [id number] IN 4548-4 eAG 46849-4 160 mg/dL 024 [facility] [address] [facility] [place] [address] Procedures Procedure Codes Date Most recent A1c = 7.0% and < 8.0% CPT-4: 3051F 03/28/2024 Most recent A1c = 7.0% and < 8.0% CPT-4: 3051F 03/08/2024 MED LIST DOCD IN [facility] CPT-4: 1159F 02/03/2024 RVW MEDS BY RX/DR IN [facility] CPT-4: 1160F 2023 Screening for clinical depre ssion is negative, follow-up plan not required CPT-4: G8510 02/03/2024 [id number] CPT-4: 37971 Unknown Vital Signs Date Vital 02/03/2024 Blood Pressure 1: 125/80 Code: 8480-6 BMI: 36.8 Code: 15816-3 Heart Rate 1: 90 bpm Height: 5'3 Code: 8302-2 Respiratory Rate: 16 bpm SpO2: 96% Temperature: 35.9 (C) / 96.7 (F) Weight: 211 lbs Code: 34709-5 Reason For Visit Reason For Visit Effective Dates Notes new patient welcome visit 02/03/2024 Encounters Encounter Performer Location Location Address Codes Date (00666) Other Reason/Patient not seen Diagnosis: Patient not seen[ICD10: UXZ.01] Marian Solis [place] [facility] [address] [facility] [address] [facility] [address] [place] [address] CPT-4: 76021 03/28/2024 (84285) Other Reason/Patient not seen Diagnosis: Patient not seen[ICD10: UXZ.01] Marian Solis [place] [facility] [address] [place] [address] CPT-4: 07976 03/08/2024 (13338) 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 Visit LOIN PULLER - Moderate Level, 60 mins Diagnosis: Primary [...] Diagnosis: Fatigue, unspecified type[ICD10: R53.83] Marian Solis [place] [facility] [address] [place] [address] CPT-4: 35814 02/03/2024 Plan of Care Planned Activity Notes Codes Status Date Appointment: Marian Solis WPtel: [address] [place], [place] [id number] 03/28/2024 Patient Education: Patient Medication Summary Completed 03/28/2024 Appointment: Marian Solis WPtel: [address] [place], [place] [id number] 03/08/2024 Patient Education: Patient Medication Summary [...] of care. 02/03/2024 Appointment: Marian Solis WPtel: [facility] [place], [place] [id number] 02/03/2024 Patient Education: Patient Medication Summary [...]
[2025-02-22 11:12] LABS: Anion Gap 12.9 mEq/L (5-15); Blood Urea Nitrogen 10 mg/dl (7-17); Calcium 9.3 mg/dl (8.4-10.2); Carbon Dioxide 22 mmol/L (22.0-30.0); Chloride 106 mmol/L (98-107); Creatinine Clearance Estimated 129 mL/min (50-200); Creatinine,Serum 0.80 mg/dl (0.52-1.04); Estimated Glomerular Filt Rate 78 ml/min (>60); GFR (African American) 94 ML/MIN (>60); Glucose 94 mg/dl (74-100); Potassium 3.9 mmoL/L (3.5-5.1); Sodium 137 mmol/L (136-145)
[2025-02-22 13:12] LABS: HCG Qualitative, Serum Negative (Negative)
== END 2025-02-22 23:59 | disposition home or self-care (01) ==
LOC: PREOP 10:07
PROVIDERS: PCP Family Medicine; Visit Provider Anesthesiology
DX: Z01.812 Encounter for preprocedural laboratory examination (principal)
CPT/HCPCS: 80048; 84703; 85025

== ENCOUNTER 2025-03-01 09:45 | Day surgery (SDC) | payer MEDICARE, SELFPAY ==
[2025-02-22 13:20] VITALS: BMI 35.6
[2025-03-01 10:36] VITALS: BP 127/70; PULSE 91; RESP 18; TEMP 36.4; O2SAT 99
[2025-03-01 10:40] LABS: POC Glucose,Bedside 101 gm/dL (70-110)
[2025-03-01] MEDS: LACTATED RINGERS 1000ML 1,000 ML 25 ML IV (10:48)
[2025-03-01] MEDS: SODIUM CHLORIDE 0.9% 20ML VIAL 40 ML IV (12:50)
[2025-03-01] MEDS: GENTAMICIN 80 MG/2 ML VIAL (12:50)
[2025-03-01] MEDS: LIDOCAINE 1% W/EPI 1:100,000 20ML VIAL 20 ML ×2 (12:50→12:51)
[2025-03-01 13:39] VITALS: BP 118/75; PULSE 108; RESP 18; TEMP 36.1; O2SAT 99
--- NOTE | 2025-03-01 13:47 | EXP.OP.NOTE ---
Date of procedure: 03/01/25 Pre-op Diagnosis:: Degenerative disease of lumbar spine with lumbar radiculopathy symptoms Post-op Diagnosis:: Same Procedure performed:: Per placement spinal cord stimulator with epidural lead placement x 2 and stimulator generator placement Surgeon:: Timothy Restrepo MD TELECOMMUNICATION LINES REPAIRER:: Román Lowe Anesthesia: MAC Estimated blood loss (mL): 5 Clinical Note:: This patient is a pleasant 45-year-old white female who we are treating for degenerative disease of lumbar spine with lumbar radiculopathy symptoms and peripheral neuropathy. She has failed all previous conservative therapy including injections, oral medications, physical therapy and she is not a candidate for surgery. She has undergone a successful psychological evaluation and successful spinal cord similar trial. She presents for permanent placement of a spinal cord stimulator today. Operative findings:: None Operative note:: Informed consent was obtained risk and benefits of the procedure were explained to the patient. The patient was taken to the operating room placed prone on the procedure table. She was prepped and draped in sterile fashion. C-arm fluoroscopy was used to view the lumbar spine at T12-L1 and L1-L2. The skin and subcutaneous tissues adjacent to those vertebral levels were anesthetized using lidocaine. I made an incision and dissected down to the lumbar paraspinous fascia. A 17-gauge epidural needle was inserted and advanced into the T12-L1 interspace. After confirmation of needle placement in the T12-L1 epidural space a stimulating lead was inserted and advanced very easily to the T7 vertebral body. There were 2 contacts into the T6 vertebral body. A second needle was inserted and advanced again into the T12-L1 interspace. Again after confirmation needle placement in the epidural space a second stimulator lead was inserted and advanced very easily to the T7 vertebral body. There were 2 contacts into the T6 vertebral body. The stylette's were removed the leads were found to be in good position and there were left and right of midline and posterior. The needles were removed and the leads were secured to the fascia with an anchoring device and 2-0 Prolene. I created the generator pocket on the left flank. I tunneled the leads from the back to the generator pocket and attached leads to the generator. Impedances were checked and found to be okay. The generator was placed in the pocket. Both incisions were then closed with 2-0 Vicryl followed by 4-0 nylon and lakisha. The patient tolerated the procedure well with no complications. Patient was programmed by the [employer] customer success representative with good stimulation in all areas of pain. Patient was discharged home neurologic intact with good relief of pain symptoms. Plan and disposition: Will follow-up with this patient in 1 week for wound check and reprogramming. Will follow-up in 2 to 3 weeks for suture and staple removal. Condition: stable Disposition: PACU Complications:: None
[2025-03-01 13:49] VITALS: BP 118/75; PULSE 108; RESP 18; TEMP 36.1; O2SAT 99
--- NOTE | 2025-03-01 13:58 | EXP.HP ---
History of Present Illness *Admission Date: 03/01/25 *Reason for visit:: Permanent placed in spinal cord stimulator *History of present illness: This patient is a pleasant 45-year-old white female who we are treating for degenerative disease of lumbar spine with lumbar colopathy symptoms. She presents for permanent placement of her spinal cord stimulator today. [facility] Disclaimer: The information contained in this section may have been updated after the patient was seen, as this information can be updated by other users. Medical History Pre-op exam Mixed hyperlipidemia Dizziness SOB (shortness of breath) Diabetes Peripheral neuropathy GERD (gastroesophageal reflux disease) Movement disorder Iron deficiency PAD (peripheral artery disease) JOSE LUIS (obstructive sleep apnea) Daytime somnolence Postoperative edema Edema of both legs Aortic valve insufficiency Edema Type 2 diabetes mellitus History of CVA (cerebrovascular accident) Hyperlipidemia Currently on high intensity statin therapy. Goal is to keep LDL less than 55 Hypertension Active follow-up with cardiology at [facility] and currently normotensive. Bipolar disorder Surgical History History of cholecystectomy History of injection of tarsal tunnel History of section History of arthroscopy of left knee History of tubal ligation Family History Other Family history of depression Family history of diabetes mellitus Family history of hypertension Social History Smoking Status: Current every day smoker alcohol intake: never substance use type: denies use current occupational status: disabled Travel in the last 8 weeks?: Inside the [place] household members: significant other housing: house lives independently: No marital status: single number of children: 3 Have you lived/traveled outside US in past 30 days?: No Contact w/someone who lives/traveled outside US past 30 days?: No Exposure to someone with infectious disease in past 14 days?: No Do you have a fever (greater than 100.4 F or 38 C)?: No Have you tested positive for COVID-19?: No Exposed to someone with COVID-19 in past 14 days?: No Do you have a sore throat?: No Do you have a cough?: No Do you have any weakness?: No Do you have any diarrhea?: No Are you experiencing any unusual bleeding?: No Do you have any muscle aches/pain?: No Do you have any abdominal pain?: No Are you experiencing loss of taste or smell?: No Other Medical History Have you received the Flu Vaccine for this season: No Have you received the Pneumonia Vaccine: No Review of Systems Review of Systems Review of systems:: pertinent systems reviewed and negative unless documented below Meds Home Medications and Allergies Home Medications ?Medication ?Instructions ?Recorded ?Confirmed ?Type aspirin 81 mg chewable tablet 81 mg PO DAILY heart health 10/07/21 03/01/25 History (Regine Chewable Low Dose Aspirin) levothyroxine 75 mcg tablet 75 mcg PO DAILY hypothyroidism 10/07/21 03/01/25 History (Synthroid) metformin 1,000 mg tablet 1,000 mg PO DAILY dm 07/25/22 03/01/25 History blood sugar diagnostic (Accu-Chek #10 ea 08/25/23 02/22/25 History Guide test strips) ezetimibe 10 mg tablet (Zetia) 10 mg PO DAILY 08/25/23 03/01/25 History lancets (Accu-Chek Softclix #100 ea 08/25/23 02/22/25 History Lancets) valsartan 160 mg tablet (Diovan) 160 mg PO DAILY 01/18/24 03/01/25 History empagliflozin 25 mg tablet 25 mg PO DAILY 03/08/24 03/01/25 History (Jardiance) lancets 30 gauge (OneTouch Delica #100 ea 07/04/24 02/22/25 History Plus Lancet) rosuvastatin 20 mg tablet (Crestor) 20 mg PO ONCE #90 tabs 10/09/24 03/01/25 Rx clopidogrel 75 mg tablet See Rx Instructions .Route 12/10/24 03/01/25 Rx .COMPLEX #90 tabs gabapentin 400 mg capsule 400 mg PO TID #90 caps 12/10/24 03/01/25 Rx gabapentin 800 mg tablet 800 mg PO TID #90 tabs 12/10/24 03/01/25 Rx semaglutide 2 mg/dose (8 mg/3 mL) See Rx Instructions .Route 01/07/25 03/01/25 Rx subcutaneous pen injector (Ozempic) .COMPLEX #3 mL amitriptyline 50 mg tablet See Rx Instructions .Route 02/04/25 03/01/25 Rx .COMPLEX #90 tabs duloxetine 60 mg capsule,delayed See Rx Instructions .Route 02/04/25 03/01/25 Rx release .COMPLEX #60 caps mirabegron 50 mg tablet,extended See Rx Instructions .Route 02/04/25 03/01/25 Rx release 24 hr (Myrbetriq) .COMPLEX #90 tabs omeprazole 40 mg capsule,delayed See Rx Instructions .Route 02/04/25 03/01/25 Rx release .COMPLEX #90 caps tizanidine 2 mg tablet See Rx Instructions .Route 02/04/25 03/01/25 Rx .COMPLEX #180 tabs verapamil 360 mg 24 hr 360 mg PO DAILY #90 caps 02/05/25 03/01/25 Rx capsule,extended release aripiprazole 20 mg tablet (Abilify) See Rx Instructions .Route .COMPLEX 03/01/25 03/01/25 History New Prescriptions to Start Prescriptions: Allergies Allergy/AdvReac Type Severity Reaction Status Date / Time topiramate (From TopKamicat) Allergy Shakiness Verified 03/01/25 10:27 Exam Data for Last 24 hours Vital signs and Labs for Last 24 Hours: Temp Pulse Resp BP Pulse Ox O2 Del Method 97.5 F L 91 H 18 127/70 99 Room Air 03/01/25 10:36 03/01/25 10:36 03/01/25 10:36 03/01/25 10:36 03/01/25 10:36 03/01/25 10:36 Laboratory Results - last 24 hr 03/01/25 10:32: POC Glucose 101 I & O for Last 24 hours: Intake & Output 02/27/25 02/28/25 03/01/25 03/02/25 11:59 11:59 11:59 11:59 Intake Total 50 / 50 Balance 50 / 50 *Routine HEENT Exam Head: Present normocephalic Eye: Present EOMI ENT: Present mucous membranes moist *Routine Neck Exam Neck: Present supple and full ROM *Routine Respiratory Exam Respiratory: Present normal respiratory effort *Routine Cardiovascular Exam Cardiovascular: Present RRR, Normal S1 and Normal S2 *Routine Abdominal Exam Abdominal: Present soft *Routine Rectal Exam Rectal:: deferred *Routine Genitalia Exam Genitalia:: deferred Assessment and Plan *Assessment and plan (1) Diabetic peripheral neuropathy: Status: Acute Category: Medical Code(s): E11.42 - Type 2 diabetes mellitus with diabetic polyneuropathy (2) Lumbar radiculopathy: Status: Acute Category: Medical Code(s): M54.16 - Radiculopathy, lumbar region Plan Permanent placement spinal cord stimulator
[2025-03-01 13:59] VITALS: BP 122/68; PULSE 90; RESP 18; TEMP 36.1; O2SAT 100
[2025-03-01 14:09] VITALS: BP 124/68; PULSE 90; RESP 18; TEMP 36.1; O2SAT 100
== END 2025-03-01 14:09 | disposition home or self-care (01) ==
PROVIDERS: PCP Family Medicine; Visit Provider Anesthesiology
PROC: (CPT 63685; principal; 2025-03-01 11:35)
DX: M51.16 Intervertebral disc disorders with radiculopathy, lumbar region (principal); E11.42 Type 2 diabetes mellitus with diabetic polyneuropathy; F31.9 Bipolar disorder, unspecified; K21.9 Gastro-esophageal reflux disease without esophagitis; E78.5 Hyperlipidemia, unspecified; I10 Essential (primary) hypertension; G47.33 Obstructive sleep apnea (adult) (pediatric); E11.51 Type 2 diabetes mellitus with diabetic peripheral angiopathy without gangrene; Z86.73 Personal history of transient ischemic attack (TIA), and cerebral infarction without residual deficits; F17.200 Nicotine dependence, unspecified, uncomplicated; Z79.02 Long term (current) use of antithrombotics/antiplatelets; Z79.82 Long term (current) use of aspirin; Z79.84 Long term (current) use of oral hypoglycemic drugs; Z79.85 Long-term (current) use of injectable non-insulin antidiabetic drugs; Z79.899 Other long term (current) drug therapy
CPT/HCPCS: 63650 ×2; 63685; 82962; 96374; 99221; C1778; C1820; J1580; J2003; J2004; J2250; J2704; J3010; J7120

== ENCOUNTER 2025-05-07 07:30 | Day surgery (SDC) | payer MEDICARE, SELFPAY ==
[2025-05-07 07:32] VITALS: BMI 36.3
[2025-05-07 08:00] VITALS: BP 110/67; PULSE 110; RESP 18; TEMP 36.9; O2SAT 99
[2025-05-07 08:05] VITALS: PULSE 109
[2025-05-07] MEDS: LIDOCAINE 2% W/EPI 1:100,000 20ML VIAL 20 ML SUBCUT (08:54)
[2025-05-07 09:22] VITALS: BP 120/63; PULSE 108; RESP 25; TEMP 36.1; O2SAT 97
--- NOTE | 2025-05-08 11:20 | HMH.PROCNOTE ---
[facility] Procedure Note Date: 05/07/25 Time: 09:10 Procedure Note:: Date: 05/07/2025 Time: 909 Procedure: Loop Recorder removal Procedure summary: The patient was placed in the supine position. The prior loop recorder insertion site was identified and prepped and draped in sterile fashion. Local anesthetic was infiltrated. A small incision was made over the device pocket. Blunt dissection was used to expose and free the loop recorder. The device was removed intact without complications. The pocket was irrigated and hemostasis achieved. Incision was closed with Steri-Strips. Estimated blood loss: minimal Complications: None Condition: Patient tolerated procedure well and was stable upon completion Disposition: Discharged home with routine wound care instructions Performed by: Tyler Vanegas MD Dictated by: Molly Hernandez APRN
== END 2025-05-07 09:30 | disposition home or self-care (01) ==
PROVIDERS: PCP Family Medicine; Visit Provider Internal Medicine
DX: Z45.09 Encounter for adjustment and management of other cardiac device (principal); R07.9 Chest pain, unspecified; I65.21 Occlusion and stenosis of right carotid artery; E11.42 Type 2 diabetes mellitus with diabetic polyneuropathy; I10 Essential (primary) hypertension; E78.2 Mixed hyperlipidemia; G47.33 Obstructive sleep apnea (adult) (pediatric); K21.9 Gastro-esophageal reflux disease without esophagitis; I35.1 Nonrheumatic aortic (valve) insufficiency; F17.210 Nicotine dependence, cigarettes, uncomplicated; Z86.73 Personal history of transient ischemic attack (TIA), and cerebral infarction without residual deficits; Z79.84 Long term (current) use of oral hypoglycemic drugs; Z79.02 Long term (current) use of antithrombotics/antiplatelets; Z79.82 Long term (current) use of aspirin; Z79.85 Long-term (current) use of injectable non-insulin antidiabetic drugs; Z79.890 Hormone replacement therapy; Z79.899 Other long term (current) drug therapy; Z88.8 Allergy status to other drugs, medicaments and biological substances; Z82.49 Family history of ischemic heart disease and other diseases of the circulatory system
CPT/HCPCS: 33286; J2004

== ENCOUNTER 2025-05-14 10:19 | Day surgery (SDC) | payer MEDICARE, SELFPAY ==
[2025-05-14 10:27] VITALS: BP 101/76; PULSE 117; RESP 16; O2SAT 97; BMI 35.9
[2025-05-14] MEDS: DEXAMETHASONE 10MG/ML 1ML VIAL 10 MG (10:39)
[2025-05-14] MEDS: BUPIVACAINE 0.25% 10ML INJ 25 MG IJ (10:40)
[2025-05-14] MEDS: LIDOCAINE 1% 5ML PF VIAL 5 ML (10:40)
[2025-05-14 10:42] VITALS: BP 101/76; PULSE 117; RESP 18; O2SAT 97
[2025-05-14 10:44] VITALS: BP 101/76; PULSE 117; RESP 18; O2SAT 97
--- NOTE | 2025-05-14 10:44 | P.PCN_ITS ---
Procedure Date: 05/14/25 Time: 10:30 Anesthesiologist:: Alexis Bolaños CRNA Complications:: None Pre-procedure Diagnosis:: Right trochanteric bursitis Post-procedure Diagnosis:: Same Indications for Procedure:: Patient is a pleasant 45-year-old female who comes to clinic today for a right trochanteric bursa injection of cortisone local anesthetic. Patient describes right lateral hip pain as constant, dull, sharp, stabbing. She has extreme point tenderness upon examination over the right trochanteric bursa area. She rates her pain 8/10. Procedure Details:: Procedure: Right trochanteric bursa injection under fluoroscopy We then moved to the right trochanteric bursa.~ C-arm fluoroscopy was used to view the left greater trochanter.~ The skin and subcutaneous tissues overlying the right greater trochanter were anesthetized using lidocaine, 1.5% and a 25- gauge needle.~ After this, a 22-gauge spinal needle was inserted and advanced until it contacted the right greater trochanter.~ Dye was injected and good spread was seen throughout the right trochanteric bursa. After this, approximately 5 mL of bupivacaine, 0.25% and dexamethasone 10 mg was incrementally injected into the right right trochanteric bursa.~ The patient liza erated the procedure well with no complications. Plan and Disposition:: Patient was discharged without incident.
[2025-05-14 10:46] VITALS: BP 114/79; PULSE 116; RESP 16; O2SAT 95
== END 2025-05-14 10:46 | disposition home or self-care (01) ==
PROVIDERS: PCP Family Medicine; Visit Provider Nurse Anesthetist, Certified Registered
DX: M70.61 Trochanteric bursitis, right hip (principal); F31.9 Bipolar disorder, unspecified; K21.9 Gastro-esophageal reflux disease without esophagitis; Z86.73 Personal history of transient ischemic attack (TIA), and cerebral infarction without residual deficits; I10 Essential (primary) hypertension; E78.2 Mixed hyperlipidemia; G47.33 Obstructive sleep apnea (adult) (pediatric); E11.51 Type 2 diabetes mellitus with diabetic peripheral angiopathy without gangrene; E11.40 Type 2 diabetes mellitus with diabetic neuropathy, unspecified; Z90.49 Acquired absence of other specified parts of digestive tract; Z98.51 Tubal ligation status; F17.200 Nicotine dependence, unspecified, uncomplicated; Z88.8 Allergy status to other drugs, medicaments and biological substances; Z79.899 Other long term (current) drug therapy; Z79.85 Long-term (current) use of injectable non-insulin antidiabetic drugs; Z79.84 Long term (current) use of oral hypoglycemic drugs; Z79.890 Hormone replacement therapy; Z79.02 Long term (current) use of antithrombotics/antiplatelets; Z79.82 Long term (current) use of aspirin
CPT/HCPCS: 20610; J0665; J1100; J2003

== ENCOUNTER 2025-05-22 12:06 | Outpatient (CLI) | payer MEDICARE, SELFPAY ==
--- NOTE | 2025-05-22 12:09 | XR_ITS ---
FINAL REPORT TECHNIQUE: Chest PA & Lateral CLINICAL HISTORY: cough, chest congestion COMPARISON: 06/18/2024 FINDINGS: 2 views of the chest were performed. The heart size is normal. The mediastinum is within normal limits. There is linear opacity involving the minor fissure that may represent fluid within the fissure or possibly adjacent atelectasis. Otherwise, there is no acute cardiopulmonary process. There are stimulator leads noted overlying the mid thoracic spine. There are no pleural effusions. There is no pneumothorax. The bony thorax appears intact. IMPRESSION: Linear opacity involving the minor fissure that may represent fluid within the fissure or possibly adjacent atelectasis. Reviewed, Interpreted and Dictated by Dickson Lopez MD Transcribed by Melanie Griffith Authenticated and . [facility]
--- OUTSIDE RECORDS SUMMARY | 2025-05-22 12:10 | XMS_ITS | CCD ---
Author Name Marian Solis NP Address [address] [facility] [address] [place] [address] Phone Organization [email or web address] Phone Care Team Providers Care Central Supply Assistant Name Role Phone Unavailable Primary Care Provider Unavailabl e Unavailable Chronic Care Management Unavaila ble Summary Purpose DataExchange Insurance Providers Payer name Policy type / Coverage type Covered libertarian ID Effective Begin Date Effective End Date [facility] [id number] Unknown Unknown Family history Father Diagnosis Age [...] cessation counseling) 02/03/[address]: [id number] Never drinks alco hol 02/03/2024 Illegal/Recreational drug history Unknown *Has never used illegal/recreational drugs 02/03/2024 Allergies, Adverse Reactions, Alerts Substance Reaction Codes Entered Date Inactivated Date Status * Food Allergy _ Unknown 02/03/2024 No Inactive Date Active Topamax RxNorm: 233008 02/03/2024 No Inactive Da te Active Seasonal [...] 21 mg/24 hr daily transdermal patch RxNorm: 279153 Apply 1 Patch Transdermal 02/03/20 24 025 Inactive valsartan 160 mg tablet RxNorm: 084789 Take 1 Tablet(s) Oral two times a day 02/03/20 Active lithium carbonate 300 mg capsule RxNorm: 612251 TAKE ONE CAPSULE BY MOUTH TWICE DAILY FOR mood 02/03/20 24 Active buspirone 10 mg tablet RxNorm: 910867 Take 2 Tablet(s) Oral three times a day 02/03/20 24 Active amlodipine 5 mg tablet RxNorm: 234200 Take 1 Tablet(s) Oral every evening 02/03/20 24 Active rosuvastatin 20 mg tablet RxNorm: 192640 Take 1 Tablet(s) Oral every day 02/03/20 24 Active fluticasone propionate 50 mcg/actuation nasal spray,suspension ... RxNorm: 1656018 instill 1-2 SPRAYS IN EACH NOSTRIL EVERY DAY NEEDED 02/03/20 24 Active Nyamyc 100,000 unit/gram topical powder RxNorm: 740343 top 02/03/20 24 Active polyethylene glycol 3350 17 gram/dose oral powder RxNorm: 556454 DISSOLVE 17 GRAMS OF POWDER INTO 4 TO 8 OUNCES OF WATER, JUICE, SODA, COFFEE, OR TEA THEN DRINK EVERY DAY do not exceed 17 grams PER day 02/03/20 24 Active fluoxetine 40 mg capsule RxNorm: 858400 TAKE ONE CAPSULE BY MOUTH TWICE DAILY FOR mood 02/03/20 24 Active cholecalciferol (vitamin D3) 50 mcg (2,000 unit) capsule RxNorm: 166105 Take 1 Capsule(s) Oral every day 02/03/20 24 Active tobramycin 1.2 gram solution for injection RxNorm: 781509 inj 02/03/20 24 Active benzonatate 100 mg capsule RxNorm: 279089 TAKE ONE CAPSULE BY MOUTH THREE TIMES DAILY NEEDED FOR cough -SWALLOW WHOLE. DO NOT CRUSH OR CHEW- 02/03/20 24 Active Linzess 72 mcg capsule RxNorm: 8239545 TAKE ONE CAPSULE BY MOUTH EVERY DAY ON AN EMPTY STOMACH AT LEAST 30 MINUTES BEFORE THE FIRST MEAL OF THE DAY 02/03/20 24 Active aripiprazole 10 mg tablet RxNorm: 356716 Take 1 Tablet(s) Oral HS 02/03/20 24 Active Trulicity 1.5 mg/0.5 mL subcutaneous pen injector RxNorm: 2011705 INJECT 1.5 MG (0.5 ML) SUBCUTANEOUSLY ONCE A WEEK 02/03/20 24 Active levothyroxine 75 mcg tablet RxNorm: 101994 Take 1 Tablet(s) Oral every day BEFORE a meal 02/03/20 Active Ozempic 0.25 mg or 0.5 mg (2 mg/3 mL) subcutaneous pen injector ... RxNorm: 7166129 Inject 0.5 Milligram(s) Subcutaneous QW 02/03/20 Active Myrbetriq 25 mg tablet,extended release RxNorm: 3141765 TAKE ONE TABLET BY MOUTH EVERY DAY do not crush, chew, and/or divide take with water 02/03/20 Active bisoprolol fumarate 5 mg tablet RxNorm: 797451 Take 1 Tablet(s) Oral every day 02/03/20 24 Active aspirin 81 mg tablet,delayed release RxNorm: 730536 Take 1 Tablet(s) Oral every day 02/03/20 24 Active solifenacin 5 mg tablet RxNorm: 976094 Take 1 Tablet(s) Oral every day 02/03/20 24 Active metformin 1,000 mg tablet RxNorm: 717764 Take 1 Tablet(s) Oral every morning 02/03/20 Active amantadine HCl 100 mg tablet RxNorm: 281777 oral 02/03/20 24 Active trazodone 150 mg tablet RxNorm: 908431 Take 1 Tablet(s) Oral HS as needed 02/03/20 Active duloxetine 60 mg capsule,delayed release RxNorm: 802953 Take 2 Capsule(s) Oral every day 02/03/20 24 Active baclofen 20 mg tablet RxNorm: 302338 TAKE ONE TABLET BY MOUTH THREE TIMES DAILY MAY CAUSE DROWSINESS 02/03/20 Active valsartan 80 mg tablet RxNorm: 599922 Take 1 Tablet(s) Oral two times a day 02/03/20 24 Active Lybalvi 15 mg-10 mg tablet RxNorm: 5715145 Take 1 Tablet(s) Oral every day 02/03/20 24 Active olanzapine 5 mg tablet RxNorm: 269856 Take 1 Tablet(s) Oral HS 02/03/20 24 Active Anucort-HC 25 mg suppository RxNorm: 5225752 UNWRAP AND INSERT 1 SUPPOSITORY RECTALLY TWICE DAILY FOR 2 WEEKS 02/03/20 24 Active gabapentin 600 mg tablet RxNorm: 431307 TAKE ONE TABLET BY MOUTH EVERY MORNING AND TAKE TWO TABLETS AT BEDTIME MAY CAUSE DROWSINESS 02/03/20 Active doxepin 50 mg capsule RxNorm: 0179717 Take 1 Capsule(s) Oral HS 02/03/20 Active trazodone 100 mg tablet RxNorm: 734931 Take 1 Tablet(s) Oral HS FOR SLEEP 02/03/20 Active ezetimibe 10 mg tablet RxNorm: 096917 Take 1 Tablet(s) Oral every day 02/03/20 Active duloxetine 30 mg capsule,delayed release RxNorm: 113989 Take 3 Capsule(s) Oral every day 02/03/20 24 Inactive Medication Administered No Medication Administered data Results Observation Observation Code Item Item Code Result Date Service Location CHEM 14 (METABOLIC PANEL) 96800 Glucose 2345-7 101 mg/dL [facility] [address] [place] [address] CHEM 14 (METABOLIC PANEL) 87018 BUN 3094-0 11 mg/dL [facility] [address] [place] [address] CHEM 14 (METABOLIC PANEL) 27273 Creatinine 2160-0 0.8 mg/dL [facility] [address] [place] [address] CHEM 14 (METABOLIC PANEL) 46858 BUN/Creat Ratio 3097-3 14.1 024 [facility] [address] [place] [address] CHEM 14 (METABOLIC PANEL) 99624 GFR Estimated 36828-4 96 mL/min/1.73 m2 024 [facility] [address] [place] [address] CHEM 14 (METABOLIC PANEL) 95555 Sodium 2951-2 141 mmol/L [facility] [address] [place] [address] CHEM 14 (METABOLIC PANEL) 29118 Potassium 2823-3 3.5 mmol/L 024 [facility] [address] [place] [address] CHEM 14 (METABOLIC PANEL) 06349 Chloride 2075-0 107 mmol/L 024 [facility] [address] [place] [address] CHEM 14 (METABOLIC PANEL) 26684 Total CO2 2028-9 24 mmol/L 024 [facility] [address] [place] [address] CHEM 14 (METABOLIC PANEL) 15410 Anion Gap 1863-0 13.5 mEq/L 024 [facility] [address] [place] [address]8082 CHEM 14 (METABOLIC PANEL) 10931 Calculated Serum Osmolality 75998-4 292 mOsm/kg 024 [facility] [address] [place] [address] 92313 CHEM 14 (METABOLIC PANEL) 04596 Albumin 93559-0 4.0 g/dL 024 [facility] [address] [place] [address] 12050 CHEM 14 (METABOLIC PANEL) 71421 Total Protein 2885-2 7.0 g/dL 024 [facility] [address] [place] [address] 45355 CHEM 14 (METABOLIC PANEL) 02518 Globulin 2336-6 3.0 g/dL 024 [facility] [address] [place] [address] 81265 CHEM 14 (METABOLIC PANEL) 70835 Albumin/Globulin Ratio 1759-0 1.3 024 [facility] [address] [place] [address] 99493 CHEM 14 (METABOLIC PANEL) 25031 ALK PHOS 6768-6 84.00 U/L 024 [facility] [address] [place] [address] 34482 CHEM 14 (METABOLIC PANEL) 14355 SGOT/AST 1920-8 35 U/L 024 [facility] [address] [place] [address] 69748 CHEM 14 (METABOLIC PANEL) 14955 SGPT/ALT 1743-4 54 U/L 024 [facility] [address] [place] [address] 29973 CHEM 14 (METABOLIC PANEL) 67817 Total Bilirubin 1975-2 0.3 mg/dL 024 [facility] [address] [place] [address] 03094 CHEM 14 (METABOLIC PANEL) 52482 Calcium 72549-6 9.5 mg/dL 024 [facility] [address] [place] [address] 81188 CHEM 14 (METABOLIC PANEL) 54893 Corrected Calcium 66486-0 9.7 mg/dL 024 [facility] [address] [place] [address] 53448 FREE T-3 15710 FT3 3051-0 2.21 pg/mL 024 [facility] [address] [place] [address] FREE T-4 77195 FT4 3024-7 1.23 ng/dL 024 [facility] [address] [place] [address] 69593 VITAMIN B-12 14025 Vitamin B12 2132-9 459 pg/mL 02/05 024 [facility] [address] [place] [address] 05400 TSH 18399 TSH 15196-3 0.475 uIU/mL 024 [facility] [address] [place] [address] COMPLETE CBC W/ DIFF WBC 71500 WBC 6690-2 10.5 K/ul 024 [facility] [address] [place] [address] 16706 COMPLETE CBC W/ DIFF WBC 42949 RBC 789-8 4.22 M/uL 024 [facility] [address] [place] [address] 77886 COMPLETE CBC W/ DIFF WBC 63160 Hemoglobin 718-7 12.6 g/dL 024 [facility] [address] [place] [address] 43942 COMPLETE CBC W/ DIFF WBC 09882 Hematocrit 4544-3 38.6 % 024 [facility] [address] [place] [address] 34835 COMPLETE CBC W/ DIFF WBC 74344 MCV 787-2 91.5 fL 024 [facility] [address] [place] [address] 73642 COMPLETE CBC W/ DIFF WBC 72694 MCH 785-6 29.8 pg 024 [facility] [address] [place] [address] 19649 COMPLETE CBC W/ DIFF WBC 01246 MCHC 786-4 32.6 g/dL 024 [facility] [address] [place] [address] 42449 COMPLETE CBC W/ DIFF WBC 04691 RDW 788-0 15.5 % 024 [facility] [address] [place] [address] 03875 COMPLETE CBC W/ DIFF WBC 25334 Platelet Count 777-3 312 K/uL 024 [facility] [address] [place] [address] 88235 COMPLETE CBC W/ DIFF WBC 43571 MPV 17862-7 7.7 fL 024 [facility] [address] [place] [address] 97308 COMPLETE CBC W/ DIFF WBC 50637 Neutrophils % 770-8 68.1 % 024 [facility] [address] [place] [address] 43679 COMPLETE CBC W/ DIFF WBC 17865 Lymphocytes % 736-9 22.5 % 024 [facility] [address] [place] [address] COMPLETE CBC W/ DIFF WBC 06732 Monocytes % 5905-5 8.0 % 024 [facility] [address] [place] [address] COMPLETE CBC W/ DIFF WBC 41716 Eosinophils % 713-8 0.8 % 024 [facility] [address] [place] [address] COMPLETE CBC W/ DIFF WBC 46037 Basophils% 706-2 0.6 % 024 [facility] [address] [place] [address] COMPLETE CBC W/ DIFF WBC 58254 Absolute Neutrophil 751-8 7151 /ul 024 [facility] [address] [place] [address] 13629 COMPLETE CBC W/ DIFF WBC 79144 Absolute Lymphocyte 78872-7 2363 /ul 024 [facility] [address] [place] [address] 71451 COMPLETE CBC W/ DIFF WBC 98513 Absolute Monocyte 742-7 840 /ul 024 [facility] [address] [place] [address] 93331 COMPLETE CBC W/ DIFF WBC 18240 Absolute Eosinophil 711-2 84 /ul 024 [facility] [address] [place] [address] 28717 COMPLETE CBC W/ DIFF WBC 84684 Absolute Basophil 704-7 63 /ul 024 [facility] [address] [place] [address] 55162 Direct LDL 73085 LDL-Direct 37272-0 72 mg/dL 024 [facility] [address] [place] [address] 66332 VITAMIN D 27612 Vitamin D 01710-5 27.4 ng/mL 024 [facility] [address] [place] [address] HDL - CHOL 77760 HDL 2085-9 44 mg/dL 024 [facility] [address] [place] [address] 41448 HDL - CHOL 33619 CHD 69736-1 34 % 024 [facility] [address] [place] [address] TRIGLYCERIDES 30502 Triglycerides 2571-8 124 mg/dL 024 [facility] [address] [place] [address] 64406 TRIGLYCERIDES 94175 VLDL 98379-9 25 mg/dL 024 [facility] [address] [place] [address] 63656 MICROALBUMIN (URINE) 60600 Microalbumin 68039-1 2.4 mg/dL 024 [facility] [address] [place] [address] 25808 MICROALBUMIN (URINE) 55312 Microalbumin/Cre atinine Ratio 57781-5 30 MCG/MGCREAT 024 [facility] [address] [place] [address] MICROALBUMIN (URINE) 53172 Urine Creatinine 2161-8 81.20 mg/dL 024 [facility] [address] [place] [address] 56223 CHOLESTEROL 60940 Cholesterol 2093-3 131 mg/dL 024 [facility] [address] [place] [address] 47007 No Orders UA NoOrdersUA NO ORDERS UA 0.00 08/08 024 [facility] [address] [place] [address] 82618 URINALYSIS 02801 Glucose 2345-7 >1000 mg/dL ++++ mg/dL 024 [facility] [address] [place] [address] 63298 URINALYSIS 89763 Protein Negative mg/dL 024 [facility] [address] [place] [address] 26347 URINALYSIS 68668 Bilirubin Negative mg/dL 024 [facility] [address] [place] [address] 39244 URINALYSIS 05489 Urobilinogen Negative mg/dL 024 [facility] [address] [place] [address] 41108 URINALYSIS 55602 Ph 6.00 024 [facility] [address] [place] [address] 83282 URINALYSIS 27096 Blood Negative mg/dL 024 [facility] [address] [place] [address] 10022 URINALYSIS 35375 Ketones Negative mg/dL 024 [facility] [address] [place] [address] 90285 URINALYSIS 30590 Nitrite Negative 024 [facility] [address] [place] [address] 24394 URINALYSIS 72113 Leukocytes Negative Jae/uL 024 [facility] [address] [place] [address] 64802 URINALYSIS 86104 Clarity Clear 024 [facility] [address] [place] [address] URINALYSIS 21893 Specific [place] 1.024 024 [facility] [address] [place] [address] URINALYSIS 38356 Color Light-Yello w 024 [facility] [address] [place] [address] [id number] IN 4548-4 Glyco HGB A1C 27217-4 7.2 % 024 [facility] [address] [facility] [address] [id number] IN 4548-4 eAG 80675-2 160 mg/dL 024 [facility] [address] [facility] [place] [address] Procedures Procedure Codes Date Most recent A1c = 7.0% and < 8.0% CPT-4: 3051F 03/28/2024 Most recent A1c = 7.0% and < 8.0% CPT-4: 3051F 03/08/2024 MED LIST DOCD IN [facility] CPT-4: 1159F 02/03/2024 RVW MEDS BY RX/DR IN [facility] CPT-4: 1160F 2023 Screening for clinical depre ssion is negative, follow-up plan not required CPT-4: G8510 02/03/2024 [id number] CPT-4: 96492 Unknown Vital Signs Date Vital 02/03/2024 Blood Pressure 1: 125/80 Code: 8480-6 BMI: 36.8 Code: 09639-0 Heart Rate 1: 90 bpm Height: 5'3 Code: 8302-2 Respiratory Rate: 16 bpm SpO2: 96% Temperature: 35.9 (C) / 96.7 (F) Weight: 211 lbs Code: 61199-0 Reason For Visit Reason For Visit Effective Dates Notes new patient welcome visit 02/03/2024 Encounters Encounter Performer Location Location Address Codes Date (44361) Other Reason/Patient not seen Diagnosis: Patient not seen[ICD10: UXZ.01] Marian Solis [place] [facility] [address] [facility] [address] [facility] [address] [place] [address] CPT-4: 99902 03/28/2024 (54776) Other Reason/Patient not seen Diagnosis: Patient not seen[ICD10: UXZ.01] Marian Solis [place] [facility] [address] [place] [address] CPT-4: 07583 03/08/2024 (83155) 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 Visit NURSE RECEPTIONIST - Moderate Level, 60 mins Diagnosis: Primary [...] Diagnosis: Fatigue, unspecified type[ICD10: R53.83] Marian Solis [place] [facility] [address] [place] [address] CPT-4: 31074 02/03/2024 Plan of Care Planned Activity Notes Codes Status Date Appointment: Marian Solis WPtel: [address] [place], [place] [id number] 03/28/2024 Patient Education: Patient Medication Summary Completed 03/28/2024 Appointment: Marian Solis WPtel: [address] [place], [place] [id number] 03/08/2024 Patient Education: Patient Medication Summary [...] of care. 02/03/2024 Appointment: Marian Solis WPtel: [facility] [place], [place] [id number] 02/03/2024 Patient Education: Patient Medication Summary [...]
--- OUTSIDE RECORDS SUMMARY | 2025-05-22 12:10 | XMS_ITS | CCD ---
Author Name Marian Solis NP Address [address] [facility] [address] [place] [address] Phone Organization [facility] Phone Care Team Providers Care Nutrition Consultant Name Role Phone Unavailable Primary Care Provider Unavailabl e Unavailable Chronic Care Management Unavaila ble Summary Purpose DataExchange Insurance Providers Payer name Policy type / Coverage type Covered democrat ID Effective Begin Date Effective End Date [employer] [place] [id number] Unknown Unknown Family history Father Diagnosis Age [...] cessation counseling) 02/03/[address]: [id number] Never drinks alco hol 02/03/2024 Illegal/Recreational drug history Unknown *Has never used illegal/recreational drugs 02/03/2024 Allergies, Adverse Reactions, Alerts Substance Reaction Codes Entered Date Inactivated Date Status * Food Allergy _ Unknown 02/03/2024 No Inactive Date Active Topamax RxNorm: 490826 02/03/2024 No Inactive Da te Active Seasonal [...] 21 mg/24 hr daily transdermal patch RxNorm: 714057 Apply 1 Patch Transdermal 02/03/20 24 025 Inactive valsartan 160 mg tablet RxNorm: 589102 Take 1 Tablet(s) Oral two times a day 02/03/20 Active lithium carbonate 300 mg capsule RxNorm: 200888 TAKE ONE CAPSULE BY MOUTH TWICE DAILY FOR mood 02/03/20 24 Active buspirone 10 mg tablet RxNorm: 334600 Take 2 Tablet(s) Oral three times a day 02/03/20 24 Active amlodipine 5 mg tablet RxNorm: 486604 Take 1 Tablet(s) Oral every evening 02/03/20 24 Active rosuvastatin 20 mg tablet RxNorm: 142509 Take 1 Tablet(s) Oral every day 02/03/20 24 Active fluticasone propionate 50 mcg/actuation nasal spray,suspension ... RxNorm: 8942740 instill 1-2 SPRAYS IN EACH NOSTRIL EVERY DAY NEEDED 02/03/20 24 Active Nyamyc 100,000 unit/gram topical powder RxNorm: 637374 top 02/03/20 24 Active polyethylene glycol 3350 17 gram/dose oral powder RxNorm: 889202 DISSOLVE 17 GRAMS OF POWDER INTO 4 TO 8 OUNCES OF WATER, JUICE, SODA, COFFEE, OR TEA THEN DRINK EVERY DAY do not exceed 17 grams PER day 02/03/20 24 Active fluoxetine 40 mg capsule RxNorm: 924717 TAKE ONE CAPSULE BY MOUTH TWICE DAILY FOR mood 02/03/20 24 Active cholecalciferol (vitamin D3) 50 mcg (2,000 unit) capsule RxNorm: 425338 Take 1 Capsule(s) Oral every day 02/03/20 24 Active tobramycin 1.2 gram solution for injection RxNorm: 233650 inj 02/03/20 24 Active benzonatate 100 mg capsule RxNorm: 720738 TAKE ONE CAPSULE BY MOUTH THREE TIMES DAILY NEEDED FOR cough -SWALLOW WHOLE. DO NOT CRUSH OR CHEW- 02/03/20 24 Active Linzess 72 mcg capsule RxNorm: 9986515 TAKE ONE CAPSULE BY MOUTH EVERY DAY ON AN EMPTY STOMACH AT LEAST 30 MINUTES BEFORE THE FIRST MEAL OF THE DAY 02/03/20 24 Active aripiprazole 10 mg tablet RxNorm: 870862 Take 1 Tablet(s) Oral HS 02/03/20 24 Active Trulicity 1.5 mg/0.5 mL subcutaneous pen injector RxNorm: 5555630 INJECT 1.5 MG (0.5 ML) SUBCUTANEOUSLY ONCE A WEEK 02/03/20 24 Active levothyroxine 75 mcg tablet RxNorm: 573220 Take 1 Tablet(s) Oral every day BEFORE a meal 02/03/20 Active Ozempic 0.25 mg or 0.5 mg (2 mg/3 mL) subcutaneous pen injector ... RxNorm: 5105528 Inject 0.5 Milligram(s) Subcutaneous QW 02/03/20 Active Myrbetriq 25 mg tablet,extended release RxNorm: 9498972 TAKE ONE TABLET BY MOUTH EVERY DAY do not crush, chew, and/or divide take with water 02/03/20 Active bisoprolol fumarate 5 mg tablet RxNorm: 597254 Take 1 Tablet(s) Oral every day 02/03/20 24 Active aspirin 81 mg tablet,delayed release RxNorm: 966675 Take 1 Tablet(s) Oral every day 02/03/20 24 Active solifenacin 5 mg tablet RxNorm: 793543 Take 1 Tablet(s) Oral every day 02/03/20 24 Active metformin 1,000 mg tablet RxNorm: 349298 Take 1 Tablet(s) Oral every morning 02/03/20 Active amantadine HCl 100 mg tablet RxNorm: 747982 oral 02/03/20 24 Active trazodone 150 mg tablet RxNorm: 262244 Take 1 Tablet(s) Oral HS as needed 02/03/20 Active duloxetine 60 mg capsule,delayed release RxNorm: 159434 Take 2 Capsule(s) Oral every day 02/03/20 24 Active baclofen 20 mg tablet RxNorm: 968612 TAKE ONE TABLET BY MOUTH THREE TIMES DAILY MAY CAUSE DROWSINESS 02/03/20 Active valsartan 80 mg tablet RxNorm: 682785 Take 1 Tablet(s) Oral two times a day 02/03/20 24 Active Lybalvi 15 mg-10 mg tablet RxNorm: 8742545 Take 1 Tablet(s) Oral every day 02/03/20 24 Active olanzapine 5 mg tablet RxNorm: 687440 Take 1 Tablet(s) Oral HS 02/03/20 24 Active Anucort-HC 25 mg suppository RxNorm: 1586172 UNWRAP AND INSERT 1 SUPPOSITORY RECTALLY TWICE DAILY FOR 2 WEEKS 02/03/20 24 Active gabapentin 600 mg tablet RxNorm: 287620 TAKE ONE TABLET BY MOUTH EVERY MORNING AND TAKE TWO TABLETS AT BEDTIME MAY CAUSE DROWSINESS 02/03/20 Active doxepin 50 mg capsule RxNorm: 5935133 Take 1 Capsule(s) Oral HS 02/03/20 Active trazodone 100 mg tablet RxNorm: 306930 Take 1 Tablet(s) Oral HS FOR SLEEP 02/03/20 Active ezetimibe 10 mg tablet RxNorm: 193353 Take 1 Tablet(s) Oral every day 02/03/20 Active duloxetine 30 mg capsule,delayed release RxNorm: 144943 Take 3 Capsule(s) Oral every day 02/03/20 24 Inactive Medication Administered No Medication Administered data Results Observation Observation Code Item Item Code Result Date Service Location CHEM 14 (METABOLIC PANEL) 73594 Glucose 2345-7 101 mg/dL [facility] [address] [place] [address] CHEM 14 (METABOLIC PANEL) 93402 BUN 3094-0 11 mg/dL [facility] [address] [place] [address] CHEM 14 (METABOLIC PANEL) 22610 Creatinine 2160-0 0.8 mg/dL [facility] [address] [place] [address] CHEM 14 (METABOLIC PANEL) 04919 BUN/Creat Ratio 3097-3 14.1 024 [facility] [address] [place] [address] CHEM 14 (METABOLIC PANEL) 89288 GFR Estimated 88939-3 96 mL/min/1.73 m2 024 [facility] [address] [place] [address] CHEM 14 (METABOLIC PANEL) 25970 Sodium 2951-2 141 mmol/L [facility] [address] [place] [address] CHEM 14 (METABOLIC PANEL) 50013 Potassium 2823-3 3.5 mmol/L 024 [facility] [address] [place] [address] CHEM 14 (METABOLIC PANEL) 23495 Chloride 2075-0 107 mmol/L 024 [facility] [address] [place] [address] CHEM 14 (METABOLIC PANEL) 65780 Total CO2 2028-9 24 mmol/L 024 [facility] [address] [place] [address] CHEM 14 (METABOLIC PANEL) 84751 Anion Gap 1863-0 13.5 mEq/L 024 [facility] [address] [place] [address] 29356 CHEM 14 (METABOLIC PANEL) 26683 Calculated Serum Osmolality 84235-6 292 mOsm/kg 024 [facility] [address] [place] [address] 37712 CHEM 14 (METABOLIC PANEL) 85465 Albumin 64554-7 4.0 g/dL 024 [facility] [address] [place] [address] 69808 CHEM 14 (METABOLIC PANEL) 65074 Total Protein 2885-2 7.0 g/dL 024 [facility] [address] [place] [address] 30506 CHEM 14 (METABOLIC PANEL) 82069 Globulin 2336-6 3.0 g/dL 024 [facility] [address] [place] [address] 94770 CHEM 14 (METABOLIC PANEL) 10578 Albumin/Globulin Ratio 1759-0 1.3 024 [facility] [address] [place] [address] 55034 CHEM 14 (METABOLIC PANEL) 01852 ALK PHOS 6768-6 84.00 U/L 024 [facility] [address] [place] [address] 55830 CHEM 14 (METABOLIC PANEL) 38841 SGOT/AST 1920-8 35 U/L 024 [facility] [address] [place] [address] 34598 CHEM 14 (METABOLIC PANEL) 05177 SGPT/ALT 1743-4 54 U/L 024 [facility] [address] [place] [address] 62014 CHEM 14 (METABOLIC PANEL) 10903 Total Bilirubin 1975-2 0.3 mg/dL 024 [facility] [address] [place] [address] 71474 CHEM 14 (METABOLIC PANEL) 03179 Calcium 21434-8 9.5 mg/dL 024 [facility] [address] [place] [address] 14124 CHEM 14 (METABOLIC PANEL) 73525 Corrected Calcium 14699-9 9.7 mg/dL 024 [facility] [address] [place] [address] 74601 FREE T-3 09657 FT3 3051-0 2.21 pg/mL 024 [facility] [address] [place] [address] FREE T-4 63993 FT4 3024-7 1.23 ng/dL 024 [facility] [address] [place] [address] 86781 VITAMIN B-12 90005 Vitamin B12 2132-9 459 pg/mL 02/05 024 [facility] [address] [place] [address] 42667 TSH 67604 TSH 06042-1 0.475 uIU/mL 024 [facility] [address] [place] [address] COMPLETE CBC W/ DIFF WBC 38733 WBC 6690-2 10.5 K/ul 024 [facility] [address] [place] [address] 95983 COMPLETE CBC W/ DIFF WBC 30289 RBC 789-8 4.22 M/uL 024 [facility] [address] [place] [address] 11048 COMPLETE CBC W/ DIFF WBC 42681 Hemoglobin 718-7 12.6 g/dL 024 [facility] [address] [place] [address] 50952 COMPLETE CBC W/ DIFF WBC 28849 Hematocrit 4544-3 38.6 % 024 [facility] [address] [place] [address] 88819 COMPLETE CBC W/ DIFF WBC 19146 MCV 787-2 91.5 fL 024 [facility] [address] [place] [address] 28165 COMPLETE CBC W/ DIFF WBC 52198 MCH 785-6 29.8 pg 024 [facility] [address] [place] [address] 08839 COMPLETE CBC W/ DIFF WBC 51204 MCHC 786-4 32.6 g/dL 024 [facility] [address] [place] [address] 43712 COMPLETE CBC W/ DIFF WBC 99270 RDW 788-0 15.5 % 024 [facility] [address] [place] [address] 38014 COMPLETE CBC W/ DIFF WBC 85992 Platelet Count 777-3 312 K/uL 024 [facility] [address] [place] [address] 55268 COMPLETE CBC W/ DIFF WBC 86322 MPV 77082-7 7.7 fL 024 [facility] [address] [place] [address] 92888 COMPLETE CBC W/ DIFF WBC 96969 Neutrophils % 770-8 68.1 % 024 [facility] [address] [place] [address] 33266 COMPLETE CBC W/ DIFF WBC 72722 Lymphocytes % 736-9 22.5 % 024 [facility] [address] [place] [address] COMPLETE CBC W/ DIFF WBC 02631 Monocytes % 5905-5 8.0 % 024 [facility] [address] [place] [address] COMPLETE CBC W/ DIFF WBC 14369 Eosinophils % 713-8 0.8 % 024 [facility] [address] [place] [address] COMPLETE CBC W/ DIFF WBC 47349 Basophils% 706-2 0.6 % 024 [facility] [address] [place] [address] COMPLETE CBC W/ DIFF WBC 24978 Absolute Neutrophil 751-8 7151 /ul 024 [facility] [address] [place] [address] 94534 COMPLETE CBC W/ DIFF WBC 49125 Absolute Lymphocyte 54525-0 2363 /ul 024 [facility] [address] [place] [address] 91959 COMPLETE CBC W/ DIFF WBC 08665 Absolute Monocyte 742-7 840 /ul 024 [facility] [address] [place] [address] 34235 COMPLETE CBC W/ DIFF WBC 40513 Absolute Eosinophil 711-2 84 /ul 024 [facility] [address] [place] [address] 99009 COMPLETE CBC W/ DIFF WBC 71435 Absolute Basophil 704-7 63 /ul 024 [facility] [address] [place] [address] 86211 Direct LDL 48748 LDL-Direct 39985-4 72 mg/dL 024 [facility] [address] [place] [address] 18633 VITAMIN D 67286 Vitamin D 17081-0 27.4 ng/mL 024 [facility] [address] [place] [address] HDL - CHOL 82474 HDL 2085-9 44 mg/dL 024 [facility] [address] [place] [address] 99673 HDL - CHOL 75170 CHD 98424-9 34 % 024 [facility] [address] [place] [address] TRIGLYCERIDES 74069 Triglycerides 2571-8 124 mg/dL 024 [facility] [address] [place] [address] 72671 TRIGLYCERIDES 72567 VLDL 68547-4 25 mg/dL 0[address] [facility] [address] [place] [address] 14282 MICROALBUMIN (URINE) 42232 Microalbumin 36376-7 2.4 mg/dL 024 [facility] [address] [place] [address] 57934 MICROALBUMIN (URINE) 64390 Microalbumin/Cre atinine Ratio 91210-4 30 MCG/MGCREAT 024 [facility] [address] [place] [address] MICROALBUMIN (URINE) 81027 Urine Creatinine 2161-8 81.20 mg/dL 024 [facility] [address] [place] [address] 25686 CHOLESTEROL 63054 Cholesterol 2093-3 131 mg/dL 024 [facility] [address] [place] [address] 22960 No Orders UA NoOrdersUA NO ORDERS UA 0.00 08/08 024 [facility] [address] [place] [address] 68741 URINALYSIS 44734 Glucose 2345-7 >1000 mg/dL ++++ mg/dL 024 [facility] [address] [place] [address] 82205 URINALYSIS 81689 Protein Negative mg/dL 024 [facility] [address] [place] [address] 30169 URINALYSIS 44276 Bilirubin Negative mg/dL 024 [facility] [address] [place] [address] 86577 URINALYSIS 63601 Urobilinogen Negative mg/dL 024 [facility] [address] [place] [address] 73547 URINALYSIS 96352 Ph 6.00 024 [facility] [address] [place] [address] 90296 URINALYSIS 44061 Blood Negative mg/dL 024 [facility] [address] [place] [address] 88931 URINALYSIS 46354 Ketones Negative mg/dL 024 [facility] [address] [place] [address] 08412 URINALYSIS 17912 Nitrite Negative 024 [facility] [address] [place] [address] 59205 URINALYSIS 98273 Leukocytes Negative Jae/uL 024 [facility] [address] [place] [address] 68023 URINALYSIS 68813 Clarity Clear 024 [facility] [address] [place] [address] URINALYSIS 00638 Specific [place] 1.024 024 [facility] [address] [place] [address] URINALYSIS 19877 Color Light-Yello w 024 [facility] [address] [place] [address] [id number] IN 4548-4 Glyco HGB A1C 98159-1 7.2 % 024 [facility] [address] [facility] [place] [address] [id number] IN 4548-4 eAG 46614-1 160 mg/dL 024 [facility] [address] [facility] [place] [address] Procedures Procedure Codes Date Most recent A1c = 7.0% and < 8.0% CPT-4: 3051F 03/28/2024 Most recent A1c = 7.0% and < 8.0% CPT-4: 3051F 03/08/2024 MED LIST DOCD IN [facility] CPT-4: 1159F 02/03/2024 RVW MEDS BY RX/DR IN [facility] CPT-4: 1160F 2023 Screening for clinical depre ssion is negative, follow-up plan not required CPT-4: G8510 02/03/2024 [id number] CPT-4: 26358 Unknown Vital Signs Date Vital 02/03/2024 Blood Pressure 1: 125/80 Code: 8480-6 BMI: 36.8 Code: 17209-6 Heart Rate 1: 90 bpm Height: 5'3 Code: 8302-2 Respiratory Rate: 16 bpm SpO2: 96% Temperature: 35.9 (C) / 96.7 (F) Weight: 211 lbs Code: 29413-5 Reason For Visit Reason For Visit Effective Dates Notes new patient welcome visit 02/03/2024 Encounters Encounter Performer Location Location Address Codes Date (47446) Other Reason/Patient not seen Diagnosis: Patient not seen[ICD10: UXZ.01] Marian Solis [place] [facility] [address] [facility] [address] [place] [address] CPT-4: 75893 03/28/2024 (20302) Other Reason/Patient not seen Diagnosis: Patient not seen[ICD10: UXZ.01] Marian Solis [place] [facility] [address] [place] [address] CPT-4: 44290 03/08/2024 (08091) 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 Visit FILBERT GROWER - Moderate Level, 60 mins Diagnosis: Primary [...] Diagnosis: Fatigue, unspecified type[ICD10: R53.83] Marian Solis [place] [facility] [address] [place] [address] CPT-4: 43944 02/03/2024 Plan of Care Planned Activity Notes Codes Status Date Appointment: Marian Solis WPtel: [address] [place], [place] [id number] 03/28/2024 Patient Education: Patient Medication Summary Completed 03/28/2024 Appointment: Marian Solis WPtel: [address] [place], [place] [id number] 03/08/2024 Patient Education: Patient Medication Summary [...] of care. 02/03/2024 Appointment: Marian Solis WPtel: [facility] [place], [place] [id number] 02/03/2024 Patient Education: Patient Medication Summary [...]
--- OUTSIDE RECORDS SUMMARY | 2025-05-22 12:11 | XMS_ITS | Clinical Summary ---
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 Gender Identity Not on file Sexual Orientation [...] Care Team (Late st Contact Info) Description 06/26/2025 11:45 AM EST Office Visit [facility] Neurology - [facility] [address] [facility] [address] [place] [phone] Madeleine Khan, CONTACT FINGER ASSEMBLER [address] [facility] [address] [place] [address] Health Maintenance Due Date Last Done Comments Depression Screening (12+) 1993 HIV Screening 02/08/1996 Hepatitis C Screening 1999 DTAP/TDAP/TD VACCINES (1 - Tdap) 02/08/2000 Lipid Panel 2001 Pap Smear 2002 Pneumococcal Vaccine: 0-49 Y ears (2 of 2 - PCV) 03/18/2020 03/18/2019 Breast Cancer Screening 2021 Medicare IPPE (Welcome to Medicare) [id number] 09/18/2024 COVID-19 VACCINE (6 - 2024-2 6 season) 2025 03/29/2022, 09/30/2020, 09/19/2020, Additional history exists Influenza Vaccine (#1) 2025 Tobacco Cessation Counseling and Screening (12+) 09/07/2025 09/07/2024 Insurance [facility] MEDICARE ADVANTAGE Care Teams Utility Bill Complaints Investigator Relationship Specialty Start Date End Date Gregory Malave DO [address] [place] [address] PCP - General Internal Medicine 08/10/24 Mustapha Hernandez PA-C [address] [place] [address] Physician Duplex Trimmer Cardiology 07/04/24
--- OUTSIDE RECORDS SUMMARY | 2025-05-22 12:11 | XMS_ITS | Referral Summary ---
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 Gender Identity Not on file Sexual Orientation [...] Description 06/26/2025 11:45 AM EST Office Visit [facility] Neurology - [facility] [address] [place] [address] [address] [place] [address] Madeleine Khan APRN [address] [facility] [address] [place] [phone] Insurance Care Teams Juice Bar Team Member Relationship Specialty Start Date End Date Gregory Malave DO [address] [place] [phone] PCP - General Internal Medicine 08/10/24 Mustapha Hernandez PA-C [address] [place] [phone] Physician Yoker Cardiology 07/04/24
== END 2025-05-22 23:59 | disposition home or self-care (01) ==
LOC: RAD 12:07
PROVIDERS: PCP Family Medicine; Visit Provider Student in an Organized Health Care Education/Training Program
DX: R91.8 Other nonspecific abnormal finding of lung field (principal); R05.9 Cough, unspecified; R09.89 Other specified symptoms and signs involving the circulatory and respiratory systems
CPT/HCPCS: 71046

== ENCOUNTER 2025-06-07 09:17 | Day surgery (SDC) | payer MEDICARE, SELFPAY ==
[2025-06-05 15:59] VITALS: BMI 36.5
--- NOTE | 2025-06-07 09:47 | EXP.GEN.HP ---
HPI HPI HPI: Patient presents for colonoscopy. She is a 45-year-old female originally referred by Dr. Zhang for probable hemorrhoids and seen in the office on 04/18/2025. She states that she has a bright red blood per rectum with bowel movements. She has some pressure and discomfort with bowel movements. There was concern for possible internal hemorrhoids. She states that she has had symptoms for at least 3 years. Patient had seen Dr. Prescott on 05/08/2024 with complaints of of alternating constipation and diarrhea. She has previously been on Linzess. At that time she was having frequent bright red rectal bleeding which was felt to be possibly internal hemorrhoids. At that time the patient had never had prior colonoscopy. Plans were to proceed with colonoscopy. Patient states that this was unable to be done due to problems with clearance. When I saw her in the office on 04/18/2025 she had some moderate external anal skin tags but no definite hemorrhoids. Digital examination revealed some tenderness but no palpable mass or definite fissure. I felt it was unclear as to the etiology of the patient's symptoms and recommended colonoscopy with possible hemorrhoid banding if focal internal hemorrhoids. [facility] Disclaimer: The information contained in this section may have been updated after the patient was seen, as this information can be updated by other users. Medical History Rectal bleeding Encounter for loop recorder at end of battery life Mixed incontinence Spinal cord stimulator status Pre-op exam Mixed hyperlipidemia Dizziness SOB (shortness of breath) Diabetes Peripheral neuropathy GERD (gastroesophageal reflux disease) Movement disorder Iron deficiency PAD (peripheral artery disease) JOSE LUIS (obstructive sleep apnea) Daytime somnolence Postoperative edema Edema of both legs Aortic valve insufficiency Edema Type 2 diabetes mellitus History of CVA (cerebrovascular accident) Hyperlipidemia Hypertension Bipolar disorder Surgical History History of back surgery History of cholecystectomy History of injection of tarsal tunnel History of section History of arthroscopy of left knee History of tubal ligation Family History Father Stroke Heart disease Mother Breast cancer Grandmother Breast cancer Other Family history of depression Family history of diabetes mellitus Family history of hypertension Social History (Updated 06/07/25 @ 10:16 by Norma Washington RN) Smoking Status: Current every day smoker alcohol intake: never substance use type: denies use current occupational status: disabled Travel in the last 8 weeks?: None household members: significant other housing: house lives independently: No marital status: single number of children: 3 caffeine: Yes Have you lived/traveled outside [place] in past 30 days?: No Contact w/someone who lives/traveled outside [place] past 30 days?: No Exposure to someone with infectious disease in past 14 days?: No Do you have a fever (greater than 100.4 F or 38 C)?: No Have you tested positive for COVID-19?: No Exposed to someone with COVID-19 in past 14 days?: No Do you have a sore throat?: No Do you have a cough?: No Do you have any weakness?: No Are you experiencing any nausea/vomitting?: No Do you have any diarrhea?: No Are you experiencing any unusual bleeding?: No Do you have any muscle aches/pain?: No Do you have any abdominal pain?: No Are you experiencing loss of taste or smell?: No Other Medical History Have you received the Flu Vaccine for this season: No Have you received the Pneumonia Vaccine: No Meds Home Medications and Allergies Home Medications ?Medication ?Instructions ?Recorded ?Confirmed ?Type levothyroxine 75 mcg tablet 75 mcg PO DAILY hypothyroidism 10/07/21 06/07/25 History (Synthroid) blood sugar diagnostic (Accu-Chek #10 ea 08/25/23 06/05/25 History Guide test strips) lancets (Accu-Chek Softclix #100 ea 08/25/23 06/05/25 History Lancets) empagliflozin 25 mg tablet 25 mg PO DAILY 03/08/24 06/07/25 History (Jardiance) lancets 30 gauge (OneTouch Delica #100 ea 07/04/24 06/05/25 History Plus Lancet) rosuvastatin 20 mg tablet (Crestor) 20 mg PO ONCE #90 tabs 10/09/24 06/07/25 Rx clopidogrel 75 mg tablet See Rx Instructions .Route 12/10/24 06/07/25 Rx .COMPLEX #90 tabs verapamil 360 mg 24 hr 360 mg PO DAILY #90 caps 02/05/25 06/07/25 Rx capsule,extended release aspirin 81 mg tablet,delayed 81 mg PO . 04/18/25 06/07/25 History release sodium,potassium,mag sulfates 17.5 See Rx Instructions PO .COMPLEX 04/18/25 06/05/25 Rx gram-3.13 gram-1.6 gram oral soln #354 mL (Suprep Bowel Prep Kit) duloxetine 60 mg capsule,delayed See Rx Instructions .Route 05/03/25 06/07/25 Rx release .COMPLEX #60 caps mirabegron 50 mg tablet,extended See Rx Instructions .Route 05/03/25 06/07/25 Rx release 24 hr (Myrbetriq) .COMPLEX #90 tabs omeprazole 40 mg capsule,delayed See Rx Instructions .Route 05/03/25 06/07/25 Rx release .COMPLEX #90 caps semaglutide 2 mg/dose (8 mg/3 mL) 2 mg (0.75 mL) SQ Q7D #3 mL 05/08/25 06/07/25 Rx subcutaneous pen injector (Ozempic) aripiprazole 30 mg tablet 15 mg PO BID 05/15/25 06/07/25 History bisoprolol fumarate 5 mg tablet 5 mg PO DAILY #30 tabs 05/15/25 06/07/25 Rx eszopiclone 1 mg tablet 1 mg PO DAILY PRN insomnia 05/15/25 06/07/25 History albuterol sulfate 90 mcg/actuation 1 inh inhalation QID PRN shortness 05/22/25 06/07/25 Rx aerosol inhaler (Ventolin HFA) of breath or wheezing #6.7 grams gabapentin 800 mg tablet 800 mg PO TID #90 tabs 06/03/25 06/07/25 Rx tizanidine 2 mg tablet 2 mg PO TID PRN for muscle spasm 06/03/25 06/07/25 Rx #180 tabs ezetimibe 10 mg tablet (Zetia) 10 mg PO DAILY #90 tabs 06/04/25 06/07/25 Rx gabapentin 400 mg capsule 400 mg PO TID #90 caps 06/04/25 06/07/25 Rx linaclotide 145 mcg capsule 145 mcg PO DAILY #30 caps 06/04/25 06/07/25 Rx (Linzess) metformin 1,000 mg tablet 1,000 mg PO DAILY dm #90 tabs 06/04/25 06/07/25 Rx New Prescriptions to Start Prescriptions: Allergies Allergy/AdvReac Type Severity Reaction Status Date / Time topiramate (From Topamax) Allergy Shakiness Verified 06/07/25 10:01 Exam Data for Last 24 hours I & O for Last 24 hours: Intake & Output 06/04/25 06/05/25 06/06/25 06/07/25 11:59 11:59 11:59 11:59 Weight 206 lb Constitutional Constitutional: no acute distress *Routine HEENT Exam Head: Present normocephalic Eye: Present EOMI and PERRL ENT: Present mucous membranes moist *Routine Neck Exam Neck: Present supple; Absent lymphadenopathy *Routine Respiratory Exam Respiratory: Present CTA bilaterally *Routine Cardiovascular Exam Cardiovascular: Present RRR *Routine Abdominal Exam Abdominal: Present soft and normoactive bowel sounds; Absent tenderness *Routine Rectal Exam Rectal:: deferred *Routine Genitalia Exam Genitalia:: deferred *Routine Extremities Exam Extremities: Absent cyanosis, clubbing or edema *Routine Skin Exam Skin: Present warm; Absent rash *Routine Neurological Exam Neurological: Present alert and oriented X3 Assessment and Plan *Assessment and plan (1) Rectal bleeding: Status: Acute Category: Medical Code(s): K62.5 - Hemorrhage of anus and rectum Plan Plan to proceed with colonoscopy to assess symptoms of painful rectal bleeding with bowel movements and possible hemorrhoid banding if indicated.
[2025-06-07 09:54] VITALS: BP 113/81; PULSE 98; RESP 18; TEMP 36.1; O2SAT 94
[2025-06-07] MEDS: LACTATED RINGERS 1000ML 1,000 ML 50 ML IV (10:16)
[2025-06-07 10:17] LABS: POC Glucose,Bedside 137 gm/dL (70-110)
[2025-06-07 10:20] LABS: Urine Pregnancy, HCG Qual. Negative (Negative)
--- NOTE | 2025-06-07 10:28 | P.PNANES_ITS ---
[facility] Disclaimer: The information contained in this section may have been updated after the patient was seen, as this information can be updated by other users. Medical History Rectal bleeding Encounter for loop recorder at end of battery life Mixed incontinence Spinal cord stimulator status Pre-op exam Mixed hyperlipidemia Dizziness SOB (shortness of breath) Diabetes Peripheral neuropathy GERD (gastroesophageal reflux disease) Movement disorder Iron deficiency PAD (peripheral artery disease) JOSE LUIS (obstructive sleep apnea) Daytime somnolence Postoperative edema Edema of both legs Aortic valve insufficiency Edema Type 2 diabetes mellitus History of CVA (cerebrovascular accident) Hyperlipidemia Hypertension Bipolar disorder Surgical History History of back surgery History of cholecystectomy History of injection of tarsal tunnel History of section History of arthroscopy of left knee History of tubal ligation Family History Father Stroke Heart disease Mother Breast cancer Grandmother Breast cancer Other Family history of depression Family history of diabetes mellitus Family history of hypertension Social History (Updated 06/07/25 @ 10:16 by Norma Washington, RN) Smoking Status: Current every day smoker alcohol intake: never substance use type: denies use current occupational status: disabled Travel in the last 8 weeks?: None household members: significant other housing: house lives independently: No marital status: single number of children: 3 caffeine: Yes Have you lived/traveled outside [place] in past 30 days?: No Contact w/someone who lives/traveled outside [place] past 30 days?: No Exposure to someone with infectious disease in past 14 days?: No Do you have a fever (greater than 100.4 F or 38 C)?: No Have you tested positive for COVID-19?: No Exposed to someone with COVID-19 in past 14 days?: No Do you have a sore throat?: No Do you have a cough?: No Do you have any weakness?: No Are you experiencing any nausea/vomitting?: No Do you have any diarrhea?: No Are you experiencing any unusual bleeding?: No Do you have any muscle aches/pain?: No Do you have any abdominal pain?: No Are you experiencing loss of taste or smell?: No [facility] Anesthesia Checklist Patient Identification Patient Identification: Arm Band Structural Data Admitted From: Home Planned Operative Procedure/s: Colonoscopy Consent for Planned Operative Procedure(s) Verified: Yes Verified Documents: Surgical Consent and History and Physical NPO Status Verified Time NPO: 00:00 Additional verifications Anesthesia Reactions: No Hx Blood Transfusions: No Blood Transfusion Reaction: No Airway Assessment Mallampati Score:: Class II C-Spine Mobility Assessed: Yes TMJ Mobility Assessed: Yes Dentition: Good Dentition Neurological Assessment Level of Consciousness: Awake, Alert and Appropriate Anesthesia Plan Anesthesia Risk discussed: Yes Anesthesia Plan: Verified ASA Class: III Anesthesia Type: MAC
[2025-06-07 11:21] VITALS: BP 130/82; PULSE 97; RESP 20; TEMP 36.3; O2SAT 93
--- NOTE | 2025-06-07 11:23 | HMH.SCOPE ---
Procedure: Date: 06/07/25 Patient Date of :: 1980 Procedure Performed:: Total colonoscopy to cecum with polypectomy using snare and biopsy forceps Indications:: Patient presents for colonoscopy. She is a 45-year-old female originally referred by Dr. Zhang for probable hemorrhoids and seen in the office on 04/18/2025. She states that she has a bright red blood per rectum with bowel movements. She has some pressure and discomfort with bowel movements. There was concern for possible internal hemorrhoids. She states that she has had symptoms for at least 3 years. Patient had seen Dr. Prescott on 05/08/2024 with complaints of of alternating constipation and diarrhea. She has previously been on Linzess. At that time she was having frequent bright red rectal bleeding which was felt to be possibly internal hemorrhoids. At that time the patient had never had prior colonoscopy. Plans were to proceed with colonoscopy. Patient states that this was unable to be done due to problems with clearance. When I saw her in the office on 04/18/2025 she had some moderate external anal skin tags but no definite hemorrhoids. Digital examination revealed some tenderness but no palpable mass or definite fissure. I felt it was unclear as to the etiology of the patient's symptoms and recommended colonoscopy with possible hemorrhoid banding if focal internal hemorrhoids. . Performing Provider:: Jim Astorga MD Referring Provider:: Tello Zhang MD Sedation:: MAC sedation Procedure:: Patient history was obtained and appropriate physical examination was performed. Patient's medications and allergies were reviewed. Informed consent was obtained after explaining the benefits, alternatives, and risks of the procedure including, but not limited to, bleeding, perforation, missed lesions, and adverse reaction to anesthesia medications. Patient was transported to endoscopy procedure room. Patient was connected to monitoring devices. Throughout the procedure the patient's blood pressure, pulse, and oxygen saturations were monitored continuously. Patient identification and planned procedure were verified by the staff. Patient was positioned in lateral decubitus position. Digital anorectal exam was performed. Variable stiffness Olympus colonoscope was inserted and advanced under direct visualization to the cecum. Adequacy of the colonic preparation was noted. The colonoscope was then slowly withdrawn while carefully examining the color, texture, anatomy, and integrity of the mucosoa circumferentially. Within the rectum retroflexion was performed. Colonoscope was then withdrawn. Impression: Advancement of the colonoscope into the right colon was rather difficult due to profound redundancy and floppiness of the sigmoid colon. This required some abdominal pressure and temporarily having patient placed in a supine position. Ultimately it was advanced to the cecum. I was unable to be advanced to the terminal ileum. Colonoscope was slowly withdrawn. In the sigmoid colon there was a sessile adenomatous appearing polyp removed with cold snare. Distal to this there was a second sigmoid adenomatous appearing polyp removed with cold snare. There were some rare sigmoid diverticuli. Within the rectum there was a possible sessile polyp removed with biopsy forceps. Please note that upon insertion and withdrawal retroflexion was performed within the rectum with careful inspection for internal hemorrhoids. She had minimal internal hemorrhoids which were somewhat circumferential with some minimal excoriation. No clear single area amenable to banding at this time. Tiny internal anal papilla. There were noted to be external skin tags consistent with probable prior external hemorrhoid congestion but no evidence of any external hemorrhoids at this time. . Findings:: Anal skin tags Polyps as noted Redundancy of sigmoid colon Rare diverticulosis Minimal internal hemorrhoid excoriation circumferentially . Recommendations:: Source of the rectal bleeding likely internal hemorrhoid irritation. This does not appear to be amenable to banding and definitely not hemorrhoidectomy. Regulation of bowel function would likely help alleviate this with some fiber supplementation. I will give her prescription for Anusol HC suppositorie. Repeat colonoscopy pending pathology. Complications:: None immediately apparent Estimated blood obtained (mL): 1 Colonoscopy Component Colonoscopy Component Was a colonoscopy performed during today's procedure?: Yes Recommended follow up colonoscopy of at least 10 years?: No If no, follow up colonoscopy recommended in ___ years?: See above Reason for not recommending >/= 10 yr follow-up interval?: See above
[2025-06-07 11:31] VITALS: BP 131/84; PULSE 90; O2SAT 96
[2025-06-07 11:41] VITALS: BP 125/84; PULSE 89; O2SAT 96
[2025-06-07 11:51] VITALS: BP 133/84; PULSE 85; O2SAT 97
== END 2025-06-07 11:51 | disposition home or self-care (01) ==
PROVIDERS: PCP Family Medicine; Visit Provider Surgery
PROC: 0DJD8ZZ Inspection of Lower Intestinal Tract, Via Natural or Artificial Opening Endoscopic (ICD-10-PCS; principal; 2025-06-07 10:30)
DX: K62.5 Hemorrhage of anus and rectum (principal); D12.5 Benign neoplasm of sigmoid colon; K62.1 Rectal polyp; Q43.8 Other specified congenital malformations of intestine; K64.4 Residual hemorrhoidal skin tags; K64.8 Other hemorrhoids; F17.200 Nicotine dependence, unspecified, uncomplicated; Z88.8 Allergy status to other drugs, medicaments and biological substances; E03.9 Hypothyroidism, unspecified; E11.42 Type 2 diabetes mellitus with diabetic polyneuropathy; K21.9 Gastro-esophageal reflux disease without esophagitis; E78.2 Mixed hyperlipidemia; E11.51 Type 2 diabetes mellitus with diabetic peripheral angiopathy without gangrene; Z79.02 Long term (current) use of antithrombotics/antiplatelets; Z79.82 Long term (current) use of aspirin; Z79.84 Long term (current) use of oral hypoglycemic drugs; Z79.85 Long-term (current) use of injectable non-insulin antidiabetic drugs; Z79.899 Other long term (current) drug therapy; Z86.73 Personal history of transient ischemic attack (TIA), and cerebral infarction without residual deficits
CPT/HCPCS: 45380; 45385; 81025; 82962; 88305; J2003; J2704; J7120